=== PATIENT | male | born 1955 | race Caucasian/White ===

== ENCOUNTER 2022-04-04 11:58 | Outpatient (CLI) | payer MEDICARE, OTHER, SELFPAY ==
[2022-04-04 13:32] LABS: Albumin* 4.6 g/dL (3.3-5.0); Chloride* 104 mmol/L (96-114)
[2022-04-04 13:33] LABS: Potassium* 5.4 mmol/L (3.6-5.1); Sodium* 141 mmol/L (135-149)
[2022-04-04 13:35] LABS: Aspartate Amino Transferase* 29 U/L (12-35); Bilirubin Total* 0.8 mg/dL (0.1-1.5); Carbon Dioxide* 32 mmol/L (20-32); Cholesterol* 283 mg/dL (90-199); Creatinine* 1.6 mg/dL (0.5-1.5); Estimated Glomerular Filt Rate 47 ml/min; Total Protein* 7.2 g/dL (6.0-8.3)
[2022-04-04 13:36] LABS: Alanine Aminotransferase* 27 U/L (4-50); Alkaline Phosphatase* 61 U/L (40-150); Blood Urea Nitrogen* 16 mg/dL (7-30); Calcium* 9.4 mg/dL (8.4-10.6); Glucose* 82 mg/dL (60-115); HDL Cholesterol* 39 mg/dL (>=40); LDL Cholesterol Calculated 188 mg/dL (<100); Triglycerides* 281 mg/dL (40-149)
[2022-04-04 14:03] LABS: PSA Screen* 2.78 ng/mL (0.10-4.00)
== END 2022-04-04 11:59 | disposition home or self-care (01) ==
LOC: NFLDREF 11:58
PROVIDERS: PCP Family Medicine; Visit Provider Family Medicine
DX: E78.5 Hyperlipidemia, unspecified (principal); Z12.5 Encounter for screening for malignant neoplasm of prostate
CPT/HCPCS: 80053; 80061; 84153

== ENCOUNTER 2023-02-17 08:55 | Outpatient (CLI) | payer MEDICARE, OTHER, SELFPAY | END 2023-02-17 08:56 | disposition home or self-care (01) | LOC: NFLDREF 08:59 | PROVIDERS: PCP Family Medicine; Visit Provider Family Medicine | DX: Z01.818 Encounter for other preprocedural examination (principal); I10 Essential (primary) hypertension; E78.5 Hyperlipidemia, unspecified; E66.9 Obesity, unspecified; E29.1 Testicular hypofunction; Z12.5 Encounter for screening for malignant neoplasm of prostate | CPT/HCPCS: 80053; 80061; 84153; 84403 ==

== ENCOUNTER 2023-05-13 10:53 | Outpatient (CLI) | payer MEDICARE, OTHER, SELFPAY | END 2023-05-13 10:54 | disposition home or self-care (01) | LOC: NFLDREF 10:54 | PROVIDERS: PCP Family Medicine; Visit Provider Family Medicine | DX: I10 Essential (primary) hypertension (principal) | CPT/HCPCS: 80048 ==

== ENCOUNTER 2023-07-09 09:27 | Outpatient (CLI) | payer MEDICARE, OTHER, SELFPAY | END 2023-07-09 09:28 | disposition home or self-care (01) | LOC: NFLDREF 07-21 19:57 | PROVIDERS: PCP Family Medicine; Referring Provider Family Medicine; Visit Provider Family Medicine | DX: I10 Essential (primary) hypertension (principal) | CPT/HCPCS: 80048 ==

== ENCOUNTER 2023-07-22 23:22 | Emergency (ER) | payer MEDICARE, OTHER, SELFPAY ==
[2023-07-22 23:31] VITALS: BP 160/93; PULSE 63; RESP 18; TEMP 36.6; O2SAT 98; BMI 35.0
--- NOTE | 2023-07-22 23:49 | ED.GENADULT ---
HPI - General Adult General Chief complaint: Anxiety Stated complaint: anxiety attack Time Seen by Provider: 07/22/23 23:49 History of Present Illness HPI narrative: pt states weaned off paroxetine for 2 months, ended may. states used to do great on that but stopped r/t ED. states ED improved but anxiety came back. PCP gave 12 pills of - what he thinks is- lorazepam but that didnt help, pt seen Urgent care today that gave rx for propranolol 10mg, pt states it helped very short term and now he is struggling to sleep. next appointment is next but couldnt wait that long. pt is on doxycycline for sinus infx. 68-year-old man presenting to the emergency department with concern of inability sleep. Underlying history of anxiety and had managed to wean himself off of paroxetine. Describes a long taper with liquid medication is was unable to stop abruptly. Reason for discontinuation was ED. anxiety unfortunately has come back. He he had received lorazepam from primary care and was seen in urgent care today given propranolol but does not sound to have tolerated that very well; thought it briefly helpful but then became rather woozy. He is now at this time of night desperate for sleep. Thoughts just get to tumbling, escalating. Was also given doxycycline for some congestion. Sounds like there was concern of sinus issues. He describes feelings of mucus in his throat that he gets desperate to clear. Some pressure in his upper head but no actual pain. He just feels like he is going out of his skin with anxiety. Has tried to stay active. Has been putting in long walks. 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 He does recall a history of Xanax being helpful for this anxiety. He acknowledges that these are medications that can be habit-forming. Prescriptions typically lasted him some time he says and describes taking them less than prescribed. Does have a history of sleep apnea and uses CPAP. Related Data Home Medications Medication Instructions Recorded Confirmed pentoxifylline 400 mg 400 mg PO BID 04/16/22 07/22/23 tablet,extended release testosterone enanthate 100 mg/0.5 100 mg subcut QWEEK 08/06/22 07/22/23 mL subcutaneous auto-injector (Xyosted) balance of nature PO QDAY 04/21/23 07/22/23 oxygen-air delivery systems 04/21/23 07/22/23 Previous Rx's Medication Instructions Recorded famotidine 20 mg tablet 20 mg PO BID #180 tabs 04/16/22 bupropion HCl 300 mg 24 hr tablet, 300 mg PO DAILY #90 tabs 04/21/23 extended release lisinopril 10 mg tablet 10 mg PO QDAY #90 tabs 04/21/23 chlorthalidone 25 mg tablet 25 mg PO QDAY #90 tabs 06/17/23 doxycycline hyclate 100 mg tablet 100 mg PO BID 7 days #14 tabs 07/22/23 propranolol 10 mg tablet 10 mg PO BID #10 tabs 07/22/23 lorazepam 1 mg tablet 1 mg PO BID PRN anxiety #10 tabs 07/23/23 Allergies Allergy/AdvReac Type Severity Reaction Status Date / Time penicillin V Allergy Intermediate swelling Verified 07/22/23 11:46 in throat and face Review of Systems Status of ROS: Reports: 6 or more systems reviewed and unremarkable except as noted in History and below PFSH PFS Surgical History (Updated 04/14/22 @ 16:02 by Gely Menchaca) Status post total right knee replacement ?Z96.651 - Presence of right artificial knee joint (ICD-10) Social History What is your current living situation?: I presently have a place to live Problems where you live: no known problems In the past 12 months, utilities in danger of being shut off: no In past 12 months, lack of transportation kept you from medical appts, meetings, work, or getting things needed for daily living: no In the past 12 mos, have been you worried that your food would run out before you had money to buy more?: never true In the past 12 mos, the food you bought just didn't last and you didn't have money to buy more?: never true Smoking Status: Never smoker How often do you have a drink containing alcohol: never AUDIT-C Alcohol total score: 0 Non-prescribed substance use: denies use How often does anyone, including family, friends and others, physically hurt you: never How often does anyone, including family, friends and others, insult or talk down to you: never How often does anyone, including family, friends and others, threaten you with harm: never How often does anyone, including family, friends and others, scream or curse at you: never Little interest or pleasure in doing things: not at all Feeling down, depressed, or hopeless: not at all Exam Narrative: Exam Narrative: I find him seated on the edge of the bed. He has been feeling claustrophobic he reports. The door to the exam room has been left open. Clearly stressed, animated. Otherwise pacing. Sounds maybe a little congested. No facial swelling erythema or tenderness. Lungs are clear. Heart is in a regular rate and rhythm. Oropharynx is thick posteriorly. Mild erythema. No cervical lymphadenopathy. Const: Vital Signs, click to edit/add: Vital Signs - 24 hr 07/22/23 23:31 Temperature 97.9 F Pulse Rate [Pulse Oximeter] 63 Respiratory Rate 18 Blood Pressure [Ri ght Upper Arm] 160/93 H Pulse Oximetry 98 Oxygen Delivery Me thod Room Air Documenting provider has reviewed patient's vital signs: yes Course Vital Signs Vital signs: Initial Vital Signs Temperature 97.9 F 07/22/23 23:31 Temperature Source Temporal Artery Scan 07/22/23 23:31 Pulse Rate 63 07/22/23 23:31 Respiratory Rate 18 07/22/23 23:31 Blood Pressure 160/93 H 07/22/23 23:31 Blood Pressure Mean 115 H 07/22/23 23:31 Blood Pressure Position Sitting 07/22/23 23:31 Pulse Oximetry 98 07/22/23 23:31 Oxygen Delivery Method Room Air 07/22/23 23:31 Vital Signs Temperature 97.9 F 07/22/23 23:31 Pulse Rate 63 07/22/23 23:31 Respiratory Rate 18 07/22/23 23:31 Blood Pressure 160/93 H 07/22/23 23:31 Pulse Oximetry 98 07/22/23 23:31 Oxygen Delivery Method Room Air 07/22/23 23:31 Temperature 97.9 F 07/22/23 23:31 Pulse Rate 63 07/22/23 23:31 Respiratory Rate 18 07/22/23 23:31 Blood Pressure 160/93 H 07/22/23 23:31 Pulse Oximetry 98 07/22/23 23:31 Oxygen Delivery Method Room Air 07/22/23 23:31 Medications Administered Medications: Discontinued Medications Generic Name Dose Route Start Last Admin Trade Name Freq PRN Reason Stop Dose Admin Olanzapine 20 mg 07/23/23 00:14 07/23/23 00:19 Olanzapine 5 Mg Tab.Rapdis PO 20 mg ONCE PRN Administration Anxiety Medical Decision Making MDM Narrative Medical decision making narrative: Clearly anxious. Perhaps with a couple nights of sleep might have more confidence. Does have support of CPAP. I do not think that he has sinus infection and unlikely to benefit from doxycycline. I think a few doses of olanzapine would be helpful to sleep and possibly help with his anxiety. I do not think that typical [id number] measures will be helpful here. Does acknowledge using acupuncture more remotely for pain relief but not clear this was terribly helpful. Might be effective otherwise? Has follow-up with primary care clinic in about 10 days See further discussion in patient discharge plan including treatment for sinus concerns. Does not have the kind of discomfort would be needing to treat I think with prednisone and further might just exacerbate agitation at this point. Discharge Plan Discharge Clinical Impression: Insomnia, Anxiety Patient Disposition: Home, Self-Care Condition: Stable Additional Instructions: Stay well-hydrated. This should help your sinuses. Try to drink 2-3 L of water daily. The fluticasone might be helpful if used regularly for some weeks. Pseudoephedrine is available with local driver's license from the pharmacy. This is helpful for drying and decongestion. If you continue struggle with your sinuses it might be helpful to do daily treatments with a Neti pot nasal and saline rinses. You can buy these kits in the pharmacy. The water should be warm-madison and with recommended quantity of salt, should not burn. Head actually is bent forward so then you won't not feel like you're drowning. Try to return to therapy. Maybe try acupuncture again for anxiety. And continue to stay active. The olanzapine given tonight is to help with sleep/anxiety. Take 1 tab by mouth and if not asleep in an hour take another tab. You do have lorazepam available. Can take 1 mg per dose if needed. Prescriptions: No Action doxycycline hyclate 100 mg tablet 100 mg PO BID 7 Days Qty: 14 0RF propranolol 10 mg tablet 10 mg PO BID Qty: 10 0RF pentoxifylline 400 mg tablet extended release 400 mg PO BID famotidine 20 mg tablet 20 mg PO BID Qty: 180 3RF Xyosted 100 mg/0.5 mL auto-injector 100 mg subcut QWEEK (DME) oxygen-air delivery systems Device See Rx Instructions .Route Rx Instructions: As directed balance of nature PO QDAY lisinopril 10 mg tablet 10 mg PO QDAY Qty: 90 3RF bupropion HCl 300 mg tablet extended release 24 hr 300 mg PO DAILY Qty: 90 3RF chlorthalidone 25 mg tablet 25 mg PO QDAY Qty: 90 3RF lorazepam 1 mg tablet 1 mg PO BID PRN (Reason: anxiety) Qty: 10 0RF Follow Up/Referrals: Mushtaq Garcia MD [Primary Care Provider] - Stand Alone [facility]: [facility] Info Inst[facility]
[2023-07-23] MEDS: OLANZapine 5 MG TAB.RAPDIS 20 MG PO (00:19)
== END 2023-07-23 00:40 | disposition home or self-care (01) ==
LOC: ED 07-23 00:19
PROVIDERS: Emergency Provider Family Medicine; PCP Family Medicine
DX: G47.00 Insomnia, unspecified (principal); F41.9 Anxiety disorder, unspecified
CPT/HCPCS: 99284; A9270

== ENCOUNTER 2023-08-16 14:17 | Inpatient (IN) | payer MEDICARE, OTHER, SELFPAY ==
[2023-08-16 14:30] VITALS: BP 152/73; PULSE 80; RESP 18; TEMP 36.7; O2SAT 98; BMI 35.0
[2023-08-16 14:49] VITALS: O2SAT 98
--- NOTE | 2023-08-16 14:52 | ED_ITS ---
HPI - General Adult General Chief complaint: Nausea/Vomiting Stated complaint: Nausea/vomiting/med interactions, dehyd Time Seen by Provider: 08/16/23 14:23 History of Present Illness HPI narrative: Patient is a 68 year white male who has been working with Dr. Alcantar in a recently worked with psychiatrist. The patient had been on paroxetine in the past but had sexual dysfunction with this and stop that and wean himself off over a couple of months. Since then he has had significant anxiety, he has always suffered with significant anxiety. He denies chest pain, fever, illness. He feels ?dehydrated? and he feels quite anxious and in the ER now he is pretty agitated and he is wanting day get up he feels like ?I am going to crawl out of my skin?. Denies drug or alcohol intake today. As mentioned had no focal neurologic findings no headache. He has been working with a psychiatrist who has restarted him back on paroxetine, he has also been on hydroxyzine, Zofran, Prilosec. He is also on some antihypertensives and he is on pen tox a feel from his urologist. Related Data Home Medications Medication Instructions Recorded Confirmed pentoxifylline 400 mg 400 mg PO BID 04/16/22 08/05/23 tablet,extended release testosterone enanthate 100 mg/0.5 100 mg subcut QWEEK 08/06/22 08/05/23 mL subcutaneous auto-injector (Xyosted) balance of nature PO QDAY 04/21/23 08/05/23 oxygen-air delivery systems 04/21/23 08/05/23 famotidine 20 mg tablet 20 mg PO BID PRN 07/28/23 08/05/23 Previous Rx's Medication Instructions Recorded bupropion HCl 300 mg 24 hr tablet, 300 mg PO DAILY #90 tabs 04/21/23 extended release lisinopril 10 mg tablet 10 mg PO QDAY #90 tabs 04/21/23 chlorthalidone 25 mg tablet 25 mg PO QDAY #90 tabs 06/17/23 buspirone 10 mg tablet 10 - 20 mg (1 - 2 x 10 mg) PO BID 08/05/23 #120 tabs levofloxacin 500 mg tablet 500 mg PO QDAY #7 tabs 08/05/23 lorazepam 1 mg tablet 1 mg PO BID PRN anxiety #20 tabs 08/05/23 Allergies Allergy/AdvReac Type Severity Reaction Status Date / Time penicillin V Allergy Intermediate swelling Verified 08/16/23 14:37 in throat and face Review of Systems Status of ROS: Reports: 6 or more systems reviewed and unremarkable except as noted in History and below [facility] Surgical History Status post total right knee replacement ?Z96.651 - Presence of right artificial knee joint (ICD-10) Social History What is your current living situation?: I presently have a place to live Problems where you live: no known problems In the past 12 months, utilities in danger of being shut off: no In past 12 months, lack of transportation kept you from medical appts, meetings, work, or getting things needed for daily living: no In the past 12 mos, have been you worried that your food would run out before you had money to buy more?: never true In the past 12 mos, the food you bought just didn't last and you didn't have money to buy more?: never true Smoking Status: Never smoker How often do you have a drink containing alcohol: never AUDIT-C Alcohol total score: 0 Non-prescribed substance use: denies use How often does anyone, including family, friends and others, physically hurt you : never How often does anyone, including family, friends and others, insult or talk down to you: never How often does anyone, including family, friends and others, threaten you with harm: never How often does anyone, including family, friends and others, scream or curse at you: never Little interest or pleasure in doing things: more than half the days Feeling down, depressed, or hopeless: not at all Exam Narrative: Exam Narrative: Objective: Patient's vital signs are with within normal limits with the exception of his systolic blood pressure is little elevated 152 He is alert orient x3, he appears anxious, he talks quickly. He is oriented to person place and time HEENT is unremarkable no facial asymmetry Pulse regular Heart rhythm regular without murmur Lungs clear Abdomen benign Extremities he is moving all 4s and has normal function Const: Vital Signs, click to edit/add: Vital Signs - 24 hr 08/16/23 14:30 08/16/23 14:49 Temperature 98.0 F Pulse Rate [Right Pulse Oximeter] 80 Respiratory Rate 18 Blood Pressure [Ri ght Upper Arm] 152/73 H Pulse Oximetry 98 98 Oxygen Delivery Me thod Room Air Course Vital Signs Vital signs: Initial Vital Signs Temperature 98.0 F 08/16/23 14:30 Temperature Source Temporal Artery Scan 08/16/23 14:30 Pulse Rate 80 08/16/23 14:30 Pulse Rhythm Regular 08/16/23 14:30 Pulse Strength 3+ Normal 08/16/23 14:30 Respiratory Rate 18 08/16/23 14:30 Blood Pressure 152/73 H 08/16/23 14:30 Blood Pressure Mean 99 08/16/23 14:30 Blood Pressure Position Sitting 08/16/23 14:30 Pulse Oximetry 98 08/16/23 14:30 Oxygen Delivery Method Room Air 08/16/23 14:30 Vital Signs Temperature 98.0 F 08/16/23 14:30 Pulse Rate 80 08/16/23 14:30 Respiratory Rate 18 08/16/23 14:30 Blood Pressure 152/73 H 08/16/23 14:30 Pulse Oximetry 98 08/16/23 14:30 Oxygen Delivery Method Room Air 08/16/23 14:30 Temperature 98.0 F 08/16/23 14:30 Pulse Rate 80 08/16/23 14:30 Respiratory Rate 18 08/16/23 14:30 Blood Pressure 152/73 H 08/16/23 14:30 Pulse Oximetry 98 08/16/23 14:49 Oxygen Delivery Method Room Air 08/16/23 14:30 Medications Administered Medications: Discontinued Medications Generic Name Dose Route Start Last Admin Trade Name Freq PRN Reason Stop Dose Admin Sodium Chloride 1,000 mls @ 6,000 mls/hr 08/16/23 15:00 08/16/23 15:42 0.9 % Sodium Chloride 1000 Ml IV 08/16/23 15:09 Infused .Q10M BETY Infusion Olanzapine 5 mg 08/16/23 14:49 08/16/23 15:17 Olanzapine 5 Mg/Ml Inj IVP 08/16/23 14:50 5 mg ONCE ONE Administration Medical Decision Making MDM Narrative Medical decision making narrative: [age] year white male with significant lifelong anxiety with worsening anxiety since weaning off paroxetine. He was having sexual dysfunction wi this medication. At this point however his anxieties disabling is he in his psychiatrist of elected to restart the paroxetine. He has also started several other medications that certainly could be giving him trouble but I think most of his issues are anxiety related. He is actually having some type of panic attack now where he is very anxious, crawling out of his skin feeling, and restless. I think at this point he does have lorazepam at home that does help him somewhat but I am going to give him 5 mg IV Zyprexa to see if it would break this panic and anxiety cycle. Would have him continue his medicines with exception of the Zofran which certainly could given its new give him some trouble. I think he can not continue his other medications, will check electrolytes, given some IV fluid in the Zyprexa. Disposition pending response. Addendum 3:51 p.m.: Patient has a sodium 109, he got a saline L. he feels a little bit calmer with the Zyprexa in the fluid. Given his low sodium he will need admission to the hospital. He was in agreement with the plan. Dr. scott kindly accepts Lab Data Labs: Lab Results 08/16/23 Range/Units 14:59 WBC 13.29 H (4.50-11.00) K/uL RBC 5.86 (4.30-5.90) m/uL Hgb 18.0 H (13.5-17.5) gm/dL Hct 46.3 (37.0-53.0) % MCV 79 L (80-100) fL MCH 31 (26-34) pg MCHC 39 H (32-36) gm/dL RDW Coeff of Layla 11.6 (11.5-15.5) % Plt Count 242 (140-440) K/uL Neut % (Auto) 69.7 (42.0-72.0) % Lymph % (Auto) 21.7 (20-44) % Hawkins % (Auto) 7.8 (0.0-11.0) % Eos % (Auto) 0.1 (0.0-7.0) % Baso % (Auto) 0.2 (0.0-3.0) % Neut # (Auto) 9.26 H (1.7-7.0) K/uL Lymph # (Auto) 2.88 (0.90-2.90) K/uL Hawkins # (Auto) 1.04 H (0.00-0.90) K/UL Eos # (Auto) 0.01 (0.00-0.50) K/uL Baso # (Auto) 0.03 (0.00-0.30) K/uL Abs Immat Gran (auto) 0.07 (0.00-0.30) K/uL Imm/Tot Granulo (auto) 0.5 % Diff Slide Review Acceptable Review (Acceptable) Sodium 109 L* (135-149) mmol/L Potassium 3.5 L (3.6-5.1) mmol/L Chloride 74 L (96-114) mmol/L Carbon Dioxide 23 (20-32) mmol/L Anion Gap 12 (7-15) mEq/L BUN 15 (7-30) mg/dL Creatinine 1.1 (0.5-1.5) mg/dL Estimated Creat Clear 60.45 Estimated GFR 72 ml/min Glucose 115 (60-115) mg/dL Calcium 9.8 (8.4-10.6) mg/dL C-Reactive Protein 1.7 H (0.5-1.0) mg/dL Discharge Plan Discharge Clinical Impression: Anxiety, Panic attack Patient Disposition: Home w/ Parent or Adult Condition: Improved Additional Instructions: Update psychiatrist in the next day or 2, would hold off on the Zofran right now. Hydration may use the Prilosec and the Ativan. Continue his other medications. He can use the hydroxyzine as needed and prescribed. Light diet, fluids, update regular doctor in the next few days. Return to the ED as needed. Activity Level: Light activity Discharge Diet: Full Liquid Diet Detail: Advance diet as tolerated Prescriptions: No Action famotidine 20 mg tablet 20 mg PO BID PRN pentoxifylline 400 mg tablet extended release 400 mg PO BID Xyosted 100 mg/0.5 mL auto-injector 100 mg subcut QWEEK (DME) oxygen-air delivery systems Device See Rx Instructions .Route Rx Instructions: As directed balance of nature PO QDAY lisinopril 10 mg tablet 10 mg PO QDAY Qty: 90 3RF bupropion HCl 300 mg tablet extended release 24 hr 300 mg PO DAILY Qty: 90 3RF levofloxacin 500 mg tablet 500 mg PO QDAY Qty: 7 0RF buspirone 10 mg tablet 10 - 20 mg PO BID Qty: 120 1RF lorazepam 1 mg tablet 1 mg PO BID PRN (Reason: anxiety) Qty: 20 0RF chlorthalidone 25 mg tablet 25 mg PO QDAY Qty: 90 3RF Follow Up/Referrals: Mushtaq Garcia MD [Primary Care Provider] - Stand Alone Forms: [facility] Info Instructions
[2023-08-16 15:05] LABS: Basophils Percent Auto 0.2 % (0.0-3.0); Hematocrit 46.3 % (37.0-53.0); Immature Granulocytes Pct Auto 0.5 %; Mean Corpuscular HGB Conc 39 gm/dL (32-36); Mean Corpuscular Hemoglobin 31 pg (26-34); Mean Corpuscular Volume 79 fL (80-100); Platelet Count* 242 K/uL (140-440); RDW Coefficient of Variation % 11.6 % (11.5-15.5); Red Blood Count 5.86 m/uL (4.30-5.90)
[2023-08-16 15:17] LABS: Chloride* 74 mmol/L (96-114)
[2023-08-16] MEDS: 0.9 % SODIUM CHLORIDE 1000 ml 1,000 ML 6000 ML IV (15:17)
[2023-08-16] MEDS: OLANZapine 5 MG/ML inj IVP (15:17)
[2023-08-16 15:18] LABS: Potassium* 3.5 mmol/L (3.6-5.1); White Blood Count* 13.29 K/uL (4.50-11.00)
[2023-08-16 15:19] LABS: Basophils Absolute Auto 0.03 K/uL (0.00-0.30); Eosinophils Absolute Auto 0.01 K/uL (0.00-0.50); Eosinophils Percent Auto 0.1 % (0.0-7.0); Immature Granulocytes Abs Auto 0.07 K/uL (0.00-0.30); Lymphocytes Absolute Auto 2.88 K/uL (0.90-2.90); Lymphocytes Percent Auto 21.7 % (20-44); Monocytes Absolute Auto 1.04 K/UL (0.00-0.90); Monocytes Percent Auto 7.8 % (0.0-11.0); Neutrophils Absolute Auto 9.26 K/uL (1.7-7.0); Neutrophils Percent Auto 69.7 % (42.0-72.0); Slide Review Reflex Yes
[2023-08-16 15:20] LABS: Creatinine* 1.1 mg/dL (0.5-1.5); Est. Creatinine Clearance* 60.45; Estimated Glomerular Filt Rate 72 ml/min
[2023-08-16 15:21] LABS: Anion Gap 12 mEq/L (7-15); Blood Urea Nitrogen* 15 mg/dL (7-30); Calcium* 9.8 mg/dL (8.4-10.6); Carbon Dioxide* 23 mmol/L (20-32); Glucose* 115 mg/dL (60-115)
[2023-08-16 15:24] LABS: C Reactive Protein* 1.7 mg/dL (0.5-1.0); Slide Review Acceptable Review (Acceptable)
[2023-08-16 15:26] LABS: Sodium* 109 mmol/L (135-149)
[2023-08-16 16:06] VITALS: BP 153/89; PULSE 67; RESP 22; TEMP 36.6; O2SAT 98; BMI 35.2
[2023-08-16 16:20] LABS: Magnesium* 1.7 mg/dL (1.5-2.6)
[2023-08-16 16:21] LABS: Ethanol* < 0.01 % (0.01-0.03)
--- NOTE | 2023-08-16 16:25 | P.IMHP_ITS ---
Hospitalist- H&P: HPI History of Present Illness Time Seen by Provider: 16:40 Date Seen: 08/16/23 Chief complaint: Nausea/vomiting/med interactions, dehyd Narrative: Duy Schreiber is a 68 year old male with anxiety and panic attacks, obstructive sleep apnea, obesity, hypertension, hyperlipidemia, GERD, and irritable bowel syndrome who has been working with his psychiatrist to adjust his medications for anxiety med has become increasingly more anxious, nauseous and irritable for which he presented to the ER today. He was found to have a sodium of 109. He had a sodium in clinic at the end of last month that was 137. He tells me that he had been on paroxetine for many years for anxiety and panic attacks, and this had been working well for him, but he has significant sexual side effects which did not improve with a surgery for erectile dysfunction last fall and so he weaned off paroxetine slowly from the 17 of April through the end of May. Sometime in mid June he started becoming more anxious and having panic attacks. His also noticed the change. In the meantime he also developed an acute sinusitis for which he was started on levofloxacin a few weeks ago. After finishing that antibiotic, he started feeling nauseous and had diarrhea. He started drinking more water and Gatorade. He normally drinks about 60-80 oz of water per day and has an occasional soda pop in addition to that, but more recently has been drinking 80 or more oz of water and Gatorade every day. His nausea continued to get worse and he felt more fatigued, but also anxious, waking up frequently at night with panic attacks. He also felt very foggy which he attributes to taking lorazepam and hydroxyzine for anxiety. His noticed that he was getting confused and irritable. He also complains of severe restless legs that started around the time he started becoming nauseous. He has been in contact with his psychiatrist, Dr. De La Garza, almost every day because of the severity of his anxiety and panic attacks. Last week he started BuSpar and then it was quickly increased. He also started bupropion and duloxetine last week. BuSpar and duloxetine were discontinued after about 3 or 4 days and he has stayed on bupropion. After those 2 medications were discontinued, he was started back on paroxetine and has taken 2 doses of that, including 1 this morning. He has also been taking hydroxyzine and lorazepam as I mentioned as needed for anxiety. He has had a markedly decreased appetite with nausea over the last few days and has not eaten very much other than a few club crackers. He complains of feeling very dry and dehydrated and wants to drink water constantly. During my interview he was asking for water several times. He is also getting up to use the bathroom frequently, especially getting saline in the ER. Review of Systems Status of ROS: Reports: 10 or more systems reviewed and unremarkable except as noted in History and below Const: Reports: fatigue and change in sleep pattern; Denies: fever, chills or night sweats Eyes: Reports: blurry vision ENMT: Reports: dry mouth; Denies: throat pain, neck pain, difficulty swallowing, swelling of lips/tongue or nasal congestion (cleared up with levofloxacin) Cardio: Denies: chest pain, palpitations, swelling of feet/ankles or shortness of breath with exertion Resp: Denies: shortness of breath GI: Denies: difficulty swallowing : Reports: urinary frequency, difficulty urinating, difficulty starting urination, urinary dribbling and other (incomplete emptying); Denies: painful urination or urinary urgency Musculo: Reports: muscle cramps; Denies: back pain, neck pain or joint swelling Integ/Breast: Denies: rash or redness Neuro: Reports: weakness in extremities, confusion, behavioral changes (irritable) and other (RLS, throbbing legs) Psych: Reports: anxiety, panic attacks and irritability; Denies: visual hallucinations or auditory hallucinations Endo: Reports: fatigue Henry/Lymph: Denies: easy bruising or enlarged lymph nodes [facility] Medical History (Updated 08/16/23 @ 23:07 by Naheed Slaughter MD) Obstructive sleep apnea (07/10/10) ?G47.33 - Obstructive sleep apnea (adult) (pediatric) (ICD-10) Panic attack ?F41.0 - Panic disorder [episodic paroxysmal anxiety] (ICD-10) Anxiety ?F41.9 - Anxiety disorder, unspecified (ICD-10) Osteoarthritis of left knee ?M17.12 - Unilateral primary osteoarthritis, left knee (ICD-10) Obesity (07/10/10) ?E66.9 - Obesity, unspecified (ICD-10) Microalbuminuria ?R80.9 - Proteinuria, unspecified (ICD-10) Irritable bowel syndrome (07/10/10) ?K58.9 - Irritable bowel syndrome without diarrhea (ICD-10) Hypogonadism in male ?E29.1 - Testicular hypofunction (ICD-10) Hypertension (07/10/10) ?I10 - Essential (primary) hypertension (ICD-10) Hyperlipidemia (07/10/10) ?E78.5 - Hyperlipidemia, unspecified (ICD-10) Gastroesophageal reflux (07/10/10) ?K21.9 - Gastro-esophageal reflux disease without esophagitis (ICD-10) Electrocution and nonfatal effects of electric current ?T75.4XXA - Electrocution, initial encounter (ICD-10) Depression (07/10/10) ?F32.A - Depression, unspecified (ICD-10) Benign prostatic hyperplasia ?N40.0 - Benign prostatic hyperplasia without lower urinary tract symptoms (ICD-10) Basal cell carcinoma of face (05/21/11) ?C44.310 - Basal cell carcinoma of skin of unspecified parts of face (ICD-10) Atypical chest pain ?R07.89 - Other chest pain (ICD-10) Surgical History H/O left inguinal hernia repair (07/10/10) ?Z98.890 - Other specified postprocedural states (ICD-10) ?Z87.19 - Personal history of other diseases of the digestive system (ICD-10) S/P cervical spinal fusion (07/10/10) ?Z98.1 - Arthrodesis status (ICD-10) Status post total right knee replacement ?Z96.651 - Presence of right artificial knee joint (ICD-10) Social History (Updated 08/16/23 @ 19:41 by Naheed Slaughter MD) Narrative: . His , Kathleen, is here with him. 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 He is a lifelong nonsmoker, has 1 beer per year, denies recreational drug use. What is your current living situation?: I presently have a place to live Problems where you live: no known problems Problems where you live details: none In the past 12 months, utilities in danger of being shut off: no In past 12 months, lack of transportation kept you from medical appts, meetings, work, or getting things needed for daily living: no In the past 12 mos, have been you worried that your food would run out before you had money to buy more?: never true In the past 12 mos, the food you bought just didn't last and you didn't have money to buy more?: never true Highest level of school completed/degree received: Associate degree: occupational, technical, vocational program Smoking Status: Never smoker How often do you have a drink containing alcohol: monthly or less AUDIT-C Alcohol total score: 1 Non-prescribed substance use: denies use Caffeine: No (pop) How often does anyone, including family, friends and others, physically hurt you : never How often does anyone, including family, friends and others, insult or talk down to you: never How often does anyone, including family, friends and others, threaten you with harm: never How often does anyone, including family, friends and others, scream or curse at you: never Little interest or pleasure in doing things: more than half the days Feeling down, depressed, or hopeless: not at all service: No Meds Home Medications and Allergies Home Medications Medication Instructions Recorded Confirmed Type pentoxifylline 400 mg 400 mg PO TID 04/16/22 08/16/23 History tablet,extended release testosterone enanthate 100 mg/0.5 100 mg subcut QWEEK 08/06/22 08/16/23 History mL subcutaneous auto-injector (Xyosted) balance of nature 6 tab PO QDAY 04/21/23 08/16/23 History oxygen-air delivery systems 04/21/23 08/05/23 History bupropion HCl 150 mg 24 hr tablet, 150 mg PO DAILY 08/16/23 08/16/23 History extended release hydroxyzine pamoate 50 mg capsule 50 mg PO Q8H PRN 08/16/23 08/16/23 History lisinopril 10 mg tablet 10 mg PO HS 08/16/23 08/16/23 History lorazepam 1 mg tablet 0.5 mg PO TID PRN anxiety 08/16/23 08/16/23 History ondansetron 4 mg disintegrating 4 mg PO Q12H PRN 08/16/23 08/16/23 History tablet pantoprazole 40 mg tablet,delayed 40 mg PO DAILY 08/16/23 08/16/23 History release paroxetine HCl 20 mg tablet 20 mg PO DAILY 08/16/23 08/16/23 History Home Medication Comments: Had surgery for ED last fall. Weaned paroxetine 40 mg due to sexual side effects, started wean April. Weaned off 1cc every 2-4 days. Finished wean last day of May. Started feeling panic attacks again end of Jun. Started paroxetine 2 days ago. Allergies Allergy/AdvReac Type Severity Reaction Status Date / Time penicillin V Allergy Intermediate swelling Verified 08/16/23 14:37 in throat and face Exam Narrative: Exam Narrative: General: Anxious, mildly confused, tangential speech. I spent 40 minutes gathering a history due to him frequently giving tangential information. Awake alert oriented x3. Obese. HEENT: Normocephalic atraumatic, pupils equally round and reactive to light and accommodation. Oropharynx clear. Mucous membranes are moist. No cervical lymphadenopathy, thyromegaly or carotid bruits. No JVD. Cardiovascular: Regular rate and rhythm. No murmurs, gallops, or rubs. Chest: No increased work of breathing. Clear to auscultation bilaterally. No crackles or wheezes. Abdomen: Bowel sounds present. Soft, nondistended, nontender. No he patosplenomegaly or masses. Extremities: No edema, no cyanosis or clubbing. Skin: No jaundice, no pallor, no rashes. Neuro: There are no focal deficits. Romberg is negative. Gait is within normal limits. Cranial nerves 2-12 are intact. Extraocular movements are full. No nystagmus. No facial asymmetry. Tongue is midline. Peripheral vision and vision are grossly intact. Strength is 5/5 in all 4 extremities. Light touch sensation is intact in face body and extremities. Coordination is intact in upper and lower extremities. Const: Vital Signs, click to edit/add: Vital Signs - 24 hr 08/16/23 14:30 08/16/23 14:49 08/16/23 16:06 Temperature 98.0 F 97.9 F Pulse Rate [Pulse Oximeter] 67 Pulse Rate [Right Pulse Oximeter] 80 Respiratory Rate 18 22 Blood Pressure [Ri ght Arm] 153/89 H Blood Pressure [Ri ght Upper Arm] 152/73 H Pulse Oximetry 98 98 98 Oxygen Delivery Me thod Room Air Room Air Hospitalist - H&P: Result Labs Labs: Short CBC 08/16/23 Range/Units 14:59 WBC 13.29 H (4.50-11.00) K/uL Hgb 18.0 H (13.5-17.5) gm/dL Hct 46.3 (37.0-53.0) % Plt Count 242 (140-440) K/uL BMP 08/16/23 14:59 Sodium 109 L* Potassium 3.5 L Chloride 74 L Carbon Dioxide 23 BUN 15 Creatinine 1.1 Glucose 115 Calcium 9.8 Study: XRay Chest 2 view-08/16/2023 6:30:08 PM Ordering Physician: Naheed Slaughter Final Report: INDICATION: Hyponatremia. TECHNIQUE: Chest 2 views. COMPARISON: June 2016. FINDINGS: Lungs: Normal lung volume. No consolidation. The tracheobronchial tree and hilar structures are unremarkable. Pleura: No pleural effusion or pneumothorax. Heart and Mediastinum: Normal heart size. The great vessels of the thorax are unremarkable. Bones: No acute displaced osseous process. Changes of ACDF. IMPRESSION: No consolidation. Dictated by Akin Hill MD @ 08/16/2023 7:11:46 PM (Electronic Signature) Assessment and Plan Assessment and plan (1) Hyponatremia: Problem comment: - Severe, suspect acute due to polydipsia, chlorthalidone, and recently restarting SSRI. - Admit for treatment, suspect he will need 4 overnights for slowly bringing sodium level up (goal 4-6 mmol/L per 24 hour period). - Was given NS in ER. Check Na level now. Start free water restriction. Seizure precautions. If not yet up by 4-6 points, will give boluses of hypertonic saline with sodium checks after boluses. Status: Acute (2) Anxiety: Problem comment: - hold SSRIs due to hyponatremia and continue hydroxyzine and lorazepam Status: Chronic (3) Depression: Problem comment: Holding SSRIs as above due to hyponatremia Status: Chronic (4) Hypertension: Problem comment: - hold chlorthalidone and lisinopril due to hyponatremia. Monitor. Status: Chronic (5) Obstructive sleep apnea: Problem comment: He uses CPAP at night. His is going to bring this in for him. Status: Chronic Total Time Spent Total Time Spent: Today I spent 70 minutes admitting this patient. Greater than 50% included gathering information during the interview from the patient and his as well as examined the patient.
[2023-08-16 16:31] VITALS: RESP 22; O2SAT 98
[2023-08-16 17:03] LABS: Amphetamine Screen Urine Negative (Negative); Benzodiazepines Screen Urine POSITIVE (Negative); Cannabinoid Screen Urine Negative (Negative); Cocaine Screen Urine Negative (Negative); Methadone Screen Urine Negative (Negative); Methamphetamines Screen Urine Negative (Negative); Opiate Screen Urine Negative (Negative); Phencyclidine Screen Urine Negative (Negative); Tricyclic Antidepressant Urine Negative (Negative)
[2023-08-16 17:04] LABS: Barbiturate Screen Urine Negative (Negative); Oxycodone Screen Urine Negative (Negative)
--- NOTE | 2023-08-16 17:50 | XR_ITS ---
Patient: OSCAR PALOMINO Facility:?[facility] Patient ID:?[id number] Site Patient ID:?[id number]. Site :?[id number] Study:?XRay-Chest 2 view-08/16/2023 6:30:08 PM Ordering Physician:Beni Slaughter Final Report: INDICATION: Hyponatremia. TECHNIQUE: Chest 2 views. COMPARISON: June 2016. FINDINGS: Lungs: Normal lung volume. No consolidation. The tracheobronchial tree and hilar structures are unremarkable. Pleura: No pleural effusion or pneumothorax. Heart and Mediastinum: Normal heart size. The great vessels of the thorax are unremarkable. Bones: No acute displaced osseous process. Changes of ACDF. IMPRESSION: No consolidation. Dictated by Akin Hill MD @ 08/16/2023 7:11:46 PM Signed by:?Akin Hill MD @08/16/2023 7:11:46 PM (Electronic Signature)
[2023-08-16 17:51] LABS: Sodium* 112 mmol/L (135-149)
[2023-08-16] MEDS: POTASSIUM BICARB 25 MEQ EFFERVESCENT TAB PO (18:22)
--- NOTE | 2023-08-16 18:26 | PC.NURSE ---
End of Shift: Patient pleasant and cooperative, alert and oriented. Patient vitally stable, lungs clear, BS WNL, IV SL and intact. Patient denies pain, and independent in room. Patient tolerating regular diet and urinated x1 since admission. Patient lying comfortably in bed.
[2023-08-16 19:00] VITALS: BP 149/74; PULSE 63; RESP 16; TEMP 36.7; O2SAT 94
[2023-08-16] MEDS: LORazepam 1 MG TABLET 0.5 MG PO (21:05)
[2023-08-16] MEDS: ENOXAPARIN 40 MG/0.4 ML INJ SUBCUT (21:09)
[2023-08-16] MEDS: SODIUM CHLORIDE 0.9 % (FLUSH) 10 ML SYRINGE 5 ML IVF (21:10)
[2023-08-16 21:39] LABS: Sodium* 116 mmol/L (135-149)
--- NOTE | 2023-08-16 23:19 | PC.NURSE ---
End of Shift ([id number]): Patient pleasant and cooperative. Afebrile. Denies pain. Up independently in room. No BM this shift. Tolerating regular diet with no nausea.
[2023-08-17] VITALS (7 sets, daily range): BP systolic 123–138; BP diastolic 62–82; PULSE 56–70; RESP 16–18; TEMP 36.2–37.1; O2SAT 92–94
[2023-08-17] MEDS: 5 % DEXTROSE 1000 ML 1,000 ML 50 ML IV (00:20)
[2023-08-17 02:55] LABS: Sodium* 119 mmol/L (135-149)
--- NOTE | 2023-08-17 03:42 | W.PM.CROSSCO ---
Subjective Subjective Interval history: I was contacted by Dr. Slaughter earlier in the evening to follow-up with the morning sodium. We did briefly discuss that patient was placed on D5W after he was found to have a very rapidly rising sodium. On last check patient's sodium was 116. At around 3:10 AM I received a phone call from nursing staff that patient's sodium was up to 119. And D5W was turned off at the time of the sodium was drawn. Immediately on the phone ordered 150 mL/h of D5W as he was previously receiving 50 MLS per hour. Ordered a sodium in 1 hour. I did at that point go look at his laboratory studies. I am very concerned that his rate of rise he is auto diuresing. I do think he needs desmopressin. This has been ordered at 2 mcg IV every 6 hours. we will also plan to give a bolus of D5W 250 mL. In order to stop the rise. After talking with nursing it Appears Will have urinated as much is 900 mL over the last 12 hours. Our goal will be to try to stabilize his sodium around 115. Dipak Glynn DO, Pharm. D.
[2023-08-17] MEDS: DESMOPRESSIN ACETATE 4 MCG/ML inj 2 MCG IVP ×4 (03:50→22:05)
[2023-08-17] MEDS: 5 % DEXTROSE 1000 ML 1,000 ML 150 ML IV (03:52)
[2023-08-17] MEDS: 5 % DEXTROSE 1000 ML 1,000 ML 200 ML IV ×3 (04:26→14:13)
[2023-08-17 04:34] LABS: Basophils Absolute Auto 0.02 K/uL (0.00-0.30); Basophils Percent Auto 0.2 % (0.0-3.0); Eosinophils Absolute Auto 0.09 K/uL (0.00-0.50); Hematocrit 45.2 % (37.0-53.0); Hemoglobin* 17.1 gm/dL (13.5-17.5); Immature Granulocytes Abs Auto 0.04 K/uL (0.00-0.30); Immature Granulocytes Pct Auto 0.4 %; Lymphocytes Absolute Auto 2.08 K/uL (0.90-2.90); Lymphocytes Percent Auto 22.2 % (20-44); Mean Corpuscular HGB Conc 38 gm/dL (32-36); Mean Corpuscular Hemoglobin 31 pg (26-34); Mean Corpuscular Volume 81 fL (80-100); Monocytes Percent Auto 14.9 % (0.0-11.0); Neutrophils Absolute Auto 5.73 K/uL (1.7-7.0); Neutrophils Percent Auto 61.3 % (42.0-72.0); Platelet Count* 215 K/uL (140-440); RDW Coefficient of Variation % 11.9 % (11.5-15.5); Red Blood Count 5.61 m/uL (4.30-5.90); White Blood Count* 9.35 K/uL (4.50-11.00)
[2023-08-17 04:36] LABS: Slide Review Reflex No
[2023-08-17 04:47] LABS: Chloride* 83 mmol/L (96-114); Potassium* 3.4 mmol/L (3.6-5.1)
[2023-08-17 04:50] LABS: Sodium* 119 mmol/L (135-149)
[2023-08-17 04:54] LABS: Anion Gap 7 mEq/L (7-15); Blood Urea Nitrogen* 15 mg/dL (7-30); C Reactive Protein* 1.9 mg/dL (0.5-1.0); Calcium* 9.1 mg/dL (8.4-10.6); Carbon Dioxide* 29 mmol/L (20-32); Creatinine* 1.2 mg/dL (0.5-1.5); Est. Creatinine Clearance* 55.42; Estimated Glomerular Filt Rate 65 ml/min; Glucose* 87 mg/dL (60-115)
[2023-08-17 06:40] LABS: Sodium* 117 mmol/L (135-149)
[2023-08-17 07:23] LABS: Sodium* 118 mmol/L (135-149)
--- NOTE | 2023-08-17 07:37 | PC.NURSE ---
End of shift [id number] ? RN took over care at 2300. Pt alert, oriented, cooperative, and fatigued. Up independently in room, continent of bladder. Pt tolerating RA, regular diet and fluids. Pt denies pain, SOB, nausea. Observed to sleep during shift. Critical value for sodium received from lab, Horizon MD Glynn contacted by charge account identification clerk. Orders received and executed per JUL. VSS, afebrile. Appears to be resting comfortably at end of shift. ?
[2023-08-17 08:23] LABS: Sodium* 117 mmol/L (135-149)
[2023-08-17] MEDS: OMEPRAZOLE 20 MG CAPSULE DR 40 MG PO (08:39)
--- NOTE | 2023-08-17 09:36 | P.IMPN_ITS ---
Progress Note: A&P Assessment and plan (1) Hyponatremia: Problem details: - Severe, suspect acute due to polydipsia, chlorthalidone, and recently restarting SSRI - Admit for treatment, suspect he will need inpatient time for appropriate correction - Was given NS in ER with rapid correction; D5W and desmopressin initiated 08/17/23 to reverse overcorrection - continue to follow closely Status: Acute (2) Anxiety: Problem details: - hold SSRIs due to hyponatremia and continue hydroxyzine and lorazepam - will follow up with Psychiatrist (Frederic) for further management Status: Chronic (3) Depression: Problem details: - Frederic is psychiatrist Status: Chronic (4) Hypertension: Problem details: - holding chlorthalidone and lisinopril due to hyponatremia, currently has age appropriate BP control Status: Chronic (5) Obstructive sleep apnea: Problem details: - continue using home CPAP at night Status: Chronic Plan - per above - continue to follow sodium closely - Lovenox for ppx Subjective Date Seen: 08/17/23 Interval history: Duy was admitted to the hospital on 08/15 for hyponatremia (sodium of 109); presented to the ED with anxiety, GI upset, and feeling dehydrated. Overnight, his sodium overcorrected to 116 after 1 L of IV fluids, D5W initiated at ana ttime. At 0300, sodium up to 119, at which time a bolus was given and Desmopressin initiated. This morning, sodium is 117. Duy is feeling better today. He has had no more diarrhea, has ordered breakfast. No concerns for hospitalist team. He will follow up with his Psychiatrist for his anxiety and medication management as an outpatient. Exam Narrative: Exam Narrative: GEN: Alert and oriented, laying comfortably in bed and answering questions appropriately HEENT: EOMIs bilaterally, no scleral icterus CV: RRR, No concerning murmurs R: LCTA bilaterally without concerning wheezing Ab: Soft, nontender, normoactive bowel sounds Ext: wwp, no concerning edema Skin: No concerning skin lesions or rashes on exposed skin Neuro: No focal deficits Psych: Appropriate Const: Vital Signs, click to edit/add: Vital Signs - 24 hr 08/16/23 14:30 08/16/23 14:49 08/16/23 16:06 Temperature 98.0 F 97.9 F Pulse Rate [Pulse Oximeter] 67 Pulse Rate [Right Pulse Oximeter] 80 Respiratory Rate 18 22 Blood Pressure [Le ft Arm] Blood Pressure [Ri ght Arm] 153/89 H Blood Pressure [Ri ght Upper Arm] 152/73 H Pulse Oximetry 98 98 98 Oxygen Delivery Me thod Room Air Room Air 08/16/23 16:31 08/16/23 19:00 08/17/23 00:27 Temperature 98.1 F 97.1 F L Pulse Rate [Pulse Oximeter] 63 61 Pulse Rate [Right Pulse Oximeter] Respiratory Rate 22 16 16 Blood Pressure [Le ft Arm] 149/74 H 132/82 Blood Pressure [Ri ght Arm] Blood Pressure [Ri ght Upper Arm] Pulse Oximetry 98 94 93 Oxygen Delivery Me thod Room Air Room Air Room Air 08/17/23 03:58 Temperature 97.3 F L Pulse Rate [Pulse Oximeter] 56 L Pulse Rate [Right Pulse Oximeter] Respiratory Rate 16 Blood Pressure [Le ft Arm] 123/62 Blood Pressure [Ri ght Arm] Blood Pressure [Ri ght Upper Arm] Pulse Oximetry 94 Oxygen Delivery Me thod Room Air Labs Labs: Laboratory Results - last 24 hr 08/16/23 08/16/23 08/16/23 14:59 16:04 16:40 WBC 13.29 H RBC 5.86 Hgb 18.0 H Hct 46.3 MCV 79 L MCH 31 MCHC 39 H RDW Coeff of Layla 11.6 Plt Count 242 Neut % (Auto) 69.7 Lymph % (Auto) 21.7 [place] % (Auto) 7.8 Eos % (Auto) 0.1 Baso % (Auto) 0.2 Neut # (Auto) 9.26 H Lymph # (Auto) 2.88 [place] # (Auto) 1.04 H Eos # (Auto) 0.01 Baso # (Auto) 0.03 Abs Immat Gran (auto) 0.07 Imm/Tot Granulo (auto) 0.5 Diff Slide Review Acceptable Review Sodium 109 L* Potassium 3.5 L Chloride 74 L Carbon Dioxide 23 Anion Gap 12 BUN 15 Creatinine 1.1 Estimated Creat Clear 60.45 Estimated GFR 72 Glucose 115 Calcium 9.8 Magnesium 1.7 C-Reactive Protein 1.7 H Urine Opiates Screen Negative Ur Oxycodone Screen Negative Urine Methadone Screen Negative Ur Barbiturates Screen Negative U Tricyclic Antidepress Negative Ur Phencyclidine Scrn Negative Ur Amphetamines Screen Negative U Methamphetamines Scrn Negative U Benzodiazepines Scrn POSITIVE A Urine Cocaine Screen Negative U Marijuana (THC) Screen Negative Ur Drug Screen Comment See Note Ethyl Alcohol < 0.01 L Lab Acknowledgement Test Added 08/16/23 08/16/23 08/17/23 17:17 21:18 02:30 WBC RBC Hgb Hct MCV MCH MCHC RDW Coeff of Layla Plt Count Neut % (Auto) Lymph % (Auto) [place] % (Auto) Eos % (Auto) Baso % (Auto) Neut # (Auto) Lymph # (Auto) [place] # (Auto) Eos # (Auto) Baso # (Auto) Abs Immat Gran (auto) Imm/Tot Granulo (auto) Diff Slide Review Sodium 112 L* 116 L* 119 L* Potassium Chloride Carbon Dioxide Anion Gap BUN Creatinine Estimated Creat Clear Estimated GFR Glucose Calcium Magnesium C-Reactive Protein Urine Opiates Screen Ur Oxycodone Screen Urine Methadone Screen Ur Barbiturates Screen U Tricyclic Antidepress Ur Phencyclidine Scrn Ur Amphetamines Screen U Methamphetamines Scrn U Benzodiazepines Scrn Urine Cocaine Screen U Marijuana (THC) Screen Ur Drug Screen Comment Ethyl Alcohol Lab Acknowledgement 08/17/23 08/17/23 08/17/23 04:25 05:57 06:45 WBC 9.35 RBC 5.61 Hgb 17.1 Hct 45.2 MCV 81 MCH 31 MCHC 38 H RDW Coeff of Layla 11.9 Plt Count 215 Neut % (Auto) 61.3 Lymph % (Auto) 22.2 [place] % (Auto) 14.9 H Eos % (Auto) 1.0 Baso % (Auto) 0.2 Neut # (Auto) 5.73 Lymph # (Auto) 2.08 [place] # (Auto) 1.40 H Eos # (Auto) 0.09 Baso # (Auto) 0.02 Abs Immat Gran (auto) 0.04 Imm/Tot Granulo (auto) 0.4 Diff Slide Review Sodium 119 L* 117 L* 118 L* Potassium 3.4 L Chloride 83 L Carbon Dioxide 29 Anion Gap 7 BUN 15 Creatinine 1.2 Estimated Creat Clear 55.42 Estimated GFR 65 Glucose 87 Calcium 9.1 Magnesium C-Reactive Protein 1.9 H Urine Opiates Screen Ur Oxycodone Screen Urine Methadone Screen Ur Barbiturates Screen U Tricyclic Antidepress Ur Phencyclidine Scrn Ur Amphetamines Screen U Methamphetamines Scrn U Benzodiazepines Scrn Urine Cocaine Screen U Marijuana (THC) Screen Ur Drug Screen Comment Ethyl Alcohol Lab Acknowledgement 08/17/23 07:58 WBC RBC Hgb Hct MCV MCH MCHC RDW Coeff of Layla Plt Count Neut % (Auto) Lymph % (Auto) [place] % (Auto) Eos % (Auto) Baso % (Auto) Neut # (Auto) Lymph # (Auto) [place] # (Auto) Eos # (Auto) Baso # (Auto) Abs Immat Gran (auto) Imm/Tot Granulo (auto) Diff Slide Review Sodium 117 L* Potassium Chloride Carbon Dioxide Anion Gap BUN Creatinine Estimated Creat Clear Estimated GFR Glucose Calcium Magnesium C-Reactive Protein Urine Opiates Screen Ur Oxycodone Screen Urine Methadone Screen Ur Barbiturates Screen U Tricyclic Antidepress Ur Phencyclidine Scrn Ur Amphetamines Screen U Methamphetamines Scrn U Benzodiazepines Scrn Urine Cocaine Screen U Marijuana (THC) Screen Ur Drug Screen Comment Ethyl Alcohol Lab Acknowledgement
[2023-08-17 11:22] LABS: Sodium* 116 mmol/L (135-149)
[2023-08-17] MEDS: buPROPion XL 150 MG TABLET PO (11:23)
[2023-08-17] MEDS: POTASSIUM BICARB 25 MEQ EFFERVESCENT TAB PO (11:47)
--- NOTE | 2023-08-17 14:23 | PC.NURSE ---
End of shift [id number]: Pt is A&O x4, afebrile and VSS. Pt is independent in his room. Denies having a BM today. Reported only x1 urination d/t DDAVP q6H to reverse overcorrection of hyponatremia. PIV in right hand infusing 5% Dextrose @ 200 mL/hr. Pt denies having any nausea or pain, tolerating regular diet. Timed Na draws: 117 > 117 > 116 with the next draw @ 1500. Fluid restriction of 1500 mL being followed. Pt is on seizure precautions d/t critically abnormal labs. He was on enhanced contact precautions for C. Diff r/o. Since pt has not had a BM since admission, isolation precautions were discontinued today. We do still need a stool sample for peripheral smear. Home med Pentoxifylline is in med room bin. Pt has long history of anxiety & depression; he follows a psychiatrist for med adjustments. Daily Buproprion was on hold d/t hyponatremia but was resumed today. Pt usually has questions about his medications and his care when nurse enters the room. ?
[2023-08-17 15:38] LABS: Sodium* 114 mmol/L (135-149)
[2023-08-17 20:51] LABS: Sodium* 117 mmol/L (135-149)
[2023-08-17] MEDS: ENOXAPARIN 40 MG/0.4 ML INJ SUBCUT (21:28)
[2023-08-17] MEDS: SODIUM CHLORIDE 0.9 % (FLUSH) 10 ML SYRINGE 5 ML IVF (21:29)
[2023-08-17] MEDS: 5 % DEXTROSE 1000 ML 1,000 ML 100 ML IV (21:48)
[2023-08-17 23:19] LABS: Sodium* 114 mmol/L (135-149)
[2023-08-18] VITALS (7 sets, daily range): BP systolic 125–154; BP diastolic 71–77; PULSE 62–73; RESP 16–20; TEMP 36.4–37.1; O2SAT 92–98
[2023-08-18] MEDS: DESMOPRESSIN ACETATE 4 MCG/ML inj 2 MCG IVP (03:52)
[2023-08-18] MEDS: SODIUM CHLORIDE 0.9 % (FLUSH) 10 ML SYRINGE 5 ML IVF ×2 (03:55→08:26)
[2023-08-18] MEDS: OMEPRAZOLE 20 MG CAPSULE DR 40 MG PO (05:54)
[2023-08-18 06:33] LABS: Basophils Absolute Auto 0.05 K/uL (0.00-0.30); Basophils Percent Auto 0.5 % (0.0-3.0); Eosinophils Absolute Auto 0.22 K/uL (0.00-0.50); Eosinophils Percent Auto 2.2 % (0.0-7.0); Hematocrit 41.6 % (37.0-53.0); Hemoglobin* 15.6 gm/dL (13.5-17.5); Immature Granulocytes Abs Auto 0.05 K/uL (0.00-0.30); Immature Granulocytes Pct Auto 0.5 %; Lymphocytes Absolute Auto 3.16 K/uL (0.90-2.90); Lymphocytes Percent Auto 31.6 % (20-44); Mean Corpuscular HGB Conc 38 gm/dL (32-36); Mean Corpuscular Hemoglobin 31 pg (26-34); Mean Corpuscular Volume 83 fL (80-100); Monocytes Percent Auto 13.1 % (0.0-11.0); Neutrophils Absolute Auto 5.21 K/uL (1.7-7.0); Neutrophils Percent Auto 52.1 % (42.0-72.0); Platelet Count* 191 K/uL (140-440); RDW Coefficient of Variation % 11.8 % (11.5-15.5); Red Blood Count 5.04 m/uL (4.30-5.90)
[2023-08-18 06:47] LABS: Slide Review Reflex No
--- NOTE | 2023-08-18 06:51 | PC.NURSE ---
Pt alert and oriented x3. Afebrile. Pt denies SOB, chest pain, headache, pain, and N/V. Pt had Na level 117 reported by lab around 2019, updated, Dr. Sukhjinder MD ordered D5 @100ml/hr, Na was drawn by lab again around 2300 Na came back as 114, updated Dr. Sukhjinder MD gave order to D/C D5 and recheck Na with morning labs.?Pt is up ad katelyn in room, voiding, and tolerating a?1500 fluid restriction. Pt slept intermittently throughout night with CPAP on. Night uneventful. ?
[2023-08-18 06:53] LABS: Chloride* 77 mmol/L (96-114); Potassium* 3.2 mmol/L (3.6-5.1)
[2023-08-18 06:56] LABS: Anion Gap 8 mEq/L (7-15); Carbon Dioxide* 30 mmol/L (20-32); Creatinine* 1.1 mg/dL (0.5-1.5); Est. Creatinine Clearance* 60.45; Estimated Glomerular Filt Rate 72 ml/min
[2023-08-18 06:57] LABS: Blood Urea Nitrogen* 15 mg/dL (7-30); Calcium* 8.1 mg/dL (8.4-10.6); Glucose* 84 mg/dL (60-115)
[2023-08-18 07:06] LABS: Sodium* 115 mmol/L (135-149)
[2023-08-18] MEDS: buPROPion XL 150 MG TABLET PO (08:25)
--- NOTE | 2023-08-18 08:58 | PM.IMPN1 ---
Progress Note: A&P Assessment and plan (1) Hyponatremia: Problem details: - Severe, suspect acute due to polydipsia (noted during anxiety flare after tapering off of his Paroxetine), chlorthalidone - urine studies pending - DDAVP and D5W discontinued on 08/16, continue fluid restriction with close monitoring Status: Acute (2) Anxiety: Problem details: - patient requested to restart Paroxetine on 08/17 (was on this for 3+ years without any evidence of hyponatremia) given flare of anxiety and excellent previous response - discussed risk and benefits, patient would like to restart 20mg of Paroxetine (had tapered off of this in June 2023, restarted it on 08/15/23 per psych) - continue prn Hydroxyzine and Lorazepam (patient would prefer to minimize benzo use)? - will follow up with Psychiatrist (Frederic) for further management as an outpatient Status: Chronic (3) Depression: Problem details: - Frederic is psychiatrist Status: Chronic (4) Hypertension: Problem details: - holding chlorthalidone 2/2 hyponatremia, currently has age appropriate BP control - add back in low dose Lisinopril if BP increases Status: Chronic (5) Obstructive sleep apnea: Problem details: - continue using home CPAP at night Status: Chronic Plan - per above - patient requires continued inpatient stay for monitoring Subjective Date Seen: 08/18/23 Interval history: Duy presented to the ED on 08/15 with anxiety, diarrhea (resolved), feeling poorly; admitted for hyponatremia (sodium of 109). He had an overcorrection to 119 that was reversed with D5W and Desmopressin; both were discontinued last night as sodium dropped down to 114. This morning his Sodium was 115. Duy endorses feeling more anxious today, he would like to restart his Paroxetine. We discussed the risk of hyponatremia with SSRIs; he notes that he was on Paroxetine (40mg) for 3+ years without any electrolyte abnormalities, and had tapered off of it in June 19 decreased libido. Given his flare of symptoms, psychiatry restarted this medication at 20mg on 08/15/23 (2 days prior to admission). No history of polydipsia while on Paroxetine (symptoms of polydipsia noted during his time off of the medication). Exam Narrative: Exam Narrative: GEN: Alert and oriented, sitting comfortably in bedside chair HEENT: EOMIs bilaterally, no scleral icterus CV: RRR, No concerning murmurs R: LCTA bilaterally without concerning wheezing, air movement adequate Ext: wwp, no concerning edema Skin: No concerning skin lesions or rashes on exposed skin Neuro: No focal deficits, no resting tremor Psych: Appropriate, endorses feeling anxious this morning Const: Vital Signs, click to edit/add: Vital Signs - 24 hr 08/17/23 11:00 08/17/23 15:00 08/17/23 19:45 Temperature 98 F 98.4 F 98.5 F Pulse Rate [Pulse Oximeter] 61 63 70 Respiratory Rate 16 18 18 Blood Pressure [Ri ght Arm] 133/65 131/64 138/73 Pulse Oximetry 94 94 92 Oxygen Delivery Me thod Room Air Room Air Room Air 08/17/23 21:50 08/18/23 03:53 08/18/23 07:00 Temperature 98.8 F 97.8 F 97.6 F Pulse Rate [Pulse Oximeter] 62 62 65 Respiratory Rate 16 16 20 Blood Pressure [Ri ght Arm] 132/68 140/71 H 153/77 H Pulse Oximetry 93 98 96 Oxygen Delivery Me thod Room Air Room Air Room Air Labs Labs: Laboratory Results - last 24 hr 08/17/23 08/17/23 08/17/23 10:50 15:00 20:27 WBC RBC Hgb Hct MCV MCH MCHC RDW Coeff of Layla Plt Count Neut % (Auto) Lymph % (Auto) [place] % (Auto) Eos % (Auto) Baso % (Auto) Neut # (Auto) Lymph # (Auto) [place] # (Auto) Eos # (Auto) Baso # (Auto) Abs Immat Gran (auto) Imm/Tot Granulo (auto) Sodium 116 L* 114 L* 117 L* Potassium Chloride Carbon Dioxide Anion Gap BUN Creatinine Estimated Creat Clear Estimated GFR Glucose Calcium 08/17/23 08/18/23 22:55 05:59 WBC 10.00 RBC 5.04 Hgb 15.6 Hct 41.6 MCV 83 MCH 31 MCHC 38 H RDW Coeff of Layla 11.8 Plt Count 191 Neut % (Auto) 52.1 Lymph % (Auto) 31.6 [place] % (Auto) 13.1 H Eos % (Auto) 2.2 Baso % (Auto) 0.5 Neut # (Auto) 5.21 Lymph # (Auto) 3.16 H [place] # (Auto) 1.30 H Eos # (Auto) 0.22 Baso # (Auto) 0.05 Abs Immat Gran (auto) 0.05 Imm/Tot Granulo (auto) 0.5 Sodium 114 L* 115 L* Potassium 3.2 L Chloride 77 L Carbon Dioxide 30 Anion Gap 8 BUN 15 Creatinine 1.1 Estimated Creat Clear 60.45 Estimated GFR 72 Glucose 84 Calcium 8.1 L
[2023-08-18] MEDS: POTASSIUM BICARB 25 MEQ EFFERVESCENT TAB PO ×2 (10:07→12:02)
[2023-08-18] MEDS: PARoxetine 20 MG TABLET PO (10:07)
[2023-08-18] MEDS: LORazepam 1 MG TABLET 0.5 MG PO ×2 (10:07→21:12)
[2023-08-18 11:45] LABS: Sodium* 115 mmol/L (135-149)
--- NOTE | 2023-08-18 11:46 | PC.NURSE ---
CRITICAL: Critical Na level of 115 called at 1144. Reported to Dr. Buenrostro at 1146 with no change in orders.
[2023-08-18 17:54] LABS: Sodium* 114 mmol/L (135-149)
[2023-08-18 19:17] LABS: Hours Collected Random hr; Total Volume Random mL
[2023-08-18 19:17] LABS: Urine Osmolality 383 mOsm/kg (50-800)
--- NOTE | 2023-08-18 19:29 | PC.NURSE ---
Pt alert and oriented. Pt had no complaints of pain. Pt independent in room. Pt?s sodium level maintained at 115 during most of shift at 1700 sodium levels 114- Hospitalist to put in orders. Pt up walking in hallways during shift.
[2023-08-18] MEDS: 3 % SODIUM CHLORIDE 500 ml 50 ML 33.33 ML IV (20:18)
[2023-08-18] MEDS: ENOXAPARIN 40 MG/0.4 ML INJ SUBCUT (21:13)
--- NOTE | 2023-08-18 21:52 | PM.EN ---
Chart Event Note Time Seen by Provider: 19:00 Date Seen: 08/18/23 Chart Event Note: I have been reviewing patient's sodium levels as they result, and this afternoon, he was 114. Goal this 24 hours is for him to come up to 120. I saw Duy walking in the hallway, and he had many questions about treating sodium levels and how long it would take and when he could be discharged. Due to persistently low Na, now just on an oral fluid restriction, I have ordered a 50 cc hypertonic saline bolus.
[2023-08-19 00:01] LABS: Sodium* 115 mmol/L (135-149)
[2023-08-19 03:00] VITALS: BP 148/80; PULSE 59; RESP 18; TEMP 36.2; O2SAT 97
[2023-08-19] MEDS: 3 % SODIUM CHLORIDE 500 ml 50 ML 33.33 ML IV (03:11)
--- NOTE | 2023-08-19 04:59 | PC.NURSE ---
Shift note: Pt was anxious at the beginning of the shift. Tab Ativan 0.5mg given which appeared effective verbalized by pt. Alert and oriented, vitally stable. 1500ml fluid restriction maintained. 50ml 3% N/S given 2x as prescribed. Lab order for blood sodium level ordered.
[2023-08-19 06:14] LABS: Ionized Calcium* 1.03 mmol/L (1.11-1.30)
[2023-08-19] MEDS: OMEPRAZOLE 20 MG CAPSULE DR 40 MG PO (06:34)
[2023-08-19 06:50] LABS: Chloride* 80 mmol/L (96-114); Potassium* 4.3 mmol/L (3.6-5.1)
[2023-08-19 06:53] LABS: Anion Gap 5 mEq/L (7-15); Carbon Dioxide* 32 mmol/L (20-32); Creatinine* 1.1 mg/dL (0.5-1.5); Est. Creatinine Clearance* 60.45; Estimated Glomerular Filt Rate 72 ml/min
[2023-08-19 06:54] LABS: Blood Urea Nitrogen* 13 mg/dL (7-30); Calcium* 8.2 mg/dL (8.4-10.6); Glucose* 90 mg/dL (60-115); Magnesium* 2.1 mg/dL (1.5-2.6)
[2023-08-19 07:08] LABS: Sodium* 117 mmol/L (135-149)
[2023-08-19 07:40] VITALS: BP 134/77; PULSE 61; RESP 16; TEMP 36.7; O2SAT 94
[2023-08-19] MEDS: SODIUM CHLORIDE 1 GM TABLET PO ×2 (08:55→12:23)
[2023-08-19] MEDS: buPROPion XL 150 MG TABLET PO (08:55)
[2023-08-19] MEDS: PARoxetine 20 MG TABLET PO (08:56)
[2023-08-19] MEDS: SODIUM CHLORIDE 0.9 % (FLUSH) 10 ML SYRINGE 5 ML IVF ×3 (08:56→22:13)
--- NOTE | 2023-08-19 09:30 | PM.IMPN1 ---
Progress Note: A&P Assessment and plan (1) Hyponatremia: Problem details: - Severe, suspect acute due to polydipsia (noted during anxiety flare after tapering off of his Paroxetine), chlorthalidone - urine studies reveal high UOsm and Renetta, low serum Osmolality - DDAVP and D5W discontinued on 08/16, continue fluid restriction with close monitoring - 08/17: Sodium 114-115, received hypertonic saline x2 - 08/18: Sodium 117, adding oral Sodium tabs TID, TSH pending Status: Acute (2) Anxiety: Problem details: - patient requested to restart Paroxetine on 08/17 (was on this for 3+ years without any evidence of hyponatremia) given flare of anxiety and excellent previous response - discussed risk and benefits, patient would like to restart 20mg of Paroxetine (had tapered off of this in June 2023, restarted it on 08/15/23 per psych) - continue prn Hydroxyzine and Lorazepam (patient would prefer to minimize benzo use)? - will follow up with Psychiatrist (Frederic) for further management as an outpatient Status: Chronic (3) Depression: Problem details: - Frederic is psychiatrist Status: Chronic (4) Hypertension: Problem details: - holding chlorthalidone 2/2 hyponatremia - also holding Lisinopril given age appropriate BP - add back in low dose Lisinopril if BP increases Status: Chronic (5) Obstructive sleep apnea: Problem details: - continue using home CPAP at night Status: Chronic Plan - per above - Loveannabellex and Antoni dee for ppx Subjective Date Seen: 08/19/23 Interval history: Duy was admitted to the hospital on 08/15 for hyponatremia (sodium 109), presented to the ER for anxiety, diarrhea, illness. During first 24 hours, he had a sodium overcorrection to 119 that was reversed with D5W and Desmopressin, sodium then came back down to 114. Over the past 24 hours, sodium has slowly increased and is 117 this morning. Diarrhea resolved upon admission, having normal daily BMs now. No lightheadedness, dizziness, or pain. Anxiety stable (restarted 20mg of Paroxetine on 08/17). No other concerns for hospitalist team today. Exam Narrative: Exam Narrative: GEN: Alert and oriented, sitting comfortably in bedside chair HEENT: EOMIs bilaterally, no scleral icterus CV: RRR, No concerning murmurs R: LCTA bilaterally without concerning wheezing Ext: Wearing Antnoi hose bilaterally without edema Skin: No concerning skin lesions or rashes on exposed skin Neuro: Nonfocal Psych: Appropriate Const: Vital Signs, click to edit/add: Vital Signs - 24 hr 08/18/23 11:12 08/18/23 15:49 08/18/23 19:00 Temperature 98.2 F 98.1 F 98.8 F Pulse Rate [Pulse Oximeter] 62 63 73 Respiratory Rate 16 18 18 Blood Pressure [Le ft Arm] 137/76 Blood Pressure [Ri ght Arm] 138/73 154/76 H Pulse Oximetry 97 96 92 Oxygen Delivery Me thod Room Air Room Air Room Air 08/18/23 22:38 08/18/23 22:40 08/19/23 03:00 Temperature 98.2 F 97.2 F L Pulse Rate [Pulse Oximeter] 64 64 59 L Respiratory Rate 18 18 18 Blood Pressure [Le ft Arm] Blood Pressure [Ri ght Arm] 125/74 148/80 H Pulse Oximetry 94 97 Oxygen Delivery Me thod Room Air Room Air 08/19/23 07:40 Temperature 98.1 F Pulse Rate [Pulse Oximeter] 61 Respiratory Rate 16 Blood Pressure [Le ft Arm] 134/77 Blood Pressure [Ri ght Arm] Pulse Oximetry 94 Oxygen Delivery Me thod Room Air Labs Labs: Laboratory Results - last 24 hr 08/16/23 08/16/23 08/16/23 14:59 16:04 16:40 Sodium Potassium Chloride Carbon Dioxide Anion Gap BUN Creatinine Estimated Creat Clear Estimated GFR Glucose Serum Osmolality 228 L Calcium Ionized Calcium Marian Magnesium Ur Random Osmolality 383 Ur Creatinine per Vol 95 Ur Creatinine 24 Hour Not Applicable U Collection Duration Random Urine Total Volume Random Ur Sodium per Vol 52 Ur Sodium mmol/Day Not Applicable Lab Acknowledgement 08/18/23 08/18/23 08/18/23 11:07 17:20 22:50 Sodium 115 L* 114 L* 115 L* Potassium Chloride Carbon Dioxide Anion Gap BUN Creatinine Estimated Creat Clear Estimated GFR Glucose Serum Osmolality Calcium Ionized Calcium Marian Magnesium Ur Random Osmolality Ur Creatinine per Vol Ur Creatinine 24 Hour U Collection Duration Urine Total Volume Ur Sodium per Vol Ur Sodium mmol/Day Lab Acknowledgement 08/19/23 08/19/23 08/19/23 05:45 05:45 08:58 Sodium 117 L* Cancelled Potassium 4.3 Chloride 80 L Carbon Dioxide 32 Anion Gap 5 L BUN 13 Creatinine 1.1 Estimated Creat Clear 60.45 Estimated GFR 72 Glucose 90 Serum Osmolality Calcium 8.2 L Ionized Calcium Marian 1.03 L Magnesium 2.1 Ur Random Osmolality Ur Creatinine per Vol Ur Creatinine 24 Hour U Collection Duration Urine Total Volume Ur Sodium per Vol Ur Sodium mmol/Day Lab Acknowledgement Test Added
[2023-08-19] MEDS: ONDANSETRON 2 MG/ML inj 4 MG IVP (09:47)
[2023-08-19] MEDS: CALCIUM GLUC 1,000MG/50 ML 1,000 MG/50 ML BAG 100 MG IVPB (09:55)
[2023-08-19 10:45] VITALS: BP 139/81; PULSE 67; RESP 18; TEMP 36.7; O2SAT 97
--- NOTE | 2023-08-19 14:42 | PC.NURSE ---
Pt alert and oriented. Pt had no complaints of pain. Pt independent in room. Pt?s sodium level maintained at 117 during shift. ?
[2023-08-19 15:00] VITALS: BP 138/90; PULSE 72; RESP 16; TEMP 36.4; O2SAT 96
[2023-08-19 15:01] LABS: Sodium* 122 mmol/L (135-149)
[2023-08-19 19:00] VITALS: BP 143/80; PULSE 75; RESP 16; TEMP 36.7; O2SAT 94
--- NOTE | 2023-08-19 19:09 | PC.NURSE ---
[id number]- The patient is pleasant but very anxious about his cares and likes to know many details. He is voiding an excessive amount. No reports of pain, no N/V this shift. Up ad katelyn. He states he is not drinking water due to NA level going down too low. Recheck @ 1400 was 122. Calls appropriately. Blanca VALERIO BSN
[2023-08-19 21:59] LABS: Sodium* 126 mmol/L (135-149)
[2023-08-19] MEDS: LORazepam 1 MG TABLET 0.5 MG PO (22:12)
[2023-08-19] MEDS: ENOXAPARIN 40 MG/0.4 ML INJ SUBCUT (22:14)
[2023-08-19] MEDS: 5 % DEXTROSE 1000 ML 1,000 ML 100 ML IV (22:51)
[2023-08-19 23:00] VITALS: BP 132/83; PULSE 95; RESP 18; TEMP 36.6; O2SAT 94
[2023-08-20] VITALS (7 sets, daily range): BP systolic 137–171; BP diastolic 72–81; PULSE 62–77; RESP 16–20; TEMP 36.2–37.2; O2SAT 92–96
[2023-08-20 03:24] LABS: Sodium* 127 mmol/L (135-149)
[2023-08-20] MEDS: LORazepam 1 MG TABLET 0.5 MG PO ×2 (05:20→22:50)
[2023-08-20] MEDS: OMEPRAZOLE 20 MG CAPSULE DR 40 MG PO (06:16)
[2023-08-20 06:33] LABS: Basophils Absolute Auto 0.06 K/uL (0.00-0.30); Basophils Percent Auto 0.8 % (0.0-3.0); Eosinophils Absolute Auto 0.16 K/uL (0.00-0.50); Hematocrit 45.8 % (37.0-53.0); Hemoglobin* 16.9 gm/dL (13.5-17.5); Immature Granulocytes Abs Auto 0.05 K/uL (0.00-0.30); Immature Granulocytes Pct Auto 0.6 %; Lymphocytes Absolute Auto 2.47 K/uL (0.90-2.90); Lymphocytes Percent Auto 31.5 % (20-44); Mean Corpuscular HGB Conc 37 gm/dL (32-36); Mean Corpuscular Hemoglobin 31 pg (26-34); Mean Corpuscular Volume 84 fL (80-100); Monocytes Percent Auto 11.6 % (0.0-11.0); Neutrophils Absolute Auto 4.18 K/uL (1.7-7.0); Neutrophils Percent Auto 53.5 % (42.0-72.0); Platelet Count* 234 K/uL (140-440); Red Blood Count 5.48 m/uL (4.30-5.90); Slide Review Reflex No; White Blood Count* 7.83 K/uL (4.50-11.00)
--- NOTE | 2023-08-20 06:40 | PC.NURSE ---
End of shift report [id number]: Alert and oriented x 4. Denies any nausea, vomiting or diarrhea. Ambulates independently, denies any dizziness or lightheadedness. Patient compliant with fluid restriction, greeting card writer encouraged patient to continue to drink water but follow restriction. Continues to have large amounts of urine, patient voided 2175cc this shift, urine is clear and pale yellow in color but has large amounts of foam floating on top. Patient appears anxious over lab results, reassurance given.
[2023-08-20 06:43] LABS: Chloride* 90 mmol/L (96-114); Sodium* 128 mmol/L (135-149)
[2023-08-20 06:46] LABS: Anion Gap 5 mEq/L (7-15); Blood Urea Nitrogen* 13 mg/dL (7-30); Carbon Dioxide* 33 mmol/L (20-32); Creatinine* 1.3 mg/dL (0.5-1.5); Est. Creatinine Clearance* 51.15; Estimated Glomerular Filt Rate 59 ml/min
[2023-08-20 06:47] LABS: Calcium* 8.7 mg/dL (8.4-10.6); Glucose* 100 mg/dL (60-115)
[2023-08-20] MEDS: 5 % DEXTROSE 1000 ML 1,000 ML 500 ML IV (07:24)
[2023-08-20] MEDS: PARoxetine 20 MG TABLET PO (08:45)
[2023-08-20] MEDS: buPROPion XL 150 MG TABLET PO (08:46)
[2023-08-20] MEDS: 5 % DEXTROSE 1000 ML 1,000 ML 200 ML IV (09:31)
[2023-08-20 09:59] LABS: Sodium* 126 mmol/L (135-149)
--- NOTE | 2023-08-20 10:37 | P.IMPN_ITS ---
Progress Note: A&P Assessment and plan (1) Hyponatremia: Problem details: - Severe, suspect acute due to polydipsia (noted during anxiety flare after tapering off of his Paroxetine), chlorthalidone - urine studies reveal high UOsm and Renetta, low serum Osmolality - DDAVP and D5W discontinued on 08/16, continue fluid restriction with close monitoring - 08/17: Sodium 114-115, received hypertonic saline x2 - 08/18: Sodium 117, adding oral Sodium tabs TID, TSH normal - 08/18: Sodium increased to 126, DW5 restarted - 08/19: Sodium 128, still on D5W, followup sodium 126 Status: Acute (2) Anxiety: Problem details: - patient requested to restart Paroxetine on 08/17 (was on this for 3+ years without any evidence of hyponatremia) given flare of anxiety and excellent previous response - discussed risk and benefits, patient would like to restart 20mg of Paroxetine (had tapered off of this in June 2023, restarted it on 08/15/23 per psych) - continue prn Hydroxyzine and Lorazepam (patient would prefer to minimize benzo use)? - will follow up with Psychiatrist (Frederic) for further management as an outpatient Status: Chronic (3) Depression: Problem details: - Frederic is psychiatrist Status: Chronic (4) Hypertension: Problem details: - holding chlorthalidone 2/2 hyponatremia - also holding Lisinopril given age appropriate BP - add back in low dose Lisinopril if BP increases Status: Chronic (5) Obstructive sleep apnea: Problem details: - continue using home CPAP at night Status: Chronic Plan - home when sodium stabilizes and remains asymptomatic - Erick and Antoni dee for ppx Subjective Date Seen: 08/20/23 Interval history: Duy was admitted to the hospital on 08/15 for a first episode of hyponatremia ( sodium 109), presented to the ER for anxiety, diarrhea, illness. During the first 24 hours of his stay, he had a sodium overcorrection to 119 that was reversed with D5W and Desmopressin, sodium then came back down to 114. Sodium then slowly increased to 117, and again overcorrected to 128 on the morning of 08/19. He is currently on D5W and tolerating this well; repeat Na is 126 this morning. Patient has no concerns for hospitalist team this morning. Urine has been foamy over the past 1-2 days, UA ordered. Tolerating po intake, normal BMs. On daily Paroxetine (restarted 20mg on 08/17 for anxiety), prn Lorazepam as needed. Exam Narrative: Exam Narrative: GEN: Alert and oriented, sitting comfortably in bedside chair and answering questions appropriately HEENT: EOMIs bilaterally, no scleral icterus CV: RRR, No concerning murmurs R: LCTA bilaterally without concerning wheezing, air movement is adequate Ext: wearing Antoni Hose bilaterally Skin: No concerning skin lesions or rashes on exposed skin Neuro: Nonfocal Psych: Appropriate Const: Vital Signs, click to edit/add: Vital Signs - 24 hr 08/19/23 10:45 08/19/23 15:00 08/19/23 19:00 Temperature 98.1 F 97.5 F L 98.0 F Pulse Rate [Pulse Oximeter] 67 72 75 Respiratory Rate 18 16 16 Blood Pressure [Ri ght Arm] 139/81 138/90 H 143/80 H Pulse Oximetry 97 96 94 Oxygen Delivery Me thod Room Air Room Air Room Air 08/19/23 23:00 08/19/23 23:00 08/20/23 03:00 Temperature 97.8 F 97.1 F L Pulse Rate [Pulse Oximeter] 95 95 68 Respiratory Rate 18 18 16 Blood Pressure [Ri ght Arm] 132/83 143/77 H Pulse Oximetry 94 96 Oxygen Delivery Me thod Room Air Room Air 08/20/23 07:14 Temperature 97.8 F Pulse Rate [Pulse Oximeter] 67 Respiratory Rate 18 Blood Pressure [Ri ght Arm] 137/80 Pulse Oximetry 94 Oxygen Delivery Me thod Room Air Labs Labs: Laboratory Results - last 24 hr 08/19/23 08/19/23 08/20/23 14:23 21:42 02:55 WBC RBC Hgb Hct MCV MCH MCHC RDW Coeff of Layla Plt Count Neut % (Auto) Lymph % (Auto) [place] % (Auto) Eos % (Auto) Baso % (Auto) Neut # (Auto) Lymph # (Auto) [place] # (Auto) Eos # (Auto) Baso # (Auto) Abs Immat Gran (auto) Imm/Tot Granulo (auto) Sodium 122 L* 126 L 127 L Potassium Chloride Carbon Dioxide Anion Gap BUN Creatinine Estimated Creat Clear Estimated GFR Glucose Calcium 08/20/23 08/20/23 05:51 09:37 WBC 7.83 RBC 5.48 Hgb 16.9 Hct 45.8 MCV 84 MCH 31 MCHC 37 H RDW Coeff of Layla 12.0 Plt Count 234 Neut % (Auto) 53.5 Lymph % (Auto) 31.5 [place] % (Auto) 11.6 H Eos % (Auto) 2.0 Baso % (Auto) 0.8 Neut # (Auto) 4.18 Lymph # (Auto) 2.47 [place] # (Auto) 0.90 Eos # (Auto) 0.16 Baso # (Auto) 0.06 Abs Immat Gran (auto) 0.05 Imm/Tot Granulo (auto) 0.6 Sodium 128 L 126 L Potassium 4.0 Chloride 90 L Carbon Dioxide 33 H Anion Gap 5 L BUN 13 Creatinine 1.3 Estimated Creat Clear 51.15 Estimated GFR 59 Glucose 100 Calcium 8.7
[2023-08-20 10:50] LABS: Appearance Urine Clear (Clear); Bilirubin Urine Negative (Negative); Blood Urine 1+ (Negative); Color Urine Yellow (Yellow); Glucose Urine Negative (Negative); Ketones Urine Negative (Negative); Leukocyte Esterase Urine Negative (Negative); Nitrite Urine Negative (Negative); Protein Urine Negative (Negative); Specific Gravity Urine <= 1.005 (1.000-1.030); Urobilinogen Urine 0.2 (0.2-1.0)
[2023-08-20 14:53] LABS: Sodium* 125 mmol/L (135-149)
--- NOTE | 2023-08-20 19:27 | PC.NURSE ---
Pt alert and oriented. Pt had no complaints of pain. VSS. Pt independent in room. Pt?s sodium at 0600 am was 128, D5 continued- see EMAR for exact orders. At 0930 sodium level was 126 D5 continued; See EMAR for exact orders. At 1400 sodium level was 125 Pt was saline locked and the next lab draw is scheduled at 2030. Pt took shower midafternoon.?
[2023-08-20 21:29] LABS: Sodium* 129 mmol/L (135-149)
[2023-08-20] MEDS: ENOXAPARIN 40 MG/0.4 ML INJ SUBCUT (22:51)
[2023-08-20] MEDS: SODIUM CHLORIDE 0.9 % (FLUSH) 10 ML SYRINGE 5 ML IVF (22:51)
[2023-08-21 03:00] VITALS: BP 159/83; PULSE 74; RESP 18; TEMP 36.2; O2SAT 95
[2023-08-21 05:18] LABS: Chloride* 94 mmol/L (96-114); Potassium* 3.9 mmol/L (3.6-5.1); Sodium* 131 mmol/L (135-149)
[2023-08-21 05:21] LABS: Anion Gap 8 mEq/L (7-15); Carbon Dioxide* 29 mmol/L (20-32); Creatinine* 1.4 mg/dL (0.5-1.5); Estimated Glomerular Filt Rate 54 ml/min
[2023-08-21 05:22] LABS: Blood Urea Nitrogen* 15 mg/dL (7-30); Calcium* 8.8 mg/dL (8.4-10.6); Glucose* 97 mg/dL (60-115)
--- NOTE | 2023-08-21 06:28 | PC.NURSE ---
End of shift report [id number]: Patient pleasant and cooperative with cares. Alert and oriented x 4. Denies any pain or shortness of breath, denies nausea, vomiting and diarrhea. Compliant with fluid restriction, urine clear and pale yellow in color. Sodium lab draw at [id number], patient updated and bond underwriter provided education and reinforcement to prior education on hyponatremia, fluid restriction and signs and symptoms to watch for. Patient reporting anxiety over current situation but appears to be accepting of current situation and able to retain education on disease management. Patient did become tearful at bedtime and expressing gratitude for all staff assisting with his care. Independent with ambulation and transfers.
[2023-08-21] MEDS: OMEPRAZOLE 20 MG CAPSULE DR 40 MG PO (06:36)
--- NOTE | 2023-08-21 08:15 | P.DS_ITS ---
DS: Providers Provider Date Seen: 08/21/23 Date of admission: 08/16/23 16:44 Primary care physician: Mushtaq Garcia MD Admitting Clinician: Naheed Slaughter MD Attending Physician on discharge: Amaris Emerson MD Date of Discharge: 08/21/23 DS: Diagnosis Discharge Diagnosis (1) Hyponatremia: Status: Acute Problem details: - Severe, suspect acute due to polydipsia (noted during anxiety flare after tapering off of his Paroxetine), chlorthalidone - urine studies reveal high UOsm and Renetta, low serum Osmolality - DDAVP and D5W discontinued on 08/16, continue fluid restriction with close monitoring - 08/17: Sodium 114-115, received hypertonic saline x2 - 08/18: Sodium 117, adding oral Sodium tabs TID, TSH normal - 08/18: Sodium increased to 126, DW5 restarted - 08/19: Sodium 128, still on D5W, followup sodium 126, D5W then discontinued - 08/20: Sodium 131, patient feeling back to baseline (2) Anxiety: Status: Chronic Problem details: - patient requested to restart Paroxetine on 08/17 (was on this for 3+ years without any evidence of hyponatremia) given flare of anxiety and excellent previous response - discussed risk and benefits, patient would like to restart 20mg of Paroxetine (had tapered off of this in June 2023, restarted it on 08/15/23 per psych) - continue prn Hydroxyzine and Lorazepam (patient would prefer to minimize benzo use)? - will follow up with Psychiatrist (Frederic) for further management as an outpatient (3) Depression: Status: Chronic Problem details: - Frederic is psychiatrist (4) Hypertension: Status: Chronic Problem details: - holding chlorthalidone 2/2 hyponatremia - also held Lisinopril during stay, BP 130s-170s/70-80s - will restart home Lisinopril upon d/c (5) Obstructive sleep apnea: Status: Chronic Problem details: - continue using home CPAP at night DS: Summary Hospital Course Hospital Course: Duy was admitted to the hospital on 08/15 for a first episode of hyponatremia (sodium 109), presented to the ER for anxiety, diarrhea, illness. Source of hyponatremia likely combination of polydipsia (2/2 anxiety flare) and iatrogenic from Chlorthalidone. He was treated with NS, alternating with D5W and Desmopressin for a overcorrection, then had an appropriate rise with Sodium up to 131 on day of discharge. Diarrhea resolved during stay. Anxiety flared, continued his Paroxetine (had been restarted prior to admission after tapering it over the winter - which did not go well. Had been on Paroxetine for many years prior to recent taper). On day of discharge, patient felt back to baseline. Tolerating po intake and fluid restriction of 1500-1800mL. He is going home with today, with close lab and PCP f/u for hyponatremia Status at Discharge Functional status at discharge: independent ambulation Time Spent with Patient Time attestation: Total time spent providing and/or coordinating discharge services: Time spent: Greater than 30 minutes Specific discharge activities: medication reconciliation, patient education Exam Narrative: Exam Narrative: GEN: Alert and oriented, nontoxic. Having breakfast in bedside chair HEENT: EOMIs bilaterally, no scleral icterus R: Breathing comfortably Ext: Antoni hose bilaterally Skin: No concerning skin lesions or rashes on exposed skin Neuro: Nonfocal Psych: Appropriate Const: Vital Signs, click to edit/add: Vital Signs - 24 hr 08/20/23 10:39 08/20/23 15:03 08/20/23 19:00 Temperature 97.5 F L 98.9 F 98.3 F Pulse Rate [Pulse Oximeter] 62 65 77 Respiratory Rate 18 16 18 Blood Pressure [Ri ght Arm] 144/77 H 149/72 H 171/81 H Pulse Oximetry 96 94 92 Oxygen Delivery Me thod Room Air Room Air 08/20/23 23:00 08/20/23 23:00 08/20/23 23:15 Temperature 97.8 F 97.8 F Pulse Rate [Pulse Oximeter] 68 68 71 Respiratory Rate 20 20 16 Blood Pressure [Ri ght Arm] 153/81 H 139/81 Pulse Oximetry 93 Oxygen Delivery Me thod Room Air 08/21/23 03:00 Temperature 97.2 F L Pulse Rate [Pulse Oximeter] 74 Respiratory Rate 18 Blood Pressure [Ri ght Arm] 159/83 H Pulse Oximetry 95 Oxygen Delivery Me thod Room Air DS: Data Data Completed and Pending Labs on day of discharge: Labs from last 24 hours 08/21/23 08/20/23 08/20/23 04:10 21:05 14:13 Sodium 131 L 129 L 125 L Potassium 3.9 Chloride 94 L Carbon Dioxide 29 Anion Gap 8 BUN 15 Creatinine 1.4 Estimated Creat Clear 47.50 Estimated GFR 54 Glucose 97 Calcium 8.8 Urine Color Urine Appearance Urine pH Ur Specific [place] Urine Protein Urine Glucose (UA) Urine Ketones Urine Blood Urine Nitrite Urine Bilirubin Urine Urobilinogen Ur Leukocyte Esterase Urine RBC Urine WBC Ur Squamous Epith Cells Urine Bacteria 08/20/23 08/20/23 10:41 09:37 Sodium 126 L Potassium Chloride Carbon Dioxide Anion Gap BUN Creatinine Estimated Creat Clear Estimated GFR Glucose Calcium Urine Color Yellow Urine Appearance Clear Urine pH 7.0 Ur Specific [place] <= 1.005 Urine Protein Negative Urine Glucose (UA) Negative Urine Ketones Negative Urine Blood 1+ A Urine Nitrite Negative Urine Bilirubin Negative Urine Urobilinogen 0.2 Ur Leukocyte Esterase Negative Urine RBC Pending Urine WBC Pending Ur Squamous Epith Cells Pending Urine Bacteria Pending Discharge Plan Discharge Disposition: Home, Self-Care Date of Admission: 08/16/23 16:44 Attending Provider on Discharge: Amaris Emerson Primary Care Provider: Mushtaq Garcia Condition: Improved Anticipated Discharge Date/Time: 08/21/23 08:06 Discharge Medications: Continued pentoxifylline 400 mg tablet extended release 400 mg PO BID Rx Instructions: PT ONLY TAKES BID Xyosted 100 mg/0.5 mL auto-injector 100 mg subcut QWEEK balance of nature 6 tab PO QDAY ondansetron 4 mg tablet,disintegrating 4 mg PO Q12H PRN paroxetine HCl 20 mg tablet 20 mg PO DAILY bupropion HCl 150 mg tablet extended release 24 hr 150 mg PO DAILY hydroxyzine pamoate 50 mg capsule 50 mg PO Q8H PRN pantoprazole 40 mg tablet,delayed release (DR/EC) 40 mg PO DAILY lorazepam 1 mg tablet 0.5 mg PO TID PRN (Reason: anxiety) Patient Comments: taking 1-3 tabs per day lisinopril 10 mg tablet 10 mg PO HS Discontinued chlorthalidone 25 mg tablet 25 mg PO QDAY Qty: 90 3RF Discharge Orders: Discharge Order (Routine); Ordered 08/21/23 Ordered By: Amaris Emerson Patient Education: Hyponatremia (DC), Fluid Restriction (DC) Additional Instructions: Home today! Keep fluids at 1500-1800mL/day, eat normally. Come into hospital tomorrow (enter through ED) for sodium test, we'll call with results. Restart Lisinopril tonight at home, no other changes to home medication. See Dr. Garcia as scheduled on Thursday for followup. Activity Level: Light activity Discharge Diet: Regular Diet Detail: 1500-1800mL fluid restriction, eat normally Follow Up Appointments: Mushtaq Garcia MD [Primary Care Provider] - () Santhosh Garcia MD [Staff Physician] - 08/24/23 10:30 am ([facility] for follow up) Forms: [employer] Info Instructions
[2023-08-21 08:30] VITALS: BP 149/78; PULSE 76; RESP 18; TEMP 37.1; O2SAT 98
[2023-08-21] MEDS: PARoxetine 20 MG TABLET PO (09:47)
[2023-08-21] MEDS: buPROPion XL 150 MG TABLET PO (09:50)
--- NOTE | 2023-08-21 16:45 | PC.NURSE ---
shift note: Reviewed dc instructions, hyponatremia symptoms and fluid restriction. Belongings and medications reviewed and sent home with pt at dc. IV dc'd intact Rt FA.
[2023-08-23 04:33] LABS: RBC Urine 0-2 (0-2); WBC Urine 0-2 (0-5)
== END 2023-08-21 11:50 | disposition home or self-care (01) | DRG 641 ==
LOC: ED 15:02 → MEDSURG 16:03
PROVIDERS: Family Medicine; Internal Medicine; Admitting Provider Family Medicine; Emergency Provider Family Medicine; PCP Family Medicine; Visit Provider Family Medicine
DX: E87.1 Hypo-osmolality and hyponatremia (principal); F32.A Depression, unspecified; I10 Essential (primary) hypertension; G47.33 Obstructive sleep apnea (adult) (pediatric); Z99.89 Dependence on other enabling machines and devices; F41.9 Anxiety disorder, unspecified; R11.2 Nausea with vomiting, unspecified; F41.0 Panic disorder [episodic paroxysmal anxiety]; K58.9 Irritable bowel syndrome, unspecified; E78.5 Hyperlipidemia, unspecified; N40.0 Benign prostatic hyperplasia without lower urinary tract symptoms; E66.9 Obesity, unspecified; Z68.33 Body mass index [BMI] 33.0-33.9, adult
CPT/HCPCS: 36415; 71046; 80048; 80306; 81001; 81003; 81270; 82077; 82330; 83735; 83930; 83935; 84295; 84300; 84443; 85025; 86140; 87493; 94761; 99284; 99285; A9270; J0613; J1650; J2405; J2597; J7030; J7070; J7131

== ENCOUNTER 2023-08-22 09:16 | Outpatient (CLI) | payer MEDICARE, OTHER, SELFPAY ==
--- OUTSIDE RECORDS SUMMARY | 2023-08-22 09:19 | XMS_ITS | Clinical Summary ---
Author Name Unknown Organization [facility] Address [place], [place] [address] Care Team Providers Care Floorperson Name Role Phone Mushtaq Garcia MD Primary Care Provider [phone] Allergies Active Allergy Reactions Criticality Noted Date Comments Penicillins Angioedema High 01/05/2015 Medications Medication Sig Dispensed Refills Start Date End Date Status CPAPIndications:Obs tructive sleep apnea (adult) (pediatric) autoCPAP, heated humidifier, mask, headgear, filters and tubing. Pressure: 4-15cm/H2O Length of Need: 99 1 Device 0 01/05/2015 Active medication order composerIndications :Obstructive sleep apnea (adult) (pediatric) Diagnosis 327.23, OBSTRUCTIVE SLEEP APNEA 05/06/2010 AHI-24 CPAP and supplies-- Mask: TAP-PAP #1 1 Device 0 01/05/2015 Active LORazepam (ATIVAN) 0.5 mg tab 09/22/2020 Active buPROPion (WELLBUTRIN XL) 300 mg Extended-Release tablet Take 300 mg by mouth once daily. 08/14/2020 Active lisinopriL (PRINIVIL; ZESTRIL) 20 mg tablet Take 20 mg by mouth at bedtime. 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 Take 30 minutes before sexual activity. 20 Tablet 5 09/26/2020 Active famotidine (PEPCID) 20 mg tablet Take 20 mg by mouth 2 times daily. 07/01/2021 Active PARoxetine (PAXIL) 40 mg tablet 06/28/2021 Active oxybutynin XL (DITROPAN XL) 10 mg CR tabletIndications:U rinary frequency Take 1 Tablet (10 mg) by mouth once daily. 30 Tablet 11 07/17/2021 Active meloxicam 15 mg tabletIndications:P rostatitis, unspecified prostatitis type Take 1 Tablet (15 mg) by mouth once daily. 7 Tablet 07/17/2021 Active pentoxifylline (TRENTAL) 400 mg ER tabletIndications:P eyronie's disease Take 1 Tablet (400 mg) by mouth three times daily with meals. 270 Tablet 3 12/15/2022 Active Active Problems Problem Noted Date Diagnosed Date MICHELLE 05/06/2010 AHI-24 05/06/2010 HTN (hypertension) Depression with anxiety Hypercholesterolemia Encounters Date Type Department Care Team Description 08/17/2023 Lab Requisition [facility] [phone] Naheed Johansen MD from Last 3 Months Immunizations Name Administration Dates Next Due Tdap 10/12/2007 Zoster (Zostavax-ZVL, live) 10/13/2014 Social History Tobacco Use Types Packs/Day Years Used Date Smoking Tobacco: Never Smokeless Tobacco: Never Tobacco Cessation:Counseling Given: Yes Alcohol Use Standard Drinks/Week Comments No 0 (1 standard drink = 0.6 oz pur e alcohol) 1 or less per year (beer) Sex and Gender Information Value Date Recorded Sex Assigned at Not on file Gender Identity Not on file Sexual Orientation Not on file Obstetrics History Last Filed Vital Signs Vital Sign Reading Time Taken Comments Blood Pressure 144/80 07/17/2021 11:01 AM SENIOR 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 Height 172.7 cm (5' 8) 12/20/2020 9:26 AM CDT Body Mass Index 34.82 12/20/2020 9:26 AM CDT Plan of Treatment Health Maintenance Due Date Last Done Comments Depression screening for age 12+ 1965 BMI (ht and wt on same day) for age 18+ 1971 Hepatitis C screening for age 18-79 1971 Colonoscopy through age 75 1998 Lipids for age 45-75 1998 Zoster (shingles) series for age 50+ (2 of 3) 12/08/2014 10/13/2014 Tetanus booster 10/11/2017 10/12/2007 Medicare Wellness for age 65+ 2018 Pneumococcal series for age 65+ (1 of 1 - PCV) 2018 COVID-19 vaccine series (3 - 2022- season) 2023 03/13/2021, 07/20/2020 Influenza for age 65+ 01/17/2024 Tdap Completed 10/12/2007 Procedures Procedure Name Priority Date/Time Associated Diagnosis Comments LAB TRACKING EVENT Routine 08/17/2023 4: 25 AM CDT PERIPHERAL BLD MORPHOLOGY Routine 08/17/2023 4:25 AM CDT JAK2 V617F MUTATION DETECTION Routine 08/17/2023 4:25 AM CDT from Last 3 Months Results * LAB TRACKING EVENT (08/17/2023 4:25 AM CDT) Other (Other) Client Collect / Unknown 08/17/2023 4:25 AM CDT 08/17/2023 1:03 PM CDT Naheed Johansen MD LAB BILL ONLY [facility] [address] [place] [address], * JAK2 V617F MUTATION DETECTION (08/17/2023 4:25 AM CDT) SOURCE Blood 08/21/2023 4:48 PM CDT [facility] INTERPRETATION JAK2 V617F JAK2 V617F mutation not detected JAK2 V617F mutation not detected 08/21/2023 4:48 PM CDT [facility] Comment:The absence of the J AK2 V617F mutation does not exclude the possibility of a myeloproliferative, myelodysplastic, or mixed myeloproliferative/myelodysplastic disorder. Please correlate with clinical, hematologic, and/or bone marrow findings. It should be noted that this assay is limited to the JAK2 V617F mutation that accounts for the vast majority of JAK2 mutations. There are currently over 50 JAK2 mutations with most identified within exons 12-15. These have been identified in patients with polycythemia vera exclusively. If additional testing for these non-V617F JAK2 mutations is of interest, please order JAK2 Exon 12 & Non-V617F Mutations (see test catalog for information). As noted in methodology, the assay is validated to a limit of detection of 1.0% mutant allele. Blood (Peripheral Blood) 08/17/2023 4:25 AM CDT 08/18/2023 1:53 PM CDT Narrative [facility] - 08/21/2023 4:48 PM CDT Methodology: Fluorescent allele specific PCR was performed on genomic DNA to detect the presence of the V617F mutation in the JAK2 gene. PCR amplicon was and detected by capillary electrophoresis. Assay validated to a limit of detection of 1.0% mutant allele. FDA required disclaimer: ??This test was developed and its performance characteristics determined by the [facility]. It has not been cleared or approved by the U.S. Food and Drug Administration. The FDA has determined, however, that in most cases, such approval is not necessary. This test is used for clinical purposes. It should not be regarded as investigational or for research. Naheed Johansen MD SEND OUTS [employer] [address] [place] [address], from Last 3 Months Advance Directives * Full Code (Latest Code Status on File) Date Activated Date Inactivated Comments 12/21/2020 10:14 AM 12/21/2020 4:37 PM Question Answer Comments Code Status Discussion: Not Discussed Care Teams Floorperson Relationship Specialty Start Date End Date Mushtaq Garcia MD PCP - General Family Practice 01/05/15
--- OUTSIDE RECORDS SUMMARY | 2023-08-22 09:19 | XMS_ITS | Data Portability ---
Author Name Unknown Address [address] [place] [id number] Phone [phone] Organization 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 Of note a total of 20 minutes was spent: preparing to see the patient by reviewing records, images, and laboratory data; obtaining/revie wing separately obtained history; performing physical examination, counseling and educating patient/family/ caregiver; ordering appropriate medications, labs, imaging or procedures; documenting the clinical encounter; and coordination of care. Not available 06/20/2021 15:26:12 08/12/2021 08/12/2021 66 year old male with Peyronie's disease, urinary frequency, and erectile dysfunction. Of note a total of 20 minutes was spent: preparing to see the patient by reviewing records, images, and laboratory data; obtaining/revie wing separately obtained history; performing physical examination, counseling and educating patient/family/ caregiver; ordering appropriate medications, labs, imaging or procedures; documenting the clinical encounter; and coordination of care. Not available 08/12/2021 09:14:45 10/17/2021 10/17/2021 66 year old male with Peyronie's disease, urinary frequency, and erectile dysfunction. Of note a total of 20 minutes was spent: preparing to see the patient by reviewing records, images, and laboratory data; obtaining/revangel wing separately obtained history; performing physical examination, counseling and educating patient/family/ caregiver; ordering appropriate medications, labs, imaging or procedures; documenting the clinical encounter; and coordination of care. Not available 10/17/2021 17:48:46 10/31/2021 10/31/2021 66 year old male with Peyronie's disease, urinary frequency, and erectile dysfunction. Of note a total of 30 minutes was spent: preparing to see the patient by reviewing records, images, and laboratory data; obtaining/maritza parker separately obtained history; performing physical examination, counseling and educating patient/family/ caregiver; ordering appropriate medications, labs, imaging or procedures; documenting the clinical encounter; and coordination of care. Not available 10/31/2021 18:04:59 04/17/2022 04/17/2022 66 year old male with Peyronie's disease, urinary frequency, and erectile dysfunction. Of note a total of 30 minutes was spent: preparing to see the patient by reviewing records, images, and laboratory data; obtaining/maritza parker separately obtained history; performing physical examination, counseling and educating patient/family/ caregiver; ordering appropriate medications, labs, imaging or procedures; documenting the clinical encounter; and coordination of care. [email or web address] Not available 04/15/2022 16:08:59 10/15/2022 10/15/2022 67 year old male with Peyronie's disease, urinary frequency, and erectile dysfunction. Of note a total of 30 minutes was spent: preparing to see the patient by reviewing records, images, and laboratory data; obtaining/maritza parker separately obtained history; performing physical examination, counseling and educating patient/family/ caregiver; ordering appropriate medications, labs, imaging or procedures; documenting the clinical encounter; and coordination of care. [facility] Not available 10/14/2022 10:46:52 02/04/2023 02/04/2023 67 year old male with Peyronie's disease, urinary frequency, and erectile dysfunction. Of note a total of 30 minutes was spent: preparing to see the patient by reviewing records, images, and laboratory data; obtaining/revie wing separately obtained history; performing physical examination, counseling and educating patient/family/ caregiver; ordering appropriate medications, labs, imaging or procedures; documenting the clinical encounter; and coordination of care. [facility] Not available 02/04/2023 13:45:03 03/06/2023 03/06/2023 67 year old male with Peyronie's disease, urinary frequency, and erectile dysfunction. [facility] Not available 03/06/2023 16:37:43 03/18/2023 03/18/2023 67 year old male with Peyronie's disease, urinary frequency, and erectile dysfunction. Not available 03/18/2023 09:19:18 04/29/2023 04/29/2023 67 year old male with Peyronie's disease, urinary frequency, and erectile dysfunction. [email or web address] Not available 04/27/2023 13:21:58 06/18/2023 06/18/2023 68 year old male with Peyronie's disease, urinary frequency, and erectile dysfunction. [facility] Not available 06/12/2023 16:52:34 Plan of Treatment Reminders Order Date Submit Date Provider Last Modified By Organization Details Last Modified Time Details Appointments None recorded . Lab CBC w/ auto diff 2022 023 [facility], [address] [place], [address], 3 09:08:11 PSA, total, serum or plasma 2022 023 [facility], [address] [place], [address], 3 09:08:11 hepatic function panel, serum 2022 023 [facility], [address] [place], [address], 3 09:08:11 PSA, total, serum or plasma 2021 023 [facility], [address] [place], [address], 3 08:27:35 CBC w/ auto diff 2021 023 [facility], [address] [place], [address], 3 08:27:36 hepatic function panel, serum 2021 023 [facility], [address] [place], [address], 3 08:27:36 CBC w/ auto diff [address] [facility], [address] [place], [address], 2 08:45:29 hepatic function panel, serum [address], [address] [place], [address], 2 08:45:29 PSA, total, serum or plasma [address] [facility], [address] [place], [address], 2 08:45:29 testoste lowell, total, serum [address] [facility], [address] [place], [address], 2 08:45:30 Referral None recorded . Procedures transure thral destruct ion of prostate tissue; by radiofre quency thermoth erapy (PROC) 2020 021 [email or web address] Not available 17:08:27 transure thral destruct ion of prostate tissue; by radiofre quency thermoth erapy (PROC) 2020 021 [email or web address] Not available 12:02:19 Surgeries cystoure throscop y, with insertio n of permanen t adjustab le transpro static implant; single implant (SURG) 2023 024 [email or web address] Not available 4 13:51:41 cystoure throscop y, with insertio n of permanen t adjustab le transpro static implant; single implant (SURG) 2021 022 [email or web address] Not available 16:43:28 Imaging None recorded . Medication Orders Xyosted 100 mg/0.5 mL subcutan eous auto-inj mulugeta 2021 [facility], [address] [facility] , [facility] [address], [place], [id number], 15:07:41 clomiphe ne citrate 50 mg tablet 2021 022 [id number], [address] [place], [place], [id number], 15:43:21 Patient TargetsNo targets recorded. Patient Instructions Encounter Date Encounter Id Patient Instructions Last Modified By Organization Details Last Modified Time 06/18/2023 [id number] UroLift We discussed prostate UroLift and that it is used to relieve urinary symptoms caused by an enlarged prostate, a condition known as benign prostatic hyperplasia (BPH). During prostate UroLift surgery we insert a scope through the tip of the penis into the tube that carries urine from the bladder. The scope delivers a small implant to compress the excess tissue that is blocking the urethra and preventing urine flow. A number of procedures are available to treat BPH, but UroLift surgery has several potential advantages over other methods, such as transurethral resection of the prostate (TURP) and open prostatectomy. The advantages generally include: 1.Lower risk of bleeding.? ? Because there is a low risk of bleeding with UroLift surgery, it can be a good option for men who take medication to thin their blood or who have a bleeding disorder that doesn't allow their blood to clot normally. 2. [place] or no hospital stay. This procedure can be done on an outpatient basis. Other prostate treatments, such as open prostatectomy or transurethral resection of the prostate (TURP), may require a longer hospital stay. 3. Quicker recovery. Recovery from UroLIft surgery generally takes less time than recovery from TURP or open surgery. 4.Less need for a catheter. Procedures to treat an enlarged prostate generally require use of a tube (catheter) to drain urine from the bladder after surgery. With UroLift surgery, a catheter is often not needed in the immediate post-procedure period. 5. More-immediate results. Improvements in urinary symptoms from UroLift surgery are noticeable within a few days to 2 weeks, while it can take several weeks to months to see noticeable improvement with medications. Problems of UroLift surgery can include: 1. Temporary difficulty urinating. Patients may have trouble urinating for a few days after the procedure. Until one can urinate on his own, he will need to have a catheter. 2. Urinary tract infection. Urinary tract infections are a possible complication after any prostate procedure. An infection is increasingly likely to occur the longer one has a catheter in place, and may require antibiotics or other treatment. 3. Narrowing (stricture) of the urethra. Just as one can form scars on the outside of your body, you can form scars on the inside after prostate surgery. These scars can block urine flow, requiring additional treatment. 4. Dry orgasm (retrograde ejaculation). Any prostate surgery can cause retrograde ejaculation, Retrograde ejaculation isn't harmful, and generally doesn't affect sexual pleasure. But it can interfere with your ability to father a child. This is a common long-term side effect of procedures to treat an enlarged prostate. This MUCH less common with UroLift (if present at all). 5. Erectile dysfunction. There is little risk that UroLift procedures could cause erectile dysfunction. This is a common long-term side effect of procedures to treat an enlarged prostate. This MUCH less common with UroLift (if present at all). 6. Need for retreatment. Some men require follow-up treatment after prostate procedures because not all of the tissue is removed or it may grow back over time. Not available 06/18/2023 13:25:50 02/04/2023 [id number] Risks discussed included: - 1. Infection - I quoted the patient a rate between 1-2%, and that the risk of infection is higher in diabetics (2-3%), particularly diabetics with poorly controlled blood glucose levels and Hemoglobin A1c levels greater than 11.5. Management of an infection may include oral antibiotics, IV antibiotics, complete removal of infected device, and/or need for repeat surgical procedures. 2. Device malfunction - We discussed that as with any mechanical device, the implant can malfunction over time. 70% at 15 years of devices are still functioning without any mechanical problems. 3. Penile length - We noted that it is important to have appropriate expectations for penile length, which would be approximately 0.5 to 1 inch(es) less than his current maximally stretched penile length. 4. Injury to surrounding structures - Although infrequent, potential complications with surgery would include injury to adjacent organs including the urethra, which may require catheter placement with or without subsequent device placement and rescheduling for a later date. Other injuries including bowel or vascular injuries. 5. Irreversibility - We discussed that this is an irreversible procedure in that the patient will never be able to use PDE5 inhibitors or intracavernosal injections after insertion of a penile implant. 6. Erosion - Although rare, we discussed that any components of the device can erode into a surrounding structure include blood vessels, the bladder, the urethra, or the skin resulting in extrusion of the device. This is particularly true in the setting of infection. We also discussed that the device is not meant to be left inflated all of the time, and that doing so may result in erosion out of the glans. 7. Glans ischemia - Although a rare complication, ischemia of the glans can occur. This is considered a surgical emergency as the device would need to be removed as soon as possible. A delay in removal of the device could results in necrosis of the glans. Not available 02/04/2023 13:44:44 06/14/2021 [id number] REZUM We discussed prostate Rezum or convective water vapor therapy and that it is used to relieve urinary symptoms caused by an enlarged prostate, a condition known as benign prostatic hyperplasia (BPH). During prostate Rezum surgery we insert a scope through the tip of the penis into the tube that carries urine from the bladder. The scope delivers a small volume of water converted into vapor used to destroy the excess tissue that is blocking the urethra and preventing urine flow. A number of procedures are available to treat BPH, but REZUM surgery has several potential advantages over other methods, such as transurethral resection of the prostate (TURP) and open prostatectomy. The advantages generally include: 1.Lower risk of bleeding.? ? Because there is a low risk of bleeding with REZUM surgery, it can be a good option for men who take medication to thin their blood or who have a bleeding disorder that doesn't allow their blood to clot normally. 2. [place] or no hospital stay. This procedure can be done on an outpatient basis. Other prostate treatments, such as open prostatectomy or transurethral resection of the prostate (TURP), may require a longer hospital stay. 3. Quicker recovery. Recovery from REZUM surgery generally takes less time than recovery from TURP or open surgery. 4.Less need for a catheter. Procedures to treat an enlarged prostate generally require use of a tube (catheter) to drain urine from the bladder after surgery. With REZUM surgery, a catheter is generally needed for less than 48 hours. 5. More-immediate results. Improvements in urinary symptoms from REZUM surgery are noticeable within a few days to 2 weeks, while it can take several weeks to months to see noticeable improvement with medications. Problems of REZUM surgery can include: 1. Temporary difficulty urinating. Patients may have trouble urinating for a few days after the procedure. Until one can urinate on his own, he will need to have a catheter. 2. Urinary tract infection. Urinary tract infections are a possible complication after any prostate procedure. An infection is increasingly likely to occur the longer one has a catheter in place, and may require antibiotics or other treatment. 3. Narrowing (stricture) of the urethra. Just as one can form scars on the outside of your body, you can form scars on the inside after prostate surgery. These scars can block urine flow, requiring additional treatment. 4. Dry orgasm (retrograde ejaculation). Any prostate surgery can cause retrograde ejaculation, Retrograde ejaculation isn't harmful, and generally doesn't affect sexual pleasure. But it can interfere with your ability to father a child. This is a common long-term side effect of procedures to treat an enlarged prostate. This MUCH less common with REZUM (if present at all). 5. Erectile dysfunction. There is little risk that REZUM procedures could cause erectile dysfunction. This is a common long-term side effect of procedures to treat an enlarged prostate. This MUCH less common with REZUM (if present at all). 6. Need for retreatment. Some men require follow-up treatment after prostate procedures because not all of the tissue is removed or it may grow back over time. Not available 06/14/2021 14:18:15 04/19/2021 [id number] REZUM We discussed prostate Rezum or convective water vapor therapy and that it is used to relieve urinary symptoms caused by an enlarged prostate, a condition known as benign prostatic hyperplasia (BPH). During prostate Rezum surgery we insert a scope through the tip of the penis into the tube that carries urine from the bladder. The scope delivers a small volume of water converted into vapor used to destroy the excess tissue that is blocking the urethra and preventing urine flow. A number of procedures are available to treat BPH, but REZUM surgery has several potential advantages over other methods, such as transurethral resection of the prostate (TURP) and open prostatectomy. The advantages generally include: 1.Lower risk of bleeding.? ? Because there is a low risk of bleeding with REZUM surgery, it can be a good option for men who take medication to thin their blood or who have a bleeding disorder that doesn't allow their blood to clot normally. 2. [place] or no hospital stay. This procedure can be done on an outpatient basis. Other prostate treatments, such as open prostatectomy or transurethral resection of the prostate (TURP), may require a longer hospital stay. 3. Quicker recovery. Recovery from REZUM surgery generally takes less time than recovery from TURP or open surgery. 4.Less need for a catheter. Procedures to treat an enlarged prostate generally require use of a tube (catheter) to drain urine from the bladder after surgery. With REZUM surgery, a catheter is generally needed for less than 48 hours. 5. More-immediate results. Improvements in urinary symptoms from REZUM surgery are noticeable within a few days to 2 weeks, while it can take several weeks to months to see noticeable improvement with medications. Problems of REZUM surgery can include: 1. Temporary difficulty urinating. Patients may have trouble urinating for a few days after the procedure. Until one can urinate on his own, he will need to have a catheter. 2. Urinary tract infection. Urinary tract infections are a possible complication after any prostate procedure. An infection is increasingly likely to occur the longer one has a catheter in place, and may require antibiotics or other treatment. 3. Narrowing (stricture) of the urethra. Just as one can form scars on the outside of your body, you can form scars on the inside after prostate surgery. These scars can block urine flow, requiring additional treatment. 4. Dry orgasm (retrograde ejaculation). Any prostate surgery can cause retrograde ejaculation, Retrograde ejaculation isn't harmful, and generally doesn't affect sexual pleasure. But it can interfere with your ability to father a child. This is a common long-term side effect of procedures to treat an enlarged prostate. This MUCH less common with REZUM (if present at all). 5. Erectile dysfunction. There is little risk that REZUM procedures could cause erectile dysfunction. This is a common long-term side effect of procedures to treat an enlarged prostate. This MUCH less common with REZUM (if present at all). 6. Need for retreatment. Some men require follow-up treatment after prostate procedures because not all of the tissue is removed or it may grow back over time. Not available 04/19/2021 14:39:11 01/09/2021 [id number] REZUM We discussed prostate Rezum or convective water vapor therapy and that it is used to relieve urinary symptoms caused by an enlarged prostate, a condition known as benign prostatic hyperplasia (BPH). During prostate Rezum surgery we insert a scope through the tip of the penis into the tube that carries urine from the bladder. The scope delivers a small volume of water converted into vapor used to destroy the excess tissue that is blocking the urethra and preventing urine flow. A number of procedures are available to treat BPH, but REZUM surgery has several potential advantages over other methods, such as transurethral resection of the prostate (TURP) and open prostatectomy. The advantages generally include: 1.Lower risk of bleeding.? ? Because there is a low risk of bleeding with REZUM surgery, it can be a good option for men who take medication to thin their blood or who have a bleeding disorder that doesn't allow their blood to clot normally. 2. [place] or no hospital stay. This procedure can be done on an outpatient basis. Other prostate treatments, such as open prostatectomy or transurethral resection of the prostate (TURP), may require a longer hospital stay. 3. Quicker recovery. Recovery from REZUM surgery generally takes less time than recovery from TURP or open surgery. 4.Less need for a catheter. Procedures to treat an enlarged prostate generally require use of a tube (catheter) to drain urine from the bladder after surgery. With REZUM surgery, a catheter is generally needed for less than 48 hours. 5. More-immediate results. Improvements in urinary symptoms from REZUM surgery are noticeable within a few days to 2 weeks, while it can take several weeks to months to see noticeable improvement with medications. Problems of REZUM surgery can include: 1. Temporary difficulty urinating. Patients may have trouble urinating for a few days after the procedure. Until one can urinate on his own, he will need to have a catheter. 2. Urinary tract infection. Urinary tract infections are a possible complication after any prostate procedure. An infection is increasingly likely to occur the longer one has a catheter in place, and may require antibiotics or other treatment. 3. Narrowing (stricture) of the urethra. Just as one can form scars on the outside of your body, you can form scars on the inside after prostate surgery. These scars can block urine flow, requiring additional treatment. 4. Dry orgasm (retrograde ejaculation). Any prostate surgery can cause retrograde ejaculation, Retrograde ejaculation isn't harmful, and generally doesn't affect sexual pleasure. But it can interfere with your ability to father a child. This is a common long-term side effect of procedures to treat an enlarged prostate. This MUCH less common with REZUM (if present at all). 5. Erectile dysfunction. There is little risk that REZUM procedures could cause erectile dysfunction. This is a common long-term side effect of procedures to treat an enlarged prostate. This MUCH less common with REZUM (if present at all). 6. Need for retreatment. Some men require follow-up treatment after prostate procedures because not all of the tissue is removed or it may grow back over time. [facility] Not available 01/09/2021 13:55:58 Reason for Referral None Reported. Results Created Date Observation Date Name Description Value Unit Range Abnormal Flag LastModifiedBy Organization Detail LastModifiedTime 10/03/19 21 09/26/2020 measu remen t of post- voidi ng resid ual urine and/o r bladd er capac ity (PROC ) No observ ation record ed. [facility] Not Available 01/09/2021 13:28:34 01/12/20 21 01/09/2021 US, prost ate No observ ation record ed. [facility] Not Available 04/19/2021 14:38:56 01/12/20 21 01/09/2021 bladd er scan (PROC ) No observ ation record ed. [facility] Not Available 04/19/2021 14:38:56 06/19/19 24 06/18/2023 bladd er scan (PROC ) No observ ation record ed. [facility] Not Available 06/19/2023 09:09:03 Result Notes None recorded. Procedures Surgical History Date Name Laterality Status Provider Name and Address Organization Details Recorded Time 4 COMPLEX VISIT completed Eulogio Quiroz MD [address] [place] [address],[address], [place], [address], [facility] 06/18/2023 13:26:00 4 Bladder Scan completed Cristina Rhodes null, [facility] 06/18/2023 11:11:00 3 Staple Removal completed Abdulaziz franklin, [facility] 03/18/2023 11:52:31 3 Drain Removal completed Naheed Garcia null, [facility] 03/06/2023 11:28:45 3 Cystoscopy- male completed Eulogio Quiroz MD [address] [place] [address],[address], [place], [address], [facility] 10/15/2022 17:49:10 1 Cystoscopy- male completed Eulogio Quiroz MD [address] [place] [address],[address], [place], [address], [facility] 01/09/2021 13:31:32 1 TRUS- Volume size only completed Eulogio Quiroz MD [address] [place] [address],[address], [place], [address], [facility] 01/09/2021 13:32:01 8 [facility]14[facility] 13:03:27 Imaging Results Imaging Date Name Status LastModified by Organiz ation Details LastModified Time 09/26/2020 measurement of post-voiding residual urine and/or bladder capacity (PROC) completed [email or web address] Information not available 01/09/2021 13:28:34 01/09/2021 US, prostate completed Information not available 04/19/2021 14:38:56 01/09/2021 bladder scan (PROC) completed Information not available 04/19/2021 14:38:56 06/18/2023 bladder scan (PROC) completed BARCODE Information not available 06/19/2023 09:09:03 Procedure Notes None recorded. Medical Equipment None Reported. Allergies Allergen ID Allergen Name Allergen Category Reaction Reaction Severity Criticality Documentation Date Start Date Code Code System Note Provider Name and Address Organization Details Recorded Time 861178 Medicinal product containin g penicilli n and acting as antibacte rial agent (product) medicatio n swelling severe Not available 01/09/2021 23578 05 SNOMED Eulogio Quiroz MD [address] [place] [address],[address], [address], [facility] 12:32:53 Medications Name Sig Start Date Stop Date Status Note LastModified by Organization Details LastModified Time Prescript ion - Prior Authoriza tion Request 10/15 completed Not Available Not Available Not Available quetiapin e 25 mg tablet TAKE 1/2 TO 2 TABLETS BY MOUTH DAILY AT BEDTIME 06/18 completed Not Available Not Available Not Available celecoxib 200 mg capsule TAKE 1 CAPSULE BY MOUTH TWICE DAILY 01/09 completed Not Available Not Available Not Available ketoconaz ole 2 % shampoo WASH NDERARMS ONCE DAILY , LATHER AND LET SIT FOR SEVERAL MINUTES BEFORE RINSING active Not Available Not Available No t Available trazodone 50 mg tablet TAKE 1/2 TO 3 TABLETS BY MOUTH DAILY AT BEDTIME NEEDED FOR SLEEP active Not Available Not Available No t Available oxybutyni n chloride ER 10 mg tablet,ex tended release 24 hr 04/17 completed Not Available Not Available Not Available azithromy hammad 250 mg tablet TAKE 2 TABLETS BY MOUTH FOR 1 DAY THEN TAKE 1 TABLET BY MOUTH DAILY FOR 4 DAYS 10/15 completed Not Available Not Available Not Available clomiphen e citrate 50 mg tablet TAKE 1 TABLET BY MOUTH EVERY DAY 04/17 completed Not Available Not Available Not Available meloxicam 15 mg tablet TK 1 T PO DAILY. DO NOT TK WITH OTHER NSAIDS 04/29 completed Not Available Not Available Not Available lisinopri l 20 mg tablet TAKE 1 TABLET BY MOUTH AT BEDTIME 03/18 completed Not Available Not Available Not Available prednison e 20 mg tablet TAKE 2 TABLETS BY MOUTH DAILY FOR 5 DAYS 01/09 completed Not Available Not Available Not Available fluoroura cil 5 % topical cream APPLY TOPICALL Y TO THE AFFECTED AREA TWICE DAILY FOR 2 WEEKS active Not Available Not Available No t Available chlorthal idone 25 mg tablet TAKE 1/2 TABLET BY MOUTH EVERY DAY active Not Available Not Available No t Available sulfameth oxazole 800 mg-trimet hoprim 160 mg tablet TAKE 1 TABLET BY MOUTH TWICE DAILY BEGINNIN G 5 DAYS BEFORE SURGERY 03/18 completed Not Available Not Available Not Available acetamino phen 500 mg tablet TK 1-2 TS Q 6 H PRN. MDD 4000MG 04/29 completed Not Available Not Available Not Available triamcino lone acetonide 0.1 % topical cream APPLY TO ITCHY LISHA ON BODY 1-2X DAILY FOR 2 WEEKS , THEN NEEDED active Not Available Not Available No t Available pentoxify lline ER 400 mg tablet,ex tended release 2023 active Not Available Not Available Not Avai lable paroxetin e 10 mg/5 mL oral suspensio n 06/18 completed Not Available Not Available Not Available oxycodone -acetamin ophen 5 mg-325 mg tablet 10/31 completed Not Available Not Available Not Available alprazola m 0.5 mg tablet TAKE 1 TABLET BY MOUTH TWICE DAILY NEEDED 03/18 completed Not Available Not Available Not Available doxycycli ne monohydra te 50 mg capsule TAKE ONE CAPSULE BY MOUTH TWICE A DAY FOR 5 DAYS WITH FOOD AND WATER 10/15 completed Not Available Not Available Not Available famotidin e 20 mg tablet TAKE 1 TABLET BY MOUTH TWICE DAILY active Not Available Not Available No t Available prednisol one acetate 1 % eye drops,maria l pension 04/29 completed Not Available Not Available Not Available lorazepam 0.5 mg tablet TAKE 1/2-1 TABLET BY MOUTH DAILY NEEDED FOR INTENSE ANXIETY active Not Available Not Available No t Available tamsulosi n 0.4 mg capsule TAKE 2 CAPSULES BY MOUTH DAILY 06/18 completed Not Available Not Available Not Available cephalexi n 500 mg capsule TAKE ONE CAPSULE BY MOUTH 2X DAILY FOR 5 DAYS WITH FOOD AND WATER 06/18 completed Not Available Not Available Not Available paroxetin e 30 mg tablet 01/09 completed Not Available Not Available Not Available paroxetin e 20 mg tablet 01/09 completed Not Available Not Available Not Available lisinopri l 10 mg tablet TAKE 1 TABLET BY MOUTH EVERY DAY active Not Available Not Available No t Available oxybutyni n chloride ER 5 mg tablet,ex tended release 24 hr 10/31 completed Not Available Not Available Not Available gabapenti n 300 mg capsule 03/18 completed Not Available Not Available Not Available aspirin 81 mg chewable tablet TK 1 T PO BID. 04/17 completed Not Available Not Available Not Available hydrocort isone 2.5 % topical cream APPLY TO AFFECTED AREA ON FACE 1-2X DAILY FOR UP TO 2 WEEKS AT A TIME 0. REPEAT NEEDED FOR FLARES 03/18 completed Not Available Not Available Not Available ammonium lactate 12 % topical cream APPLY TO AFFECTED AREA 1-2X DAILY 06/18 completed Not Available Not Available Not Available codeine 10 mg-guaife nesin 100 mg/5 mL oral liquid TAKE 5 TO 10 ML BY MOUTH THREE TIMES DAILY NEEDED FOR COUGH 10/15 completed Not Available Not Available Not Available mupirocin 2 % topical ointment APPLY TO BIOPSY SITES 1-2X DAILY UNTIL WELL HEALED 04/29 completed Not Available Not Available Not Available methylpre dnisolone 4 mg tablets in a dose pack FOLLOW PACKAGE DIRECTIO NS 04/17 completed Not Available Not Available Not Available albuterol sulfate HFA 90 mcg/actua tion aerosol inhaler INHALE 2 PUFFS BY MOUTH EVERY 6 HOURS FOR COUGH OR WHEEZING OR SHORTNES S OF BREATH 04/17 completed Not Available Not Available Not Available paroxetin e 40 mg tablet 04/29 completed Not Available Not Available Not Available celecoxib 100 mg capsule TK 1 C PO TWICE DAILY. DO NOT TK WITH OTHER NSAIDS 01/09 completed Not Available Not Available Not Available ketoconaz ole 2 % topical cream 03/18 completed Not Available Not Available Not Available clobetaso l 0.05 % scalp solution APPLY TO SCALP NIGHTLY FOR UP TO 2 WEEKS PER MONTH NEEDED 03/18 completed Not Available Not Available Not Available lisinopri l 40 mg tablet TAKE 1 TABLET BY MOUTH EVERY DAY 04/29 completed Not Available Not Available Not Available ciclopiro x 0.77 % topical gel APPLY A THIN LAYER TO AFFECTED NAILS AND NAILS BEDS ONCE DAILY 06/18 completed Not Available Not Available Not Available oxycodone 5 mg tablet 03/18 completed Not Available Not Available Not Available hydroxyzi ne pamoate 25 mg capsule TAKE 1 TO 2 CAPSULES BY MOUTH EVERY 6 HOURS NEEDED FOR SEVERE ANXIETY 04/17 completed Not Available Not Available Not Available escitalop rand 20 mg tablet TAKE 1/2 TABLET BY MOUTH AT BEDTIME 03/18 completed Not Available Not Available Not Available bupropion HCl XL 300 mg 24 hr tablet, extended release TAKE 1 TABLET BY MOUTH DAILY active Not Available Not Available No t Available tadalafil 20 mg tablet TAKE ONE TABLET BY MOUTH EVERY DAY NEEDED FOR E.D. TAKE 30 MINUTES BEFORE SEXUAL ACTIVTY 03/18 completed Not Available Not Available Not Available adapalene 0.3 % topical gel APPLY A SMALL AMOUNT TO FACE EVERY OTHER NIGHT, INCREASI NG TO NIGHTLY TOLERATE D. MOISTURI ZE AFTER 06/18 completed Not Available Not Available Not Available AndroGel 20.25 mg/1.25 gram per pump act. (1.62 %) transderm al gel Apply 1 pump every day by transder mal route. 04/17 completed Not Available Not Available Not Available testoster one 1.62 % (20.25 mg/1.25 gram) transderm al gel packet APPLY ONE PACKET TOPICALL Y EVERY DAY 10/15 completed Not Available Not Available Not Available testoster one 1.62 % (40.5 mg/2.5 gram) transderm al gel packet Apply 1 packet every day by topical route. 10/15 completed Rx called in to pharmacy Not Available Not Available Not Available Stimulant Laxative Plus 8.6 mg-50 mg tablet TK 1-4 TS PO BID. HOLD MEDICATI ON IF EXPERIEN CING LOOSE STOOLS 04/17 completed Not Available Not Available Not Available Xyosted 100 mg/0.5 mL subcutane ous auto-inje ctor Inject 100 mg every week by subcutan eous route. active Not Available Not Available No t Available Vitals Date Recorded Body height Body mass index (BMI) Body weight Provider Name and Address Organization Details Last Updated DateTime 04/17/2022 172.72 cm 33.5 kg/m2 78621.32 g Abdulaziz franklin MD - [facility] 04/17/2022 15:39:49 Date Recorded Body height Body mass index (BMI) Body weight Provider Name and Address Organization Details Last Updated DateTime 10/15/2022 172.72 cm 33.5 kg/m2 08370.32 g Eulogio Quiroz MD [address] [place] [address],[address], [address], [facility] 10/15/2022 15:01:30 Date Recorded Body height Body mass index (BMI) Body weight Provider Name and Address Organization Details Last Updated DateTime 02/04/2023 172.72 cm 33.5 kg/m2 15631.32 g Eulogio Quiroz MD [address] [place] [address],[address], [address], [facility] 02/04/2023 12:06:27 Date Recorded Body height Body mass index (BMI) Body weight Provider Name and Address Organization Details Last Updated DateTime 03/18/2023 172.72 cm 33.5 kg/m2 74830.32 g Abdulaziz Wilson [facility], [facility] 03/18/2023 11:40:30 Date Recorded Body height Body mass index (BMI) Body weight Provider Name and Address Organization Details Last Updated DateTime 04/29/2023 172.72 cm 34.2 kg/m2 172491.28 g Abdulaziz Wislon null, [facility] 04/29/2023 12:06:45 Date Recorded Body height Body mass index (BMI) Body weight Provider Name and Address Organization Details Last Updated DateTime 06/18/2023 172.72 cm 34.2 kg/m2 565143.28 g Cristina Carmelo [facility], [facility] 06/18/2023 11:12:26 Date Recorded Body height Body mass index (BMI) Body weight Provider Name and Address Organization Details Last Updated DateTime 01/09/2021 172.72 cm 33.5 kg/m2 11729.32 g Eulogio Quiroz MD [address] [place] [address], [place], [address], [facility] 01/09/2021 12:31:05 Date Recorded Body height Body mass index (BMI) Body weight Provider Name and Address Organization Details Last Updated DateTime 04/19/2021 172.72 cm 33.5 kg/m2 58908.32 g Daija Weller [facility], [facility] 04/19/2021 14:09:53 Date Recorded Body height Body mass index (BMI) Body weight Provider Name and Address Organization Details Last Updated DateTime 06/14/2021 172.72 cm 33.5 kg/m2 82911.32 g Daija Weller null, [facility] 06/14/2021 13:02:34 Date Recorded Body height Body mass index (BMI) Body weight Provider Name and Address Organization Details Last Updated DateTime 08/12/2021 172.72 cm 33.5 kg/m2 96061.32 g Daija Weller [facility], [facility] 08/12/2021 09:34:07 Date Recorded Body height Body mass index (BMI) Body weight Provider Name and Address Organization Details Last Updated DateTime 10/17/2021 172.72 cm 33.5 kg/m2 42532.32 g Daija Weller rigoberto [facility] 10/17/2021 16:55:44 Date Recorded Body height Body mass index (BMI) Body weight Provider Name and Address Organization Details Last Updated DateTime 10/31/2021 172.72 cm 33.5 kg/m2 15669.32 g Daija Weller rigoberto [facility] 10/31/2021 14:43:25 Social History Question Answer Notes LastModified by Organizat ion Details LastModified Time Tobacco Smoking Status Never Smoker Eulogio Quiroz MD [address] [place] [address],[facility] [place], [address], [facility] 01/09/2021 12:38:09 What Is Your Level Of Alcohol Consumption? None Information not available 01/09/2021 What Is Your Level Of Caffeine Consumption? Occasional Information not available 01/09/2021 Are You Currently Employed? No Information not available 01/09/2021 Ethnicity Not /Latin o Information not available 06/14/2021 Preferred Language Burmese Information not available 06/14/2021 Recreational Drug Use No Information not available 06/14/2021 Could You Be ? No Information not available 06/14/2021 What Was The Date Of Your Most Recent Tobacco Screening? 06/18/2023 [email or web address] Information not available 06/18/2023 What Is Your Relationship Status? Information not available 01/09/2021 Do You Use Any Illicit Or Recreational Drugs? No Information not available 01/09/2021 Has Tobacco Cessation Counseling Been Provided? No Information not available 10/17/2021 Do You Or Have You Ever Used Any Other Forms Of Tobacco Or Nicotine? No Information not available 01/09/2021 Sex: Male Functional Status None recorded. Mental Status None recorded. Family History Relationship Description Onset Age of this Age Resolved Age Notes Father Family history of prostate cancer Maternal Grandfather Family history of cardiac disorder Maternal Grandfather Family history of Hypertension Mother Family history of Hypertension Medical History Condition Response Diabetes N Sexually Transmitted Infection N Other N Bleeding Disorder N High Blood Pressure Y Kidney Stones N High Cholesterol N GERD/Acid Reflux Y Heart Disease N Cancer N Lung Disease N Depression N Immunizations Vaccine Type Date Status Provider Name and Address Organization Details Recorded Time influenza, high-dose, quadrivalent 06/11/2021 completed Cristina franklin, [facility] 06/18/2023 11:12:35 Tdap 06/11/2021 completed Cristina franklin, [facility] 06/18/2023 11:12:35 influenza, injectable, quadrivalent, preservative free 06/15/2009 completed Cristina franklin, [facility] 06/18/2023 11:12:35 influenza, injectable, quadrivalent 02/23/2019 completed Eulogio Quiroz MD [address] [place] [address],[address] [place] [address], [address], [facility] 02/04/2023 12:06:32 Influenza, injectable, MDCK, quadrivalent, preservative 02/24/2018 completed Eulogio Quiroz MD [address] [place] [address],[address] [place] [address], [address], [facility] 02/04/2023 12:06:32 zoster recombinant 07/19/2019 completed Eulogio jean MD [address] [place] [address],[address], [place], [address], [facility] 02/04/2023 12:06:32 zoster recombinant 12/28/2019 completed Euolgio jean MD [address] [place] [address],[address], [place], [address], [facility] 02/04/2023 12:06:32 Influenza vaccine, quadrivalent, adjuvanted 03/01/2020 completed Eulogio Quiroz MD [address] [place] [address],[address], [place], [address], [facility] 02/04/2023 12:06:32 COVID-19, mRNA, LNP-S, PF, 30 mcg/0.3 mL dose 03/13/2021 completed Eulogio Quiroz MD [address] [place] [address],[address], [place], [address], [facility] 02/04/2023 12:06:32 COVID-19 vaccine, vector-nr, rS-Ad26, PF, 0.5 mL 07/20/2020 completed Eulogio Quiroz MD [address] [place] [address],[address], [place], [address], [facility] 02/04/2023 12:06:32 pneumococcal polysaccharide PPV23 07/12/2019 completed Eulogio Quiroz MD [address] [place] [address],[address], [place], [address], [facility] 02/04/2023 12:06:32 Tdap 05/18/2011 completed Eulogio Quiroz MD [address] [place] [address],[address], [place], [address], [facility] 02/04/2023 12:06:32 Tdap 10/12/2007 completed Eulogio Quiroz MD [address] [place] [address],[address], [place], [address], [facility] 02/04/2023 12:06:32 zoster live 10/12/2014 completed Eulogio Quiroz MD [address] [place] [address],[address], [place], [address], [facility] 02/04/2023 12:06:32 Influenza, seasonal, injectable 02/17/2012 completed Eulogio Quiroz MD [address] [place] [address],[address], [place], [address], [facility] 02/04/2023 12:06:32 Influenza, seasonal, injectable 04/06/2010 completed Eulogio Quiroz MD [address] [place] [address],[address], [place], [address], [facility] 02/04/2023 12:06:32 Influenza, seasonal, injectable, preservative free 05/21/2011 completed Eulogio Quiroz MD [address] [place] [address],[address], [place], [address], [facility] 02/04/2023 12:06:32 Influenza, seasonal, injectable, preservative free 04/23/2014 completed Eulogio Quiroz MD [address] [place] [address],[address] [place] [address], [address], [facility] 02/04/2023 12:06:32 influenza, whole 02/25/2017 completed Eulogio vance MD [address] [place] [address],[address], [place], [address], [facility] 02/04/2023 12:06:32 Novel [id number] 06/15/2009 completed Eulogio Quiroz MD [address] [facility],[address], [place], [address], [facility] 02/04/2023 12:06:32 Td (adult), 2 Lf tetanus toxoid, preservative free, adsorbed 05/18/2006 completed Eulogio Quiroz MD [address] [facility],[address], [place], [address], [facility] 02/04/2023 12:06:32 Past Encounters Encounter ID Performer Location Encounter Start Date Encounter Closed Date Diagnosis/Indication Diagnosis SNOMED-CT Code [id number] MD Jerry Alicea 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 [place] [address] 01/09/2021 11:56:31 01/11/2021 14:10:01 [id number] MD Jerry Alicea [address] [place] [address] 04/19/2021 13:48:43 04/29/2021 09:32:58 Increased frequency of urination 355076800 Induration penis plastica 2047986 Primary er ectile dysfunction 208810897 Benign pro static hyperplasia 268486689 [id number] MD Jerry Alicea [address] [place] [address] 06/14/2021 13:00:49 06/21/2021 07:44:31 Increased frequency of urination 920415861 Induration penis plastica 5811181 Primary er ectile dysfunction 840210133 Benign pro static hyperplasia 711322049 [id number] MD Jerry Alicea [address] [place] [address] 08/12/2021 09:33:28 08/14/2021 09:44:56 Increased frequency of urination 770573953 Induration penis plastica 4312128 Primary er ectile dysfunction 119771758 Benign pro static hyperplasia 403621806 Reduced libido 0952706 [id number] Eulogio Quiroz MD [facility] [address] [place] [address] 10/17/2021 16:52:12 10/21/2021 08:48:06 Increased frequency of urination 805340215 Induration penis plastica 1365959 Primary er ectile dysfunction 650721411 Benign pro static hyperplasia 157443456 Reduced libido 7148655 [id number] MD MONY AliceaHeide [address] [place] [address] 10/31/2021 14:34:37 11/04/2021 09:04:01 Increased frequency of urination 507094620 Induration penis plastica 5352975 Primary er ectile dysfunction 868450449 Benign pro static hyperplasia 965950915 Reduced libido 3602808 Hypogonadism 26039147 [id number] MD MONY AliceaEdin [facility] [address] [place] [address] 04/17/2022 15:26:48 04/21/2022 10:46:42 Increased frequency of urination 720345274 Induration penis plastica 6768560 Primary er ectile dysfunction 253431843 Benign pro static hyperplasia 786683424 Reduced libido 9419922 Hypogonadism 57231802 [id number] [facility] [address] [place] [address] 10/15/2022 14:32:34 10/22/2022 09:42:43 Increased frequency of urination 922889635 Induration penis plastica 4527077 Primary er ectile dysfunction 353616900 Benign pro static hyperplasia 940111577 Reduced libido 8366747 Hypogonadism 81249824 [id number] MD MONY AliceaBrandon [address] [place] [address] 02/04/2023 11:46:14 02/11/2023 16:58:57 Increased frequency of urination 609876315 Induration penis plastica 3532860 Primary er ectile dysfunction 783523896 Benign pro static hyperplasia 307948388 Reduced libido 6955338 Hypogonadism 01529905 [id number] Eulogio Quiroz MD [facility] [address] [place] [address] 03/06/2023 10:57:44 03/11/2023 15:23:51 Primary erectile dysfunction 117552690 [id number] Eulogio Quiroz MD [facility] [address] [place] [address] 03/18/2023 11:23:53 03/24/2023 15:57:14 Increased frequency of urination 357503212 Induration penis plastica 7769854 Primary er ectile dysfunction 494793103 Benign pro static hyperplasia 475953190 Reduced libido 1665236 Hypogonadism 18749487 [id number] Eulogio Quiroz MD [facility] [address] [place] [address] 04/29/2023 11:45:37 04/30/2023 13:22:21 Increased frequency of urination 058242130 Induration penis plastica 4072205 Primary er ectile dysfunction 404760687 Benign pro static hyperplasia 492141829 Reduced libido 0728283 Hypogonadism 62168203 [id number] Eulogio Quiroz MD [facility] [address] [place] [address] 06/18/2023 11:05:15 06/19/2023 10:46:16 Increased frequency of urination 494533845 Induration penis plastica 1066149 Primary er ectile dysfunction 502004968 Benign pro static hyperplasia 150271126 Reduced libido 7882798 Hypogonadism 65861341 Health Concerns Section Related Observation LastModified by Organization Detai ls LastModified Time None Recorded Concern Status LastModified by Organization Details LastModified Time None Recorded Advance Directives Directive None Recorded Payers Encounter Date Sequence Insurance Name Policy Number Policy Mahan Covered Member ID Mahan Member ID Guarantor Name 06/18/2023 1 [place] [employer] Duy Schreiber [id number] 3 Duy Schreiber 06/18/2023 2 [facility] Duy Schreiber [id number] Duy Schreiber 04/29/2023 1 [place] [employer] Duy Schreiber [id number] 3 Duy W Kiesler 04/29/2023 2 [employer] Duy W Kiesler [id number] Duy W Kiesler 03/18/2023 1 [place] [employer] Duy W Kiesler [id number] 3 Duy W Kiesler 03/18/2023 2 [employer] Duy W Kiesler [id number] Duy W Kiesler 03/06/2023 1 [place] [employer] Duy W Kiesler [id number] 3 Duy W Kiesler 03/06/2023 2 [employer] Duy W Kiesler [id number] Duy W Kiesler 02/04/2023 1 [place] [employer] Duy W Kiesler [id number] 3 Duy W Kiesler 02/04/2023 2 [employer] Duy W Kiesler [id number] Duy W Kiesler 10/15/2022 1 [place] [employer] Duy W Kiesler [id number] 3 Duy W Kiesler 10/15/2022 2 [employer] Duy W Kiesler [id number] Duy W Kiesler 04/17/2022 1 [place] [employer] Duy W Kiesler [id number] 3 Duy W Kiesler 04/17/2022 2 [employer] Duy W Kiesler [id number] Duy W Kiesler 10/31/2021 2 [employer] Duy W Kiesler [id number] Duy W Kiesler 10/17/2021 1 [place] [employer] Duy W Kiesler [id number] 3 Duy W Kiesler 08/12/2021 1 [place] [id number] Duy Schreiber [id number] Duy W Kiesler 06/14/2021 1 [place] [id number] Duy Schreiber [id number] Duy Schreiber 04/19/2021 1 [place] [id number] Duy Schreiber [id number] Duy Schreiber 01/09/2021 1 [place] [facility] Duy Schreiber [id number] Duy Schreiber 01/09/2021 1 [place] [id number] Duy Schreiber [id number] Duy Schreiber 01/09/2021 1 [place] [id number] Duy Schreiber [id number] Duy Schreiber Notes Date Note Type Note Provider Name and Address Organization Details Recorded Time 01/09/2021 text/html HPI Notes: 65 ye ar old male who follows with me in [place] for long-standing urinary frequency and weakened urinary stream. Maintained on tamsulosin 0.8 mg PO daily. Here for UroCuff, Cystoscopy, and TRUS volume only. Eulogio Quiroz MD [address] [place] [address],[address], [address], [facility] 01/09/2021 13:56:40 04/19/2021 text/html HPI Notes: 65 ye ar old male who follows with me in [place] for long-standing urinary frequency and weakened urinary stream. Maintained on tamsulosin 0.8 mg PO daily. Here for UroCuff, Cystoscopy, and TRUS volume only. 04/19/2021: Here for follow up urinary frequency and weakened urinary stream. Schedule for [facility] but post-poned due to sending vacation. Also has Peyronie's (manual traction has been inconsistent) and ED (not using tadalafil at this time). Would like to know if we can correct his hypospadias at the time of Rezum. Eulogio Quiroz MD [address] [place] [address],[address], [place], [address], [facility] 04/19/2021 14:41:56 06/14/2021 text/html HPI Notes: 65 ye ar old male who follows with me in [place] for long-standing urinary frequency and weakened urinary stream. Maintained on tamsulosin 0.8 mg PO daily. Here for UroCuff, Cystoscopy, and TRUS volume only. 04/19/2021: Here for follow up urinary frequency and weakened urinary stream. Schedule for [facility] but post-poned due to sending vacation. Also has Peyronie's (manual traction has been inconsistent) and ED (not using tadalafil at this time). Would like to know if we can correct his hypospadias at the time of Rezum. 06/14/21: Here for follow up urinary frequency and weakened urinary stream. Rezum now not covered by insurance. Would like to discuss other options. This visit was conducted by telephone due to the COVID-19 crisis. Prior to conducting our telephone visit, the patient was apprised of the risks, benefits and alternatives to telephone visits including but not limited to poor audio quality, interrupted visits due to technological limitations, delays in medical evaluation and treatment due to deficiencies or failures of equipment, failure of security protocols resulting in a breach of privacy of personal medical information and a lack of access to complete medical records resulting in not fully informed decisions. Also, because of the COVID-19 pandemic, it was not possible for the patient to sign the privacy regulations, HIPAA release and assignment of benefits forms. The patient was given the opportunity to ask questions about these policies and gave verbal acknowledgement and approval of these policies as well as to hold this meeting by telephone. Lastly, the patient agreed to allowing their medication history to be pulled from a national pharmacy database to facilitate and coordinate their care. Eulogio Quiroz MD [address] [place] [address],[address], [place], [address], [facility] 06/20/2021 15:26:20 08/12/2021 text/html HPI Notes: 66 ye ar old male who follows with me in [place] for long-standing urinary frequency and weakened urinary stream. Maintained on tamsulosin 0.8 mg PO daily. Here for UroCuff, Cystoscopy, and TRUS volume only. 04/19/2021: Here for follow up urinary frequency and weakened urinary stream. Schedule for [facility] but post-poned due to sending vacation. Also has Peyronie's (manual traction has been inconsistent) and ED (not using tadalafil at this time). Would like to know if we can correct his hypospadias at the time of Rez[facility]. 06/14/21: Here for follow up urinary frequency and weakened urinary stream. Rezum now not covered by insurance. Would like to discuss other options. 08/12/2021: Here for follow up urinary frequency and weakened urinary stream s/p UroLift. Also, long history of Peyronie's, ED, Hypospadias, and symptoms of hypogonadism. Recent Free and bioavailable testosterone results: Total T 423 ng/dL (normal) Bioavailable T 222 ng/dL (Normal) Free Testosterone 47 pg/mL (low) This visit was conducted by telephone due to the COVID-19 crisis. Prior to conducting our telephone visit, the patient was apprised of the risks, benefits and alternatives to telephone visits including but not limited to poor audio quality, interrupted visits due to technological limitations, delays in medical evaluation and treatment due to deficiencies or failures of equipment, failure of security protocols resulting in a breach of privacy of personal medical information and a lack of access to complete medical records resulting in not fully informed decisions. Also, because of the COVID-19 pandemic, it was not possible for the patient to sign the privacy regulations, HIPAA release and assignment of benefits forms. The patient was given the opportunity to ask questions about these policies and gave verbal acknowledgement and approval of these policies as well as to hold this meeting by telephone. Lastly, the patient agreed to allowing their medication history to be pulled from a national pharmacy database to facilitate and coordinate their care. Eulogio Quiroz MD [address] [place] [address],[address], [place], [address], [facility] 08/12/2021 09:59:01 10/17/2021 text/html HPI Notes: This visit was conducted by telephone due to the COVID-19 crisis. Prior to conducting our telephone visit, the patient was apprised of the risks, benefits and alternatives to telephone visits including but not limited to poor audio quality, interrupted visits due to technological limitations, delays in medical evaluation and treatment due to deficiencies or failures of equipment, failure of security protocols resulting in a breach of privacy of personal medical information and a lack of access to complete medical records resulting in not fully informed decisions. Also, because of the COVID-19 pandemic, it was not possible for the patient to sign the privacy regulations, HIPAA release and assignment of benefits forms. The patient was given the opportunity to ask questions about these policies and gave verbal acknowledgement and approval of these policies as well as to hold this meeting by telephone. Lastly, the patient agreed to allowing their medication history to be pulled from a national pharmacy database to facilitate and coordinate their care. 66 year old male who [facility] with [facility] [place] for long-standing urinary frequency and weakened urinary stream. Maintained on tamsulosin 0.8 mg PO daily. Here for UroCuff, Cystoscopy, and TRUS volume only. 04/19/2021: Here for follow up urinary frequency and weakened urinary stream. Schedule for [facility] but post-poned due to sending vacation. Also has Peyronie's (manual traction has been inconsistent) and ED (not using tadalafil at this time). Would like to know if we can correct his hypospadias at the time of Rezum. 06/14/21: Here for follow up urinary frequency and weakened urinary stream. Rezum now not covered by insurance. Would like to discuss other options. 08/12/2021: Here for follow up urinary frequency and weakened urinary stream s/p UroLift. Also, long history of Peyronie's, ED, Hypospadias, and symptoms of hypogonadism. Recent Free and bioavailable testosterone results: Total T 423 ng/dL (normal) Bioavailable T 222 ng/dL (Normal) Free Testosterone 47 pg/mL (low) 10/17/2021: Here for follow up urinary frequency and weakened urinary stream s/p UroLift. Also, long history of Peyronie's, ED, Hypospadias, and symptoms of hypogonadism. While his symptoms improved on the clomiphene, he noticed gynecomastia so stopped. Eulogio Quiroz MD [address] [facility],[address], [place], [address], [facility] 10/17/2021 21:08:45 10/31/2021 text/html HPI Notes: 66 ye ar old male who follows with me in [place] for long-standing urinary frequency and weakened urinary stream. Maintained on tamsulosin 0.8 mg PO daily. Here for UroCuff, Cystoscopy, and TRUS volume only. 04/19/2021: Here for follow up urinary frequency and weakened urinary stream. Schedule for [facility] but post-poned due to sending vacation. Also has Peyronie's (manual traction has been inconsistent) and ED (not using tadalafil at this time). Would like to know if we can correct his hypospadias at the time of Rez[facility]. 06/14/21: Here for follow up urinary frequency and weakened urinary stream. Rezum now not covered by insurance. Would like to discuss other options. 08/12/2021: Here for follow up urinary frequency and weakened urinary stream s/p UroLift. Also, long history of Peyronie's, ED, Hypospadias, and symptoms of hypogonadism. Recent Free and bioavailable testosterone results: Total T 423 ng/dL (normal) Bioavailable T 222 ng/dL (Normal) Free Testosterone 47 pg/mL (low) 10/17/2021: Here for follow up urinary frequency and weakened urinary stream s/p UroLift. Also, long history of Peyronie's, ED, Hypospadias, and symptoms of hypogonadism. While his symptoms improved on the clomiphene, he noticed gynecomastia so stopped. 10/31/2021: Here for follow up urinary frequency and weakened urinary stream s/p UroLift. Also, long history of Peyronie's, ED, Hypospadias, and symptoms of hypogonadism. Here to initiate trial of testosterone replacement therapy. He previously attempted intramuscular injection however found this uncomfortable and unsatisfactory. Would like to avoid painful injections if possible. Eulogio Quiroz MD [address] [place] [address],[address], [place], [address], [facility] 10/31/2021 18:05:38 04/17/2022 text/html HPI Notes: 66 ye ar old male who follows with me in [place] for long-standing urinary frequency and weakened urinary stream. Maintained on tamsulosin 0.8 mg PO daily. Here for UroCuff, Cystoscopy, and TRUS volume only. 04/19/2021: Here for follow up urinary frequency and weakened urinary stream. Schedule for [facility] but post-poned due to sending vacation. Also has Peyronie's (manual traction has been inconsistent) and ED (not using tadalafil at this time). Would like to know if we can correct his hypospadias at the time of Rezum. 06/14/21: Here for follow up urinary frequency and weakened urinary stream. Rezum now not covered by insurance. Would like to discuss other options. 08/12/2021: Here for follow up urinary frequency and weakened urinary stream s/p UroLift. Also, long history of Peyronie's, ED, Hypospadias, and symptoms of hypogonadism. Recent Free and bioavailable testosterone results: Free Testosterone 47 pg/mL (low) 10/17/2021: Here for follow up urinary frequency and weakened urinary stream s/p UroLift. Also, long history of Peyronie's, ED, Hypospadias, and symptoms of hypogonadism. While his symptoms improved on the clomiphene, he noticed gynecomastia so stopped. 10/31/2021: Here for follow up urinary frequency and weakened urinary stream s/p UroLift. Also, long history of Peyronie's, ED, Hypospadias, and symptoms of hypogonadism. Here to initiate trial of testosterone replacement therapy. He previously attempted intramuscular injection however found this uncomfortable and unsatisfactory. Would like to avoid painful injections if possible. 04/17/2022: Here for follow up urinary frequency and weakened urinary stream s/p UroLift. Also, long history of Peyronie's, ED, Hypospadias, and symptoms of hypogonadism. Has been utilizing topical testosterone for 3 weeks now and notes significantly less response compared to subcuticular injection. He is also worried about possible transference to family members. Does have labs for me to review which showed no evidence of hepatotoxicity or elevation in his PSA. Eulogio Quiroz MD [address] [facility] [address], [place], [address], [place] [facility] 04/17/2022 17:48:43 10/15/2022 text/html HPI Notes: 67 ye ar old male who follows with me in [place] for long-standing urinary frequency and weakened urinary stream. Maintained on tamsulosin 0.8 mg PO daily. Here for UroCuff, Cystoscopy, and TRUS volume only. 04/19/2021: Here for follow up urinary frequency and weakened urinary stream. Schedule for [facility] but post-poned due to sending vacation. Also has Peyronie's (manual traction has been inconsistent) and ED (not using tadalafil at this time). Would like to know if we can correct his hypospadias at the time of Rez[facility]. 06/14/21: Here for follow up urinary frequency and weakened urinary stream. Rezum now not covered by insurance. Would like to discuss other options. 08/12/2021: Here for follow up urinary frequency and weakened urinary stream s/p UroLift. Also, long history of Peyronie's, ED, Hypospadias, and symptoms of hypogonadism. Recent Free and bioavailable testosterone results: Free Testosterone 47 pg/mL (low) 10/17/2021: Here for follow up urinary frequency and weakened urinary stream s/p UroLift. Also, long history of Peyronie's, ED, Hypospadias, and symptoms of hypogonadism. While his symptoms improved on the clomiphene, he noticed gynecomastia so stopped. 10/31/2021: Here for follow up urinary frequency and weakened urinary stream s/p UroLift. Also, long history of Peyronie's, ED, Hypospadias, and symptoms of hypogonadism. Here to initiate trial of testosterone replacement therapy. He previously attempted intramuscular injection however found this uncomfortable and unsatisfactory. Would like to avoid painful injections if possible. 04/17/2022: Here for follow up urinary frequency and weakened urinary stream s/p UroLift. Also, long history of Peyronie's, ED, Hypospadias, and symptoms of hypogonadism. Has been utilizing topical testosterone for 3 weeks now and notes significantly less response compared to subcuticular injection. He is also worried about possible transference to family members. Does have labs for me to review which showed no evidence of hepatotoxicity or elevation in his PSA. 10/15/2022: Here for follow up urinary frequency and weakened urinary stream s/p UroLift. Also, long history of Peyronie's, ED, Hypospadias, and symptoms of hypogonadism. Was transitioned back to Xyosted after failing topical T. No evidence of hepatotoxicity on current labs. Feels like his urine flow has significantly reduced in the last few months. Feels like he has intermittency and straining to void. Eulogio Quiroz MD [address] [facility],[address], [place], [address], [facility] 10/15/2022 17:52:51 02/04/2023 text/html HPI Notes: 67 ye ar old male who follows with me in [place] for long-standing urinary frequency and weakened urinary stream. Maintained on tamsulosin 0.8 mg PO daily. Here for UroCuff, Cystoscopy, and TRUS volume only. 04/19/2021: Here for follow up urinary frequency and weakened urinary stream. Schedule for Re[facility] but post-poned due to sending vacation. Also has Peyronie's (manual traction has been inconsistent) and ED (not using tadalafil at this time). Would like to know if we can correct his hypospadias at the time of Rezum. 06/14/21: Here for follow up urinary frequency and weakened urinary stream. Rezum now not covered by insurance. Would like to discuss other options. 08/12/2021: Here for follow up urinary frequency and weakened urinary stream s/p UroLift. Also, long history of Peyronie's, ED, Hypospadias, and symptoms of hypogonadism. Recent Free and bioavailable testosterone results: Free Testosterone 47 pg/mL (low) 10/17/2021: Here for follow up urinary frequency and weakened urinary stream s/p UroLift. Also, long history of Peyronie's, ED, Hypospadias, and symptoms of hypogonadism. While his symptoms improved on the clomiphene, he noticed gynecomastia so stopped. 10/31/2021: Here for follow up urinary frequency and weakened urinary stream s/p UroLift. Also, long history of Peyronie's, ED, Hypospadias, and symptoms of hypogonadism. Here to initiate trial of testosterone replacement therapy. He previously attempted intramuscular injection however found this uncomfortable and unsatisfactory. Would like to avoid painful injections if possible. 04/17/2022: Here for follow up urinary frequency and weakened urinary stream s/p UroLift. Also, long history of Peyronie's, ED, Hypospadias, and symptoms of hypogonadism. Has been utilizing topical testosterone for 3 weeks now and notes significantly less response compared to subcuticular injection. He is also worried about possible transference to family members. Does have labs for me to review which showed no evidence of hepatotoxicity or elevation in his PSA. 10/15/2022: Here for follow up urinary frequency and weakened urinary stream s/p UroLift. Also, long history of Peyronie's, ED, Hypospadias, and symptoms of hypogonadism. Was transitioned back to Xyosted after failing topical T. No evidence of hepatotoxicity on current labs. Feels like his urine flow has significantly reduced in the last few months. Feels like he has intermittency and straining to void. 02/04/2023: Here for follow up urinary frequency and weakened urinary stream s/p UroLift. Also, long history of Peyronie's, ED, Hypospadias, and symptoms of hypogonadism. Here to discuss implant. Eulogio Quiroz MD [address] [place] [address],[address], [place], [address], [facility] 02/04/2023 13:45:07 03/06/2023 text/html HPI Notes: Pt is here accompanied by for surgical drain removal s/p IPP insertion 03/03/23 Eulogio Quiroz MD [address] [place] [address],[address], [place], [address], [facility] 03/06/2023 16:37:48 03/18/2023 text/html HPI Notes: 67 ye ar old male who follows with me in [place] for long-standing urinary frequency and weakened urinary stream. Maintained on tamsulosin 0.8 mg PO daily. Here for UroCuff, Cystoscopy, and TRUS volume only. 04/19/2021: Here for follow up urinary frequency and weakened urinary stream. Schedule for [facility] but post-poned due to sending vacation. Also has Peyronie's (manual traction has been inconsistent) and ED (not using tadalafil at this time). Would like to know if we can correct his hypospadias at the time of Rezum. 06/14/21: Here for follow up urinary frequency and weakened urinary stream. Rezum now not covered by insurance. Would like to discuss other options. 08/12/2021: Here for follow up urinary frequency and weakened urinary stream s/p UroLift. Also, long history of Peyronie's, ED, Hypospadias, and symptoms of hypogonadism. Recent Free and bioavailable testosterone results: Free Testosterone 47 pg/mL (low) 10/17/2021: Here for follow up urinary frequency and weakened urinary stream s/p UroLift. Also, long history of Peyronie's, ED, Hypospadias, and symptoms of hypogonadism. While his symptoms improved on the clomiphene, he noticed gynecomastia so stopped. 10/31/2021: Here for follow up urinary frequency and weakened urinary stream s/p UroLift. Also, long history of Peyronie's, ED, Hypospadias, and symptoms of hypogonadism. Here to initiate trial of testosterone replacement therapy. He previously attempted intramuscular injection however found this uncomfortable and unsatisfactory. Would like to avoid painful injections if possible. 04/17/2022: Here for follow up urinary frequency and weakened urinary stream s/p UroLift. Also, long history of Peyronie's, ED, Hypospadias, and symptoms of hypogonadism. Has been utilizing topical testosterone for 3 weeks now and notes significantly less response compared to subcuticular injection. He is also worried about possible transference to family members. Does have labs for me to review which showed no evidence of hepatotoxicity or elevation in his PSA. 10/15/2022: Here for follow up urinary frequency and weakened urinary stream s/p UroLift. Also, long history of Peyronie's, ED, Hypospadias, and symptoms of hypogonadism. Was transitioned back to Xyosted after failing topical T. No evidence of hepatotoxicity on current labs. Feels like his urine flow has significantly reduced in the last few months. Feels like he has intermittency and straining to void. 02/04/2023: Here for follow up urinary frequency and weakened urinary stream s/p UroLift. Also, long history of Peyronie's, ED, Hypospadias, and symptoms of hypogonadism. Here to discuss implant. 03/18/2023: Here for follow up urinary frequency and weakened urinary stream s/p UroLift. Also, long history of Peyronie's, ED, Hypospadias, and symptoms of hypogonadism. Now s/p IPP Eulogio Quiroz MD [address] [facility] [address], [place], [address], [facility] 03/18/2023 13:42:51 04/29/2023 text/html HPI Notes: 67 ye ar old male who follows with me in [place] for long-standing urinary frequency and weakened urinary stream. Maintained on tamsulosin 0.8 mg PO daily. Here for UroCuff, Cystoscopy, and TRUS volume only. 04/19/2021: Here for follow up urinary frequency and weakened urinary stream. Schedule for Re[facility] but post-poned due to sending vacation. Also has Peyronie's (manual traction has been inconsistent) and ED (not using tadalafil at this time). Would like to know if we can correct his hypospadias at the time of Rezum. 06/14/21: Here for follow up urinary frequency and weakened urinary stream. Rezum now not covered by insurance. Would like to discuss other options. 08/12/2021: Here for follow up urinary frequency and weakened urinary stream s/p UroLift. Also, long history of Peyronie's, ED, Hypospadias, and symptoms of hypogonadism. Recent Free and bioavailable testosterone results: Free Testosterone 47 pg/mL (low) 10/17/2021: Here for follow up urinary frequency and weakened urinary stream s/p UroLift. Also, long history of Peyronie's, ED, Hypospadias, and symptoms of hypogonadism. While his symptoms improved on the clomiphene, he noticed gynecomastia so stopped. 10/31/2021: Here for follow up urinary frequency and weakened urinary stream s/p UroLift. Also, long history of Peyronie's, ED, Hypospadias, and symptoms of hypogonadism. Here to initiate trial of testosterone replacement therapy. He previously attempted intramuscular injection however found this uncomfortable and unsatisfactory. Would like to avoid painful injections if possible. 04/17/2022: Here for follow up urinary frequency and weakened urinary stream s/p UroLift. Also, long history of Peyronie's, ED, Hypospadias, and symptoms of hypogonadism. Has been utilizing topical testosterone for 3 weeks now and notes significantly less response compared to subcuticular injection. He is also worried about possible transference to family members. Does have labs for me to review which showed no evidence of hepatotoxicity or elevation in his PSA. 10/15/2022: Here for follow up urinary frequency and weakened urinary stream s/p UroLift. Also, long history of Peyronie's, ED, Hypospadias, and symptoms of hypogonadism. Was transitioned back to Xyosted after failing topical T. No evidence of hepatotoxicity on current labs. Feels like his urine flow has significantly reduced in the last few months. Feels like he has intermittency and straining to void. 02/04/2023: Here for follow up urinary frequency and weakened urinary stream s/p UroLift. Also, long history of Peyronie's, ED, Hypospadias, and symptoms of hypogonadism. Here to discuss implant. 03/18/2023: Here for follow up urinary frequency and weakened urinary stream s/p UroLift. Also, long history of Peyronie's, ED, Hypospadias, and symptoms of hypogonadism. Now s/p IPP 04/29/2023: Here for follow up, issues with IPP. Eulogio Quiroz MD [address] [place] [address],[address], [place], [address], [facility] 04/29/2023 13:43:48 06/18/2023 text/html HPI Notes: 68 ye ar old male who follows with me in [place] for long-standing urinary frequency and weakened urinary stream. Maintained on tamsulosin 0.8 mg PO daily. Here for UroCuff, Cystoscopy, and TRUS volume only. 04/19/2021: Here for follow up urinary frequency and weakened urinary stream. Schedule for Rezum but post-poned due to sending vacation. Also has Peyronie's (manual traction has been inconsistent) and ED (not using tadalafil at this time). Would like to know if we can correct his hypospadias at the time of Rezum. 06/14/21: Here for follow up urinary frequency and weakened urinary stream. Rezum now not covered by insurance. Would like to discuss other options. 08/12/2021: Here for follow up urinary frequency and weakened urinary stream s/p UroLift. Also, long history of Peyronie's, ED, Hypospadias, and symptoms of hypogonadism. Recent Free and bioavailable testosterone results: Free Testosterone 47 pg/mL (low) 10/17/2021: Here for follow up urinary frequency and weakened urinary stream s/p UroLift. Also, long history of Peyronie's, ED, Hypospadias, and symptoms of hypogonadism. While his symptoms improved on the clomiphene, he noticed gynecomastia so stopped. 10/31/2021: Here for follow up urinary frequency and weakened urinary stream s/p UroLift. Also, long history of Peyronie's, ED, Hypospadias, and symptoms of hypogonadism. Here to initiate trial of testosterone replacement therapy. He previously attempted intramuscular injection however found this uncomfortable and unsatisfactory. Would like to avoid painful injections if possible. 04/17/2022: Here for follow up urinary frequency and weakened urinary stream s/p UroLift. Also, long history of Peyronie's, ED, Hypospadias, and symptoms of hypogonadism. Has been utilizing topical testosterone for 3 weeks now and notes significantly less response compared to subcuticular injection. He is also worried about possible transference to family members. Does have labs for me to review which showed no evidence of hepatotoxicity or elevation in his PSA. 10/15/2022: Here for follow up urinary frequency and weakened urinary stream s/p UroLift. Also, long history of Peyronie's, ED, Hypospadias, and symptoms of hypogonadism. Was transitioned back to Xyosted after failing topical T. No evidence of hepatotoxicity on current labs. Feels like his urine flow has significantly reduced in the last few months. Feels like he has intermittency and straining to void. 02/04/2023: Here for follow up urinary frequency and weakened urinary stream s/p UroLift. Also, long history of Peyronie's, ED, Hypospadias, and symptoms of hypogonadism. Here to discuss implant. 03/18/2023: Here for follow up urinary frequency and weakened urinary stream s/p UroLift. Also, long history of Peyronie's, ED, Hypospadias, and symptoms of hypogonadism. Now s/p IPP 04/29/2023: Here for follow up, issues with IPP. 06/18/2023: Here for follow up urinary frequency and weakened urinary stream s/p UroLift. Also, long history of Peyronie's, ED, Hypospadias, and symptoms of hypogonadism. S/p IPP. Today reports improving penile sensitivity as he is continue to taper off paroxetine. Urination continues to be status quo interested in pursuing repeat UroLift. Eulogio Quiroz MD [address], [place], [address], [facility] 06/18/2023 13:26:29
--- OUTSIDE RECORDS SUMMARY | 2023-08-22 09:19 | XMS_ITS | Referral Summary ---
Author Name Unknown Organization [facility] Address [address] [place] [address] Care Team Providers Care Annealing Oven Operator Name Role Phone Unknown, Md Primary Care Provider Unavailabl e Allergies Active Allergy Reactions Criticality Noted Date Comments Penicillin Anxiety,Difficulty b reathing,Swelling, lips/tongue 03/02/2023 Medications Medication Sig Dispensed Refills Start Date End Date Status buPROPion XL (WELLBUTRIN XL) 300 mg oral extended release tablet 24 HR Acti ve famotidine (PEPCID) 20 mg oral tablet Active lisinopriL (PRINIVIL) 20 mg oral tablet Active PARoxetine HCl (PAXIL) 40 mg oral tablet Active PENTOXIFYLLINE ORAL 10/16/2020 Activ e multivitamin (THERA TABLET) oral Tab Take 1 tablet by mouth Daily. Active hydrocortisone (HYTONE) 2.5 % cream APPLY TO AFFECTED AREA ON FACE 1-2X DAILY FOR UP TO 2 WEEKS AT A TIME 0. REPEAT NEEDED FOR FLARES Active meloxicam (MOBIC) 15 mg oral tablet Take 1 tablet (15 mg) by mouth once daily. 21 tablet 03/03/2023 Active gabapentin (NEURONTIN) 300 mg oral capsule Take 1 capsule (300 mg) by mouth three times a day. 42 capsule 03/03/2023 Active oxyCODONE, immediate release, (ROXICODONE) 5 mg oral tablet Take 1 tablet (5 mg) by mouth every 6 (six) hours as needed. 10 tablet 03/03/2023 Active Social History Tobacco Use Types Packs/Day Years Used Date Smoking Tobacco: Never Smokeless Tobacco: Never Tobacco Cessation:Counseling Given: Not Answered Alcohol Use Standard Drinks/Week Comments Yes 0 (1 standard drink = 0.6 oz pur e alcohol) very rarely Sex and Gender Information Value Date Recorded Sex Assigned at Not on file Gender Identity Not on file Sexual Orientation Not on file Last Filed Vital Signs Vital Sign Reading Time Taken Comments Blood Pressure 145/75 03/03/2023 2:00 PM CDT Pulse 89 03/03/2023 2:00 PM CDT Temperature 36.5 ??C (97.7 ??F) 03/03/2023 11:47 AM C DT Respiratory Rate 18 03/03/2023 2:00 PM CDT Oxygen Saturation 96% 03/03/2023 2:00 PM CDT Inhaled Oxygen Concentration - - Weight 99.8 kg (220 lb) 03/03/2023 9:10 AM CDT Height 172.7 cm (5' 8) 03/03/2023 9:10 AM CDT Body Mass Index 33.45 03/03/2023 9:10 AM CDT Plan of Treatment Not on file Medical Devices Implanted Type Area Gym Supervisor Device Identifier Shelf Expiration Date Model / Serial / Lot Cl [place] Titan - [id number] Implanted:Qty: 1 on 03/03/2023 by Eulogio Quiroz MD at [facility] Penile N/A: Pelvis Coloplast Luanne 12/05/2027 [id number] / / [id number] Assembly Kit Titan - [id number] Implanted:Qty: 1 on 03/03/2023 by Eulogio Quiroz MD at [facility] Supply N/A: Penis Coloplast Luanne 10/14/2027 [id number] / / [id number] Infrapubic Cylinder Pump Titan Implanted:Qty: 1 on 03/03/2023 by Eulogio Quiroz MD at [facility] N/A: Penis Coloplast Luanne 07/01/2027 [id number] / / [id number] Care Teams Annealing Oven Operator Relationship Specialty Start Date End Date Unknown, NO ADDRESS/PHONE/FAX AFFILIATED PCP - General 02/19/23
--- OUTSIDE RECORDS SUMMARY | 2023-08-22 09:19 | XMS_ITS | Clinical Summary ---
Author Name Unknown Organization [facility] Address [address] [place] [address] Care Team Providers Care Food Science Technician Name Role Phone Unknown, Md Primary Care [...] 03/03/2023 9:10 AM CDT Plan of Treatment Health Maintenance Due Date Last Done Comments Colonoscopy 1955 Diabetes Screening 1955 Hepatitis C Screening 1955 Lipid Screening 1955 Depression Assessment (PHQ-2) 1954 RSV 60+ Yrs (1 - 1-dose 60+ series) 2013 Pneumococcal 65+ (2 of 2 - PCV) 07/12/2020 0 Adult Tetanus Booster 05/18/2021 05/18/2011 , 10/12/2007, 05/18/2006 COVID-19 Vaccine ( season) 2023, 07/20/2020 Influenza Vaccine (Season Ended) 2024 02/24/20 19 Yearly Review of HCD 01/28/2024 01/28/2023 Zoster Vaccine Completed 12/28/2019, 0307/2019, 10/12/2014 Medical Devices Implanted Type Area Copyright Manager Device Identifier Shelf Expiration Date Model / Serial / Lot Cl [place] Titan - [id number] Implanted:Qty: 1 on 03/03/2023 by Eulogio Quiroz MD at [facility] N/A: Pelvis Coloplast Luanne 12/05/2027 [id number] / / [id number] Assembly Kit Titan - [id number] Implanted:Qty: 1 on 03/03/2023 by Eulogio Quiroz MD at [facility] N/A: Penis Coloplast Luanne 10/14/2027 [id number] / / [id number] Infrapubic Cylinder Pump Titan Implanted:Qty: 1 on 03/03/2023 by Eulogio Quiroz MD at [facility] N/A: Penis Coloplast Luanne 07/01/2027 [id number] / / [id number] Care Teams Food Science Technician Relationship Specialty Start Date End Date Unknown, NO ADDRESS/PHONE/FAX AFFILIATED PCP - General 02/19/23
--- OUTSIDE RECORDS SUMMARY | 2023-08-22 09:19 | XMS_ITS | Clinical Summary ---
Author Name Unknown Organization Count includes the [facility] Address [address] [place] [address] Care Team Providers Care Plant Attendant Name Role Phone Mushtaq Garcia MD Primary Care Provider + [phone] Source Comments You are receiving this document as you are listed as the primary care provider,follow-up provider, or the patient has been referred to you for consultation.This is in compliance with the Medicare and[facility] EHR Incentive Program,which states Providers who transition their patient to another setting of careor provider of care or refers their patient to another provider of care shouldprovide summary care record for each transition of care or referral. [facility] Active Allergy Reactions Criticality Noted Date Comments Penicillins Anaphylaxis High 10/15/2016 Medications Medication Sig Dispensed Refills Start Date End Date Status buPROPion (WELLBUTRIN XL) 300 MG 24 hour release tabletIndications:Low testosterone,Fatigue, unspecified type TK 1 T PO D 2 09/30/2016 Active escitalopram oxalate (LEXAPRO) 20 MG tabletIndications:Low testosterone,Fatigue, unspecified type TK 0.5 T PO D 3 07/24/2016 Activ e lisinopril (ZESTRIL) 20 MG tabletIndications:Low testosterone,Fatigue, unspecified type TK 1 T PO D 3 07/24/2016 Active rosuvastatin (CRESTOR) 5 MG tabletIndications:Low testosterone,Fatigue, unspecified type TK 1 T PO HS 2 09/11/2016 Active Coenzyme Q10 (COQ10) 100 MGIndications:Low testosterone,Fatigue, unspecified type 100 mg. Active Saxon-3 Fatty Acids (OMEGA 3 500 OR)Indications:Low testosterone,Fatigue, unspecified type 500 mg. Active multivitamin (THERAGRAN) tabletIndications:Low testosterone,Fatigue, unspecified type Take 1 Tab by mouth daily. Active cholecalciferol (VITAMIND3) 2000 UNITS tabletIndications:Low testosterone,Fatigue, unspecified type Take 2,000 Units by mouth daily. Active Turmeric (CURCUMIN 95 OR)Indications:Low testosterone,Fatigue, unspecified type Active Resveratrol 100 MG CAPSIndications:Low testosterone,Fatigue, unspecified type 100 mg. Active Active Problems Problem Noted Date Diagnosed Date Depression 10/15/2016 Dyslipidemia 10/15/2016 Benign essential HTN 10/15/2016 Social History Tobacco Use Types Packs/Day Years Used Date Smoking Tobacco: Never Alcohol Use Standard Drinks/Week Comments No 0 (1 standard drink = 0.6 oz pur e alcohol) Sex and Gender Information Value Date Recorded Sex Assigned at Not on file Gender Identity Not on file Sexual Orientation Not on file Last Filed Vital Signs Vital Sign Reading Time Taken Comments Blood Pressure 136/90 10/15/2016 2:10 PM CDT Pulse 80 10/15/2016 2:10 PM CDT Temperature - - Respiratory Rate - - Oxygen Saturation - - Inhaled Oxygen Concentration - - Weight 101.7 kg (224 lb 1.6 oz) 10/15/2016 2:10 PM CDT Height 174 cm (5' 8.5) 10/15/2016 2:10 PM CDT Body Mass Index 33.58 10/15/2016 2:10 PM CDT Plan of Treatment Health Maintenance Due Date Last Done Comments Colon Cancer Screening Plan Due 1955 Hep C Screening (Preventive Services) 1955 Adult Preventive Visit 1971 DTaP/Tdap/Td (1 - Tdap) 1972 Cholesterol 1988 Zoster/Shingles (1 of 2) 2003 Pneumococcal 65+ Yrs (1 - PCV) 2018 COVID-19 Vaccine ( - 2022-2 4 season) 2023 Influenza (#1) 2023 HepA Aged Out No longer eligi ble based on patient's age to complete this topic HepB Aged Out No longer eligi ble based on patient's age to complete this topic Hib Aged Out No longer eligi ble based on patient's age to complete this topic IPV (Polio) Aged Out No longer eligi ble based on patient's age to complete this topic MCV4 Aged Out No longer eligi ble based on patient's age to complete this topic Care Teams Plant Attendant Relationship Specialty Start Date End Date Mushtaq Garcia MD [address] [place] [address] PCP - General 10/15/16
--- OUTSIDE RECORDS SUMMARY | 2023-08-22 09:20 | XMS_ITS | Continuity of Care Document ---
Author Name Unknown Address [address] [place] [address] Phone [phone] Organization [facility] Address [address] [place] [address] Care Team Providers Care Talent Sourcing Specialist Name Role Phone [facility] Primary Care Provider Assessment Encounter Date Assessment Date Assessment LastModified by Organization Details LastModified Time 06/18/2023 06/18/2023 68 year old male with Peyronie's disease, urinary frequency, and erectile dysfunction. [email or web address] Not available 06/12/2023 16:52:34 Plan of Treatment Reminders Order Date Submit Date Provider Last Modified By Organization Details Last Modified Time Details Appointments None recorded. Lab None recorded. Referral None recorded. Procedures None recorded. Surgeries cystourethr oscopy, with insertion of permanent adjustable transprosta tic implant; single implant (SURG) 2023 024 [email or web address] Not available 13:51:41 Imaging None recorded. Medication Orders None recorded. Patient TargetsNo targets recorded. Patient Instructions Encounter Date Encounter Id Patient Instructions Last Modified By Organization Details Last Modified Time 06/18/2023 [id number] UroLift We discussed prostate UroLift and that [...] allow their blood to clot normally. 2. [place] or no hospital stay. This procedure can [...] back over time. Not available 06/18/2023 13:25:50 Reason for Referral None Reported. Results Created Date Observation Date Name Description Value Unit Range Abnormal Flag LastModifiedBy Organization Detail LastModifiedTime 06/19/19 24 06/18/2023 bladd er scan (PROC ) No observ ation record ed. BARCODE Not Available 06/19/2023 09:09:03 Result Notes None recorded. Procedures Surgical History Date Name Laterality Status Provider Name and Address Organization Details Recorded Time 4 COMPLEX VISIT completed Eulogio Quiroz MD [address] [place] [address],[address], [address], [facility] 06/18/2023 13:26:00 4 Bladder Scan completed Cristina Rhodes [facility] 06/18/2023 11:11:00 3 Staple Removal completed Abdulaziz Wilson [facility] 03/18/2023 11:52:31 3 Drain Removal completed Naheed Garcia [facility] 03/06/2023 11:28:45 3 Cystoscopy- male completed Eulogio Quiroz MD [address] [place] [address],[address], [address], [facility] 10/15/2022 17:49:10 1 Cystoscopy- male completed Eulogio Quiroz MD [address] [place] [address],[address], [address], [facility] 01/09/2021 13:31:32 1 TRUS- Volume size only completed Eulogio Quiroz MD [address] [place] [address], [address], [facility] 01/09/2021 13:32:01 8 colonoscopy completed Daija Weller [facility] 06/14/2021 13:03:27 Imaging Results None recorded. Procedure Notes None recorded. Medical Equipment None Reported. Allergies Allergen ID Allergen Name Allergen Category Reaction Reaction Severity Criticality Documentation Date Start Date Code Code System Note Provider Name and Address Organization Details Recorded Time 105953 Medicinal product containin g penicilli n and acting as antibacte rial agent (product) medicatio n swelling severe Not available 01/09/2021 41392 05 SNOMED Eulogio Quiroz MD [address] [facility],[place] [address], [place], [address], [facility] 12:32:53 Medications Name Sig Start Date Stop [...] Updated DateTime 06/18/2023 172.72 cm 34.2 kg/m2 512281.28 g Cristina Rhodes [place], [place] - [facility] 06/18/2023 11:12:26 Social History Question Answer Notes LastModified by Organizat ion Details LastModified Time Tobacco Smoking Status Never Smoker Eulogio Quiroz MD [address] [facility],[address], [place], [address], [facility] 01/09/2021 12:38:09 What Is Your Level Of Alcohol Consumption? None Information not available 01/09/2021 What Is Your Level Of Caffeine Consumption? Occasional Information not available 01/09/2021 Are You Currently Employed? No Information not available 01/09/2021 Ethnicity Not /Latin o Information not available 06/14/2021 Preferred Language Faroese Information not available 06/14/2021 Recreational Drug Use [...] High Blood Pressure Y Kidney Stones N Cancer N Lung Disease N Depression N High Cholesterol N GERD/Acid Reflux Y Heart Disease N Immunizations Vaccine Type Date Status Provider Name and Address Organization Details Recorded Time influenza, high-dose, quadrivalent 06/11/2021 ivon franklin [facility] 06/18/2023 11:12:35 Tdap 06/11/2021 ivon franklin [facility] 06/18/2023 11:12:35 influenza, injectable, quadrivalent, preservative free 06/15/2009 ivon franklin [facility] 06/18/2023 11:12:35 influenza, injectable, quadrivalent 02/23/2019 completed Eulogio Quiroz MD [address] [place] [address],[address] [place] [address], [address], [facility] 02/04/2023 12:06:32 Influenza, injectable, MDCK, quadrivalent, preservative 02/24/2018 completed Eulogio Quiroz MD [address] [place] [address],[address], [address], [facility] 02/04/2023 12:06:32 zoster recombinant 07/19/2019 completed Eulogio jean MD [address] [place] [address],[address], [address], [facility] 02/04/2023 12:06:32 zoster recombinant 12/28/2019 completed Eulogio jean MD [address] [place] [address],[address] [place] [address], [phone], [facility] 02/04/2023 12:06:32 Influenza vaccine, quadrivalent, adjuvanted 03/01/2020 completed Eulogio Quiroz MD [address] [place] [address],[address] [place] [address], [phone], [facility] 02/04/2023 12:06:32 COVID-19, mRNA, LNP-S, PF, 30 mcg/0.3 mL dose 03/13/2021 completed Eulogio Quiroz MD [address] [place] [address],[address] [place] [address], [phone], [facility] 02/04/2023 12:06:32 COVID-19 vaccine, vector-nr, rS-Ad26, PF, 0.5 mL 07/20/2020 completed Eulogio Quiroz MD [address] [place] [address],[address] [place] [address], [phone], [facility] 02/04/2023 12:06:32 pneumococcal polysaccharide PPV23 07/12/2019 completed Eulogio Quiroz MD [address] [place] [address],[address], [place], [address], [facility] 02/04/2023 12:06:32 Tdap 05/18/2011 completed Eulogio Quiroz MD [address] [place] [address],[address], [address], [facility] 02/04/2023 12:06:32 Tdap 10/12/2007 completed Eulogio Quiroz MD [address] [place] [address],[address], [place], [address], [facility] 02/04/2023 12:06:32 zoster live 10/12/2014 completed Eulogio Quiroz MD [address] [place] [address],[address], [place], [address], [facility] 02/04/2023 12:06:32 Influenza, seasonal, injectable 02/17/2012 completed Eulogio Quiroz MD [address] [place] [address],[address], [place], [address], [facility] 02/04/2023 12:06:32 Influenza, seasonal, injectable 04/06/2010 completed Eulogio Quiroz MD [address] [place] [address],[address], [place], [address], [facility] 02/04/2023 12:06:32 Influenza, seasonal, injectable, preservative free 05/21/2011 completed Eulogio Quiroz MD [address] [place] [address],[address], [place], [address], [facility] 02/04/2023 12:06:32 Influenza, seasonal, injectable, preservative free 04/23/2014 completed Eulogio Quiroz MD [address] [place] [address],[address], [place], [address], [facility] 02/04/2023 12:06:32 influenza, whole 02/25/2017 completed Eulogio vance MD [address] [place] [address],[address], [place], [address], [facility] 02/04/2023 12:06:32 Novel [id number] 06/15/2009 completed Eulogio Quiroz MD [address] [place] [address],[address] [place] [address], [phone], [facility] 02/04/2023 12:06:32 Td (adult), 2 Lf tetanus toxoid, preservative free, adsorbed 05/18/2006 completed Eulogio Quiroz MD [address] [place] [address],[address], [place], [address], [facility] 02/04/2023 12:06:32 Past Encounters Encounter ID Performer Location Encounter Start Date Encounter Closed Date Diagnosis/Indication Diagnosis SNOMED-CT Code [id number] Eulogio Quiroz MD [facility] [address] [place] [phone] 06/18/2023 11:05:15 06/19/2023 10:46:16 Increased frequency of urination 557913162 Induration penis plastica 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 Primary er ectile dysfunction 864028344 Benign pro static hyperplasia 571230260 Reduced libido 6275534 Hypogonadism 18501321 Health Concerns Section Related Observation LastModified by Organization Detai ls LastModified Time None Recorded Concern Status LastModified by Organization Details LastModified Time None Recorded Payers Encounter Date Sequence Insurance Name Policy Number Policy Mahan Covered Member ID Mahan Member ID Guarantor Name 06/18/2023 1 [place] [employer] Duy Schreiber [id number] 3 Duy Schreiber 06/18/2023 2 Anergis Duy Schreiber [id number] Duy Schreiber Notes Date Note Type Note Provider Name and Address Organization Details Recorded Time 06/18/2023 text/html HPI Notes: 68 ye ar old male who follows with me in [place] for long-standing urinary frequency and weakened urinary [...] in pursuing repeat UroLift. Eulogio Quiroz MD [address] [facility],[address], [place], [address], [facility] 06/18/2023 13:26:29
[2023-08-22 10:35] LABS: Sodium* 133 mmol/L (135-149)
== END 2023-08-22 09:17 | disposition home or self-care (01) ==
PROVIDERS: Family Medicine; PCP Family Medicine; Visit Provider Family Medicine
DX: E87.1 Hypo-osmolality and hyponatremia (principal)
CPT/HCPCS: 36415; 84295

== ENCOUNTER 2023-08-24 07:50 | Outpatient (CLI) | payer MEDICARE, OTHER, SELFPAY ==
--- OUTSIDE RECORDS SUMMARY | 2023-08-28 10:09 | XMS_ITS | Clinical Summary ---
Author Name Unknown Organization [facility] Address [place], [place] [address] Care Team Providers Care Asbestos Cement Sheet Supervisor Name Role Phone Mushtaq Garcia MD Primary Care Provider [phone] Allergies Active Allergy Reactions Criticality Noted Date [...] Department Care Team Description 08/17/2023 Lab Requisition [facility] [phone] Naheed Johansen MD from Last 3 Months [...] Comments Blood Pressure 144/80 07/17/2021 11:01 AM EDITORIAL WRITER Pulse 80 07/17/2021 11:01 AM EDITORIAL WRITER Temperature 36.6 ??C (97.9 ??F) 12/21/2020 1 :30 PM CDT Respiratory Rate 18 07/17/2021 11:0 1 AM EDITORIAL WRITER Oxygen Saturation 96% 07/17/2021 11: 01 AM EDITORIAL WRITER Inhaled Oxygen Concentration - - Weight 103.9 kg (229 lb) 07/17/2021 11: 01 AM EDITORIAL WRITER Pt weighed with shoes on. Height 172.7 [...] CDT Naheed Johansen MD [facility] [address] [place] [address], * JAK2 V617F MUTATION DETECTION (08/17/2023 4:25 AM CDT) SOURCE Blood 08/21/2023 4:48 PM CDT [facility] INTERPRETATION JAK2 V617F JAK2 V617F mutation not detected JAK2 V617F mutation not detected 08/21/2023 4:48 PM CDT [facility] Comment:The absence of the J [...] AM CDT 08/18/2023 1:53 PM CDT Narrative [facility] ?.[facility] - 08/21/2023 4:48 PM CDT Methodology: Fluorescent allele specific PCR was performed on genomic DNA to detect the presence of the V617F mutation in the JAK2 gene. PCR amplicon was and detected by capillary electrophoresis. Assay validated to a limit of detection of 1.0% mutant allele. FDA required disclaimer: ??This test was developed and its performance characteristics determined by the [facility]. It has not been cleared or approved by the U.S. Food and Drug Administration. The FDA has determined, however, that in most cases, such approval is not necessary. This test is used for clinical purposes. It should not be regarded as investigational or for research. Naheed Johansen MD [facility] [address] [place] [address], * PERIPHERAL BLD MORPHOLOGY (08/17/2023 4:25 AM CDT) Case Report Special Hematology Report ? Case: [id number] ? Authorizing Provider: ??Naheed Johansen MD ?Collected: ? 08/17/2023 0425 ? Ordering Location: ? [facility] ?Received: ?08/17/2023 1639 ? Pathologist: ? Kirill Fraire, ? MD ? Specimen: ?Peripheral Blood ? 08/26/2023 12:08 PM CDT [facility]- CENTRAL LABORATORY Final Diagnosis PERIPHERAL BLOOD: 1. Clinical history of an elevated hemoglobin (currently normal) 2. Mild absolute monocytosis, favor reactive 3. Molecular studies are negative for the JAK2 V617F mutation 4. See comment 08/26/2023 12:08 PM CDT [facility] Preliminary result electronically signed by Kirill Fraire MD on 08/18/2023 at 1:56 PM Comment The patient's polycythemia is noted and may be secondary in nature. The negative molecular studies JAK2 V617F argue against a myeloproliferative neoplasm. If clinical suspicion persists, then a JAK2 EXON 12-15 may be performed. In the absence of a myeloproliferative neoplasm, secondary causes include cardiac distress/disease, respiratory distress/disease, tobacco use, certain medications, and high-altitude. Clinical correlation is recommended. The features of the monocytosis are nonspecific. The monocytes are normal-appearing. Monocytosis can be reactive in nature. Recommend evaluation of patient's absolute monocyte count trends. If the absolute monocytosis has been persistent (and/or becomes persistent) without clinical etiology, re-evaluation could be considered as persistent absolute monocytosis can be associated with some primary bone marrow disorders. At this time, there are no convincing dysplastic features to suggest a primary bone marrow disorder. This case was also reviewed by Liliana Guo MT, MS ([facility]). 08/26/2023 12:08 PM CDT [facility]- CENTRAL LABORATORY Clinical Information The patient is a 68-year-old male. Per CBC scan: Leukocytosis, elevated hemoglobin, and microcytosis. ??Please evaluate for polycythemia vera. Per EPIC: Additional history includes hypertension. 08/26/2023 12:08 PM CDT [facility]- CENTRAL LABORATORY CBC and Differential HEMATOLOGY PARAMETERS Tested at: ??[facility] ? RESULTS ??EXPECTED VALUES WBC: ? 9.4 ?4.5-91t8058/cumm ? RBC: ? 5.61 ? 4.30-5.90 mil/cumm HGB: ? 17.1 ? 13.5-17.5 gm/di ? HCT: ? 45.2 ? 37-53% ? MCV: ? 81.0 ? 80-100 fl ? NORMOCYTIC MCH: ? 31.0 ? 26-34 pg ? MCHC: ?38.0 ? 32-36 gm/dl ? HYPERCHROMIC RDW: ? 11.9 ? 11.5-15.5% ? PLT: ? 215 ?140-501a2828/uL ? Differential ?Absolute (%) ?Expected (%) ?(x10*9/L) ? (x10*9/L) Neutrophils: ?5.73 (61.3) ? 1.7-7.0 (42-72%) ? Lymphocytes: ?2.08 (22.2) ? 0.9-2.9 (20-44%) ?? Monocytes: ?1.4 (15) ? <0.9 (0-11%) ? ELEVATED Eosinophils: ?0.09 (1) ? <0.5 (0-2%) ? Basophils: ?0.02 (.2) ?<0.3 (<3.0%) ? Imm Grans: ?0.04 (.4) ?<0.3 (0-3%) ? (Metas, Myelos,Pros) 08/26/2023 12:08 PM CDT [facility]- CENTRAL LABORATORY Microscopic Description The final diagnosis is based on microscopic examination of an appropriately stained blood smear. 08/26/2023 12:08 PM CDT [facility] Additional Information Interpreted at [facility] Central Laboratory - [address], [place] [address] 08/26/2023 12:08 PM CDT [facility] Blood (Peripheral Blood) 08/17/2023 4:25 AM CDT 08/17/2023 4:39 PM CDT Naheed Johansen MD HEMATOLOGY [facility] LABORATORY-CENTRAL LABORATORY [address] [place] [address], from Last 3 Months Advance Directives * Full Code (Latest Code Status on File) Date Activated Date Inactivated Comments 12/21/2020 10:14 AM 12/21/2020 4:37 PM Question Answer Comments Code Status Discussion: Not Discussed Care Teams Asbestos Cement Sheet Supervisor Relationship Specialty Start Date End Date Mushtaq Garcia MD PCP - General Family Practice 01/05/15
--- OUTSIDE RECORDS SUMMARY | 2023-08-28 10:09 | XMS_ITS | Referral Summary ---
Author Name Unknown Organization [facility] Address [address] [place] [address] Care Team Providers Care Crozer Name Role Phone Unknown, Md Primary Care [...] on file Medical Devices Implanted Type Area Coutierier Device Identifier Shelf Expiration Date Model / Serial / Lot Cl [place] Titan - [id number] Implanted:Qty: 1 on 03/03/2023 by Eulogio Quiroz MD at [facility] Penile N/A: Pelvis Coloplast Luanne 12/05/2027 [id number] / / [id number] Assembly Kit Titan - [id number] Implanted:Qty: 1 on 03/03/2023 by Eulogio Quiroz MD at [facility] Supply N/A: Penis Coloplast Luanne 10/14/2027 [id number] / / [id number] Infrapubic Cylinder Pump Titan Implanted:Qty: 1 on 03/03/2023 by Eulogio Quiroz MD at [facility] N/A: Penis Coloplast Luanne 07/01/2027 [id number] / / [id number] Care Teams Crozer Relationship Specialty Start Date End Date Unknown, NO ADDRESS/PHONE/FAX AFFILIATED PCP - General 02/19/23
--- OUTSIDE RECORDS SUMMARY | 2023-08-28 10:09 | XMS_ITS | Clinical Summary ---
Author Name Unknown Organization [facility] Address [address] [place] [address] Care Team Providers Care Seaming Inspector Name Role Phone Unknown, Md Primary Care [...] 0307/2019, 10/12/2014 Medical Devices Implanted Type Area Tape Edge Machine Operator Device Identifier Shelf Expiration Date Model / Serial / Lot Cl [place] Titan - [id number] Implanted:Qty: 1 on 03/03/2023 by Eulogio Quiroz MD at [facility] N/A: Pelvis Coloplast Luanne 12/05/2027 [id number] / / [id number] Assembly Kit Titan - [id number] Implanted:Qty: 1 on 03/03/2023 by Eulogio Quiroz MD at [facility] N/A: Penis Coloplast Luanne 10/14/2027 [id number] / / [id number] Infrapubic Cylinder Pump Titan Implanted:Qty: 1 on 03/03/2023 by Eulogio Quiroz MD at [facility] N/A: Penis Coloplast Luanne 07/01/2027 [id number] / / [id number] Care Teams Seaming Inspector Relationship Specialty Start Date End Date Unknown, NO ADDRESS/PHONE/FAX AFFILIATED PCP - General 02/19/23
--- OUTSIDE RECORDS SUMMARY | 2023-08-28 10:09 | XMS_ITS | Clinical Summary ---
Author Name Unknown Organization [facility] Address [address] [place] [address] Care Team Providers Care Pilot Boat Deckhand Name Role Phone Mushtaq Garcia MD Primary Care Provider [phone] Source Comments You are receiving this document as you are listed as the primary care provider,follow-up provider, or the patient has been referred to you for consultation.This is in compliance with the Medicare and[facility] EHR Incentive Program,which states Providers who transition their patient to another setting of careor provider of care or refers their patient to another provider of care shouldprovide summary care record for each transition of care or referral. [facility] Allergies Active Allergy Reactions Criticality Noted Date [...] MGIndications:Low testosterone,Fatigue, unspecified type 100 mg. Active [place]-3 Fatty Acids (OMEGA 3 500 OR)Indications:Low testosterone,Fatigue, [...] age to complete this topic Care Teams Pilot Boat Deckhand Relationship Specialty Start Date End Date Mushtaq Garcia MD [address] [place] [address] PCP - General 10/15/16
--- OUTSIDE RECORDS SUMMARY | 2023-08-28 10:10 | XMS_ITS | Continuity of Care Document ---
Author Name Unknown Address [address] [place] [address] Phone [phone] Organization [facility] Address [address] [place] [address] Care Team Providers Care Email Administrator Name Role Phone [facility] Primary Care Provider Assessment [...] By Organization Details Last Modified Time 06/18/2023 [id number] UroLift We discussed prostate UroLift and that [...] allow their blood to clot normally. 2. [place] or no hospital stay. This procedure can [...] 4 COMPLEX VISIT completed Eulogio Quiroz MD [address] [place] [address],[address], [address], [facility] 06/18/2023 13:26:00 4 Bladder Scan completed Cristina Rhodes [facility] 06/18/2023 11:11:00 3 Staple Removal completed Abdulaziz Wilson [facility] 03/18/2023 11:52:31 3 Drain Removal completed Naheed Garcia [facility] 03/06/2023 11:28:45 3 Cystoscopy- male completed Eulogio Quiroz MD [address] [place] [address],[address], [address], [facility] 10/15/2022 17:49:10 1 Cystoscopy- male completed Eulogio Quiroz MD [address] [place] [address],[address], [address], [facility] 01/09/2021 13:31:32 1 TRUS- Volume size only completed Eulogio Quiroz MD [address] [place] [address], [phone], [facility] 01/09/2021 13:32:01 8 colonoscopy completed Daija Weller [facility] 06/14/2021 13:03:27 Imaging Results None recorded. Procedure Notes None recorded. Medical Equipment None Reported. Allergies Allergen ID Allergen Name Allergen Category Reaction Reaction Severity Criticality Documentation Date Start Date Code Code System Note Provider Name and Address Organization Details Recorded Time 030818 Medicinal product containin g penicilli n and acting as antibacte rial agent (product) medicatio n swelling severe Not available 01/09/2021 92531 05 SNOMED Eulogio Quiroz MD [address] [facility],[place] [address], [place], [address], [facility] 12:32:53 Medications Name Sig Start Date [...] Updated DateTime 06/18/2023 172.72 cm 34.2 kg/m2 962599.28 g Cristina Rhodes [place], [place] - [facility] 06/18/2023 11:12:26 Social History Question Answer Notes LastModified by Organizat ion Details LastModified Time Tobacco Smoking Status Never Smoker Eulogio Quiroz MD [address] [facility],[address], [place], [address], [facility] 01/09/2021 12:38:09 What Is Your Level Of Alcohol Consumption? None Information not available 01/09/2021 What Is Your Level Of Caffeine Consumption? Occasional Information not available 01/09/2021 Are You Currently Employed? No Information not available 01/09/2021 Ethnicity Not /Latin o Information not available 06/14/2021 Preferred Language Maldivian Information not available 06/14/2021 Recreational Drug Use [...] history of Hypertension Medical History Condition Response Other N High Blood Pressure Y Kidney Stones N Lung Disease N Depression N GERD/Acid Reflux Y Sexually Transmitted Infection N Diabetes N Bleeding Disorder N Cancer N High Cholesterol N Heart Disease N Immunizations Vaccine Type Date Status Provider Name and Address Organization Details Recorded Time influenza, high-dose, quadrivalent 06/11/2021 ivon franklin [facility] 06/18/2023 11:12:35 Tdap 06/11/2021 ivon franklin [facility] 06/18/2023 11:12:35 influenza, injectable, quadrivalent, preservative free 06/15/2009 ivon franklin [facility] 06/18/2023 11:12:35 influenza, injectable, quadrivalent 02/23/2019 completed Eulogio Quiroz MD [address] [place] [address],[address] [place] [address], [phone], [facility] 02/04/2023 12:06:32 Influenza, injectable, MDCK, quadrivalent, preservative 02/24/2018 completed Eulogio Quiroz MD [address] [place] [address],[address], [address], [facility] 02/04/2023 12:06:32 zoster recombinant 07/19/2019 completed Eulogio jean MD [address] [place] [address],[address], [address], [facility] 02/04/2023 12:06:32 zoster recombinant 12/28/2019 completed Eulogio jean MD [address] [place] [address],[address] [place] [address], [phone], [facility] 02/04/2023 12:06:32 Influenza vaccine, quadrivalent, adjuvanted 03/01/2020 completed Eulogio Quiroz MD [address] [place] [address],[address] [place] [address], [address], [facility] 02/04/2023 12:06:32 COVID-19, mRNA, LNP-S, PF, 30 mcg/0.3 mL dose 03/13/2021 completed Eulogio Quiroz MD [address] [place] [address],[address] [place] [address], [address], [facility] 02/04/2023 12:06:32 COVID-19 vaccine, vector-nr, [id number], PF, 0.5 mL 07/20/2020 completed Eulogio Quiroz MD [address] [place] [address],[address] [place] [address], [phone], [facility] 02/04/2023 12:06:32 pneumococcal polysaccharide PPV23 07/12/2019 completed Eulogio Quiroz MD [address] [place] [address],[address], [place], [address], [facility] 02/04/2023 12:06:32 Tdap 05/18/2011 completed Eulogio Quiroz MD [address] [place] [address],[address], [address], [facility] 02/04/2023 12:06:32 Tdap 10/12/2007 completed Eulogio Quiroz MD [address] [place] [address],[address], [place], [address], [facility] 02/04/2023 12:06:32 zoster live 10/12/2014 completed Eulogio Quiroz MD [address] [place] [address],[address], [place], [address], [facility] 02/04/2023 12:06:32 Influenza, seasonal, injectable 02/17/2012 completed Eulogio Quiroz MD [address] [place] [address],[address], [place], [address], [facility] 02/04/2023 12:06:32 Influenza, seasonal, injectable 04/06/2010 completed Eulogio Quiroz MD [address] [place] [address],[address], [place], [address], [facility] 02/04/2023 12:06:32 Influenza, seasonal, injectable, preservative free 05/21/2011 completed Eulogio Quiroz MD [address] [place] [address],[address], [place], [address], [facility] 02/04/2023 12:06:32 Influenza, seasonal, injectable, preservative free 04/23/2014 completed Eulogio Quiroz MD [address] [place] [address],[address], [place], [address], [facility] 02/04/2023 12:06:32 influenza, whole 02/25/2017 completed Eulogio vance MD [address] [place] [address],[address], [place], [address], [facility] 02/04/2023 12:06:32 Novel [id number] 06/15/2009 completed Eulogio Quiroz MD [address] [place] [address],[address] [place] [address], [phone], [facility] 02/04/2023 12:06:32 Td (adult), 2 Lf tetanus toxoid, preservative free, adsorbed 05/18/2006 completed Eulogio Quiroz MD [address] [place] [address],[address], [place], [address], [facility] 02/04/2023 12:06:32 Past Encounters Encounter ID Performer Location Encounter Start Date Encounter Closed Date Diagnosis/Indication Diagnosis SNOMED-CT Code [id number] Eulogio Quiroz MD [facility] [address] [place] [id number] 06/18/2023 11:05:15 06/19/2023 10:46:16 Increased frequency of urination 118969393 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 Primary er ectile dysfunction 417809650 Benign pro static hyperplasia 126941970 Reduced libido 0331762 Hypogonadism 79438952 Health Concerns Section Related Observation LastModified by Organization Detai ls LastModified Time None Recorded Concern Status LastModified by Organization Details LastModified Time None Recorded Payers Encounter Date Sequence Insurance Name Policy Number Policy Mahan Covered Member ID Mahan Member ID Guarantor Name 06/18/2023 1 [place] Duy Schreiber [id number] 3 Duy Schreiber 06/18/2023 2 [employer] Duy Schreiber [id number] Duy Schreiber Notes Date Note Type Note Provider Name and Address Organization Details Recorded Time 06/18/2023 text/html HPI Notes: 68 ye ar old male who follows with me in [place] for long-standing urinary frequency and weakened urinary [...] in pursuing repeat UroLift. Eulogio Quiroz MD [address] [facility],[address], [place], [address], [facility] 06/18/2023 13:26:29
--- OUTSIDE RECORDS SUMMARY | 2023-08-28 10:10 | XMS_ITS | Data Portability ---
Author Name Unknown Address [address] [place] [address] Phone [phone] Organization [facility], [facility] Address [address] [facility] [address] [place] [address] Care Team Providers Care Packaging Line Attendant Name Role Phone [facility] Primary Care Provider Assessment Encounter [...] the clinical encounter; and coordination of care. [facility] Not available 10/14/2022 10:46:52 02/04/2023 02/04/2023 67 [...] the clinical encounter; and coordination of care. [facility] Not available 02/04/2023 13:45:03 03/06/2023 03/06/2023 67 year old male with Peyronie's disease, urinary frequency, and erectile dysfunction. [facility] Not available 03/06/2023 16:37:43 03/18/2023 03/18/2023 67 year old male with Peyronie's disease, urinary frequency, and erectile dysfunction. Not available 03/18/2023 09:19:18 04/29/2023 04/29/2023 67 year old male with Peyronie's disease, urinary frequency, and erectile dysfunction. [facility] Not available 04/27/2023 13:21:58 06/18/2023 06/18/2023 68 year old male with Peyronie's disease, urinary frequency, and [facility]ile dysfunction. [facility] 06/12/2023 16:52:34 Plan of Treatment Reminders Order Date Submit Date Provider Last Modified By Organization Details Last Modified Time Details Appointments None recorded . Lab CBC w/ auto diff 2022 023 [facility], [address] [place], [address], 3 09:08:11 PSA, total, serum or plasma 2022 023 [facility], [address] [place], [address], 3 09:08:11 hepatic function panel, serum 2022 023 [facility], [address] [place], [address], 3 09:08:11 PSA, total, serum or plasma 2021 023 [facility], [address] [place], [address], 3 08:27:35 CBC w/ auto diff 2021 023 [facility], [address] [place], [address], 3 08:27:36 hepatic function panel, serum 2021 023 [facility], [address] [place], [address], 3 08:27:36 CBC w/ auto diff [address] [facility], [address] [place], [address], 2 08:45:29 hepatic function panel, serum [address], [address] [place], [address], 2 08:45:29 PSA, total, serum or plasma [address] [facility], [address] [place], [address], 2 08:45:29 testoste lowell, total, serum [address] [facility], [address] [place], [address], 2 08:45:30 Referral None recorded . Procedures [...] mg/0.5 mL subcutan eous auto-inj mulugeta 2021 [facility], [address] [facility] , [facility] [address], [place], [id number], 15:07:41 clomiphe ne citrate 50 mg tablet 2021 022 [id number], [address] [place], [place], [id number], 15:43:21 Patient TargetsNo targets recorded. Patient Instructions Encounter Date Encounter Id Patient Instructions Last Modified By Organization Details Last Modified Time 06/18/2023 [id number] UroLift We discussed prostate UroLift and that [...] allow their blood to clot normally. 2. [place] or no hospital stay. This procedure can [...] over time. Not available 06/18/2023 13:25:50 02/04/2023 [id number] Risks discussed included: - 1. Infection - [...] the glans. Not available 02/04/2023 13:44:44 06/14/2021 [id number] REZUM We discussed prostate Rezum or convective [...] allow their blood to clot normally. 2. [place] or no hospital stay. This procedure can [...] over time. Not available 06/14/2021 14:18:15 04/19/2021 [id number] REZUM We discussed prostate Rezum or convective [...] allow their blood to clot normally. 2. [place] or no hospital stay. This procedure can [...] over time. Not available 04/19/2021 14:39:11 01/09/2021 [id number] REZUM We discussed prostate Rezum or convective [...] allow their blood to clot normally. 2. [place] or no hospital stay. This procedure can [...] may grow back over time. [facility] Not available 01/09/2021 13:55:58 Reason for Referral None Reported. Results Created Date Observation Date Name Description Value Unit Range Abnormal Flag LastModifiedBy Organization Detail LastModifiedTime 10/03/19 21 09/26/2020 measu remen t of post- voidi ng resid ual urine and/o r bladd er capac ity (PROC ) No observ ation record ed. [facility] Not Available 01/09/2021 13:28:34 01/12/20 21 01/09/2021 US, prost ate No observ ation record ed. [facility] Not Available 04/19/2021 14:38:56 01/12/20 21 01/09/2021 bladd er scan (PROC ) No observ ation record ed. [facility] Not Available 04/19/2021 14:38:56 06/19/19 24 06/18/2023 bladd er scan (PROC ) No observ ation record ed. [facility] Not Available 06/19/2023 09:09:03 Result Notes None recorded. Procedures Surgical History Date Name Laterality Status Provider Name and Address Organization Details Recorded Time 4 COMPLEX VISIT completed Eulogio Quiroz MD [address] [place] [address],[address], [place], [address], [facility] 06/18/2023 13:26:00 4 Bladder Scan completed Cristina Rhodes null, [facility] 06/18/2023 11:11:00 3 Staple Removal completed Abdulaziz franklin, [facility] 03/18/2023 11:52:31 3 Drain Removal completed aNheed Garcia null, [facility] 03/06/2023 11:28:45 3 Cystoscopy- male completed Eulogio Quiroz MD [address] [place] [address],[address], [place], [address], [facility] 10/15/2022 17:49:10 1 Cystoscopy- male completed Eulogio Quiroz MD [address] [place] [address],[address], [place], [address], [facility] 01/09/2021 13:31:32 1 TRUS- Volume size only completed Eulogio Quiroz MD [address] [place] [address],[address], [place], [address], [facility] 01/09/2021 13:32:01 8 [facility]/14/[facility] 13:03:27 Imaging Results Imaging Date Name Status LastModified by Organiz ation Details LastModified Time 09/26/2020 measurement of post-voiding residual urine and/or bladder capacity (PROC) completed [email or web address] Information not available 01/09/2021 13:28:34 01/09/2021 [place], [...] Name and Address Organization Details Recorded Time 402669 Medicinal product containin g penicilli n and acting as antibacte rial agent (product) medicatio n swelling severe Not available 01/09/2021 31073 05 SNOMED Eulogio Quiroz MD [address] [place] [address],[address], [place], [address], [facility] 12:32:53 Medications Name Sig Start Date [...] Updated DateTime 04/17/2022 172.72 cm 33.5 kg/m2 21000.32 g Abdulaziz franklin [place] [facility] 04/17/2022 15:39:49 Date Recorded Body height Body mass index (BMI) Body weight Provider Name and Address Organization Details Last Updated DateTime 10/15/2022 172.72 cm 33.5 kg/m2 02004.32 g Eulogio Quiroz MD [address] [place] [address],[address], [address], [facility] 10/15/2022 15:01:30 Date Recorded Body height Body mass index (BMI) Body weight Provider Name and Address Organization Details Last Updated DateTime 02/04/2023 172.72 cm 33.5 kg/m2 46913.32 g Eulogio Quiroz MD [address] [place] [address],[address], [address], [facility] 02/04/2023 12:06:27 Date Recorded Body height Body mass index (BMI) Body weight Provider Name and Address Organization Details Last Updated DateTime 03/18/2023 172.72 cm 33.5 kg/m2 45318.32 g Abdulaziz Wilson [facility], [facility] 03/18/2023 11:40:30 Date Recorded Body height Body mass index (BMI) Body weight Provider Name and Address Organization Details Last Updated DateTime 04/29/2023 172.72 cm 34.2 kg/m2 268624.28 g Abdulaziz Wilson null, [facility] 04/29/2023 12:06:45 Date Recorded Body height Body mass index (BMI) Body weight Provider Name and Address Organization Details Last Updated DateTime 06/18/2023 172.72 cm 34.2 kg/m2 886452.28 g Cristina Carmelo [facility], [facility] 06/18/2023 11:12:26 Date Recorded Body height Body mass index (BMI) Body weight Provider Name and Address Organization Details Last Updated DateTime 01/09/2021 172.72 cm 33.5 kg/m2 94772.32 g Eulogio Quiroz MD [address] [place] [address] [address], [place], [address], [facility] 01/09/2021 12:31:05 Date Recorded Body height Body mass index (BMI) Body weight Provider Name and Address Organization Details Last Updated DateTime 04/19/2021 172.72 cm 33.5 kg/m2 71574.32 g Daija Weller [facility], [facility] 04/19/2021 14:09:53 Date Recorded Body height Body mass index (BMI) Body weight Provider Name and Address Organization Details Last Updated DateTime 06/14/2021 172.72 cm 33.5 kg/m2 46444.32 g Daija Weller null, [facility] 06/14/2021 13:02:34 Date Recorded Body height Body mass index (BMI) Body weight Provider Name and Address Organization Details Last Updated DateTime 08/12/2021 172.72 cm 33.5 kg/m2 12802.32 g Daija Weller [facility], [facility] 08/12/2021 09:34:07 Date Recorded Body height Body mass index (BMI) Body weight Provider Name and Address Organization Details Last Updated DateTime 10/17/2021 172.72 cm 33.5 kg/m2 20483.32 g Daija Weller rigoberto [facility] 10/17/2021 16:55:44 Date Recorded Body height Body mass index (BMI) Body weight Provider Name and Address Organization Details Last Updated DateTime 10/31/2021 172.72 cm 33.5 kg/m2 78369.32 g Daija Weller rigoberto [facility] 10/31/2021 14:43:25 Social History Question Answer Notes LastModified by Organizat ion Details LastModified Time Tobacco Smoking Status Never Smoker Eulogio Quiroz MD [address] [place] [address],[facility] [address], [place], [address], [facility] 01/09/2021 12:38:09 What Is Your Level Of Alcohol Consumption? None Information not available 01/09/2021 What Is Your Level Of Caffeine Consumption? Occasional Information not available 01/09/2021 Are You Currently Employed? No Information not available 01/09/2021 Ethnicity Not /Latin o Information not available 06/14/2021 Preferred Language Spanish Information not available 06/14/2021 Recreational Drug Use [...] influenza, high-dose, quadrivalent 06/11/2021 completed Cristina franklin, [facility] 06/18/2023 11:12:35 Tdap 06/11/2021 completed Cristina franklin, [facility] 06/18/2023 11:12:35 influenza, injectable, quadrivalent, preservative free 06/15/2009 completed Cristina franklin, [facility] 06/18/2023 11:12:35 influenza, injectable, quadrivalent 02/23/2019 completed Eulogio Quiroz MD [address] [place] [address],[address] [place] [address], [address], [facility] 02/04/2023 12:06:32 Influenza, injectable, MDCK, quadrivalent, preservative 02/24/2018 completed Eulogio Quiroz MD [address] [place] [address],[address] [place] [address], [address], [facility] 02/04/2023 12:06:32 zoster recombinant 07/19/2019 completed Eulogio jean MD [address] [place] [address],[address], [place], [address], [facility] 02/04/2023 12:06:32 zoster recombinant 12/28/2019 completed Eulogio jean MD [address] [place] [address],[address], [place], [address], [facility] 02/04/2023 12:06:32 Influenza vaccine, quadrivalent, adjuvanted 03/01/2020 completed Eulogio Quiroz MD [address] [place] [address],[address], [place], [address], [facility] 02/04/2023 12:06:32 COVID-19, mRNA, LNP-S, PF, 30 mcg/0.3 mL dose 03/13/2021 completed Eulogio Quiroz MD [address] [place] [address],[address], [place], [address], [facility] 02/04/2023 12:06:32 COVID-19 vaccine, vector-nr, rS-Ad26, PF, 0.5 mL 07/20/2020 completed Eulogio Quiroz MD [address] [place] [address],[address], [place], [address], [facility] 02/04/2023 12:06:32 pneumococcal polysaccharide PPV23 07/12/2019 completed Eulogio Quiorz MD [address] [place] [address],[address], [place], [address], [facility] 02/04/2023 12:06:32 Tdap 05/18/2011 completed Eulogio Quiroz MD [address] [place] [address],[address], [place], [address], [facility] 02/04/2023 12:06:32 Tdap 10/12/2007 completed Eulogio Quiroz MD [address] [place] [address],[address], [place], [address], [facility] 02/04/2023 12:06:32 zoster live 10/12/2014 completed Eulogio Quiroz MD [address] [place] [address],[address], [place], [address], [facility] 02/04/2023 12:06:32 Influenza, seasonal, injectable 02/17/2012 completed Eulogio Quiroz MD [address] [place] [address],[address], [place], [address], [facility] 02/04/2023 12:06:32 Influenza, seasonal, injectable 04/06/2010 completed Eulogio Quiroz MD [address] [place] [address],[address], [place], [address], [facility] 02/04/2023 12:06:32 Influenza, seasonal, injectable, preservative free 05/21/2011 completed Eulogio Quiroz MD [address] [place] [address],[address], [place], [address], [facility] 02/04/2023 12:06:32 Influenza, seasonal, injectable, preservative free 04/23/2014 completed Eulogio Quiroz MD [address] [place] [address],[address] [place] [address], [address], [facility] 02/04/2023 12:06:32 influenza, whole 02/25/2017 completed Eluogio vance MD [address] [place] [address],[address], [place], [address], [facility] 02/04/2023 12:06:32 Novel [id number] 06/15/2009 completed Eulogio Quiroz MD [address] [facility],[address], [place], [address], [facility] 02/04/2023 12:06:32 Td (adult), 2 Lf tetanus toxoid, preservative free, adsorbed 05/18/2006 completed Eulogio Quiroz MD [address] [facility],[address], [place], [address], [facility] 02/04/2023 12:06:32 Past Encounters Encounter ID Performer Location Encounter Start Date Encounter Closed Date Diagnosis/Indication Diagnosis SNOMED-CT Code [id number] MD Jerry Alicea [address] [place] [address] 01/09/2021 11:56:31 01/11/2021 14:10:01 Increased frequency of urination 315087322 Induration penis plastica 4495553 Primary er ectile dysfunction 594050804 Benign pro static hyperplasia 985477115 [id number] MD Jerry Alicea [address] [place] [address] 01/09/2021 11:56:31 01/11/2021 14:10:01 [id number] MD Jerry Alicea [address] [place] [address] 04/19/2021 13:48:43 04/29/2021 09:32:58 Increased frequency of urination 329667949 Induration penis plastica 1366900 Primary er ectile dysfunction 310862845 Benign pro static hyperplasia 399953724 [id number] MD Jerry Alicea [address] [place] [address] 06/14/2021 13:00:49 06/21/2021 07:44:31 Increased frequency of urination 669256167 Induration penis plastica 6805323 Primary er ectile dysfunction 332716732 Benign pro static hyperplasia 956793219 [id number] MD Jerry Alicea [address] [place] [address] 08/12/2021 09:33:28 08/14/2021 09:44:56 Increased frequency of urination 414866079 Induration penis plastica 6111456 Primary er ectile dysfunction 333754293 Benign pro static hyperplasia 943817623 Reduced libido 5669779 [id number] Eulogio Quiroz MD [facility] [address] [place] [address] 10/17/2021 16:52:12 10/21/2021 08:48:06 Increased frequency of urination 396863635 Induration penis plastica 2379386 Primary er ectile dysfunction 285964611 Benign pro static hyperplasia 597573748 Reduced libido 6418438 [id number] MD MONY AliceaHeide [address] [place] [address] 10/31/2021 14:34:37 11/04/2021 09:04:01 Increased frequency of urination 952955213 Induration penis plastica 2857955 Primary er ectile dysfunction 127006532 Benign pro static hyperplasia 914569486 Reduced libido 3410273 Hypogonadism 03166762 [id number] MD MONY AliceaEdin [address] [place] [address] 04/17/2022 15:26:48 04/21/2022 10:46:42 Increased frequency of urination 937260629 Induration penis plastica 6272157 Primary er ectile dysfunction 886100312 Benign pro static hyperplasia 976605716 Reduced libido 6135684 Hypogonadism 53223298 [id number] [facility] [address] [place] [address] 10/15/2022 14:32:34 10/22/2022 09:42:43 Increased frequency of urination 540616908 Induration penis plastica 4055340 Primary er ectile dysfunction 523787972 Benign pro static hyperplasia 159529200 Reduced libido 8861963 Hypogonadism 32083215 [id number] MD MONY AliceaBrandon [address] [place] [address] 02/04/2023 11:46:14 02/11/2023 16:58:57 Increased frequency of urination 856521240 Induration penis plastica 7995396 Primary er ectile dysfunction 544861675 Benign pro static hyperplasia 748069417 Reduced libido 3742174 Hypogonadism 87870190 [id number] Eulogio Quiroz MD [facility] [address] [place] [address] 03/06/2023 10:57:44 03/11/2023 15:23:51 Primary erectile dysfunction 122095476 [id number] Eulogio Quiroz MD [facility] [address] [place] [address] 03/18/2023 11:23:53 03/24/2023 15:57:14 Increased frequency of urination 561768289 Induration penis plastica 8855398 Primary er ectile dysfunction 257015318 Benign pro static hyperplasia 775185586 Reduced libido 2429603 Hypogonadism 86567283 [id number] Eulogio Quiroz MD [facility] [address] [place] [address] 04/29/2023 11:45:37 04/30/2023 13:22:21 Increased frequency of urination 582994438 Induration penis plastica 7258292 Primary er ectile dysfunction 554377371 Benign pro static hyperplasia 605613292 Reduced libido 0243155 Hypogonadism 60877248 [id number] Eulogio Quiroz MD [facility] [address] [place] [address] 06/18/2023 11:05:15 06/19/2023 10:46:16 Increased frequency of urination 887981051 Induration penis plastica 6826156 Primary er ectile dysfunction 954418715 Benign pro static hyperplasia 087680088 Reduced libido 1785361 Hypogonadism 29093943 Health Concerns Section Related Observation LastModified by Organization Detai ls LastModified Time None Recorded Concern Status LastModified by Organization Details LastModified Time None Recorded Advance Directives Directive None Recorded Payers Encounter Date Sequence Insurance Name Policy Number Policy Mahan Covered Member ID Mahan Member ID Guarantor Name 06/18/2023 1 [place] [employer] Duy Schreiber [id number] Duy Schreiber 06/18/2023 2 [facility] Duy Schreiber [id number] Duy Schreiber 04/29/2023 1 [place] [employer] Duy Schreiber [id number] Duy W Kiesler 04/29/2023 2 [employer] Duy W Kiesler [id number] Duy W Kiesler 03/18/2023 1 [place] [employer] Duy W Kiesler [id number] 3 Duy W Kiesler 03/18/2023 2 [employer] Duy W Kiesler [id number] Duy W Kiesler 03/06/2023 1 [place] [employer] Duy W Kiesler [id number] 3 Duy W Kiesler 03/06/2023 2 [employer] Duy W Kiesler [id number] Duy W Kiesler 02/04/2023 1 [place] [employer] Duy W Kiesler [id number] Duy W Kiesler 02/04/2023 2 [employer] Duy W Kiesler [id number] Duy W Kiesler 10/15/2022 1 [place] [employer] Duy W Kiesler [id number] 3 Duy W Kiesler 10/15/2022 2 [employer] Duy W Kiesler [id number] Duy W Kiesler 04/17/2022 1 [place] [employer] Duy W Kiesler [id number] 3 Duy W Kiesler 04/17/2022 2 [employer] Duy W Kiesler [id number] Duy W Kiesler 10/31/2021 2 [employer] Duy W Kiesler [id number] Duy W Kiesler 10/17/2021 1 [place] [employer] Duy W Kiesler [id number] Duy W Kiesler 08/12/2021 1 [place] [id number] Duy Schreiber [id number] Duy W Kiesler 06/14/2021 1 [place] [id number] Duy Schreiber [id number] Duy Schreiber 04/19/2021 1 [place] [id number] Duy Schreiber [id number] Duy Schreiber 01/09/2021 1 [place] [facility] Duy Schreiber [id number] Duy Schreiber 01/09/2021 1 [place] [id number] Duy Schreiber [id number] Duy Schreiber 01/09/2021 1 [place] [id number] Duy Schreiber [id number] Duy Schreiber Notes Date Note Type Note Provider Name and Address Organization Details Recorded Time 01/09/2021 text/html HPI Notes: 65 ye ar old male who follows with me in [place] for long-standing urinary frequency and weakened urinary stream. Maintained on tamsulosin 0.8 mg PO daily. Here for UroCuff, Cystoscopy, and TRUS volume only. Eulogio Quiroz MD [address] [place] [address],[address], [address], [facility] 01/09/2021 13:56:40 04/19/2021 text/html HPI Notes: 65 ye ar old male who follows with me in [place] for long-standing urinary frequency and weakened urinary [...] the time of Rezum. Eulogio Quiroz MD [address] [place] [address],[address], [place], [address], [facility] 04/19/2021 14:41:56 06/14/2021 text/html HPI Notes: 65 ye ar old male who follows with me in [place] for long-standing urinary frequency and weakened urinary [...] and coordinate their care. Eulogio Quiroz MD [address] [place] [address],[address], [place], [address], [facility] 06/20/2021 15:26:20 08/12/2021 text/html HPI Notes: 66 ye ar old male who follows with me in [place] for long-standing urinary frequency and weakened urinary [...] and coordinate their care. Eulogio Quiroz MD [address] [place] [address],[address], [place], [address], [facility] 08/12/2021 09:59:01 10/17/2021 text/html HPI Notes: [...] 66 year old male who follows with ca in [place] for long-standing urinary frequency and weakened urinary [...] gynecomastia so stopped. Eulogio Quiroz MD [address] [facility],[address], [place], [address], [facility] 10/17/2021 21:08:45 10/31/2021 text/html HPI Notes: 66 ye ar old male who follows with me in [place] for long-standing urinary frequency and weakened urinary [...] painful injections if possible. Eulogio Quiroz MD [address] [place] [address],[address], [place], [address], [facility] 10/31/2021 18:05:38 04/17/2022 text/html HPI Notes: 66 ye ar old male who follows with me in [place] for long-standing urinary frequency and weakened urinary [...] in his PSA. Eulogio Quiroz MD [address] [facility],[address], [place], [address], [place] [facility] 04/17/2022 17:48:43 10/15/2022 text/html HPI Notes: 67 ye ar old male who follows with me in [place] for long-standing urinary frequency and weakened urinary [...] straining to void. Eulogio Quiroz MD [address] [facility],[address], [place], [address], [facility] 10/15/2022 17:52:51 02/04/2023 text/html HPI Notes: 67 ye ar old male who follows with me in [place] for long-standing urinary frequency and weakened urinary [...] Here to discuss implant. Eulogio Quiroz MD [address] [place] [address],[address], [place], [address], [facility] 02/04/2023 13:45:07 03/06/2023 text/html HPI Notes: Pt is here accompanied by for surgical drain removal s/p IPP insertion 03/03/23 Eulogio Quiroz MD [address] [place] [address],[address], [place], [address], [facility] 03/06/2023 16:37:48 03/18/2023 text/html HPI Notes: 67 ye ar old male who follows with me in [place] for long-standing urinary frequency and weakened urinary [...] Now s/p IPP Eulogio Quiroz MD [address] [facility],[address], [place], [address], [facility] 03/18/2023 13:42:51 04/29/2023 text/html HPI Notes: 67 ye ar old male who follows with me in [place] for long-standing urinary frequency and weakened urinary [...] up, issues with IPP. Eulogio Quiroz MD [address] [place] [address],[address], [place], [address], [facility] 04/29/2023 13:43:48 06/18/2023 text/html HPI Notes: 68 ye ar old male who follows with me in [place] for long-standing urinary frequency and weakened urinary [...] in pursuing repeat [employer]. Eulogio Quiroz MD [address] [facility],[address], [place], [address], [facility] 06/18/2023 13:26:29
== END 2023-08-24 07:51 | disposition home or self-care (01) ==
LOC: NFLDREF 08-28 10:07
PROVIDERS: PCP Family Medicine; Referring Provider Family Medicine; Visit Provider Family Medicine
DX: E29.1 Testicular hypofunction (principal); Z12.5 Encounter for screening for malignant neoplasm of prostate
CPT/HCPCS: 80053; 80061; 84403; G0103

== ENCOUNTER 2023-08-24 09:01 | Outpatient (REF) | payer MEDICARE, OTHER, SELFPAY ==
--- OUTSIDE RECORDS SUMMARY | 2023-08-24 09:05 | XMS_ITS | Clinical Summary ---
Author Name Unknown Organization [facility] Address [place], [place] [address] Care Team Providers Care Business Continuity Manager Name Role Phone Mushtaq Garcia MD Primary Care Provider [phone] Allergies Active Allergy Reactions Criticality Noted Date [...] Department Care Team Description 08/17/2023 Lab Requisition [facility] [phone] Naheed Johansen MD from Last 3 Months [...] Comments Blood Pressure 144/80 07/17/2021 11:01 AM CANE FLUME WATCHMAN Pulse 80 07/17/2021 11:01 AM CANE FLUME WATCHMAN Temperature 36.6 ??C (97.9 ??F) 12/21/2020 1 :30 PM CDT Respiratory Rate 18 07/17/2021 11:0 1 AM CANE FLUME WATCHMAN Oxygen Saturation 96% 07/17/2021 11: 01 AM CANE FLUME WATCHMAN Inhaled Oxygen Concentration - - Weight 103.9 kg (229 lb) 07/17/2021 11: 01 AM CANE FLUME WATCHMAN Pt weighed with shoes on. Height 172.7 [...] CDT Naheed Johansen MD LAB BILL ONLY [facility]-CENTRAL LABORATORY [address] [place] [address], * JAK2 V617F MUTATION DETECTION (08/17/2023 4:25 AM CDT) SOURCE Blood 08/21/2023 4:48 PM CDT [facility] LABOR[facility]-CE NTRAL LABORATORY INTERPRETATION JAK2 V617F JAK2 V617F mutation not detected JAK2 V617F mutation not detected 08/21/2023 4:48 PM CDT [facility]- NTRAL LABORATORY Comment:The absence of the [...] AM CDT 08/18/2023 1:53 PM CDT Narrative [facility] [facility] - 08/21/2023 4:48 PM CDT Methodology: Fluorescent allele specific PCR was performed on genomic DNA to detect the presence of the V617F mutation in the JAK2 gene. PCR amplicon was and detected by capillary electrophoresis. Assay validated to a limit of detection of 1.0% mutant allele. FDA required disclaimer: ??This test was developed and its performance characteristics determined by the [facility]. It has not been cleared or approved by the U.S. Food and Drug Administration. The FDA has determined, however, that in most cases, such approval is not necessary. This test is used for clinical purposes. It should not be regarded as investigational or for research. Naheed Johansen MD SEND OUTS [facility] [address] [place] [address], from Last 3 Months Advance Directives * Full Code (Latest Code Status on File) Date Activated Date Inactivated Comments 12/21/2020 10:14 AM 12/21/2020 4:37 PM Question Answer Comments Code Status Discussion: Not Discussed Care Teams Business Continuity Manager Relationship Specialty Start Date End Date Mushtaq Garcia MD PCP - General Family Practice 01/05/15
--- OUTSIDE RECORDS SUMMARY | 2023-08-24 09:05 | XMS_ITS | Clinical Summary ---
Author Name Unknown Organization [facility] Address [address] [place] [address] Care Team Providers Care Sterile Processing Technologist Name Role Phone Mushtaq Garcia MD Primary Care Provider [phone] Source Comments You are receiving this document as you are listed as the primary care provider,follow-up provider, or the patient has been referred to you for consultation.This is in compliance with the Medicare and[facility] EHR Incentive Program,which states Providers who transition their patient to another setting of careor provider of care or refers their patient to another provider of care shouldprovide summary care record for each transition of care or referral. [facility] Allergies Active Allergy Reactions Criticality Noted Date [...] MGIndications:Low testosterone,Fatigue, unspecified type 100 mg. Active [place]-3 Fatty Acids (OMEGA 3 500 OR)Indications:Low testosterone,Fatigue, [...] age to complete this topic Care Teams Sterile Processing Technologist Relationship Specialty Start Date End Date Mushtaq Garcia MD [address] [place] [address] PCP - General 10/15/16
--- OUTSIDE RECORDS SUMMARY | 2023-08-24 09:05 | XMS_ITS | Clinical Summary ---
Author Name Unknown Organization [facility] Address [address] [place] [address] Care Team Providers Care Senior Data Integration Developer Name Role Phone Unknown, Md Primary Care [...] 0307/2019, 10/12/2014 Medical Devices Implanted Type Area Physical Trainer Device Identifier Shelf Expiration Date Model / Serial / Lot Cl [place] Titan - [id number] Implanted:Qty: 1 on 03/03/2023 by Eulogio Quiroz MD at [facility] N/A: Pelvis Coloplast Luanne 12/05/2027 [id number] / / [id number] Assembly Kit Titan - [id number] Implanted:Qty: 1 on 03/03/2023 by Eulogio Quiroz MD at [facility] N/A: Penis Coloplast Luanne 10/14/2027 [id number] / / [id number] Infrapubic Cylinder Pump Titan Implanted:Qty: 1 on 03/03/2023 by Eulogio Quiroz MD at [facility] N/A: Penis Coloplast Luanne 07/01/2027 [id number] / / [id number] Care Teams Senior Data Integration Developer Relationship Specialty Start Date End Date Unknown, NO ADDRESS/PHONE/FAX AFFILIATED PCP - General 02/19/23
--- OUTSIDE RECORDS SUMMARY | 2023-08-24 09:05 | XMS_ITS | Referral Summary ---
Author Name Unknown Organization [facility] Address [address] [place] [address] Care Team Providers Care Car Designer Name Role Phone Unknown, Md Primary Care [...] on file Medical Devices Implanted Type Area Psychiatry Resident Device Identifier Shelf Expiration Date Model / Serial / Lot Cl [place] Titan - [id number] Implanted:Qty: 1 on 03/03/2023 by Eulogio Quiroz MD at [facility] Penile N/A: Pelvis Coloplast Luanne 12/05/2027 [id number] / / [id number] Assembly Kit Titan - [id number] Implanted:Qty: 1 on 03/03/2023 by Eulogio Quiroz MD at [facility] Supply N/A: Penis Coloplast Luanne 10/14/2027 [id number] / / [id number] Infrapubic Cylinder Pump Titan Implanted:Qty: 1 on 03/03/2023 by Eulogio Quiroz MD at [facility] N/A: Penis Coloplast Luanne 07/01/2027 [id number] / / [id number] Care Teams Car Designer Relationship Specialty Start Date End Date Unknown, NO ADDRESS/PHONE/FAX AFFILIATED PCP - General 02/19/23
[2023-08-24 09:24] LABS: Basophils Absolute Auto 0.05 K/uL (0.00-0.30); Basophils Percent Auto 0.5 % (0.0-3.0); Eosinophils Absolute Auto 0.13 K/uL (0.00-0.50); Eosinophils Percent Auto 1.2 % (0.0-7.0); Hematocrit 48.5 % (37.0-53.0); Hemoglobin* 16.7 gm/dL (13.5-17.5); Immature Granulocytes Abs Auto 0.12 K/uL (0.00-0.30); Immature Granulocytes Pct Auto 1.1 %; Lymphocytes Absolute Auto 3.96 K/uL (0.90-2.90); Lymphocytes Percent Auto 37.2 % (20-44); Mean Corpuscular HGB Conc 34 gm/dL (32-36); Mean Corpuscular Hemoglobin 30 pg (26-34); Mean Corpuscular Volume 88 fL (80-100); Monocytes Percent Auto 7.4 % (0.0-11.0); Neutrophils Absolute Auto 5.59 K/uL (1.7-7.0); Neutrophils Percent Auto 52.6 % (42.0-72.0); Platelet Count* 327 K/uL (140-440); RDW Coefficient of Variation % 12.7 % (11.5-15.5); Red Blood Count 5.49 m/uL (4.30-5.90); White Blood Count* 10.64 K/uL (4.50-11.00)
[2023-08-24 09:31] LABS: Bilirubin Direct* 0.1 mg/dL (0.0-0.5)
[2023-08-24 09:34] LABS: Slide Review Reflex No
== END 2023-08-24 09:02 | disposition home or self-care (01) ==
LOC: NPINS 09:01
PROVIDERS: PCP Family Medicine; Visit Provider Urology
DX: E87.1 Hypo-osmolality and hyponatremia (principal); C61 Malignant neoplasm of prostate; Z79.899 Other long term (current) drug therapy
CPT/HCPCS: 80053; 80061; 82248; 84403; 85025; G0103

== ENCOUNTER 2023-09-08 10:07 | Outpatient (CLI) | payer MEDICARE, OTHER, SELFPAY ==
--- OUTSIDE RECORDS SUMMARY | 2023-09-08 10:13 | XMS_ITS | Clinical Summary ---
Author Name Unknown Organization [facility] Address [address] [place] [address] Care Team Providers Care Rn Diabetes Name Role Phone Unknown, Md Primary Care [...] 0307/2019, 10/12/2014 Medical Devices Implanted Type Area Auto Design Checker Device Identifier Shelf Expiration Date Model / Serial / Lot Cl [place] Titan - [id number] Implanted:Qty: 1 on 03/03/2023 by Eulogio Quiroz MD at [facility] N/A: Pelvis Coloplast Luanne 12/05/2027 [id number] / / [id number] Assembly Kit Titan - [id number] Implanted:Qty: 1 on 03/03/2023 by Eulogio Quiroz MD at [facility] N/A: Penis Coloplast Luanne 10/14/2027 [id number] / / [id number] Infrapubic Cylinder Pump Titan Implanted:Qty: 1 on 03/03/2023 by Eulogio Quiroz MD at [facility] N/A: Penis Coloplast Luanne 07/01/2027 [id number] / / [id number] Care Teams Rn Diabetes Relationship Specialty Start Date End Date Unknown, NO ADDRESS/PHONE/FAX AFFILIATED PCP - General 02/19/23
--- OUTSIDE RECORDS SUMMARY | 2023-09-08 10:14 | XMS_ITS | Clinical Summary ---
Author Name Unknown Organization [facility] Address [place], [place] [address] Care Team Providers Care Community Support Specialist Name Role Phone Mushtaq Garcia MD Primary Care Provider [phone] Allergies Active Allergy Reactions Criticality Noted Date [...] Department Care Team Description 08/17/2023 Lab Requisition [facility] [phone] Naheed Johansen MD from Last 3 Months [...] Comments Blood Pressure 144/80 07/17/2021 11:01 AM LURE MAKER Pulse 80 07/17/2021 11:01 AM LURE MAKER Temperature 36.6 ??C (97.9 ??F) 12/21/2020 1 :30 PM CDT Respiratory Rate 18 07/17/2021 11:0 1 AM LURE MAKER Oxygen Saturation 96% 07/17/2021 11: 01 AM LURE MAKER Inhaled Oxygen Concentration - - Weight 103.9 kg (229 lb) 07/17/2021 11: 01 AM LURE MAKER Pt weighed with shoes on. Height 172.7 [...] CDT Naheed Johansen MD [facility] [address] [place] [address], * JAK2 V617F MUTATION DETECTION (08/17/2023 4:25 AM CDT) SOURCE Blood 08/21/2023 4:48 PM CDT [facility] INTERPRETATION JAK2 V617F JAK2 V617F mutation not detected JAK2 V617F mutation not detected 08/21/2023 4:48 PM CDT [facility] Comment:The absence of the [...] AM CDT 08/18/2023 1:53 PM CDT Narrative [facility] [employer] [facility] - 08/21/2023 4:48 PM CDT Methodology: Fluorescent allele specific PCR was performed on genomic DNA to detect the presence of the V617F mutation in the JAK2 gene. PCR amplicon was and detected by capillary electrophoresis. Assay validated to a limit of detection of 1.0% mutant allele. FDA required disclaimer: ??This test was developed and its performance characteristics determined by the [facility]. It has not been cleared or approved by the U.S. Food and Drug Administration. The FDA has determined, however, that in most cases, such approval is not necessary. This test is used for clinical purposes. It should not be regarded as investigational or for research. Naheed Johansen MD [facility] [address] [place] [address], * PERIPHERAL BLD MORPHOLOGY (08/17/2023 4:25 AM CDT) Case Report Special Hematology Report ? Case: [id number] ? Authorizing Provider: ??Naheed Johansen MD ?Collected: ? 08/17/2023 0425 ? Ordering Location: ? [facility] ?Received: ?08/17/2023 1639 ? Pathologist: ? Kirill Fraire, ? MD ? Specimen: ?Peripheral Blood ? 08/26/2023 12:08 PM CDT [facility]- [facility] LAB[facility]AT[facility] Final Diagnosis PERIPHERAL BLOOD: 1. Clinical history of an elevated hemoglobin (currently normal) 2. Mild absolute monocytosis, favor reactive 3. Molecular studies are negative for the JAK2 V617F mutation 4. See comment 08/26/2023 12:08 PM CDT [facility] Preliminary result electronically signed [...] also reviewed by Liliana Guo MT, MS ([facility]). 08/26/2023 12:08 PM CDT [facility] LABOR[facility]- CENTRAL LABORATORY Clinical Information The patient is a 68-year-old male. Per CBC scan: Leukocytosis, elevated hemoglobin, and microcytosis. ??Please evaluate for polycythemia vera. Per EPIC: Additional history includes hypertension. 08/26/2023 12:08 PM CDT [facility]- CENTRAL LABORATORY CBC and Differential HEMATOLOGY PARAMETERS Tested at: ??[facility] ? RESULTS ??EXPECTED VALUES WBC: ? 9.4 ?4.5-36r0118/cumm ? RBC: ? 5.61 ? 4.30-5.90 mil/cumm HGB: ? 17.1 ? 13.5-17.5 gm/di ? HCT: ? 45.2 ? 37-53% ? MCV: ? 81.0 ? 80-100 fl ? NORMOCYTIC MCH: ? 31.0 ? 26-34 pg ? MCHC: ?38.0 ? 32-36 gm/dl ? HYPERCHROMIC RDW: ? 11.9 ? 11.5-15.5% ? PLT: ? 215 ?140-518x6800/uL ? Differential ?Absolute (%) ?Expected (%) ?(x10*9/L) ? (x10*9/L) Neutrophils: ?5.73 (61.3) ? 1.7-7.0 (42-72%) ? Lymphocytes: ?2.08 (22.2) ? 0.9-2.9 (20-44%) ?? Monocytes: ?1.4 (15) ? <0.9 (0-11%) ? ELEVATED Eosinophils: ?0.09 (1) ? <0.5 (0-2%) ? Basophils: ?0.02 (.2) ?<0.3 (<3.0%) ? Imm Grans: ?0.04 (.4) ?<0.3 (0-3%) ? (Metas, Myelos,Pros) 08/26/2023 12:08 PM CDT [facility]- CENTRAL LABORATORY Microscopic Description The final diagnosis is based on microscopic examination of an appropriately stained blood smear. 08/26/2023 12:08 PM CDT [facility] Additional Information Interpreted at [facility], Central Laboratory - [address] [address] 08/26/2023 12:08 PM CDT [facility] Blood (Peripheral Blood) 08/17/2023 4:25 AM CDT 08/17/2023 4:39 PM CDT Naheed Johansen MD HEMATOLOGY [email or web address] LABORATORY-CENTRAL LABORATORY [address] [place] [address], from Last 3 Months Advance Directives * Full Code (Latest Code Status on File) Date Activated Date Inactivated Comments 12/21/2020 10:14 AM 12/21/2020 4:37 PM Question Answer Comments Code Status Discussion: Not Discussed Care Teams Community Support Specialist Relationship Specialty Start Date End Date Mushtaq Garcia MD PCP - General Family Practice 01/05/15
--- OUTSIDE RECORDS SUMMARY | 2023-09-08 10:14 | XMS_ITS | Clinical Summary ---
Author Name Unknown Organization [facility] Address [address] [place] [address] Care Team Providers Care Compactor Driver Name Role Phone Mushtaq Garcia MD Primary Care Provider [phone] Source Comments You are receiving this document as you are listed as the primary care provider,follow-up provider, or the patient has been referred to you for consultation.This is in compliance with the Medicare and[facility] EHR Incentive Program,which states Providers who transition their patient to another setting of careor provider of care or refers their patient to another provider of care shouldprovide summary care record for each transition of care or referral. [facility] Allergies Active Allergy Reactions Criticality Noted Date [...] MGIndications:Low testosterone,Fatigue, unspecified type 100 mg. Active [place]-3 Fatty Acids (OMEGA 3 500 OR)Indications:Low testosterone,Fatigue, [...] age to complete this topic Care Teams Compactor Driver Relationship Specialty Start Date End Date Mushtaq Garcia MD [address] [place] [address] PCP - General 10/15/16
--- OUTSIDE RECORDS SUMMARY | 2023-09-08 10:14 | XMS_ITS | Referral Summary ---
Author Name Unknown Organization [facility] Address [address] [place] [address] Care Team Providers Care Machine Farmworker Name Role Phone Unknown, Md Primary Care [...] on file Medical Devices Implanted Type Area Bow String Maker Device Identifier Shelf Expiration Date Model / Serial / Lot Cl [place] Titan - [id number] Implanted:Qty: 1 on 03/03/2023 by Eulogio Quiroz MD at [facility] Penile N/A: Pelvis Coloplast Luanne 12/05/2027 [id number] / / [id number] Assembly Kit Titan - [id number] Implanted:Qty: 1 on 03/03/2023 by Eulogio Quiroz MD at [facility] Supply N/A: Penis Coloplast Luanne 10/14/2027 [id number] / / [id number] Infrapubic Cylinder Pump Titan Implanted:Qty: 1 on 03/03/2023 by Eulogio Quiroz MD at [facility] N/A: Penis Coloplast Luanne 07/01/2027 [id number] / / [id number] Care Teams Machine Farmworker Relationship Specialty Start Date End Date Unknown, NO ADDRESS/PHONE/FAX AFFILIATED PCP - General 02/19/23
== END 2023-09-08 10:08 | disposition home or self-care (01) ==
PROVIDERS: PCP Family Medicine; Visit Provider Family Medicine
DX: R97.20 Elevated prostate specific antigen [PSA] (principal); E87.1 Hypo-osmolality and hyponatremia; R31.29 Other microscopic hematuria; Z12.5 Encounter for screening for malignant neoplasm of prostate
CPT/HCPCS: 80048; 84153; 87086

== ENCOUNTER 2023-10-21 08:55 | Outpatient (CLI) | payer MEDICARE, OTHER, SELFPAY ==
--- OUTSIDE RECORDS SUMMARY | 2023-10-21 08:59 | XMS_ITS | Clinical Summary ---
Author Organization [facility] Address [address] [place] [address] Care Team Providers Care Oceanography Professor Name Role Phone Mushtaq Garcia MD Primary Care Provider [phone] Source Comments You are receiving this document as you are listed as the primary care provider,follow-up provider, or the patient has been referred to you for consultation.This is in compliance with the Medicare and[facility] Hospital[facility] EHR Incentive Program,which states Providers who transition their patient to another setting of careor provider of care or refers their patient to another provider of care shouldprovide summary care record for each transition of care or referral. [facility] Allergies Active Allergy Reactions Criticality Noted Date [...] MGIndications:Low testosterone,Fatigue, unspecified type 100 mg. Active [place]-3 Fatty Acids (OMEGA 3 500 OR)Indications:Low testosterone,Fatigue, [...] ( - 2022-2 4 season) 2023 Influenza (Season Ended) 2024 HepA Aged Out No longer eligi ble [...] age to complete this topic Care Teams Oceanography Professor Relationship Specialty Start Date End Date Mushtaq Garcia MD [address] [place] [address] PCP - General 10/15/16
--- OUTSIDE RECORDS SUMMARY | 2023-10-21 08:59 | XMS_ITS | Clinical Summary ---
Author Organization [facility] Address [address] [place] [address] Care Team Providers Care Locomotive Firer Name Role Phone Unknown, Primary Care Provider Unavailabl e Allergies Active [...] 0307/2019, 10/12/2014 Medical Devices Implanted Type Area Powerhouse Mechanic Device Identifier Shelf Expiration Date Model / Serial / Lot Cl [place] Titan - [id number] Implanted:Qty: 1 on 03/03/2023 by Eulogio Quiroz MD at [facility] Penile N/A: Pelvis Coloplast Luanne 12/05/2027 [id number] / / [id number] Assembly Kit Titan - [id number] Implanted:Qty: 1 on 03/03/2023 by Eulogio Quiroz MD at [facility] Supply N/A: Penis Coloplast Luanne 10/14/2027 [id number] / / [id number] Infrapubic Cylinder Pump Titan Implanted:Qty: 1 on 03/03/2023 by Eulogio Quiroz MD at [facility] N/A: Penis Coloplast Luanne 07/01/2027 [id number] / / [id number] Care Teams Locomotive Firer Relationship Specialty Start Date End Date Unknown, NO ADDRESS/PHONE/FAX AFFILIATED PCP - General 02/19/23
--- OUTSIDE RECORDS SUMMARY | 2023-10-21 08:59 | XMS_ITS | Clinical Summary ---
Author Organization [facility] Address [place], [place] [address] Care Team Providers Care Chief Orthoptist Name Role Phone Mushtaq Garcia MD Primary Care Provider [phone] Allergies Active Allergy Reactions Criticality Noted Date [...] Department Care Team Description 08/17/[address] [facility] C[facility]TRAL LAB [phone] Naheed Johansen MD from Last 3 Months [...] Comments Blood Pressure 144/80 07/17/2021 11:01 AM NOISE ABATEMENT ENGINEER Pulse 80 07/17/2021 11:01 AM NOISE ABATEMENT ENGINEER Temperature 36.6 ??C (97.9 ??F) 12/21/2020 1 :30 PM CDT Respiratory Rate 18 07/17/2021 11:0 1 AM NOISE ABATEMENT ENGINEER Oxygen Saturation 96% 07/17/2021 11: 01 AM NOISE ABATEMENT ENGINEER Inhaled Oxygen Concentration - - Weight 103.9 kg (229 lb) 07/17/2021 11: 01 AM NOISE ABATEMENT ENGINEER Pt weighed with shoes on. Height 172.7 [...] CDT Naheed Johansen MD LAB BILL ONLY [facility] LABORATORY-CENTRAL LABORATORY [address] [place] [address], * JAK2 V617F MUTATION DETECTION (08/17/2023 4:25 AM CDT) SOURCE Blood 08/21/2023 4:48 PM CDT [facility]AL LABORAT[facility] INTERPRETATION JAK2 V617F JAK2 V617F mutation not detected JAK2 V617F mutation not detected 08/21/2023 4:48 PM CDT [facility] LABORATORY- NTRAL LABORATORY Comment:The absence of [...] AM CDT 08/18/2023 1:53 PM CDT Narrative [facility] - 08/21/2023 4:48 PM CDT Methodology: Fluorescent allele specific PCR was performed on genomic DNA to detect the presence of the V617F mutation in the JAK2 gene. PCR amplicon was and detected by capillary electrophoresis. Assay validated to a limit of detection of 1.0% mutant allele. FDA required disclaimer: ??This test was developed and its performance characteristics determined by the [facility]. It has not been cleared or approved by the U.S. Food and Drug Administration. The FDA has determined, however, that in most cases, such approval is not necessary. This test is used for clinical purposes. It should not be regarded as investigational or for research. Naheed Johansen MD SEND OUTS [facility] [employer] [facility] [address] [place] [address], * PERIPHERAL BLD MORPHOLOGY (08/17/2023 4:25 AM CDT) Case Report Special Hematology Report ? Case: [id number] ? Authorizing Provider: ??Naheed Johansen MD ?Collected: ? 08/17/2023 0425 ? Ordering Location: ? [facility] ?Received: ?08/17/2023 1639 ? Pathologist: ? Kirill Fraire, ? MD ? Specimen: ?Peripheral Blood ? 08/26/2023 12:08 PM CDT [facility] [employer] [facility] Final Diagnosis PERIPHERAL BLOOD: 1. Clinical history of an elevated hemoglobin (currently normal) 2. Mild absolute monocytosis, favor reactive 3. Molecular studies are negative for the JAK2 V617F mutation 4. See comment 08/26/2023 12:08 PM CDT [facility]- CENTRAL LABORATORY Preliminary result electronically signed by [...] also reviewed by Liliana Guo MT, MS ([facility]). 08/26/2023 12:08 PM CDT [facility] LABORATORY- CENTRAL LABORATORY Clinical Information The patient is a 68-year-old male. Per CBC scan: Leukocytosis, elevated hemoglobin, and microcytosis. ??Please evaluate for polycythemia vera. Per EPIC: Additional history includes hypertension. 08/26/2023 12:08 PM CDT [facility] LABORATORY- CENTRAL LABORATORY CBC and Differential HEMATOLOGY PARAMETERS Tested at: ??[facility] ? RESULTS ??EXPECTED VALUES WBC: ? 9.4 ?4.5-57i8483/cumm ? RBC: ? 5.61 ? 4.30-5.90 mil/cumm HGB: ? 17.1 ? 13.5-17.5 gm/di ? HCT: ? 45.2 ? 37-53% ? MCV: ? 81.0 ? 80-100 fl ? NORMOCYTIC MCH: ? 31.0 ? 26-34 pg ? MCHC: ?38.0 ? 32-36 gm/dl ? HYPERCHROMIC RDW: ? 11.9 ? 11.5-15.5% ? PLT: ? 215 ?140-930f1733/uL ? Differential ?Absolute (%) ?Expected (%) ?(x10*9/L) ? (x10*9/L) Neutrophils: ?5.73 (61.3) ? 1.7-7.0 (42-72%) ? Lymphocytes: ?2.08 (22.2) ? 0.9-2.9 (20-44%) ?? Monocytes: ?1.4 (15) ? <0.9 (0-11%) ? ELEVATED Eosinophils: ?0.09 (1) ? <0.5 (0-2%) ? Basophils: ?0.02 (.2) ?<0.3 (<3.0%) ? Imm Grans: ?0.04 (.4) ?<0.3 (0-3%) ? (Metas, Myelos,Pros) 08/26/2023 12:08 PM CDT [facility] CEN[facility]AL LABORATORY Microscopic Description The final diagnosis is based on microscopic examination of an appropriately stained blood smear. 08/26/2023 12:08 PM CDT [facility] CENTRAL LABORATORY Additional Information Interpreted at [facility], Central Laboratory - [address], [place] [address] 08/26/2023 12:08 PM CDT [facility] CENTRAL LABORATORY Blood (Peripheral Blood) 08/17/2023 4:25 AM CDT 08/17/2023 4:39 PM CDT Naheed Johansen MD HEMATOLOGY [facility] LABORATORY-CENTRAL LABORATORY [address] [place] [address], from Last 3 Months Advance Directives * Full Code (Latest Code Status on File) Date Activated Date Inactivated Comments 12/21/2020 10:14 AM 12/21/2020 4:37 PM Question Answer Comments Code Status Discussion: Not Discussed Care Teams Chief Orthoptist Relationship Specialty Start Date End Date Mushtaq Garcia MD PCP - General Family Practice 01/05/15
--- OUTSIDE RECORDS SUMMARY | 2023-10-21 08:59 | XMS_ITS | Continuity of Care Document ---
Author Organization [facility], [facility] Address [address] [place] [address] Care Team Providers Care Senior Property Manager Name Role Phone [facility] Primary Care Provider Assessment Encounter Date Assessment Date Assessment LastModified by Organization Details LastModified Time 09/21/2023 09/21/2023 68 year old male with Peyronie's disease, urinary frequency, and erectile dysfunction. [email or web address] Not available 09/18/2023 12:25:01 Plan of Treatment Reminders Order Date Submit Date Provider Last Modified By Organization Details Last Modified Time Details Appointments HOSPITA L 80 2023 12:00P Pepper Quiroz MD Not available Not available Not available Lab PSA, serum or plasma 2023 024 [email or web address] [facility], [address], [place], [address], 09/21/2023 11:28:30 Referral None recorde d. Procedures None recorde d. Surgeries None recorde d. Imaging None recorde d. Medication Orders meloxic am 7.5 mg tablet 2023 024 [id number], [address] [facility], [place], [place], [id number], 09/29/2023 13:00:57 Patient TargetsNo targets recorded. Patient InstructionsNo instructions recorded. Reason for Referral None Reported. Results Created Date Observation Date Name Description Value Unit Range Abnormal Flag LastModifiedBy Organization Detail LastModifiedTime 09/21/19 24 09/21/2023 PSA, serum or plasm a PSA 4.6 ng/mL 0-4.0 NG/mL Not Available [facility] [address], [place], [address], 09/21/2023 11:22:45 Result Notes None recorded. Procedures Surgical History Date Name Laterality Status Provider Name and Address Organization Details Recorded Time 4 COMPLEX VISIT completed Eulogio Quiroz MD [address] [place] [address],[address], [place], [address], [facility] 09/21/2023 13:14:17 4 Blood Draw/HISTORIOGRAPHY PROFESSOR/PSA RESULTS completed Cristina franklin [facility] 09/21/2023 11:22:34 4 COMPLEX VISIT completed Eulogio Quiroz MD [address] [place] [address],[address], [place], [address], [facility] 06/18/2023 13:26:00 4 Bladder Scan completed Cristina Rhodes [facility] 06/18/2023 11:11:00 3 Staple Removal completed Abdulaziz Wilson null, [facility] 03/18/2023 11:52:31 3 Drain Removal completed Naheed Garcia null, [facility] 03/06/2023 11:28:45 3 Cystoscopy- male completed Eulogio Quiroz MD [address] [place] [address],[address], [place], [address], [facility] 10/15/2022 17:49:10 1 Cystoscopy- male completed Eulogio Quiroz MD [address] [place] [address],[address], [place], [address], [facility] 01/09/2021 13:31:32 1 TRUS- Volume size only completed Eulogio Quiroz MD [address] [place] [address],[address], [place], [address], [facility] 01/09/2021 13:32:01 8 colonoscopy completed Daija Weller null, [facility] 06/14/2021 13:03:27 Imaging Results None recorded. Procedure Notes None recorded. Medical Equipment None Reported. Allergies Allergen ID Allergen Name Allergen Category Reaction Reaction Severity Criticality Documentation Date Start Date Code Code System Note Provider Name and Address Organization Details Recorded Time 480944 Medicinal product containin g penicilli n and acting as antibacte rial agent (product) medicatio n swelling severe Not available 01/09/2021 57865 05 SNOMED Eulogio Quiroz MD [address] [place] [address],[place] [address], [place], [address], [facility] 12:32:53 Medications Name Sig Start Date [...] TABLET BY MOUTH DAILY FOR 4 DAYS active Not Available Not Available No t Available clomiphen e citrate 50 mg tablet [...] Not Available Not Available No t Available hydroxyzi ne pamoate 50 mg capsule TAKE 1 TO 2 CAPSULES BY MOUTH THREE TIMES DAILY NEEDED active Not Available Not Available No t Available chlorthal idone 25 mg tablet TAKE 1 TABLET BY MOUTH [...] lline ER 400 mg tablet,ex tended release active Not Available Not Available Not Available paroxetin e 10 mg/5 mL oral suspensio n 06/18 completed Not Available Not Available Not Available meloxicam 7.5 mg tablet Take 1 tablet every day by oral route. 09/28 completed Not Available Not Available Not Available oxycodone -acetamin ophen 5 mg-325 mg tablet 10/31 completed Not Available Not Available Not Available alprazola m 0.5 mg tablet TAKE 1 TABLET BY MOUTH TWICE DAILY NEEDED 03/18 completed Not Available Not Available Not Available propranol ol 10 mg tablet TAKE 1 TABLET BY MOUTH TWICE DAILY active Not Available Not Available No t Available doxycycli ne monohydra te 50 mg capsule TAKE ONE CAPSULE BY MOUTH TWICE A DAY FOR 5 DAYS WITH FOOD AND WATER 10/15 completed Not Available Not Available Not Available alprazola m 0.25 mg tablet TAKE 1 TABLET BY MOUTH TWICE DAILY NEEDED active Not Available Not Available No t Available famotidin e 20 mg tablet TAKE 1 TABLET BY MOUTH TWICE DAILY active Not Available Not Available No t Available prednisol one acetate 1 % eye drops,maria l pension 04/29 completed Not Available Not Available Not Available lorazepam 0.5 mg tablet TAKE 1 TABLET BY MOUTH EVERY DAY NEEDED FOR ANXIETY active Not Available Not Available No t Available tamsulosi n 0.4 mg capsule TAKE 2 CAPSULES BY MOUTH DAILY 06/18 completed Not Available Not Available Not Available cephalexi n 500 mg capsule TAKE ONE CAPSULE BY MOUTH 2X DAILY FOR 5 DAYS WITH FOOD AND WATER 06/18 completed Not Available Not Available Not Available paroxetin e 30 mg tablet TAKE 1 TABLET BY MOUTH DAILY active Not Available Not Available No t Available paroxetin e 20 mg tablet TAKE 1 TABLET BY MOUTH EVERY DAY active Not Available Not Available No t Available pantopraz ole 40 mg tablet,de layed release TAKE 1 TABLET BY MOUTH DAILY active Not Available Not Available No t Available buspirone 10 mg tablet TAKE 1-2 TABLETS BY MOUTH TWICE DAILY active Not Available Not Available No t Available lisinopri l 10 mg tablet TAKE [...] Not Available Not Available Not Available lorazepam 1 mg tablet TAKE 1/2 TABLET BY MOUTH THREE TIMES DAILY NEEDED active Not Available Not Available No t Available levofloxa hammad 500 mg tablet TAKE 1 TABLET BY MOUTH EVERY DAY 09/20 completed Not Available Not Available Not Available [...] Available Not Available celecoxib 100 mg capsule TAKE 1 CAPSULE BY MOUTH EVERY DAY active Not Available Not Available No t Available ketoconaz ole 2 % topical cream 03/18 completed Not Available Not Available Not Available clobetaso l 0.05 % scalp solution APPLY TO SCALP NIGHTLY FOR UP TO 2 WEEKS PER MONTH NEEDED 03/18 completed Not Available Not Available Not Available lisinopri l 40 mg tablet TAKE 1 TABLET BY MOUTH EVERY DAY 04/29 completed Not Available Not Available Not Available ondansetr on 4 mg disintegr ating tablet PLACE 1 TABLET ON THE TONGUE AND ALLOW TO DISSOLVE EVERY 12 HOURS NEEDED FOR NAUSEA active Not Available Not Available No t Available doxycycli ne hyclate 100 mg tablet TAKE 1 TABLET BY MOUTH TWICE DAILY FOR 7 DAYS 09/20 completed Not Available Not Available Not Available [...] Not Available Not Available No t Available bupropion HCl XL 150 mg 24 hr tablet, extended release TAKE 1 TABLET BY MOUTH DAILY IN THE MORNING. DISCONTI NUE 300 MG TABLET active Not Available Not Available No t Available tadalafil 20 mg tablet TAKE ONE TABLET BY MOUTH EVERY DAY NEEDED FOR E.D. TAKE 30 MINUTES BEFORE SEXUAL ACTIVTY 03/18 completed Not Available Not Available Not Available duloxetin e 20 mg capsule,d elayed release TAKE 1 CAPSULE BY MOUTH TWICE DAILY active Not Available Not Available No t Available adapalene 0.3 % topical gel APPLY [...] and Address Organization Details Last Updated DateTime 09/21/2023 172.72 cm 34.2 kg/m2 632941.28 g Cristina Carmelo [facility] 09/21/2023 11:21:54 Social History Question Answer Notes LastModified by Organizat ion Details LastModified Time Tobacco Smoking Status Never Smoker Eulogio Quiroz MD [address] [place] [address],[address], [place], [address], [facility] 01/09/2021 12:38:09 What Is Your Level Of Alcohol Consumption? None Information not available 01/09/2021 What Is Your Level Of Caffeine Consumption? Occasional Information not available 01/09/2021 Are You Currently Employed? No Information not available 01/09/2021 Ethnicity Not /Latin o Information not available 06/14/2021 Preferred Language Congolese Information not available 06/14/2021 Recreational Drug Use No Information not available 06/14/2021 Could You Be ? No Information not available 06/14/2021 What Was The Date Of Your Most Recent Tobacco Screening? 09/21/2023 [email or web address] Information not available 09/21/2023 What Is Your Relationship Status? Information not [...] history of Hypertension Medical History Condition Response Sexually Transmitted Infection N Diabetes N Other N Bleeding Disorder N High Blood Pressure Y Kidney Stones N High Cholesterol N GERD/Acid Reflux Y Heart Disease N Cancer N Lung Disease N Depression N Immunizations Vaccine Type Date Status Provider Name and Address Organization Details Recorded Time Influenza, high-dose, quadrivalent, PF 06/11/2021 [facility] 11:12:35 Tdap 06/11[facility]2021 [facility] 11:12:35 Influenza, split virus, quadrivalent, PF 06/15/2009 [facility] 11:12:35 Influenza, split virus, quadrivalent, preservative 02/23/2019 completed Eulogio Quiroz MD [address] [place] [address],[address] [place] [address], [address], [facility] 02/04/2023 12:06:32 Influenza, MDCK, quadrivalent, preservative 02/24/2018 completed Eulogio Quiroz MD [address] [place] [address],[address], [place], [address], [facility] 02/04/2023 12:06:32 zoster recombinant 07/19/2019 completed Eulogio jean MD [address] [place] [address],[address], [address], [facility] 02/04/2023 12:06:32 zoster recombinant 12/28/2019 completed Eulogio jean MD [address] [place] [address],[address], [address], [facility] 02/04/2023 12:06:32 Influenza, adjuvanted, quadrivalent, PF 03/01/2020 completed Eulogio Quiroz MD [address] [place] [address],[address], [address], [facility] 02/04/2023 12:06:32 COVID-19, mRNA, LNP-S, PF, 30 mcg/0.3 mL dose 03/13/2021 completed Eulogio Quiroz MD [address] [place] [address],[address], [address], [facility] 02/04/2023 12:06:32 COVID-19 vaccine, vector-nr, rS-Ad26, PF, 0.5 mL 07/20/2020 completed Eulogio Quiroz MD [address] [place] [address],[address], [address], [facility] 02/04/2023 12:06:32 pneumococcal polysaccharide PPV23 07/12/2019 completed Eulogio Quiroz MD [address] [place] [address],[address], [address], [facility] 02/04/2023 12:06:32 Tdap 05/18/2011 completed Eulogio Quiroz MD [address] [place] [address],[address], [address], [facility] 02/04/2023 12:06:32 Tdap 10/12/2007 completed Eulogio Quiroz MD [address] [place] [address],[address], [address], [facility] 02/04/2023 12:06:32 zoster live 10/12/2014 completed Eulogio Quiroz MD [address] [place] [address],[address], [address], [facility] 02/04/2023 12:06:32 Influenza, split virus, trivalent, preservative 02/17/2012 completed Eulogio Quiroz MD [address] [place] [address] [place] [address], [address], [facility] 02/04/2023 12:06:32 Influenza, split virus, trivalent, preservative 04/06/2010 completed Eulogio Quiroz MD [address] [place] [address],[address], [address], [facility] 02/04/2023 12:06:32 Influenza, split virus, trivalent, PF 05/21/2011 completed Eulogio Quiroz MD [address] [place] [address],[address], [address], [facility] 02/04/2023 12:06:32 Influenza, split virus, trivalent, PF 04/23/2014 completed Eulogio Quiroz MD [address] [place] [address],[address], [address] [place] [address], [facility] 02/04/2023 12:06:32 influenza, whole 02/25/2017 completed Eulogio vance MD [address] [place] [address],[address], [address], [facility] 02/04/2023 12:06:32 Novel crymrrfus-[id number] 06/15/2009 completed Eulogio Quiroz MD [address] [place] [address],[address], [address] [place] [address], [facility] 02/04/2023 12:06:32 Td (adult), 2 Lf tetanus toxoid, preservative free, adsorbed 05/18/2006 completed Eulogio Quiroz MD [address] [place] [address],[address], [address], [facility] 02/04/2023 12:06:32 Past Encounters Encounter ID Performer Location Encounter Start Date Encounter Closed Date Diagnosis/Indication Diagnosis SNOMED-CT Code [id number] Eulogio Quiroz MD [facility] 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 Duy Schreiber [id number] Duy Schreiber 09/21/2023 2 [facility] Duy Schreiber [id number] Duy Schreiber Notes Date Note Type Note Provider Name and Address Organization Details Recorded Time 09/21/2023 text/html HPI Notes: 68 ye ar old male who follows with me in [place] for long-standing urinary frequency and weakened urinary [...] status quo interested in pursuing repeat UroLift. 09/21/2023: Here for follow up urinary frequency and weakened urinary stream s/p UroLift. Also, long history of Peyronie's, ED, Hypospadias, and symptoms of hypogonadism. S/p IPP. Had recent PSA with his primary care which came in at 6.4 ng/mL. Recheck came down to 3.89 ng/mL. Today PSA 4.6 ng/mL Eulogio Quiroz MD [address] [facility],[address], [place], [address], [facility] 09/21/2023 13:14:39
--- OUTSIDE RECORDS SUMMARY | 2023-10-21 08:59 | XMS_ITS | Referral Summary ---
Author Organization [facility] Address [address] [place] [address] Care Team Providers Care Tufter Operator Name Role Phone Unknown, Primary Care Provider [...] on file Medical Devices Implanted Type Area Spare Person Device Identifier Shelf Expiration Date Model / Serial / Lot Cl [place] Titan - [id number] Implanted:Qty: 1 on 03/03/2023 by Eulogio Quiroz MD at [facility] Penile N/A: Pelvis Coloplast Luanne 12/05/2027 [id number] / / [id number] Assembly Kit Titan - [id number] Implanted:Qty: 1 on 03/03/2023 by Eulogio Quiroz MD at [facility] Supply N/A: Penis Coloplast Luanne 10/14/2027 [id number] / / [id number] Infrapubic Cylinder Pump Titan Implanted:Qty: 1 on 03/03/2023 by Eulogio Quiroz MD at [facility] N/A: Penis Coloplast Luanne 07/01/2027 [id number] / / [id number] Care Teams Tufter Operator Relationship Specialty Start Date End Date Unknown, NO ADDRESS/PHONE/FAX AFFILIATED PCP - General 02/19/23
== END 2023-10-21 08:56 | disposition home or self-care (01) ==
LOC: NFLDREF 08:57
PROVIDERS: PCP Family Medicine; Visit Provider Family Medicine
DX: I10 Essential (primary) hypertension (principal)
CPT/HCPCS: 80048

== ENCOUNTER 2023-12-29 14:01 | Outpatient (CLI) | payer MEDICARE, OTHER, SELFPAY ==
--- OUTSIDE RECORDS SUMMARY | 2023-12-29 14:03 | XMS_ITS | Referral Summary ---
Author Organization [facility] Address [address] [place] [address] Care Team Providers Care Teletypewriter Installer Name Role Phone Unknown, Primary Care Provider [...] on file Medical Devices Implanted Type Area Fish Header Device Identifier Shelf Expiration Date Model / Serial / Lot Cl [place] Titan - [id number] Implanted:Qty: 1 on 03/03/2023 by Eulogio Quiroz MD at [facility] Penile N/A: Pelvis Coloplast Luanne 12/05/2027 [id number] / / [id number] Assembly Kit Titan - [id number] Implanted:Qty: 1 on 03/03/2023 by Eulogio Quiroz MD at [facility] Supply N/A: Penis Coloplast Luanne 10/14/2027 [id number] / / [id number] Infrapubic Cylinder Pump Titan Implanted:Qty: 1 on 03/03/2023 by Eulogio Quiroz MD at [facility] N/A: Penis Coloplast Luanne 07/01/2027 [id number] / / [id number] Care Teams Teletypewriter Installer Relationship Specialty Start Date End Date Unknown, NO ADDRESS/PHONE/FAX AFFILIATED PCP - General 02/19/23
--- OUTSIDE RECORDS SUMMARY | 2023-12-29 14:03 | XMS_ITS | Clinical Summary ---
Author Organization [facility] Address [address] [place] [address] Care Team Providers Care Auto Headlight Mechanic Name Role Phone Unknown, Primary Care Provider [...] Vaccine ( season) 2023, 07/20/2020 Influenza Vaccine (#1) 2024 02/23/2019 Yearly Review of HCD 01/28/2024 01/28/2023 Zoster Vaccine Completed 12/28/2019, 0307/2019, 10/12/2014 Medical Devices Implanted Type Area Composing Room Machinist Device Identifier Shelf Expiration Date Model / Serial / Lot Cl [place] Titan - [id number] Implanted:Qty: 1 on 03/03/2023 by Eulogio Quiroz MD at [facility] Penile N/A: Pelvis Coloplast Luanne 12/05/2027 [id number] / / [id number] Assembly Kit Titan - [id number] Implanted:Qty: 1 on 03/03/2023 by Eulogio Quiroz MD at [facility] Supply N/A: Penis Coloplast Luanne 10/14/2027 [id number] / / [id number] Infrapubic Cylinder Pump Titan Implanted:Qty: 1 on 03/03/2023 by Eulogio Quiroz MD at [facility] N/A: Penis Coloplast Luanne 07/01/2027 [id number] / / [id number] Care Teams Auto Headlight Mechanic Relationship Specialty Start Date End Date Unknown, NO ADDRESS/PHONE/FAX AFFILIATED PCP - General 02/19/23
--- OUTSIDE RECORDS SUMMARY | 2023-12-29 14:04 | XMS_ITS | Data Portability ---
Author Organization [facility], [facility] Address [address] [place] [address] Care Team Providers Care Retail Salesworker Name Role Phone [facility] Primary Care Provider [phone] Assessment Encounter Date Assessment Date Assessment LastModified by Organization Details LastModified Time 03/18/2023 03/18/2023 67 year old male with Peyronie's disease, urinary frequency, and erectile dysfunction. Not available 03/18/2023 09:19:18 04/29/2023 04/29/2023 67 year old male with Peyronie's disease, urinary frequency, and erectile dysfunction. [email or web address] Not available 04/27/2023 13:21:58 06/18/2023 06/18/2023 68 year old male with Peyronie's disease, urinary frequency, and erectile dysfunction. [email or web address] Not available 06/12/2023 16:52:34 09/21/2023 09/21/2023 68 year old male with Peyronie's disease, urinary frequency, and erectile dysfunction. [email or web address] Not available 09/18/2023 12:25:01 12/09/2023 12/09/2023 68 year old male with Peyronie's disease, urinary frequency, and erectile dysfunction. [email or web address] Not available 12/04/2023 16:02:39 Plan of Treatment Reminders Order Date Submit Date Provider Last Modified By Organization Details Last Modified Time Details Appointments None recorded . Lab PSA, serum or plasma 2023 024 [email or web address] [facility], [address] [place], [address], 11:28:30 Referral None recorded . Procedures None recorded . Surgeries cystoure throscop y, with insertio n of permanen t adjustab le transpro static implant; single implant (SURG) 2023 024 [email or web address] Not available 14:09:21 Imaging None recorded . Medication Orders meloxica m 7.5 mg tablet 2023 024 [id number], [address] [place], [place], [phone], 13:00:57 Xyosted 100 mg/0.5 mL subcutan eous auto-inj mulugeta 2023 024 TEJ [facility] #[id number], [address] [place], [place], [phone], 13:56:46 Patient TargetsNo targets recorded. Patient Instructions Encounter Date Encounter Id Patient Instructions Last Modified By Organization Details Last Modified Time 06/18/2023 [id number] UroLift We discussed prostate UroLift and that [...] allow their blood to clot normally. 2. [place] or no hospital stay. This procedure can [...] PSA 4.6 ng/mL 0-4.0 NG/mL Not Available [facility] [address], [place], [address], 09/21/2023 11:22:45 06/19/19 24 06/18/2023 bladd er scan (PROC ) No observ ation record ed. Not Available 09/21/2023 13:12:04 Result Notes None recorded. Procedures Surgical History Date Name Laterality Status Provider Name and Address Organization Details Recorded Time 4 COMPLEX VISIT completed Eulogio Quiroz MD [address] [place] [address],[address], [place], [address], [facility] 12/09/2023 13:57:03 4 Bladder Scan completed Vanessa Garvey null, [facility] 12/09/2023 11:35:14 4 COMPLEX VISIT completed Eulogio Quiroz MD [address] [place] [address],[address], [place], [address], [facility] 09/21/2023 13:14:17 4 Blood Draw/[employer]ER/PSA RESULTS [facility] 11:22:34 4 COMPLEX VISIT completed Eulogio Quiroz MD [address] [place] [address],[address], [place], [address], [facility] 06/18/2023 13:26:00 4 Bladder Scan completed Cristina Rhodes null, [facility] 06/18/2023 11:11:00 3 Staple Removal completed Abdulaziz Wilson null, [facility] 03/18/2023 11:52:31 3 Drain Removal completed Naheed Garcia null, [facility] 03/06/2023 11:28:45 3 Cystoscopy- male completed Eulogio Quiroz MD [address] [place] [address],[address], [place], [address], [facility] 10/15/2022 17:49:10 1 Cystoscopy- male completed Eulogio Quiroz MD [address] [facility],[address], [place], [address], [facility] 01/09/2021 13:31:32 1 TRUS- Volume size only completed Eulogio Quiroz MD [address] [facility],[address], [place], [address], [place] [facility] 01/09/2021 13:32:01 8 [facility]/14/[facility] 13:03:27 Imaging Results Imaging Date Name Status LastModified by Organiz ation Details LastModified Time 06/18/2023 bladder scan (PROC) [email or web address] [id number] Information not available 09/21/2023 13:12:04 Procedure Notes None recorded. Medical Equipment None Reported. Allergies Allergen ID Allergen Name Allergen Category Reaction Reaction Severity Criticality Documentation Date Start Date Code Code System Note Provider Name and Address Organization Details Recorded Time 162306 Medicinal product containin g penicilli n and acting as antibacte rial agent (product) medicatio n swelling severe Not available 01/09/2021 10879 05 SNOMED Eulogio Quiroz MD [address] [facility],[address], [place], [address], [facility] 12:32:53 Medications Name Sig Start [...] Not Available Not Available paroxetin e 10 mg tablet TAKE 1 TABLET BY MOUTH DAILY 12/08 completed Not Available Not Available Not Available ketoconaz ole 2 % shampoo WASH NDERARMS ONCE DAILY , LATHER AND LET SIT FOR SEVERAL MINUTES BEFORE RINSING active Not Available Not Available No t Available trazodone 50 mg tablet TAKE 1/2 TO 3 TABLETS BY MOUTH DAILY AT BEDTIME NEEDED FOR SLEEP 12/08 completed Not Available Not Available Not Available oxybutyni n chloride ER 10 mg tablet,ex tended release 24 hr 04/17 completed Not Available Not Available Not Available azithromy hammad 250 mg tablet TAKE 2 TABLETS BY MOUTH FOR 1 DAY THEN TAKE 1 TABLET BY MOUTH DAILY FOR 4 DAYS 12/08 completed Not Available Not Available Not Available clomiphen e citrate 50 mg tablet TAKE 1 TABLET BY MOUTH EVERY DAY 04/17 completed Not Available Not Available Not Available meloxicam 15 mg tablet TK 1 T PO DAILY. DO NOT TK WITH OTHER NSAIDS 04/29 completed Not Available Not Available Not Available phenazopy ridine 200 mg tablet TAKE 1 TABLET BY MOUTH THREE TIMES DAILY 12/08 completed Not Available Not Available Not Available [...] CAPSULES BY MOUTH THREE TIMES DAILY NEEDED 12/08 completed Not Available Not Available Not Available chlorthal idone 25 mg tablet TAKE 1 TABLET BY MOUTH EVERY DAY 12/08 completed Not Available Not Available Not Available sulfameth oxazole 800 mg-trimet hoprim 160 [...] DAILY FOR 2 WEEKS , THEN NEEDED 12/08 completed Not Available Not Available Not Available pentoxify lline ER 400 mg tablet,ex [...] TAKE 1 TABLET BY MOUTH TWICE DAILY 12/08 completed Not Available Not Available Not Available doxycycli ne monohydra te 50 mg capsule TAKE ONE CAPSULE BY MOUTH TWICE A DAY FOR 5 DAYS WITH FOOD AND WATER 10/15 completed Not Available Not Available Not Available alprazola m 0.25 mg tablet TAKE 1 TABLET BY MOUTH TWICE DAILY NEEDED 12/08 completed Not Available Not Available Not Available famotidin e 20 mg tablet TAKE 1 TABLET BY MOUTH TWICE DAILY 12/08 completed Not Available Not Available Not Available prednisol one acetate 1 % eye drops,maria l pension 04/29 completed Not Available Not Available Not Available lorazepam 0.5 mg tablet TAKE 1 TABLET BY MOUTH EVERY DAY NEEDED FOR ANXIETY 12/08 completed Not Available Not Available Not Available tamsulosi n 0.4 mg capsule TAKE 2 CAPSULES BY MOUTH DAILY 06/18 completed Not Available Not Available Not Available cephalexi n 500 mg capsule TAKE ONE CAPSULE BY MOUTH 2X DAILY FOR 5 DAYS WITH FOOD AND WATER 06/18 completed Not Available Not Available Not Available paroxetin e 30 mg tablet TAKE 1 TABLET BY MOUTH DAILY 12/08 completed Not Available Not Available Not Available paroxetin e 20 mg tablet TAKE 1 TABLET BY MOUTH EVERY DAY 12/08 completed Not Available Not Available Not Available pantopraz ole 40 mg tablet,de layed release TAKE 1 TABLET BY MOUTH DAILY active Not Available Not Available No t Available buspirone 10 mg tablet TAKE 1-2 TABLETS BY MOUTH TWICE DAILY 12/08 completed Not Available Not Available Not Available [...] TABLET BY MOUTH THREE TIMES DAILY NEEDED 12/08 completed Not Available Not Available Not Available levofloxa hammad 500 mg tablet TAKE [...] TAKE 1 CAPSULE BY MOUTH EVERY DAY 12/08 completed Not Available Not Available Not Available [...] DISSOLVE EVERY 12 HOURS NEEDED FOR NAUSEA 12/08 completed Not Available Not Available Not Available doxycycli ne hyclate 100 mg tablet TAKE 1 TABLET BY MOUTH TWICE DAILY FOR 7 DAYS 09/20 completed Not Available Not Available Not Available ciclopiro x 0.77 % topical gel APPLY A THIN LAYER TO AFFECTED NAILS AND NAILS BEDS ONCE DAILY 06/18 completed Not Available Not Available Not Available oxycodone 5 mg tablet TAKE 1 TABLET BY MOUTH NEEDED 12/08 completed Not Available Not Available Not Available [...] release TAKE 1 TABLET BY MOUTH DAILY 12/08 completed Not Available Not Available Not Available bupropion HCl XL 150 mg 24 hr tablet, extended release TAKE 1 TABLET BY MOUTH DAILY IN THE MORNING. DISCONTI NUE 300 MG TABLET 12/08 completed Not Available Not Available Not Available tadalafil 20 mg tablet TAKE ONE TABLET BY MOUTH EVERY DAY NEEDED FOR E.D. TAKE 30 MINUTES BEFORE SEXUAL ACTIVTY 03/18 completed Not Available Not Available Not Available duloxetin e 20 mg capsule,d elayed release TAKE 2 CAPSULES BY MOUTH EVERY DAY active Not Available [...] Updated DateTime 03/18/2023 172.72 cm 33.5 kg/m2 45216.32 g Abdulaziz Wilson [facility] 03/18/2023 11:40:30 Date Recorded Body height Body mass index (BMI) Body weight Provider Name and Address Organization Details Last Updated DateTime 04/29/2023 172.72 cm 34.2 kg/m2 403900.28 g Abdulaziz Wilson [facility] 04/29/2023 12:06:45 Date Recorded Body height Body mass index (BMI) Body weight Provider Name and Address Organization Details Last Updated DateTime 06/18/2023 172.72 cm 34.2 kg/m2 942385.28 g Cristina Rhodes [facility] 06/18/2023 11:12:26 Date Recorded Body height Body mass index (BMI) Body weight Provider Name and Address Organization Details Last Updated DateTime 09/21/2023 172.72 cm 34.2 kg/m2 613020.28 g Cristina Rhodes [facility] 09/21/2023 11:21:54 Date Recorded Body height Body mass index (BMI) Body weight Provider Name and Address Organization Details Last Updated DateTime 12/09/2023 172.72 cm 34.1 kg/m2 618882.69 g Vanessa Garevy [facility] 12/09/2023 11:30:14 Social History Question Answer Notes LastModified by Organizat ion Details LastModified Time Tobacco Smoking Status Never Smoker Eulogio Quiroz MD [address] [facility] [address], [place], [address], [facility] 01/09/2021 12:38:09 What Is Your Level Of Alcohol Consumption? None Information not available 01/09/2021 What Is Your Level Of Caffeine Consumption? Occasional Information not available 01/09/2021 Are You Currently Employed? No Information not available 01/09/2021 Ethnicity Not /Latin o Information not available 06/14/2021 Preferred Language Kyrgyz Information not available 06/14/2021 Recreational Drug Use No Information not available 06/14/2021 Could You Be ? No Information not available 06/14/2021 What Was The Date Of Your Most Recent Tobacco Screening? 12/09/2023 [email or web address] Information not available 12/09/2023 What Is Your Relationship Status? Information not available 01/09/2021 Do You Use Any Illicit Or Recreational Drugs? No Information not available 01/09/2021 Has Tobacco Cessation Counseling Been Provided? No Information not available 10/17/2021 Do You Or Have You Ever Used Any Other Forms Of Tobacco Or Nicotine? No Information not available 01/09/2021 Sex: Unknown Functional Status None recorded. Mental Status None recorded. Family History Relationship Description Onset Age of this Age Resolved Age Notes Father Family history of malignant neoplasm of prostate Maternal Grandfather Family history of cardiac disorder Maternal Grandfather Family history of Hypertension Mother Family history of Hypertension Medical History Condition Response Sexually Transmitted Infection N Diabetes N Other N Bleeding Disorder N High Blood Pressure Y Kidney Stones N High Cholesterol N GERD/Acid Reflux Y Heart Disease N Cancer N Depression N Lung Disease N Immunizations Vaccine Type Date Status Provider Name and Address Organization Details Recorded Time Influenza, high-dose, quadrivalent, PF 06/11/2021 completed Cristina franklin, [facility] 06/18/2023 11:12:35 Tdap 06/11/2021 completed Cristina franklin, [facility] 06/18/2023 11:12:35 Influenza, split virus, quadrivalent, PF 06/15/2009 completed Cristina franklin, [facility] 06/18/2023 11:12:35 Influenza, split virus, quadrivalent, preservative 02/23/2019 completed Eulogio Quiroz MD [address] [facility],[address], [address], [facility] 02/04/2023 12:06:32 Influenza, MDCK, quadrivalent, preservative 02/24/2018 completed Eulogio Quiroz MD [address] [place] [address],[address], [place], [address], [facility] 02/04/2023 12:06:32 zoster recombinant 07/19/2019 completed Eulogio jean MD [address] [place] [address],[address], [place], [address], [facility] 02/04/2023 12:06:32 zoster recombinant 12/28/2019 completed Eulogio jean MD [address] [place] [address],[address], [place], [address], [facility] 02/04/2023 12:06:32 Influenza, adjuvanted, quadrivalent, PF 03/01/2020 completed Eulogio Quiroz MD [address] [place] [address],[address], [place], [address], [facility] 02/04/2023 12:06:32 COVID-19, mRNA, LNP-S, PF, 30 mcg/0.3 mL dose 03/13/2021 completed Eulogio Quiroz MD [address] [place] [address],[address] [place] [address], [address], [facility] 02/04/2023 12:06:32 COVID-19 vaccine, vector-nr, rS-Ad26, PF, 0.5 mL 07/20/2020 completed Eulogio Quiroz MD [address] [place] [address],[address] [place] [address], [address], [facility] 02/04/2023 12:06:32 pneumococcal polysaccharide PPV23 07/12/2019 completed Eulogio Quiroz MD [address] [place] [address],[address] [place] [address], [address], [facility] 02/04/2023 12:06:32 Tdap 05/18/2011 completed Eulogio Quiroz MD [address] [place] [address],[address], [address], [facility] 02/04/2023 12:06:32 Tdap 10/12/2007 completed Eulogio Quiroz MD [address] [place] [address],[address] [place] [address], [address], [facility] 02/04/2023 12:06:32 zoster live 10/12/2014 completed Eulogio Quiroz MD [address] [place] [address],[address], [place], [address], [facility] 02/04/2023 12:06:32 Influenza, split virus, trivalent, preservative 02/17/2012 completed Eulogio Quiroz MD [address] [place] [address],[address], [place], [address], [facility] 02/04/2023 12:06:32 Influenza, split virus, trivalent, preservative 04/06/2010 completed Eulogio Quiroz MD [address] [place] [address],[address], [place], [address], [facility] 02/04/2023 12:06:32 Influenza, split virus, trivalent, PF 05/21/2011 completed Eulogio Quiroz MD [address] [place] [address],[address] [place] [address], [address], [facility] 02/04/2023 12:06:32 Influenza, split virus, trivalent, PF 04/23/2014 completed Eulogio Quiroz MD [address] [place] [address],[address] [place] [address], [address], [facility] 02/04/2023 12:06:32 influenza, whole 02/25/2017 completed Eulogio vance MD [address] [place] [address],[address], [address], [facility] 02/04/2023 12:06:32 Novel [id number] 06/15/2009 completed Eulogio Quiroz MD [address] [place] [address],[address], [address], [facility] 02/04/2023 12:06:32 Td (adult), 2 Lf tetanus toxoid, preservative free, adsorbed 05/18/2006 completed Eulogio Quiroz MD [address] [place] [address],[address], [address], [facility] 02/04/2023 12:06:32 Past Encounters Encounter ID Performer Location Encounter Start Date Encounter Closed Date Diagnosis/Indication Diagnosis SNOMED-CT Code [id number] Eulogio Quiroz MD [facility] 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 [place] [address] 01/09/2021 11:56:31 01/11/2021 14:10:01 [id number] MD OMNY [facility] [address] [place] [address] 04/19/2021 13:48:43 04/29/2021 09:32:58 Increased frequency of urination 706238308 Induration penis plastica 6418885 Primary er ectile dysfunction 850248024 Benign pro static hyperplasia 216003444 [id number] MD MONY [facility] [address] [place] [address] 06/14/2021 13:00:49 06/21/2021 07:44:31 Increased frequency of urination 267459326 Induration penis plastica 0942445 Primary er ectile dysfunction 049121791 Benign pro static hyperplasia 470509764 [id number] MD MONY [facility] [address] [place] [address] 08/12/2021 09:33:28 08/14/2021 09:44:56 Increased frequency of urination 954298209 Induration penis plastica 3583931 Primary er ectile dysfunction 227041938 Benign pro static hyperplasia 990286207 Reduced libido 5062309 [id number] MD MONY [facility] [address] [place] [address] 10/17/2021 16:52:12 10/21/2021 08:48:06 Increased frequency of urination 523339447 Induration penis plastica 3345299 Primary er ectile dysfunction 140294713 Benign pro static hyperplasia 399552545 Reduced libido 0985499 [id number] MD MONY [facility] [address] [place] [address] 10/31/2021 14:34:37 11/04/2021 09:04:01 Increased frequency of urination 988986785 Induration penis plastica 7879768 Primary er ectile dysfunction 374846066 Benign pro static hyperplasia 192116244 Reduced libido 8322345 Hypogonadism 59931451 [id number] MD MONY [facility] [address] [place] [address] 04/17/2022 15:26:48 04/21/2022 10:46:42 Increased frequency of urination 106318386 Induration penis plastica 0163644 Primary er ectile dysfunction 686887280 Benign pro static hyperplasia 381743391 Reduced libido 9546264 Hypogonadism 82118397 [id number] MD MONY [facility] [address] [place] [address] 10/15/2022 14:32:34 10/22/2022 09:42:43 Increased frequency of urination 328263207 Induration penis plastica 8751824 Primary er ectile dysfunction 495020123 Benign pro static hyperplasia 527944559 Reduced libido 6646487 Hypogonadism 19512890 [id number] MD MONY Alice[facility] [address] [place] [address] 02/04/2023 11:46:14 02/11/2023 16:58:57 Increased frequency of urination 323023272 Induration penis plastica 9958207 Primary er ectile dysfunction 012673542 Benign pro static hyperplasia 519218372 Reduced libido 6443271 Hypogonadism 68585416 [id number] MD Jerry Alicea [address] [place] [address] 03/06/2023 10:57:44 03/11/2023 15:23:51 Primary erectile dysfunction 323602732 [id number] MD MONY [facility] [address] [place] [address] 03/18/2023 11:23:53 03/24/2023 15:57:14 Increased frequency of urination 545745886 Induration penis plastica 1021307 Primary er ectile dysfunction 889993155 Benign pro static hyperplasia 512115148 Reduced libido 8876354 Hypogonadism 55520302 [id number] MD MONY [facility] [address] [place] [address] 04/29/2023 11:45:37 04/30/2023 13:22:21 Increased frequency of urination 144593699 Induration penis plastica 2326984 Primary er ectile dysfunction 929547219 Benign pro static hyperplasia 991468340 Reduced libido 6446507 Hypogonadism 51762564 [id number] Eulogio Quiroz MD [address] [place] [address] 06/18/2023 11:05:15 06/19/2023 10:46:16 Increased frequency of urination 769867676 Induration penis plastica 3494357 Primary er ectile dysfunction 867224648 Benign pro static hyperplasia 834759336 Reduced libido 0329853 Hypogonadism 33613399 [id number] Eulogio Quiroz MD [address] [place] [address] 09/21/2023 10:55:10 09/22/2023 08:30:40 Increased frequency of urination 646882974 Induration penis plastica 3659382 Primary er ectile dysfunction 313965988 Benign pro static hyperplasia 362698748 Reduced libido 6543986 Hypogonadism 04418084 Prostate s pecific antigen above reference range 594798073 Late ejaculation 2280042 8 [id number] Eulogio Quiroz MD [address] [place] [address] 12/09/2023 10:55:27 12/11/2023 11:23:27 Increased frequency of urination 287594757 Induration penis plastica 7740104 Primary er ectile dysfunction 119049312 Reduced libido 8097955 Hypogonadism 88035409 Prostate s pecific antigen above reference range 805192244 Late ejaculation 9169440 8 Health Concerns Section Related Observation LastModified by Organization Detai ls LastModified Time None Recorded Concern Status LastModified by Organization Details LastModified Time None Recorded Advance Directives Directive None Recorded Payers Encounter Date Sequence Insurance Name Policy Number Policy Mahan Covered Member ID Mahan Member ID Guarantor Name 03/18/2023 1 [place] [facility] Duy Schreiber [id number] Duy Schreiber 03/18/2023 2 [employer] Duy W Kiesler [id number] Duy Ceja Kiesler 04/29/2023 1 [place] [facility] [employer] [facility] Duy Manzoesler [id number] Duy Ceja Kiesler 04/29/2023 2 [employer] Duy W Kiesler [id number] Duy Brenna Kiesler 06/18/2023 1 [place] [facility] [employer] [facility] Duy W Kiesler [id number] 3 Duy W Kiesler 06/18/2023 2 [employer] Duy W Kiesler [id number] Duy Brenna Kiesler 09/21/2023 1 [place] [facility] Duy Manzoesler [id number] 3 Duy Ceja Kiesler 09/21/2023 2 [employer] Duy Ceja Kiesler [id number] Duy Ceja Kiesler 12/09/2023 1 [place] [facility] [employer] [facility] Duy Mazaler [id number] 3 Duy Ceja Kiesler 12/09/2023 2 [facility] Duy Ceja Kiesler [id number] Duy Mazaler Notes Date Note Type Note Provider Name and Address Organization Details Recorded Time 03/18/2023 text/html HPI Notes: 67 ye ar old male who follows with me in [place] for long-standing urinary frequency and weakened urinary [...] hypogonadism. Now s/p IPP Eulogio Quiroz MD [address] [place] [address],[address], [place], [address], [place] [facility] 03/18/2023 13:42:51 04/29/2023 text/html HPI Notes: 67 ye ar old male who follows with me in [place] for long-standing urinary frequency and weakened urinary [...] up, issues with IPP. Eulogio Quiroz MD [address] [place] [address],[address], [place], [address], [facility] 04/29/2023 13:43:48 06/18/2023 text/html HPI Notes: 68 ye ar old male who follows with me in [place] for long-standing urinary frequency and weakened urinary [...] in pursuing repeat UroLift. Eulogio Quiroz MD [address] [place] [address],[address], [place], [address], [facility] 06/18/2023 13:26:29 09/21/2023 text/html HPI Notes: 68 ye ar old male who follows with me in [place] for long-standing urinary frequency and weakened urinary [...] PSA 4.6 ng/mL Eulogio Quiroz MD [address] [facility] [facility],[address], [place], [address], [facility] 09/21/2023 13:14:39 12/09/2023 text/html HPI Notes: 68 ye ar old male who follows with me in [place] for long-standing urinary frequency and weakened urinary [...] to 3.89 ng/mL. Today PSA 4.6 ng/mL 12/09/2023: Here for follow up urinary frequency and weakened urinary stream s/p UroLift. Also, long history of Peyronie's, ED, Hypospadias, and symptoms of hypogonadism. S/p IPP. Now s/p repeat UroLift and reports significant improvement. Eulogio Quiroz MD [address] [place] [address],[address], [place], [address], [facility] 12/09/2023 13:57:13
--- OUTSIDE RECORDS SUMMARY | 2023-12-29 14:04 | XMS_ITS | Clinical Summary ---
Author Organization [facility] Address [address] [place] [address] Care Team Providers Care Scrum Project Manager Name Role Phone Mushtaq Garcia MD Primary Care Provider + [phone] Source Comments You are receiving this document as you are listed as the primary care provider,follow-up provider, or the patient has been referred to you for consultation.This is in compliance with the Medicare and[facility] Cent[facility] EHR Incentive Program,which states Providers who transition their patient to another setting of careor provider of care or refers their patient to another provider of care shouldprovide summary care record for each transition of care or referral. [facility] Allergies Active Allergy Reactions Criticality Noted Date [...] MGIndications:Low testosterone,Fatigue, unspecified type 100 mg. Active Austin-3 Fatty Acids (OMEGA 3 500 OR)Indications:Low testosterone,Fatigue, [...] - 2022-2 4 season) 2023 Influenza (#1) 2024 HepA Aged Out No longer eligi [...] age to complete this topic Care Teams Scrum Project Manager Relationship Specialty Start Date End Date Mushtaq Garcia MD [address] [place] [address] PCP - General 10/15/16
--- OUTSIDE RECORDS SUMMARY | 2023-12-29 14:04 | XMS_ITS | Clinical Summary ---
Author Organization [facility] Address [place], [place] [address] Care Team Providers Care Manager Of Loss Prevention Operations Name Role Phone Mushtaq Garcia MD Primary Care Provider [phone] Allergies Active Allergy Reactions Criticality Noted Date [...] 05/06/2010 HTN (hypertension) Depression with anxiety Hypercholesterolemia Immunizations Name Administration Dates Next Due Tdap [...] Comments Blood Pressure 144/80 07/17/2021 11:01 AM WATER PLUMBER Pulse 80 07/17/2021 11:01 AM WATER [employer]UMBER Temperature 36.6 ??C (97.9 ??F) 12/21/2020 1 :30 PM CDT Respiratory Rate 18 07/17/2021 11:0 1 AM WATER PLUMBER Oxygen Saturation 96% 07/17/2021 11: 01 AM WATER PLUMBER Inhaled Oxygen Concentration - - Weight 103.9 kg (229 lb) 07/17/2021 11: 01 AM WATER PLUMBER Pt weighed with shoes on. Height 172.7 [...] PCV) 2018 COVID-19 vaccine series (3 - season) 2023 03/13/2021, 07/20/2020 Influenza for age 65+ 01/17/2024 Tdap Completed 10/12/2007 Advance Directives * Full Code (Latest Code Status on File) Date Activated Date Inactivated Comments 12/21/2020 10:14 AM 12/21/2020 4:37 PM Question Answer Comments Code Status Discussion: Not Discussed Care Teams Manager Of Loss Prevention Operations Relationship Specialty Start Date End Date Mushtaq Garcia MD PCP - General Family Practice 01/05/15
== END 2023-12-29 14:02 | disposition home or self-care (01) ==
LOC: NFLDREF 14:02
PROVIDERS: PCP Family Medicine; Visit Provider Family Medicine
DX: R10.9 Unspecified abdominal pain (principal)
CPT/HCPCS: 80053

== ENCOUNTER 2024-04-29 08:16 | Outpatient (CLI) | payer MEDICARE, OTHER, SELFPAY | END 2024-04-29 08:17 | disposition home or self-care (01) | LOC: NFLDREF 11:31 | PROVIDERS: PCP Family Medicine; Referring Provider Family Medicine; Visit Provider Family Medicine | DX: E78.5 Hyperlipidemia, unspecified (principal); R97.20 Elevated prostate specific antigen [PSA]; I10 Essential (primary) hypertension; Z12.5 Encounter for screening for malignant neoplasm of prostate | CPT/HCPCS: 80053; 80061; G0103 ==

== ENCOUNTER 2024-06-06 15:19 | Emergency (ER) | payer MEDICARE, OTHER, SELFPAY ==
[2024-06-06 15:25] VITALS: BP 166/92; PULSE 75; RESP 18; TEMP 37.1; O2SAT 99; BMI 30.7
--- NOTE | 2024-06-06 16:17 | CRLHL7_ITS ---
For Patients: As a result of the Century Cures Act, medical imaging exams and procedure reports are released immediately into your electronic medical record. You may view this report before your referring provider. If you have questions, please contact your health care provider. INDICATION: Syncope last evening COMPARISON: 04/12/2013 CT head TECHNIQUE: CT of the head without contrast. FINDINGS: Brain, ventricles, and extra-axial spaces: No acute intracranial hemorrhage. Argueta-white differentiation is grossly preserved. Mild hypoattenuating changes in the white matter which are nonspecific, but commonly attributable to chronic microangiopathic change. Size of the ventricles and sulci appears to be commensurate with age. There are intracranial vascular calcifications. Bones: No acute osseous findings. Scattered [id number]-uy-rxyuztda polypoid mucosal thickening in the paranasal sinuses. Visualized mastoid air cells are clear. IMPRESSION: 1. No acute intracranial noncontrast CT findings. 2. Mild hypoattenuating changes in the white matter which are nonspecific, but commonly attributable to chronic microangiopathic change. Please note that all CT scans at this facility use dose modulation, iterative reconstruction, and/or weight-based dosing when appropriate to reduce radiation dose to as low as reasonably achievable. Dictated by Burak Otero MD @ 06/06/2024 4:55:15 PM (Electronically Signed)
--- NOTE | 2024-06-06 16:17 | ED_ITS ---
HPI - Syncope General Chief Complaint: Syncope/Fainted Stated Complaint: Fainted last night, hit head, feels funny Time Seen by Provider: 06/06/24 15:48 History of Present Illness HPI narrative: This 69-year-old male comes in reporting a syncopal event that occurred about 13 hours prior to arrival. He states that he was up at about 3:00 a.m. because he had abdominal cramping. He does get occasional cramping because he is on AG LP 1 medication for weight loss. He went to the bathroom and bore down and states that he expelled a rather large amount of gas. At that time he became tingling in started to have other symptoms. He stood up quickly and then does not remember what happened after that. He states that he woke up on the floor and has a small abrasion on his forehead. He cleaned up and went back to bed. He slept the rest of the night and states that he did feel little bit of those symptoms again. He was able to get up and take food and comes in now for evaluation. He states that he has a mild headache but otherwise feels normal. Related Data Home Medications ?Medication ?Instructions ?Recorded ?Confirmed testosterone enanthate 100 mg/0.5 100 mg subcut QWEEK 08/06/22 06/06/24 mL subcutaneous auto-injector (Xyosted) balance of nature 6 tab PO QDAY 04/21/23 06/06/24 lorazepam 1 mg tablet 0.5 mg PO TID PRN anxiety 08/16/23 06/06/24 duloxetine 20 mg capsule,delayed 40 mg PO QDAY 12/29/23 06/06/24 release tirzepatide 5 mg/0.5 mL 5 mg subcut QWEEK 12/29/23 06/06/24 subcutaneous pen injector famotidine 10 mg tablet (Pepcid AC) 10 mg PO BID 05/04/24 06/06/24 Previous Rx's ?Medication ?Instructions ?Recorded lisinopril 10 mg tablet 10 mg PO HS #90 tabs 05/04/24 Allergies Allergy/AdvReac Type Severity Reaction Status Date / Time penicillin V Allergy Intermediate swelling Verified 05/04/24 07:21 in throat and face Review of Systems Status of ROS: Reports: 10 or more systems reviewed and unremarkable except as noted in History and below Narrative: Constitutional: No fevers. He states that he has lost about 20 lb over the last 6 months while taking his weight loss medicine. Eyes: No discharge. No vision changes. HENT: No congestion, no sore throat, no ear pain. Cardiovascular: No chest pain, no palpitations. Respiratory: No shortness of breath, no wheezes, no cough. Gastrointestinal: No vomiting, no diarrhea. Abdominal cramping last night as described above. Genitourinary: No dysuria, no hematuria. Musculoskeletal: Normal range of motion. Skin: No rashes, no pruritis. Neurological: No dizziness, weakness, sensory change, speech change. Endo/Heme/Allergies: No bruising or bleeding. No polydipsia. Pysch: no suicidality, no anxiety, no insomnia. All other systems reviewed and are negative. [facility] Medical History (Updated 06/06/24 @ 17:34 by Marcel Villela MD) Hypertension (07/10/10) ?I10 - Essential (primary) hypertension (ICD-10) Obstructive sleep apnea (07/10/10) ?G47.33 - Obstructive sleep apnea (adult) (pediatric) (ICD-10) Panic attack ?F41.0 - Panic disorder [episodic paroxysmal anxiety] (ICD-10) Anxiety ?F41.9 - Anxiety disorder, unspecified (ICD-10) Osteoarthritis of left knee ?M17.12 - Unilateral primary osteoarthritis, left knee (ICD-10) Obesity (07/10/10) ?E66.9 - Obesity, unspecified (ICD-10) Microalbuminuria ?R80.9 - Proteinuria, unspecified (ICD-10) Irritable bowel syndrome (07/10/10) ?K58.9 - Irritable bowel syndrome without diarrhea (ICD-10) Hypogonadism in male ?E29.1 - Testicular hypofunction (ICD-10) Hyperlipidemia (07/10/10) ?E78.5 - Hyperlipidemia, unspecified (ICD-10) Gastroesophageal reflux (07/10/10) ?K21.9 - Gastro-esophageal reflux disease without esophagitis (ICD-10) Electrocution and nonfatal effects of electric current ?T75.4XXA - Electrocution, initial encounter (ICD-10) Depression (07/10/10) ?F32.A - Depression, unspecified (ICD-10) Benign prostatic hyperplasia ?N40.0 - Benign prostatic hyperplasia without lower urinary tract symptoms (ICD-10) Basal cell carcinoma of face (05/21/11) ?C44.310 - Basal cell carcinoma of skin of unspecified parts of face (ICD-10) Atypical chest pain ?R07.89 - Other chest pain (ICD-10) Surgical History H/O left inguinal hernia repair (07/10/10) ?Z98.890 - Other specified postprocedural states (ICD-10) ?Z87.19 - Personal history of other diseases of the digestive system (ICD-10) S/P cervical spinal fusion (07/10/10) ?Z98.1 - Arthrodesis status (ICD-10) Status post total right knee replacement ?Z96.651 - Presence of right artificial knee joint (ICD-10) Social History (Updated 05/04/24 @ 07:29 by Jenni Blair~[facility], [facility]) Narrative: . His , Kathleen, is here with him. 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 He is a lifelong nonsmoker, has 1 beer per year, denies recreational drug use. What is your current living situation?: declined to answer Problems where you live: declined to answer Problems where you live details: none In the past 12 months, utilities in danger of being shut off: declined to answer In past 12 months, lack of transportation kept you from medical appts, meetings, work, or getting things needed for daily living: declined to answer In the past 12 mos, have been you worried that your food would run out before you had money to buy more?: declined to answer In the past 12 mos, the food you bought just didn't last and you didn't have money to buy more?: declined to answer Highest level of school completed/degree received: Associate degree: occupational, technical, vocational program Smoking Status: Never smoker Do you use any of these nicotine containing products: None How often do you have a drink containing alcohol: monthly or less AUDIT-C Alcohol total score: 1 Non-prescribed substance use: denies use Caffeine: No (pop) How often does anyone, including family, friends and others, physically hurt you : decline to answer How often does anyone, including family, friends and others, insult or talk down to you: decline to answer How often does anyone, including family, friends and others, threaten you with harm: decline to answer How often does anyone, including family, friends and others, scream or curse at you: decline to answer service: No Health Related Social Needs: unsheltered homelessness (Z59.02) Exam Narrative: Exam Narrative: Constitutional: Well-developed, well-nourished, no acute distress. HEENT: Normocephalic, atraumatic. Neck: Normal range of motion. Nontender. Supple. Heart: Regular. No murmurs. Normal rate. Intact distal pulses. Lungs: Clear to auscultation. No chest discomfort. No wheezes, rhonchi, or rales. Abdomen: Normal bowel sounds. Nontender. No rebound tenderness. Genitalia: Deferred. Back: No midline tenderness. Normal range of motion. Extremities: Normal range of motion. No injury. Skin: Intact. No rash. Warm. No erythema or pallor. Neurologic: No altered sensation. No weakness. Alert and oriented. Psychiatric: No suicidality. No anxiety or depression. No insomnia. Nursing notes and vitals signs are reviewed. Const: Vital Signs, click to edit/add: Vital Signs - 24 hr 06/06/24 15:25 Temperature 98.7 F Pulse Rate [Right Pulse Oximeter] 75 Respiratory Rate 18 Blood Pressure [Ri ght Upper Arm] 166/92 H Pulse Oximetry 99 Oxygen Delivery Me thod Room Air Course Vital Signs Vital signs: Initial Vital Signs Temperature 98.7 F 06/06/24 15:25 Temperature Source Temporal Artery Scan 06/06/24 15:25 Pulse Rate 75 06/06/24 15:25 Pulse Rhythm Regular 06/06/24 15:25 Pulse Strength 3+ Normal 06/06/24 15:25 Respiratory Rate 18 06/06/24 15:25 Blood Pressure 166/92 H 06/06/24 15:25 Blood Pressure Mean 116 H 06/06/24 15:25 Blood Pressure Position Sitting 06/06/24 15:25 Pulse Oximetry 99 06/06/24 15:25 Oxygen Delivery Method Room Air 06/06/24 15:25 Vital Signs Temperature 98.7 F 06/06/24 15:25 Pulse Rate 75 06/06/24 15:25 Respiratory Rate 18 06/06/24 15:25 Blood Pressure 166/92 H 06/06/24 15:25 Pulse Oximetry 99 06/06/24 15:25 Oxygen Delivery Method Room Air 06/06/24 15:25 Temperature 98.7 F 06/06/24 15:25 Pulse Rate 75 06/06/24 15:25 Respiratory Rate 18 06/06/24 15:25 Blood Pressure 166/92 H 06/06/24 15:25 Pulse Oximetry 99 06/06/24 15:25 Oxygen Delivery Method Room Air 06/06/24 15:25 MDM - Syncope MDM Narrative Medical decision making narrative: This patient had a syncopal event last evening as described. CT imaging and EKG all returned with reassuring findings. The patient has normal vital signs and otherwise has normal exam. He does have a small superficial abrasion on his forehead that does not need repair. He is okay to be discharged home. Imaging Data CT scan - head: Radiologist's impression: 1. No acute intracranial noncontrast CT findings. 2. Mild hypoattenuating changes in the white matter which are nonspecific, but commonly attributable to chronic microangiopathic change. ECG Data Attestation: I personally reviewed and interpreted this ECG as follows: Interpretation: Normal sinus rhythm. Rate is 60 beats per minute. There are no ST or T-wave abnormalities. Discharge Plan Discharge Clinical Impression: Vasovagal syncope Patient Disposition: Home, Self-Care Condition: Stable Additional Instructions: Use [id number] medicines as needed and directed. Increase activity as tolerated. Follow up with MD return if worsening. Prescriptions: No Action duloxetine 20 mg capsule,delayed release(DR/EC) 40 mg PO QDAY famotidine [Pepcid AC] 10 mg tablet 10 mg PO BID lisinopril 10 mg tablet 10 mg PO HS Qty: 90 3RF Xyosted 100 mg/0.5 mL auto-injector 100 mg subcut QWEEK balance of nature 6 tab PO QDAY tirzepatide 5 mg/0.5 mL pen injector 5 mg subcut QWEEK lorazepam 1 mg tablet 0.5 mg PO TID PRN (Reason: anxiety) Patient Comments: taking 1-3 tabs per day Follow Up/Referrals: Mushtaq Garcia MD [Primary Care Provider] - Stand Alone Forms: [facility] Inst[facility]
--- OUTSIDE RECORDS SUMMARY | 2024-06-06 23:58 | XMS_ITS | Data Portability ---
Author Organization [place] - [place] [facility], [facility] Address [address] [place] [address] Care Team Providers Care Energy Project Manager Name Role Phone [facility] Primary Care Provider [phone] Assessment Encounter Date Assessment Date Assessment LastModified [...] Organization Details Last Modified Time Details Appointments LAB BLOOD DRAW 2024 09:10A M [facility] Not available Not available Not available ESTABLI SHED 10 2024 09:30A M Eulogio Quiroz MD Not available Not available Not available Lab PSA, serum or plasma 2023 024 [email or web address], [address] [facility] [place], [address], 09/21/2023 11:28:30 Referral None recorde d. Procedures None recorde d. Surgeries cystour ethrosc opy, with inserti on of permane nt adjusta ble transpr ostatic implant ; single implant (SURG) 2023 024 [email or web address] Not available 09/30/2023 14:09:21 Imaging None recorde d. Medication Orders meloxic am 7.5 mg tablet 2023 024 [id number], [address] [place], [place], [phone], 09/29/2023 13:00:57 Xyosted 100 mg/0.5 mL subcuta neous auto-in jector 2023 024 TEJ [facility] #[id number], [address] [place], [place], [phone], 12/09/2023 13:56:46 Patient TargetsNo targets recorded. Patient Instructions Encounter Date Encounter Id Patient Instructions Last Modified By Organization Details Last Modified Time 06/18/2023 [id number] UroLift We discussed prostate UroLift and that [...] The advantages generally include: 1.Lower risk of bleeding. Because there is a low risk of bleeding with UroLift surgery, it can be a good option for men who take medication to thin their blood or who have a bleeding disorder that doesn't allow their blood to clot normally. 2. [place] or no hospital stay. This procedure can [...] Name Description Value Unit Range Abnormal Flag Note LastModifiedBy Organization Detail LastModifiedTime 09/21/19 24 09/21/2023 PSA, serum or plasm a PSA 4.6 ng/mL 0-4.0 NG/mL Not Available [facility] [address], [place], [address], 09/21/2023 11:22:45 06/19/19 24 06/18/2023 bladd er scan (PROC ) No observ ation record ed. Not Available 2023 13:12:04 Result Notes None recorded. Procedures Surgical History Date Name Laterality Status Provider Name and Address Organization Details Recorded Time 12/09/19 24 COMPLEX VISIT completed Eulogio Quiroz MD [address] [place] [address],[address], [address], [facility] 12/09/2023 13:57:03 12/09/19 24 Bladder Scan completed Vanessa Garvey [facility] 12/09/2023 11:35:14 09/21/19 24 COMPLEX VISIT completed Eulogio Quiroz MD [address] [place] [address],[address], [place], [address], [facility] 09/21/2023 13:14:17 09/21/19 24 Blood Draw/FENDER MECHANIC/PSA RESULTS completed Cristina Rhodes [facility] 09/21/2023 11:22:34 06/18/19 24 COMPLEX VISIT completed Eulogio Quiroz MD [address] [place] [address],[address], [place], [address], [facility] 06/18/2023 13:26:00 06/18/19 24 Bladder Scan [facility] 06/18/2023 11:11:00 03/18/20 23 Staple Removal completed Abdulaziz Wilson [facility] 03/18/2023 11:52:31 03/06/20 23 Drain Removal completed Naheed Garcia [facility] 03/06/2023 11:28:45 10/16/19 23 Cystoscopy- male completed Eulogio Quiroz MD [address] [place] [address],[address], [address], [facility] 10/15/2022 17:49:10 01/10/20 21 Cystoscopy- male completed Eulogio Quiroz MD [address] [place] [address],[address], [place], [address], [facility] 01/09/2021 13:31:32 01/10/20 21 TRUS- Volume size only completed Eulogio Quiroz MD [address] [place] [address],[address], [place], [address], [facility] 01/09/2021 13:32:01 05/18/19 18 colonoscopy completed Daija Weller [facility] 06/14/2021 13:03:27 Imaging Results Imaging Date Name Status [facility] by [facility] Details LastModified Time 06/18/2023 bladder scan (PROC) completed [email or web address] Information not available 09/21/2023 13:12:04 Procedure Notes None recorded. Medical Equipment None Reported. Allergies Allergen ID Allergen Name Allergen Category Reaction Reaction Severity Criticality Documentation Date Start Date Code Code System Note Provider Name and Address Organization Details Recorded Time [id number] Product containin g penicilli n and antibioti c (product) medicatio n swelling severe Not available 01/09/2021 80581 05 SNOMED Not Available Not Available Not Available Medications Name Sig Start Date Stop Date [...] lline ER 400 mg tablet,ex tended release 01/25 completed Not Available Not Available Not Available [...] every week by subcutan eous route. active called in to pharmacy Not Available Not Available Not Available Vitals Date Recorded Body height Provider Name an d Address Organization Details Last Updated DateTime 03/18/2023 172.72 cm [facility]/18/2023 11:40:10 Date Recorded Body mass index (BMI) Body weight Provider Name and Address Organization Details Last Updated DateTime 03/18/2023 33.5 kg/m2 08502.32 g Abdulaziz Wilson [facility] 03/18/2023 11:40:30 Date Recorded Body height Provider Name an d Address Organization Details Last Updated DateTime 04/29/2023 172.72 cm Abdulaziz Jadliyah [facility] 04/29/2023 12:06:34 Date Recorded Body mass index (BMI) Body weight Provider Name and Address Organization Details Last Updated DateTime 04/29/2023 34.2 kg/m2 708370.28 g Abdulaziz Wilson [facility] 04/29/2023 12:06:45 Date Recorded Body height Provider Name an d Address Organization Details Last Updated DateTime 06/18/2023 172.72 cm Cristina Rhodes [facility] 06/18/2023 11:12:21 Date Recorded Body mass index (BMI) Body weight Provider Name and Address Organization Details Last Updated DateTime 06/18/2023 34.2 kg/m2 674268.28 g Cristina Carmelo [facility] 06/18/2023 11:12:26 Date Recorded Body height Provider Name an d Address Organization Details Last Updated DateTime 09/21/2023 172.72 cm Cristina Rhodes [facility] 09/21/2023 11:21:49 Date Recorded Body mass index (BMI) Body weight Provider Name and Address Organization Details Last Updated DateTime 09/21/2023 34.2 kg/m2 364893.28 g Cristina Rhodes [facility] 09/21/2023 11:21:54 Date Recorded Body height Provider Name an d Address Organization Details Last Updated DateTime 12/09/2023 172.72 cm Vanessa Garvey [facility] 12/09/2023 11:30:03 Date Recorded Body mass index (BMI) Body weight Provider Name and Address Organization Details Last Updated DateTime 12/09/2023 34.1 kg/m2 492405.69 g [facility] 12/09/2023 11:30:14 Social History Question Answer Notes LastModified by Organizat ion Details LastModified Time Tobacco Smoking Status Never Smoker Eulogio Quiroz MD [address] [place] [address],[facility] [address], [place], [address], [facility] 01/09/2021 12:38:09 What Is Your Level Of Alcohol Consumption? None Information not available 01/09/2021 What Is Your Level Of Caffeine Consumption? Occasional Information not available 01/09/2021 Are You Currently Employed? No Information not available 01/09/2021 Ethnicity Not /Latin o Information not available 06/14/2021 Preferred Language Iranian Information not available 06/14/2021 Recreational Drug Use [...] Age of this Age Resolved Age Notes LastModified by Organization Details LastModified Time Father Family history of malignant neoplasm of prostate Not available 2020 12:35:43 Maternal Grandfather Family history of cardiac disorder Not available 2020 12:36:21 Maternal Grandfather Family history of Hypertension Not available 12:37:20 Mother Family history of Hypertension Not available 12:36:42 Medical History Condition Response Other N High Blood Pressure Y Kidney Stones N Lung Disease N Depression N GERD/Acid Reflux Y Sexually Transmitted Infection N Cancer N High Cholesterol N Diabetes N Bleeding Disorder N Heart Disease N Immunizations Vaccine Type Date Status Note Provider Nam e and Address Organization Details Recorded Time Influenza, high-dose, quadrivalent, PF 2 completed Cristina Rhodes null, [facility] 06/18/2023 11:12:35 Tdap 2 completed Cristina Rhodes null, [facility] 06/18/2023 11:12:35 Influenza, split virus, quadrivalent, PF 0 completed Cristina franklin, [facility] 06/18/2023 11:12:35 Influenza, split virus, quadrivalent, preservative 9 completed Eulogio Quiroz MD [address] [place] [address],[address], [address], [facility] 02/04/2023 12:06:32 Influenza, MDCK, quadrivalent, preservative 8 completed Eulogio Quiroz MD [address] [place] [address],[address], [address], [facility] 02/04/2023 12:06:32 zoster recombinant 0 completed Eulogio Quiroz MD [address] [place] [address],[address], [address], [facility] 02/04/2023 12:06:32 zoster recombinant 0 completed Eulogio Quiroz MD [address] [place] [address],[address], [address], [facility] 02/04/2023 12:06:32 Influenza, adjuvanted, quadrivalent, PF 0 completed Eulogio Quiroz MD [address] [place] [address],[address], [address], [facility] 02/04/2023 12:06:32 COVID-19, mRNA, LNP-S, PF, 30 mcg/0.3 mL dose 1 completed Eulogio Qurioz MD [address] [place] [address],[address], [place], [address], [facility] 02/04/2023 12:06:32 COVID-19 vaccine, vector-nr, rS-Ad26, PF, 0.5 mL 1 completed Eulogio Quiroz MD [address] [place] [address],[address], [place], [address], [facility] 02/04/2023 12:06:32 pneumococcal polysaccharide PPV23 0 completed Eulogio Quiroz MD [address] [place] [address],[address], [place], [address], [facility] 02/04/2023 12:06:32 Tdap 2 completed Eulogio Quiroz MD [address] [place] [address],[address], [address], [facility] 02/04/2023 12:06:32 Tdap 8 completed Eulogio Quiroz MD [address] [place] [address],[address], [address], [facility] 02/04/2023 12:06:32 zoster live 5 completed Eulogio Quiroz MD [address] [place] [address],[address], [address], [facility] 02/04/2023 12:06:32 Influenza, split virus, trivalent, preservative 2 completed Eulogio Quiroz MD [address] [place] [address],[address], [address], [facility] 02/04/2023 12:06:32 Influenza, split virus, trivalent, preservative 0 completed Eulogio Quiroz MD [address] [place] [address],[address], [address], [facility] 02/04/2023 12:06:32 Influenza, split virus, trivalent, PF 2 completed Eulogio Quiroz MD [address] [place] [address],[address], [address], [facility] 02/04/2023 12:06:32 Influenza, split virus, trivalent, PF 4 completed Eulogio Quiroz MD [address] [place] [address],[facility] [address], [address], [facility] 02/04/2023 12:06:32 influenza, whole 7 completed Eulogio Quiroz MD [address] [place] [address],[facility] [address], [address], [facility] 02/04/2023 12:06:32 Novel [id number] 0 completed Eulogio Quiroz MD [address] [place] [address],[address], [address], [facility] 02/04/2023 12:06:32 Td (adult), 2 Lf tetanus toxoid, preservative free, adsorbed 7 completed Eulogio Quiroz MD [address] [place] [address],[address], [address], [facility] 02/04/2023 12:06:32 Past Encounters Encounter ID Performer Location Encounter Start Date Encounter Closed Date Diagnosis/Indication Diagnosis SNOMED-CT Code Diagnosis ICD10 Code Diagnosis Note [id number] Eulogio Quiroz MD [facility] [address] [place] [address] 01/09/2021 11:56:31 01/11/2021 14:10:01 Increased frequency of urination 051744816 R35.0 - UroFlow today revealed Qmax 15.4, obstructed /prolonged pattern voiding - PVR today 17 - AUASS = 26 - Cystoscopy with bilobar coaptation and high median bar - TRUS volume 38.55 ml - We discussed various bladder outlet procedures including MISTs (UroLift, Rezum) and traditiona l invasive procedures (Greenligh t PVP, Bipolar TURP). We reviewed risks and benefits of each including anticipate d long-term outcomes. Would like to proceed with Rezum - See discussion s below regarding each potential course of action. 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 Primary er ectile dysfunction 109872619 N52.9 - Using tadalafil 20 mg but still issues with maintenanc e. We discussed utilizing penile occlusion ring (Ronny by Brenda) to aid in erectile maintenanc e. Benign pro static hyperplasia 357996143 N40.1 - As above [id number] Eulogio Quiroz MD [facility] [address] [place] [address] 01/09/2021 11:56:31 01/11/2021 14:10:01 [id number] Eulogio Quiroz MD [facility] [address] [place] [address] 04/19/2021 13:48:43 04/29/2021 09:32:58 Increased frequency of urination 029932225 R35.0 - UroFlow revealed Qmax 15.4, obstructed /prolonged pattern voiding - PVR 17 ml - AUASS = 26 - Cystoscopy with bilobar coaptation and high median bar - TRUS volume 38.55 ml - We discussed various bladder outlet procedures including MISTs (UroLift, Rezum) and traditiona l invasive procedures (Greenligh t PVP, Bipolar TURP). We reviewed risks and benefits of each including anticipate d long-term outcomes. Would like to proceed with Rezum - See discussion s below regarding each potential course of action. Induration penis plastica 2892867 N48.6 - Has obtained RestorEX but hasn't started using it yet. Primary er ectile dysfunction 561594678 N52.9 - Using tadalafil 20 mg but still issues with maintenanc e. We discussed utilizing penile occlusion ring (Ronny by Brenda) to aid in erectile maintenanc e. Benign pro static hyperplasia 755867450 N40.1 - As above [id number] Eulogio Quiroz MD [facility] [address] [place] [address] 06/14/2021 13:00:49 06/21/2021 07:44:31 Increased frequency of urination 457586341 R35.0 - UroFlow revealed Qmax 15.4, obstructed /prolonged pattern voiding - PVR 17 ml - AUASS = 26 - Cystoscopy with bilobar coaptation and high median bar - TRUS volume 38.55 ml - We discussed various bladder outlet procedures including MISTs (UroLift, Rezum) and traditiona l invasive procedures (Greenligh t PVP, Bipolar TURP). We reviewed risks and benefits of each including anticipate d long-term outcomes. Would like to proceed with Rezum - See discussion s below regarding each potential course of action. Induration penis plastica 0067217 N48.6 - Has obtained RestorEX but hasn't started using it yet. Primary er ectile dysfunction 702410331 N52.9 - Using tadalafil 20 mg but still issues with maintenanc e. We discussed utilizing penile occlusion ring (Ronny by Brenda) to aid in erectile maintenanc e. Benign pro static hyperplasia 017505670 N40.1 - As above [id number] MD [facility] [address] [place] [address] 08/12/2021 09:33:28 08/14/2021 09:44:56 Increased frequency of urination 873195887 R35.0 - UroFlow revealed Qmax 15.4, obstructed /prolonged pattern voiding - PVR 17 ml - AUASS = 26 - Cystoscopy with bilobar coaptation and high median bar - TRUS volume 38.55 ml - S/P UroLift and doing well. Induration penis plastica 1428362 N48.6 - Has obtained RestorEX. Primary er ectile dysfunction 173567912 N52.9 - Using tadalafil 20 mg but still issues with maintenanc e. We discussed utilizing penile occlusion ring (Ronny by Gitobyy) to aid in erectile maintenanc e. Benign pro static hyperplasia 204826537 N40.1 - As above Reduced libido 7112058 R 68.82 - Will trial clomid to try and bump up his testostero ne free fraction. Will follow up in 6 months to assess efficacy. May need to consider dopaminerg ic augmentati on. [id number] MD [facility] [address] [place] [address] 10/17/2021 16:52:12 10/21/2021 08:48:06 Increased frequency of urination 493341213 R35.0 - UroFlow Qmax 15.4, obstructed /prolonged pattern voiding - PVR 17 ml - TRUS volume 38.55 ml - S/P UroLift and doing well, though continues with symptoms Induration penis plastica 8372121 N48.6 - Has obtained RestorEX. Primary er ectile dysfunction 083155163 N52.9 - Using tadalafil 20 mg but still issues with maintenanc e. We discussed utilizing penile occlusion ring (Ronny by Gitobyy) to aid in erectile maintenanc e. Benign pro static hyperplasia 283180358 N40.1 - As above Reduced libido 5095360 R 68.82 - Symptoms improved with clomid but bothersome gynecomast ia. Would like to trial testostero ne replacemen t. Will set up for in-office injection teaching. Will utilize 100 mg weekly. [id number] MD [facility]Y [facility] [address] [place] [address] 10/31/2021 14:34:37 11/04/2021 09:04:01 Increased frequency of urination 672712910 R35.0 - UroFlow Qmax 15.4, obstructed /prolonged pattern voiding - PVR 17 ml - TRUS volume 38.55 ml - S/P UroLift and doing well, though continues with symptoms Induration penis plastica 1501203 N48.6 - Has obtained RestorEX. Primary er ectile dysfunction 510149325 N52.9 - Using tadalafil 20 mg but still issues with maintenanc e. We discussed utilizing penile occlusion ring (Ronny by Giwade) to aid in erectile maintenanc e. Benign pro static hyperplasia 059665139 N40.1 - As above Reduced libido 8296966 R 68.82 - Symptoms improved with clomid but bothersome gynecomast ia. Would like to trial testostero ne replacemen t. Will set up for in-office injection teaching. Will utilize 100 mg weekly. Hypogonadism 81628820 E2 9.1 - Would like to avoid intramuscu lar injections so we will trial Xyosted 100 mg weekly.-Cecelia carey like to see him back after a 6-week trial period with repeat labs [id number] Eulogio Quiroz MD [facility] [address] [place] [address] 04/17/2022 15:26:48 04/21/2022 10:46:42 Increased frequency of urination 761078760 R35.0 - UroFlow Qmax 15.4, obstructed /prolonged pattern voiding - PVR 17 ml - TRUS volume 38.55 ml - S/P UroLift and doing well Induration penis plastica 3707790 N48.6 - Has obtained RestorEX. Primary er ectile dysfunction 577050054 N52.9 - Using tadalafil 20 mg but still issues with maintenanc e Benign pro static hyperplasia 983008162 N40.1 - As above Reduced libido 1122512 R 68.82 - Symptoms improved with clomid but bothersome gynecomast ia. Was going to use Xyosted but insurance rejected to required topical T, which he reports so far has been substantia lly less effective than xyosted. We will complete 6-week trial of topical testostero ne. If continues to have insufficie nt response however we will file an appeal for coverage of Xyosted Hypogonadism 06711021 E2 9.1 - As above [id number] MD [facility] [address] [place] [address] 10/15/2022 14:32:34 10/22/2022 09:42:43 Increased frequency of urination 839125382 R35.0 - Obtain UroCuff - PVR 17 ml - TRUS volume 38.55 ml Induration penis plastica 2205316 N48.6 - Has obtained RestorEX. Primary er ectile dysfunction 962619803 N52.9 - Using tadalafil 20 mg but still issues with maintenanc e- Will consider IPP Benign pro static hyperplasia 630855584 N40.1 - Symptoms have returned s/p UroLift- Would consider Aquablatio n Reduced libido 2257434 R 68.82 - Continue Xyosted- Safety labs in 6 months Hypogonadism 51481487 E2 9.1 - As above [id number] MD [facility] [address] [place] [address] 02/04/2023 11:46:14 02/11/2023 16:58:57 Increased frequency of urination 565926173 R35.0 - Obtain UroCuff - PVR 17 ml - TRUS volume 38.55 ml Induration penis plastica 4471445 N48.6 - Has obtained RestorEX. Primary er ectile dysfunction 912882251 N52.9 - Using tadalafil 20 mg but still issues with maintenanc e- Would liek to move forward with IPP Benign pro static hyperplasia 399065627 N40.1 - Symptoms have returned s/p UroLift- Would consider Aquablatio n Reduced libido 3307466 R 68.82 - Continue Xyosted- Safety labs in 6 months Hypogonadism 90592269 E2 9.1 - As above [id number] Eulogio Quiroz MD [facility] [address] [address] 03/06/2023 10:57:44 03/11/2023 15:23:51 Primary erectile dysfunction 204367738 N52.9 [id number] Eulogio Quiroz MD [facility] [address] [place] [address] 03/18/2023 11:23:53 03/24/2023 15:57:14 Increased frequency of urination 981369771 R35.0 - Obtain UroCuff - PVR 17 ml - TRUS volume 38.55 ml Induration penis plastica 0944661 N48.6 - Now s/p IPP- Yakelin removed- Healing well- Device Cycling Education provided- Ok to start using device at 3 weeks post-op Primary er ectile dysfunction 553154459 N52.9 - S/p IPP Benign pro static hyperplasia 077885834 N40.1 - Symptoms have returned s/p UroLift- Would consider Aquablatio n Reduced libido 2529061 R 68.82 - Continue Xyosted- Safety labs in 6 months Hypogonadism 40980036 E2 9.1 - As above [id number] Eulogio Quiroz MD [facility] [address] [place] [address] 04/29/2023 11:45:37 04/30/2023 13:22:21 Increased frequency of urination 640303341 R35.0 - Obtain UroCuff - PVR 17 ml - TRUS volume 38.55 ml Induration penis plastica 0327536 N48.6 - Now s/p IPP- Healing well- Device Cycling Education provided Primary er ectile dysfunction 253904338 N52.9 - S/p IPP Benign pro static hyperplasia 451773911 N40.1 - Symptoms have returned s/p UroLift- Would consider Aquablatio n vs repeat UroLift Reduced libido 5887021 R 68.82 - Continue Xyosted- Safety labs in 6 months Hypogonadism 00559623 E2 9.1 - As above [id number] Eulogio Quiroz MD [facility] [address] [place] [address] 06/18/2023 11:05:15 06/19/2023 10:46:16 Increased frequency of urination 488532744 R35.0 - Obtain UroCuff - PVR 17 ml - TRUS volume 38.55 ml Induration penis plastica 5579126 N48.6 - Now s/p IPP- Healing well- Device Cycling Education provided Primary er ectile dysfunction 396318046 N52.9 - S/p IPP Benign pro static hyperplasia 883859840 N40.1 - Symptoms have returned s/p UroLift- Would like to pursue repeat UroLift Reduced libido 5865900 R 68.82 - Continue Xyosted- Safety labs in 6 months Hypogonadism 07896699 E2 9.1 - As above [id number] Eulogio Quiroz MD [facility] [address] [place] [address] 09/21/2023 10:55:10 09/22/2023 08:30:40 Increased frequency of urination 365715747 R35.0 - Obtain UroCuff - PVR 17 ml - TRUS volume 38.55 ml- Would like to proceed with repeat U[facility]Lift at [facility] Induration penis plastica 6437218 N48.6 - Now s/p IPP- Doing well, continue cycling regimen Primary er ectile dysfunction 856877033 N52.9 - S/p IPP Benign pro static hyperplasia 412058179 N40.1 - Symptoms have returned s/p UroLift- Would like to pursue repeat UroLift Reduced libido 0767720 R 68.82 - Continue Xyosted- PSA following oscillatio n pattern- Safety labs in 6 months Hypogonadism 56936124 E2 9.1 - As above Prostate s pecific antigen above reference range 517096289 R97.20 - repeat check back down- Following oscillatio n pattern, most consistent with prostatic inflammati on- Treat with meloxicam Late ejaculation 9498386 8 N53.11 - Related to SSRI [id number] Eulogio Quiroz MD [facility] [address] [place] [address] 12/09/2023 10:55:27 12/11/2023 11:23:27 Increased frequency of urination 501977799 R35.0 - Obtain UroCuff in 6 months- IPSS: 23 (4) --> 10 (2) - PVR 17 ml --> 27 mL - TRUS volume 38.55 ml- S/p repeat UroLift Induration penis plastica 7779154 N48.6 - Now s/p IPP- Doing well, continue cycling regimen Primary er ectile dysfunction [id number] N52.9 - S/p IPP Reduced libido 0317934 R 68.82 - Continue Xyosted- PSA following oscillatio n pattern- Safety labs in 6 months Hypogonadism 53197558 E2 9.1 - As above Prostate s pecific antigen above reference range [id number] R97.20 - repeat check back down- Following oscillatio n pattern, most consistent with prostatic inflammati on- Will follow Q6 months Late ejaculation [id number] N53.11 - Related to SSRI Health Concerns Section Related Observation LastModified by Organization Detai ls LastModified Time None Recorded Concern Status LastModified by Organization Details LastModified Time None Recorded Advance Directives Directive None Recorded Payers Encounter Date Sequence Insurance Name Policy Number Policy Mahan Covered Member ID Mahan Member ID Guarantor Name 03/18/2023 1 [place] [employer] Duy Schreiber [id number] Duy Brenna Abdoul 03/18/2023 2 [employer] Duy Schreiber [id number] Duy Brenna Schreiber 04/29/2023 1 [place] [employer] Duy Schreiber [id number] Duy Brenna Schreiber 04/29/2023 2 [employer] Duy Schreiber [id number] Duy Brenna Schreiber 06/18/2023 1 [place] [employer] Duy Schreiber [id number] 3 Duy Brenna Mazaler 06/18/2023 2 [facility] Duy Schreiber [id number] Duy Schreiber 09/21/2023 1 [place] [facility] [employer] [facility] Duy Schreiber [id number] Duy Schreiber 09/21/2023 2 [facility] Duy Schreiber [id number] Duy Schreiber 12/09/2023 1 [place] [facility] [employer] [facility] Duy Schreiber [id number] Duy Schreiber 12/09/2023 2 [facility] Duy Schreiber [id number] Duy Schreiber Notes Date Note Type Note Provider Name and Address Organization Details Recorded Time 03/18/2023 text/html 67 year old male who follows with me in [place] for long-standing urinary frequency and weakened urinary stream. Maintained on tamsulosin 0.8 mg PO daily. Here for UroCuff, Cystoscopy, and TRUS volume only. 04/19/2021:Here for follow up urinary frequency and weakened urinary stream. Schedule for Rezum but post-poned due to sending vacation. Also has Peyronie's (manual traction has been inconsistent) and ED (not using tadalafil at this time). Would like to know if we can correct his hypospadias at the time of Rezum. 06/14/21:Here for follow up urinary frequency and weakened urinary stream. Rezum now not covered by insurance. Would like to discuss other options. 08/12/2021:Here for follow up urinary frequency and weakened urinary stream s/p UroLift. Also, long history of Peyronie's, ED, Hypospadias, and symptoms of hypogonadism. Recent Free and bioavailable testosterone results:Free Testosterone 47 pg/mL (low) 10/17/2021:Here for follow up urinary frequency and weakened urinary stream s/p UroLift. Also, long history of Peyronie's, ED, Hypospadias, and symptoms of hypogonadism. While his symptoms improved on the clomiphene, he noticed gynecomastia so stopped. 10/31/2021:Here for follow up urinary frequency and weakened urinary stream s/p UroLift. Also, long history of Peyronie's, ED, Hypospadias, and symptoms of hypogonadism. Here to initiate trial of testosterone replacement therapy. He previously attempted intramuscular injection however found this uncomfortable and unsatisfactory. Would like to avoid painful injections if possible. 04/17/2022:Here for follow up urinary frequency and weakened [...] of hepatotoxicity or elevation in his PSA. 10/15/2022:Here for follow up urinary frequency and weakened urinary stream s/p UroLift. Also, long history of Peyronie's, ED, Hypospadias, and symptoms of hypogonadism. Was transitioned back to Xyosted after failing topical T. No evidence of hepatotoxicity on current labs. Feels like his urine flow has significantly reduced in the last few months. Feels like he has intermittency and straining to void. 02/04/2023:Here for follow up urinary frequency and weakened urinary stream s/p UroLift. Also, long history of Peyronie's, ED, Hypospadias, and symptoms of hypogonadism. Here to discuss implant. 03/18/2023:Here for follow up urinary frequency and weakened urinary stream s/p UroLift. Also, long history of Peyronie's, ED, Hypospadias, and symptoms of hypogonadism. Now s/p IPP Eulogio Quiroz MD [address] [place] [address],[address], [place], [address], [facility] 03/18/2023 13:42:51 04/29/2023 text/html 67 year old male who follows with me in [place] for long-standing urinary frequency and weakened urinary stream. Maintained on tamsulosin 0.8 mg PO daily. Here for UroCuff, Cystoscopy, and TRUS volume only. 04/19/2021:Here for follow up urinary frequency and weakened urinary stream. Schedule for Rezum but post-poned due to sending vacation. Also has Peyronie's (manual traction has been inconsistent) and ED (not using tadalafil at this time). Would like to know if we can correct his hypospadias at the time of Rezum. 06/14/21:Here for follow up urinary frequency and weakened urinary stream. Rezum now not covered by insurance. Would like to discuss other options. 08/12/2021:Here for follow up urinary frequency and weakened urinary stream s/p UroLift. Also, long history of Peyronie's, ED, Hypospadias, and symptoms of hypogonadism. Recent Free and bioavailable testosterone results:Free Testosterone 47 pg/mL (low) 10/17/2021:Here for follow up urinary frequency and weakened urinary stream s/p UroLift. Also, long history of Peyronie's, ED, Hypospadias, and symptoms of hypogonadism. While his symptoms improved on the clomiphene, he noticed gynecomastia so stopped. 10/31/2021:Here for follow up urinary frequency and weakened urinary stream s/p UroLift. Also, long history of Peyronie's, ED, Hypospadias, and symptoms of hypogonadism. Here to initiate trial of testosterone replacement therapy. He previously attempted intramuscular injection however found this uncomfortable and unsatisfactory. Would like to avoid painful injections if possible. 04/17/2022:Here for follow up urinary frequency and weakened [...] of hepatotoxicity or elevation in his PSA. 10/15/2022:Here for follow up urinary frequency and weakened urinary stream s/p UroLift. Also, long history of Peyronie's, ED, Hypospadias, and symptoms of hypogonadism. Was transitioned back to Xyosted after failing topical T. No evidence of hepatotoxicity on current labs. Feels like his urine flow has significantly reduced in the last few months. Feels like he has intermittency and straining to void. 02/04/2023:Here for follow up urinary frequency and weakened urinary stream s/p UroLift. Also, long history of Peyronie's, ED, Hypospadias, and symptoms of hypogonadism. Here to discuss implant. 03/18/2023:Here for follow up urinary frequency and weakened urinary stream s/p UroLift. Also, long history of Peyronie's, ED, Hypospadias, and symptoms of hypogonadism. Now s/p IPP 04/29/2023:Here for follow up, issues with IPP. Eulogio Quiroz MD [address] [place] [address],[address], [place], [address], [facility] 04/29/2023 13:43:48 06/18/2023 text/html 68 year old male who follows with me in [place] for long-standing urinary frequency and weakened urinary stream. Maintained on tamsulosin 0.8 mg PO daily. Here for UroCuff, Cystoscopy, and TRUS volume only. 04/19/2021:Here for follow up urinary frequency and weakened urinary stream. Schedule for Rezum but post-poned due to sending vacation. Also has Peyronie's (manual traction has been inconsistent) and ED (not using tadalafil at this time). Would like to know if we can correct his hypospadias at the time of Rezum. 06/14/21:Here for follow up urinary frequency and weakened urinary stream. Rezum now not covered by insurance. Would like to discuss other options. 08/12/2021:Here for follow up urinary frequency and weakened urinary stream s/p UroLift. Also, long history of Peyronie's, ED, Hypospadias, and symptoms of hypogonadism. Recent Free and bioavailable testosterone results:Free Testosterone 47 pg/mL (low) 10/17/2021:Here for follow up urinary frequency and weakened urinary stream s/p UroLift. Also, long history of Peyronie's, ED, Hypospadias, and symptoms of hypogonadism. While his symptoms improved on the clomiphene, he noticed gynecomastia so stopped. 10/31/2021:Here for follow up urinary frequency and weakened urinary stream s/p UroLift. Also, long history of Peyronie's, ED, Hypospadias, and symptoms of hypogonadism. Here to initiate trial of testosterone replacement therapy. He previously attempted intramuscular injection however found this uncomfortable and unsatisfactory. Would like to avoid painful injections if possible. 04/17/2022:Here for follow up urinary frequency and weakened [...] of hepatotoxicity or elevation in his PSA. 10/15/2022:Here for follow up urinary frequency and weakened urinary stream s/p UroLift. Also, long history of Peyronie's, ED, Hypospadias, and symptoms of hypogonadism. Was transitioned back to Xyosted after failing topical T. No evidence of hepatotoxicity on current labs. Feels like his urine flow has significantly reduced in the last few months. Feels like he has intermittency and straining to void. 02/04/2023:Here for follow up urinary frequency and weakened urinary stream s/p UroLift. Also, long history of Peyronie's, ED, Hypospadias, and symptoms of hypogonadism. Here to discuss implant. 03/18/2023:Here for follow up urinary frequency and weakened urinary stream s/p UroLift. Also, long history of Peyronie's, ED, Hypospadias, and symptoms of hypogonadism. Now s/p IPP 04/29/2023:Here for follow up, issues with IPP. 06/18/2023:Here for follow up urinary frequency and weakened urinary stream s/p UroLift. Also, long history of Peyronie's, ED, Hypospadias, and symptoms of hypogonadism. S/p IPP. Today reports improving penile sensitivity as he is continue to taper off paroxetine. Urination continues to be status quo interested in pursuing repeat UroLift. Eulogio Quiroz MD [address] [place] [address],[address], [place], [address], [facility] 06/18/2023 13:26:29 09/21/2023 text/html 68 year old male who follows with me in [place] for long-standing urinary frequency and weakened urinary stream. Maintained on tamsulosin 0.8 mg PO daily. Here for UroCuff, Cystoscopy, and TRUS volume only. 04/19/2021:Here for follow up urinary frequency and weakened urinary stream. Schedule for Rezum but post-poned due to sending vacation. Also has Peyronie's (manual traction has been inconsistent) and ED (not using tadalafil at this time). Would like to know if we can correct his hypospadias at the time of Rezum. 06/14/21:Here for follow up urinary frequency and weakened urinary stream. Rezum now not covered by insurance. Would like to discuss other options. 08/12/2021:Here for follow up urinary frequency and weakened urinary stream s/p UroLift. Also, long history of Peyronie's, ED, Hypospadias, and symptoms of hypogonadism. Recent Free and bioavailable testosterone results:Free Testosterone 47 pg/mL (low) 10/17/2021:Here for follow up urinary frequency and weakened urinary stream s/p UroLift. Also, long history of Peyronie's, ED, Hypospadias, and symptoms of hypogonadism. While his symptoms improved on the clomiphene, he noticed gynecomastia so stopped. 10/31/2021:Here for follow up urinary frequency and weakened urinary stream s/p UroLift. Also, long history of Peyronie's, ED, Hypospadias, and symptoms of hypogonadism. Here to initiate trial of testosterone replacement therapy. He previously attempted intramuscular injection however found this uncomfortable and unsatisfactory. Would like to avoid painful injections if possible. 04/17/2022:Here for follow up urinary frequency and weakened [...] of hepatotoxicity or elevation in his PSA. 10/15/2022:Here for follow up urinary frequency and weakened urinary stream s/p UroLift. Also, long history of Peyronie's, ED, Hypospadias, and symptoms of hypogonadism. Was transitioned back to Xyosted after failing topical T. No evidence of hepatotoxicity on current labs. Feels like his urine flow has significantly reduced in the last few months. Feels like he has intermittency and straining to void. 02/04/2023:Here for follow up urinary frequency and weakened urinary stream s/p UroLift. Also, long history of Peyronie's, ED, Hypospadias, and symptoms of hypogonadism. Here to discuss implant. 03/18/2023:Here for follow up urinary frequency and weakened urinary stream s/p UroLift. Also, long history of Peyronie's, ED, Hypospadias, and symptoms of hypogonadism. Now s/p IPP 04/29/2023:Here for follow up, issues with IPP. 06/18/2023:Here for follow up urinary frequency and weakened urinary stream s/p UroLift. Also, long history of Peyronie's, ED, Hypospadias, and symptoms of hypogonadism. S/p IPP. Today reports improving penile sensitivity as he is continue to taper off paroxetine. Urination continues to be status quo interested in pursuing repeat UroLift. 09/21/2023:Here for follow up urinary frequency and weakened urinary stream s/p UroLift. Also, long history of Peyronie's, ED, Hypospadias, and symptoms of hypogonadism. S/p IPP. Had recent PSA with his primary care which came in at 6.4 ng/mL. Recheck came down to 3.89 ng/mL. Today PSA 4.6 ng/mL Eulogio Quiroz MD [address] [facility],[address], [place], [address], [place] [facility] 09/21/2023 13:14:39 12/09/2023 text/html 68 year old male who follows with me in [place] for long-standing urinary frequency and weakened urinary stream. Maintained on tamsulosin 0.8 mg PO daily. Here for UroCuff, Cystoscopy, and TRUS volume only. 04/19/2021:Here for follow up urinary frequency and weakened urinary stream. Schedule for Rezum but post-poned due to sending vacation. Also has Peyronie's (manual traction has been inconsistent) and ED (not using tadalafil at this time). Would like to know if we can correct his hypospadias at the time of Rezum. 06/14/21:Here for follow up urinary frequency and weakened urinary stream. Rezum now not covered by insurance. Would like to discuss other options. 08/12/2021:Here for follow up urinary frequency and weakened urinary stream s/p UroLift. Also, long history of Peyronie's, ED, Hypospadias, and symptoms of hypogonadism. Recent Free and bioavailable testosterone results:Free Testosterone 47 pg/mL (low) 10/17/2021:Here for follow up urinary frequency and weakened urinary stream s/p UroLift. Also, long history of Peyronie's, ED, Hypospadias, and symptoms of hypogonadism. While his symptoms improved on the clomiphene, he noticed gynecomastia so stopped. 10/31/2021:Here for follow up urinary frequency and weakened urinary stream s/p UroLift. Also, long history of Peyronie's, ED, Hypospadias, and symptoms of hypogonadism. Here to initiate trial of testosterone replacement therapy. He previously attempted intramuscular injection however found this uncomfortable and unsatisfactory. Would like to avoid painful injections if possible. 04/17/2022:Here for follow up urinary frequency and weakened [...] of hepatotoxicity or elevation in his PSA. 10/15/2022:Here for follow up urinary frequency and weakened urinary stream s/p UroLift. Also, long history of Peyronie's, ED, Hypospadias, and symptoms of hypogonadism. Was transitioned back to Xyosted after failing topical T. No evidence of hepatotoxicity on current labs. Feels like his urine flow has significantly reduced in the last few months. Feels like he has intermittency and straining to void. 02/04/2023:Here for follow up urinary frequency and weakened urinary stream s/p UroLift. Also, long history of Peyronie's, ED, Hypospadias, and symptoms of hypogonadism. Here to discuss implant. 03/18/2023:Here for follow up urinary frequency and weakened urinary stream s/p UroLift. Also, long history of Peyronie's, ED, Hypospadias, and symptoms of hypogonadism. Now s/p IPP 04/29/2023:Here for follow up, issues with IPP. 06/18/2023:Here for follow up urinary frequency and weakened urinary stream s/p UroLift. Also, long history of Peyronie's, ED, Hypospadias, and symptoms of hypogonadism. S/p IPP. Today reports improving penile sensitivity as he is continue to taper off paroxetine. Urination continues to be status quo interested in pursuing repeat UroLift. 09/21/2023:Here for follow up urinary frequency and weakened urinary stream s/p UroLift. Also, long history of Peyronie's, ED, Hypospadias, and symptoms of hypogonadism. S/p IPP. Had recent PSA with his primary care which came in at 6.4 ng/mL. Recheck came down to 3.89 ng/mL. Today PSA 4.6 ng/mL 12/09/2023:Here for follow up urinary frequency and weakened urinary stream s/p UroLift. Also, long history of Peyronie's, ED, Hypospadias, and symptoms of hypogonadism. S/p IPP. Now s/p repeat UroLift and reports significant improvement. Eulogio Quiroz MD [address] [facility],[address], [place], [address], [facility] 12/09/2023 13:57:13
--- OUTSIDE RECORDS SUMMARY | 2024-06-06 23:58 | XMS_ITS | Referral Summary ---
Author Organization [facility] Address [address] [place] [id number] Care Team Providers Care Shoe Trimmer Name Role Phone Unknown, Md Primary Care Provider Unavailabl e Allergies Active Allergy Reactions Criticality Noted Date Comments Penicillin Anxiety,Difficulty b reathing,Swelling, lips/tongue 03/02/2023 Medications buPROPion XL (WELLBUTRIN XL) 300 mg oral extended release tablet 24 HR Active famotidine (PEPCID) 20 mg oral tablet Active lisinopriL (PRINIVIL) 20 mg oral tablet Activ e PARoxetine HCl (PAXIL) 40 mg oral tablet Active PENTOXIFYLLINE ORAL 10/16/2020 Active multivitamin (THERA TABLET) oral Tab Take 1 tablet by mouth Daily. Active hydrocortisone (HYTONE) 2.5 % cream APPLY TO AFFECTED AREA ON FACE 1-2X DAILY FOR UP TO 2 WEEKS AT A TIME 0. REPEAT NEEDED FOR FLARES Active meloxicam (MOBIC) 15 mg oral tablet Take 1 tablet (15 mg) by mouth once daily. 21 tablet 03/03/2023 1:58 PM CDT 03/03/2023 Active gabapentin (NEURONTIN) 300 mg oral capsule Take 1 capsule (300 mg) by mouth three times a day. 42 capsule 03/03/2023 1:58 PM CDT 03/03/2023 Active oxyCODONE, immediate release, (ROXICODONE) 5 mg oral tablet Take 1 tablet (5 mg) by mouth every 6 (six) hours as needed. 10 tablet 03/03/2023 1:58 PM CDT 03/03/2023 Active Social History Tobacco Use Types Packs/Day Years Used Date Smoking Tobacco: Never Smokeless Tobacco: Never Tobacco Cessation:Counseling Given: Not Answered Alcohol Use Standard Drinks/Week Comments Yes 0 (1 standard drink = 0.6 oz pur e alcohol) very rarely Sex and Gender Information Value Date Recorded Sex Assigned at Not on file Legal Sex Male 12:01 PM CDT Gender Identity Not on file Sexual Orientation Not on file Last Filed Vital Signs Vital Sign Reading Time Taken Comments Blood Pressure 145/75 03/03/2023 2:00 PM CDT Pulse 89 03/03/2023 2:00 PM CDT Temperature 36.5 C (97.7 F) 03/03/2023 11:47 AM CDT Respiratory Rate 18 03/03/2023 2:00 PM CDT Oxygen Saturation 96% 03/03/2023 2:00 PM CDT Inhaled Oxygen Concentration - - Weight 99.8 kg (220 lb) 03/03/2023 9:10 AM CDT Height 172.7 cm (5' 8) 03/03/2023 9:10 AM CDT Body Mass Index 33.45 03/03/2023 9:10 AM CDT Plan of Treatment Not on file Medical Devices Implanted Type Area Machinery Engineer Device Identifier Shelf Expiration Date Model / Serial / Lot Cl [employer] Titan - [id number] Implanted:Qty: 1 on 03/03/2023 by Eulogio Quiroz MD at [facility] Penile N/A: Pelvis Coloplast Luanne 12/05/2027 [id number] / / [id number] Assembly Kit Titan - [id number] Implanted:Qty: 1 on 03/03/2023 by Eulogio Quiroz MD at [facility] Supply N/A: Penis Coloplast Luanne 10/14/2027 91-94 [id number] / / [id number] Infrapubic Cylinder Pump Titan Implanted:Qty: 1 on 03/03/2023 by Eulogio Quiroz MD at [facility] N/A: Penis Coloplast Luanne 07/01/2027 [id number] / / [id number] [place] [id number] [employer] MEDICARE SUPPLEMENT [place] [id number] MEDICARE PART A & B [place] [id number] Care Teams Shoe Trimmer Relationship Specialty Start Date End Date Unknown, NO ADDRESS/PHONE/FAX AFFILIATED PCP - General 02/19/23
--- OUTSIDE RECORDS SUMMARY | 2024-06-06 23:58 | XMS_ITS | Clinical Summary ---
Author Organization [facility] Address [address] [place] [address] Care Team Providers Care Press Supervisor Name Role Phone Unknown, Md Primary Care [...] Due Date Last Done Comments Colonoscopy 1955 Hepatitis C Screening 1955 Lipid Screening 1955 Depression Assessment (PHQ-2) 1956 Pneumococcal 50+ Years (2 of 2 - PCV) 07/12/2020 Adult Tetanus Booster 05/18/2021 05/18/2011 , 10/12/2007, 05/18/2006 COVID-19 Vaccine ( season) 2024, 07/20/2020 Influenza Vaccine (#1) 2024 02/23/2019 Yearly Review of HCD 01/28/2024 01/28/2023 RSV Vaccines (1 - 1-dose 75+ series) 2028 Zoster Vaccine Completed 12/28/2019, 07/2019, 10/12/2014 Medical Devices Implanted Type Area Clinical Dental Technician Device Identifier Shelf Expiration Date Model / Serial / Lot Cl Rosa M Canela - [id number] Implanted:Qty: 1 on 03/03/2023 by Eulogio Quiroz MD at [facility] Penile N/A: Pelvis Coloplast Luanne 12/05/2027 [id number] / / [id number] Assembly Kit Hilton - [id number] Implanted:Qty: 1 on 03/03/2023 by Eulogio Quiroz MD at [facility] Supply N/A: Penis Coloplast Luanne 10/14/2027 91-94 [id number] / / [id number] Infrapubic Cylinder Pump Titan Implanted:Qty: 1 on 03/03/2023 by Eulogio Quiroz MD at [facility] N/A: Penis Coloplast Luanne 07/01/2027 [id number] / / [id number] Insurance [facility] MEDICARE SUPPLEMENT MEDICARE PART A & B Care Teams Press Supervisor Relationship Specialty Start Date End Date Unknown, NO ADDRESS/PHONE/FAX AFFILIATED PCP - General 02/19/23
--- OUTSIDE RECORDS SUMMARY | 2024-06-06 23:59 | XMS_ITS | Clinical Summary ---
Author Organization [employer] [facility] Address [place], [place] [address] Care Team Providers Care Pouncing Machine Operator Name Role Phone Mushtaq Garcia MD Primary Care Provider [phone] Allergies Active Allergy Reactions Criticality Noted Date Comments Penicillins Angioedema High 01/05/2015 Medications CPAPIndications: Obstructive sleep apnea (adult) (pediatric) autoCPAP, heated humidifier, mask, headgear, filters and tubing. Pressure: 4-15cm/H2O Length of Need: 99 1 Device 0 5 Active medication order composerIndicati ons:Obstructive sleep apnea (adult) (pediatric) Diagnosis 327.23, OBSTRUCTIVE SLEEP APNEA 05/06/2010 AHI-24 CPAP and supplies-- Mask: TAP-PAP #1 1 Device 0 5 Active LORazepam (ATIVAN) 0.5 mg tab 1 Active buPROPion (WELLBUTRIN XL) 300 mg Extended-Release tablet Take 300 mg by mouth once daily. 1 Active lisinopriL (PRINIVIL; ZESTRIL) 20 mg tablet Take 20 mg by mouth at bedtime. 1 Active tadalafiL (CIALIS;ADCIRCA) 20 mg tabletIndication s:Erectile disorder due to medical condition in male Take 1 Tablet (20 mg) by mouth once daily if needed for Erectile Dysfunction. Take 30 minutes before sexual activity. 20 Tablet 5 1 Active famotidine (PEPCID) 20 mg tablet Take 20 mg by mouth 2 times daily. 2 Active PARoxetine (PAXIL) 40 mg tablet 2 Active oxybutynin XL (DITROPAN XL) 10 mg CR tabletIndication s:Urinary frequency Take 1 Tablet (10 mg) by mouth once daily. 30 Tablet 11 2 Active meloxicam 15 mg tabletIndication s:Prostatitis, unspecified prostatitis type Take 1 Tablet (15 mg) by mouth once daily. 7 Tablet 2 Active pentoxifylline (TRENTAL) 400 mg ER tabletIndication s:Peyronie's disease Take 1 Tablet (400 mg) by mouth three times daily with meals. 270 Tablet 3 3 Active Active Problems Problem Noted Date Diagnosed [...] at Not on file Legal Sex Male 6:20 AM CRIBBING SETTER Gender Identity Not on file Sexual Orientation Not on file Obstetrics History Last Filed Vital Signs Vital Sign Reading Time Taken Comments Blood Pressure 144/80 07/17/2021 11:01 AM CRIBBING SETTER Pulse 80 07/17/2021 11:01 AM CRIBBING SETTER Temperature 36.6 C (97.9 F) 12/21/2020 1:30 PM CDT Respiratory Rate 18 07/17/2021 11:0 1 AM CRIBBING SETTER Oxygen Saturation 96% 07/17/2021 11: 01 AM CRIBBING SETTER Inhaled Oxygen Concentration - - Weight 103.9 kg (229 lb) 07/17/2021 11: 01 AM CRIBBING SETTER Pt weighed with shoes on. Height 172.7 cm (5' 8) 12/20/2020 9:26 AM CDT Body Mass Index 34.82 12/20/2020 9:26 AM CDT Plan of Treatment Upcoming Encounters Date Type Department Care Team (Late st Contact Info) Description 09/06/2024 3:00 PM CDT Office Visit [facility] [address] [place] [address] Guilherme Rain MD [address] [place] [address] Health Maintenance Due Date Last Done Comments Depression screening for age 12+ 1965 BMI (ht and wt on same day) for age 18+ 1971 Hepatitis C screening for age 18-79 1971 Colonoscopy through age 75 1998 Lipids for age 45-75 1998 Pneumococcal series for age 50+ (1 of 1 - PCV) 2003 Zoster (shingles) series for age 50+ (2 of 3) 12/08/2014 10/13/2014 Tetanus booster 10/11/2017 10/12/2007 Medicare Wellness for age 65+ 2018 COVID-19 vaccine series (2023- season) 2024 03/13/2021, 07/20/2020 Influenza for age 65+ 01/17/2024 RSV vaccine for adults or pr egnancy (1 - 1-dose 75+ series) 2028 Tdap Completed 10/12/2007 Insurance MEDICARE PART B HB ONLY [place] [id number] MEDICARE [place] [id number] Advance Directives * Full Code (Latest Code Status on File) Date Activated Date Inactivated Comments 12/21/2020 10:14 AM 12/21/2020 4:37 PM Question Answer Comments Code Status Discussion: Not Discussed Care Teams Pouncing Machine Operator Relationship Specialty Start Date End Date Mushtaq Garcia MD PCP - General Family Practice 01/05/15
--- OUTSIDE RECORDS SUMMARY | 2024-06-06 23:59 | XMS_ITS | Clinical Summary ---
Author Organization [facility] Address [address] [place] [address] Care Team Providers Care Site Leader Name Role Phone Mushtaq Garcia MD Primary Care Provider [phone] Source Comments You are receiving this document as you are listed as the primary care provider,follow-up provider, or the patient has been referred to you for consultation.This is in compliance with the Medicare and[facility] EHR Incentive Program,which states Providers who transition their patient to another setting of careor provider of care or refers their patient to another provider of care shouldprovide summary care record for each transition of care or referral. [facility] Allergies Active Allergy Reactions Criticality Noted Date [...] MGIndications:Low testosterone,Fatigue, unspecified type 100 mg. Active [place]-3 Fatty Acids (OMEGA 3 500 OR)Indications:Low testosterone,Fatigue, [...] - PCV) 2018 COVID-19 Vaccine ( - 2023-2 5 season) 2024 Influenza (#1) 2024 RSV (1 - 1-dose 75+ series) 2028 HepA Aged Out No longer eligi ble [...] age to complete this topic Care Teams Site Leader Relationship Specialty Start Date End Date Mushtaq Garcia MD [address] [place] [address] PCP - General 10/15/16
--- OUTSIDE RECORDS SUMMARY | 2024-06-07 00:07 | XMS_ITS | Continuity of Care Document ---
Author Name [facility] User [email or web address] Address Unknown Organization Unknown Address Unknown Procedures FILTER APPLIED:Only known Procedures with Onset Date within the last 5 years Procedure Date Procedure Provider Additiona l Information Status METABOLIC PANEL TOTAL CA (02173) Completed URINE CULTURE/COLONY COUNT (84985) Completed ASSAY OF PSA TOTAL (97581) Completed COMPREHEN METABOLIC PANEL (23794) Completed ASSAY OF PSA TOTAL (87238) Completed ASSAY OF TOTAL TESTOSTERONE (20962) Completed BILIRUBIN DIRECT (31188) Completed COMPLETE CBC W/AUTO DIFF WBC (86369) Completed LIPID PANEL (24829) Comp leted ROUTINE VENIPUNCTURE (96683) Completed ASSAY OF SERUM SODIUM (53907) Completed URINALYSIS AUTO W/SCOPE (07495) Completed ASSAY OF CALCIUM (64157) Completed ASSAY THYROID STIM HORMONE (64458) Completed EMERGENCY DEPT VISIT HI MDM (51224) Completed ASSAY OF URINE SODIUM (73064) Completed ASSAY OF URINE OSMOLALITY (51925) Completed ASSAY OF BLOOD OSMOLALITY (51217) Completed ASSAY OF MAGNESIUM (10977) Completed ASSAY SPEC XCP UR BREATH IA (19495) Completed DRUG TEST PRSMV INSTRMNT (78367) Completed X-RAY EXAM CHEST 2 VIEWS (23989) Completed EMERGENCY DEPT VISIT MOD MDM (25711) Completed MEASURE BLOOD OXYGEN LEVEL (65574) Completed C-REACTIVE PROTEIN (78435) Completed COMPLETE CBC W/AUTO DIFF WBC (07912) Completed METABOLIC PANEL TOTAL CA (07682) Completed ROUTINE VENIPUNCTURE (30223) Completed ASSAY OF SERUM SODIUM (27898) Completed EMERGENCY DEPT VISIT MOD MDM (46071) Completed METABOLIC PANEL TOTAL CA (72085) Completed METABOLIC PANEL TOTAL CA (20097) Completed ASSAY OF PSA TOTAL (63026) Completed LIPID PANEL (65545) Comp leted COMPREHEN METABOLIC PANEL (26332) Completed ASSAY OF TOTAL TESTOSTERONE (62745) Completed Encounters FILTER APPLIED:Only known Encounters with Admission Date within the last 5 years Encounter Location Admission Discharge Billing Code On 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
== END 2024-06-06 17:40 | disposition home or self-care (01) ==
PROVIDERS: Emergency Provider Emergency Medicine Emergency Medical Services; PCP Family Medicine
DX: R55 Syncope and collapse (principal)
CPT/HCPCS: 70450; 93005; 99284

== ENCOUNTER 2024-10-21 11:46 | Outpatient (CLI) | payer MEDICARE, OTHER, SELFPAY ==
[2024-10-21 13:21] LABS: PSA Diagnostic* 3.67 ng/mL (0.10-4.00)
== END 2024-10-21 11:47 | disposition home or self-care (01) ==
LOC: LAB 11:48
PROVIDERS: PCP Family Medicine; Visit Provider Urology
DX: R97.20 Elevated prostate specific antigen [PSA] (principal)
CPT/HCPCS: 36415; 84153

== ENCOUNTER 2024-11-22 20:05 | Outpatient (CLI) | payer MEDICARE, OTHER, SELFPAY | END 2024-11-22 20:06 | disposition home or self-care (01) | LOC: SLEEP 20:08 | PROVIDERS: PCP Family Medicine; Visit Provider Internal Medicine | DX: G47.33 Obstructive sleep apnea (adult) (pediatric) (principal); R09.02 Hypoxemia | CPT/HCPCS: 95810 ==

== ENCOUNTER 2024-12-05 16:36 | Emergency (ER) | payer MEDICARE, OTHER, SELFPAY ==
--- OUTSIDE RECORDS SUMMARY | 2024-12-05 16:39 | XMS_ITS | Clinical Summary ---
Author Organization [employer] [facility] Address [address] [place] [address] Care Team Providers Care Hemmer Chainstitch Name Role Phone Mushtaq Garcia MD Primary Care Provider [phone] Allergies Active Allergy Reactions Criticality Noted Date Comments Penicillins Angioedema High 01/05/2015 Medications medication order composerIndica tions:Obstruct martín sleep apnea (adult) (pediatric) Diagnosis 327.23, OBSTRUCTIVE SLEEP APNEA 05/06/2010 AHI-24 CPAP and supplies-- Mask: TAP-PAP #1 1 Device 0 5 Active LORazepam (ATIVAN) 0.5 mg tab 1 Active lisinopriL (PRINIVIL; ZESTRIL) 20 mg tablet Take 20 mg by mouth at bedtime. 1 Active famotidine (PEPCID) 20 mg tablet Take 20 mg by mouth 2 times daily. 2 Active DULoxetine 20 mg Delayed-releas e capsule Take 40 mg by mouth once daily. Active Xyosted 100 mg/0.5 mL atIn Inject 100 mg every week by subcutaneous route. Active clobetasol 0.05 % cream 5 Active CPAPIndication s:Obstructive sleep apnea (adult) (pediatric) autoCPAP, heated humidifier, mask, headgear, filters and tubing. Pressure: 4-15cm/H2O Length of Need: 99 1 Device 0 5 025 Discontin ued(*Med complete/ Regimen complete/ Level of care change) Active Problems Problem Noted Date Diagnosed Date MICHELLE 05/06/2010 AHI-24 05/06/2010 HTN (hypertension) Depression with anxiety Hypercholesterolemia Encounters Date Type Department Care Team Description 12/05/2024 4:00 PM CDT Office Visit [facility] [place] [address] Guilherme Rain MD Sleep Follow-up 12/05/2024 Travel 11/22/2024 Orders Only [facility] Scanner 1 scan: (1-Ord) PDSINC, 11/22/2024 11/16/2024 9:45 AM CDT Office [facility] [address] Juan Francisco Ryder DPM Consult (Consult - bilateral foot and toe fungus, tried over the counter topical ointments, pills, etc. Slows progression but doesn't stop it. Self referral ) 11/16/2024 Travel 11/07/2024 2:00 PM CDT Office Visit [facility] [place] [address] Guilherme Rain MD Sleep Follow-up (HST) 11/07/2024 Travel 11/02/2024 Telephone [facility] [place] [address] Guilherme Rain MD 10/25/2024 7:30 AM CDT Nurse/Clinic Staff Only [address] [place] [facility] [place] [address] Testing (HST Return/Download.) 10/24/2024 2:00 PM CDT Nurse/Clinic Staff Only [facility] [place] [address] Testing (HST Set-up) 10/24/2024 Procedure Only [facility] [place] [address] Guilherme Rain MD Results (HST) 10/24/2024 Travel 09/06/2024 3:00 PM CDT Office Visit [facility] [place] [address] Guilherme Rain MD Sleep Follow-up 09/06/2024 Travel from Last 3 Months Immunizations Immunization Administration Dates Next Due Tdap 10/12/2007 Zoster [...] on file 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 Gender Identity Not on file Sexual Orientation Not on file Obstetrics History Last Filed Vital Signs Vital Sign Reading Time Taken Comments Blood Pressure 172/101 12/05/2024 4:01 PM CDT Pulse 97 12/05/2024 4:01 PM CDT Temperature 36.6 C (97.9 F) 12/21/2020 1:30 PM CDT Respiratory Rate 18 07/17/2021 11:01 AM 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 Oxygen Saturation 96% 12/05/2024 3:58 PM CDT Inhaled Oxygen Concentration - - Weight 99.8 kg (220 lb) 12/05/2024 3:58 PM CDT Height 172.7 cm (5' 8) 12/05/2024 3:58 PM CDT Body Mass Index 33.45 12/05/2024 3:58 PM CDT Plan of Treatment Health Maintenance Due Date Last Done Comments Depression screening for age 12+ 1965 Hepatitis C screening for ag e 18-79 1971 Colonoscopy through age 75 1998 Lipids for age 45-75 1998 Pneumococcal series for age 50+ (1 of 1 - PCV) 2003 RSV vaccine for adults or (1 - Risk 60-74 years 1-dose series) 2013 Zoster (shingles) series for age 50+ (2 of 3) 12/08/2014 10/13/2014 Tetanus booster 10/11/2017 10/12/2007 Medicare Wellness for age 65+ 2018 COVID-19 vaccine series ( - season) 2024 03/13/2021, 07/20/2020 Influenza Vaccine (#1) 2025 BMI (ht and wt on same day) for age 18+ 12/05/2025 12/05/2024, 11/07/2024, 09/06/2024 Hepatitis B series for 19+ Aged Out N o longer eligible based on patient's age to complete this topic Procedures Procedure Name Priority Date/Time Associated Diagnosis Comments SCAN-SLEEP STUDY 11/22/2024 12:0 0 AM CDT HOME SLEEP TEST TYPE 3 PORTABLE Routine 10/24/2024 11:59 PM CDT MICHELLE (obstructive sleep apnea) from Last 3 Months Results * SCAN-SLEEP STUDY (11/22/2024 12:00 AM CDT) us Scanner OTHER Final Result * HOME SLEEP TEST TYPE 3 PORTABLE (10/24/2024 11:59 PM CDT) Narrative Guilherme Rain MD - 10/24/2024 11:59 PM CDT Guilherme Rain MD 10/27/2024 11:33 AM Home Sleep Test Name: Duy Schreiber Location: [facility] Study notes: This is a single night home sleep apnea test. The study is performed in the context of a clinical suspicion for sleep apnea. Duy Schreiber ( 1955) is studied using a T3 Device using nasal pressure transducer, thoracoabdominal respiratory impedence plethysmography belts, pulse oximetry, snore microphone and actigraphy for body position. The study is scored by a RPSGT and interpreted by a Diplomate of the [place] [employer]. Raw summary data is scanned into this report as a separate document. An epoch by epoch review of the data has been performed by the interpreting physician. Scored following the AASM Manual for the Scoring of Sleep and Associated Events, V3. Respiratory Event Index (SCOOBY) Oxygen Desaturation Index (BRODY) REI4% 14.2 ODI4%: 13.4 REI3% 19.3 ODI3%: 21.2 Supine SCOOBY: 29.8 Pee Saturation 76 % Lateral SCOOBY: 4.4 Time Below 88% 79.5 minutes Weight: Wt Readings from Last 1 Encounters: 09/06/24 95.3 kg (210 lb) Other data: Recording Duration: 540.0 minutes Time in Bed: 487.1 minutes Estimated sleep efficiency [%]: 95 % Oximeter Quality: 99.0 % Flow Quality: 100.0 % RIP Quality: 100.0 % Supine time: 277.6 minutes Average SpO2: 90.3 % Pulse Average: 56.4 bpm Additional Comments: None IMPRESSION: Obstructive Sleep Apnea (327.23, G47.33) Nocturnal Hypoxia (327.26, G47.34) RECOMMENDATIONS: - This is mild sleep apnea with drops in oxygen. Consider a hospital PSG to better define as HST are known to underestimate obstructive sleep apnea. - Hypoxia is noted. While this can be probe error, it may suggest underlying cardiopulmonary disease and clinical correlation is recommended. - Treatment for obstructive sleep apnea is recommended and CPAP would generally be considered first-line therapy for this severity of sleep apnea. Consider auto-titrating CPAP 5-20 cm. - Consider a referral to Health Weight Management for patients with a BMI > 30. - Follow-up with a provider to discuss results is recommended. - Patients should be advised to avoid critical tasks, such as driving, whenever drowsy. - Patients should try to achieve at least 7-8 hours of sleep on a consistent basis. - The SCOOBY is a surrogate for AHI. For reimbursement and/or prior authorization purposes, it would be appropriate to list the SCOOBY as an AHI when the latter is accepted, but not the former. Guilherme Rain M.D. Diplomate, Board of Sleep Medicine Recording Information Recording Date: 10/24/2024 Analysis Start Time: 11:22 PM Recording Tags: Analysis Stop Time: 7:29 AM Device Type: T3S Analysis Duration (TRT): 8h 7m Est. Total Sleep Time: 7h 53m Position and Analysis Time Duration Percentage Supine (in TST): 277.6 m 58.7 % Non-Supine (in TST): 192.8 m 40.7 % Upright (in TRT): 14 m 2.9 % Movement (in TST): 21.5 m 4.6 % Invalid Data (Excluded): 0 m 0 % Respiratory Indices Index Total Supine Non-supine Count Apneas + Hypopneas (REI3%): 19.3 /h 29.8 /h 4.4 /h 152 Apneas + Hypopneas (REI4%) 14.2 /h /h /h Apneas: 6.3 /h 10.8 /h 0 /h 50 Obstructive (OA): 6.3 /h 10.8 /h 0 /h 50 Mixed (MA): 0 /h 0 /h 0 /h 0 Central (CA): 0 /h 0 /h 0 /h 0 Hypopneas 3%: 12.9 /h 19 /h 4.4 /h 102 Hypopneas 4%: 0 /h 88 /h 14 /h 0 Respiration Rate (per m): 16.3 /m 16.7 /m 15.7 /m Percentage of Sleep Duration Snore: 27.1 % 21.6 % 35.3 % 128.1 m Flow Limitation: 0 % 0 % 0 % 0 m Average Snore Volume 70.3 dB Percent of time greater than 80dB: Percent of 25.8 % Oxygen Saturation (SpO2) Total Supine Non-supine Oxygen Desaturation Index (BRODY): 21.2 /h 32.9 /h 4.7 /h Average SpO2: 90.3 % 89.7 % 91.1 % Minimum SpO2: 76 % 76 % 76 % SpO2 Duration < 90% 25.5 % (120.6m) 37.8 % 8.1 % SpO2 Duration <= 88% 16.8 % (79.5m) 27.9 % 1 % Pulse in TST Quality Average: 56.4 bpm Oximeter: 99 % Maximum: 91 bpm Nasal Cannula: 100 % Minimum: 31 bpm Abdomen RIP: 100 % Duration < 40 bpm: 0 m Thorax RIP: 100 % Duration > 100 bpm: 0 m Guilherme Rain MD SLEEP [facility] Final Result from Last 3 Months Insurance [place] [id number] MEDICARE PART B [place] [id number] MEDICARE PB ONLY MEDICARE PART A HB ONLY [place] [id number] WORKERS [place] [id number] Advance Directives * Full Code (Latest Code Status on File) Date Activated Date Inactivated Comments 12/21/2020 10:14 AM 12/21/2020 4:37 PM Question Answer Comments Code Status Discussion: Not Discussed Care Teams Hemmer Chainstitch Relationship Specialty Start Date End Date Mushtaq Garcia MD PCP - General Family Practice 01/05/15
--- OUTSIDE RECORDS SUMMARY | 2024-12-05 16:39 | XMS_ITS | Data Portability ---
Author Organization [facility], [facility] Address [address] [place] [address] Care Team Providers Care Hedge Fund Manager Name Role Phone [facility] Primary Care Provider Assessment Encounter [...] erectile dysfunction. [email or web address] Not available 12/04/2023 16:02:39 06/13/2024 06/13/2024 69 year old male with Peyronie's disease, urinary frequency, and erectile dysfunction. [email or web address] Not available 06/10/2024 09:28:32 10/27/2024 10/27/2024 69 year old male with Peyronie's disease, urinary frequency, and erectile dysfunction. Of note a total of 20 minutes was spent: preparing to see the patient by reviewing records, images, and laboratory data; obtaining/revie wing separately obtained history; performing physical examination, counseling and educating patient/family/ caregiver; ordering appropriate medications, labs, imaging or procedures; documenting the clinical encounter; and coordination of care. [email or web address] Not available 10/27/2024 17:50:12 Plan of Treatment Reminders Order Date Submit Date Provider Last Modified By Organization Details Last Modified Time Details Appointments ESTABLI SHED 10 2024 09:10A M Eulogio Quiroz MD Not available Not available Not available Lab PSA, serum or plasma 2024 025 [facility], [address], [place], [address], 06/13/2024 10:46:37 testost erone, total, serum 2024 025 [facility], [address], [address], [place], [address], 06/13/2024 17:31:41 CBC w/ diff 2024 025 [facility], [address], [address], [place], [address], 06/13/2024 16:40:24 hepatic functio n panel, serum 2024 025 [facility], [address], [address], [place], [address], 06/13/2024 17:31:45 PSA, serum or plasma 2023 024 [email or web address] [facility], [address], [place], [address], 09/21/2023 11:28:30 Referral None recorde d. Procedures None recorde d. Surgeries cystour ethrosc opy, with inserti on of permane nt adjusta ble transpr ostatic implant ; single implant (SURG) 2023 024 [email or web address] Not available 09/30/2023 14:09:21 Imaging None recorde d. Medication Orders Xyosted 75 mg/0.5 mL subcuta neous auto-in jector 2024 025 [facility], [address], [address], [place], [place], [id number], 10/27/2024 16:12:44 Xyosted 100 mg/0.5 mL subcuta neous auto-in jector 2023 024 [facility][id number], [address] [place], [place], [id number], 10/27/2024 16:07:56 meloxic am 7.5 mg tablet 2023 024 [facility] #[id number], [address] [place], [place], [id number], 09/29/2023 13:00:57 Patient TargetsNo targets recorded. Patient Instructions Encounter Date Encounter Id Patient Instructions Last Modified By Organization Details Last Modified Time 06/18/2023 [id number] UroLift We discussed prostate UroLift and that [...] allow their blood to clot normally. 2. [place] or no hospital stay. This procedure can [...] Not Available [facility] [address], [place], [address], 09/21/2023 11:22:45 06/13/19 25 06/13/2024 CBC AND DIFFE RENTI AL WBC 7.97 10*3/ uL 3.80-1 0.80 Not Available [facility] [address] [facility] [address], [place], [address], 06/13/2024 16:40:24 06/13/19 25 06/13/2024 CBC AND DIFFE RENTI AL ne% 54.57 % 42.00- 82.00 Not Available [facility] [address] [facility] [address], [place], [address], 06/13/2024 16:40:24 06/13/19 25 06/13/2024 CBC AND DIFFE RENTI AL ly% 33.96 % 15.00- 35.00 Not Available [facility] [address] [place] [address] [address], [place], [address], 06/13/2024 16:40:24 06/13/19 25 06/13/2024 CBC AND DIFFE RENTI AL MO% 7.23 % 4.00-1 2.00 Not Available [facility] [address] [place] [address] [address], [place], [address], 06/13/2024 16:40:24 06/13/19 25 06/13/2024 CBC AND DIFFE RENTI AL eo% 3.96 % 1.00-6 .00 Not Available [facility] [address] [place] [address] [address], [place], [address], 06/13/2024 16:40:24 06/13/19 25 06/13/2024 CBC AND DIFFE RENTI AL ba% 0.28 % 0.00-2 .00 Not Available [facility] [address] [facility] [address], [place], [address], 06/13/2024 16:40:24 06/13/19 25 06/13/2024 CBC AND DIFFE RENTI AL ne# 4.35 10*3/ uL 1.50-7 .80 Not Available [facility] [address] [facility] [address], [place], [address], 06/13/2024 16:40:24 06/13/19 25 06/13/2024 CBC AND DIFFE RENTI AL ly# 2.71 10*3/ uL 0.85-3 .90 Not Available [facility] [address] [facility] [address], [place], [address], 06/13/2024 16:40:24 06/13/19 25 06/13/2024 CBC AND DIFFE RENTI AL MO# 0.58 10*3/ uL 0.20-0 .95 Not Available [facility] [address] [facility] [address], [place], [address], 06/13/2024 16:40:24 06/13/19 25 06/13/2024 CBC AND DIFFE RENTI AL eo# 0.32 10*3/ uL 0.02-0 .50 Not Available [facility] [address] [facility] [address], [place], [address], 06/13/2024 16:40:24 06/13/19 25 06/13/2024 CBC AND DIFFE RENTI AL ba# 0.02 10*3/ uL 0.00-0 .20 Not Available [facility] [address] [place] [address] [address], [place], [address], 06/13/2024 16:40:24 06/13/19 25 06/13/2024 CBC AND DIFFE RENTI AL RBC 6.09 10*6/ uL 4.20-5 .80 high Not Available [facility] [address] [place] [address], [place], [address], 06/13/2024 16:40:24 06/13/19 25 06/13/2024 CBC AND DIFFE RENTI AL HGB 19.09 g/dL 13.20- 17.10 critical high Not Available [facility] [address] [place] [address], [place], [address], 06/13/2024 16:40:24 06/13/19 25 06/13/2024 CBC AND DIFFE RENTI AL HCT 54.10 % 38.50- 50.00 high Not Available [facility] [address] [facility] [address], [place], [address], 06/13/2024 16:40:24 06/13/19 25 06/13/2024 CBC AND DIFFE RENTI AL MCH 31.30 pg 27.00- 33.00 Not Available [facility] [address] [facility] [address], [place], [address], 06/13/2024 16:40:24 06/13/19 25 06/13/2024 CBC AND DIFFE RENTI AL MCHC 35.30 g/dL 32.00- 36.00 Not Available [facility] [address] [facility] [address], [place], [address], 06/13/2024 16:40:24 06/13/19 25 06/13/2024 CBC AND DIFFE RENTI AL MCV 88.90 fL 80.00- 100.00 Not Available [facility] [address] [facility] [address], [place], [address], 06/13/2024 16:40:24 06/13/19 25 06/13/2024 CBC AND DIFFE RENTI AL RDW 12.90 % 11.00- 15.00 Not Available [facility] [address] [facility] [address], [place], [address], 06/13/2024 16:40:24 06/13/19 25 06/13/2024 CBC AND DIFFE RENTI AL plt 162.60 10*3/ uL 140.00 -400.0 0 Not Available [facility] [address] [place] [address], [place], [address], 06/13/2024 16:40:24 06/13/19 25 06/13/2024 CBC AND DIFFE SYEDA AL MPV 11.05 fL This lab resul t is being provi ded to you and your provi freddie at the same time [facility] Cures Act. Your provi freddie may not have had time to revie w and make recom menda tions based on the resul t. Pleas e allow up to one week for provi freddie revie w. Not Available [facility] [address] [facility] [address], [place], [address], 06/13/2024 16:40:24 06/13/1906/13/2024 TESTO STERO NE testosterone 737.56 NG/dL 175.00 -781.0 0 This lab resul t is being provi ded to you and your provi freddie at the same time [facility] Cures Act. Your provi freddie may not have had time to revie w and make recom menda tions based on the resul t. Pleas e allow up to one week for provi freddie revie w. Not Available [facility] [address] [facility] [address], [place], [address], 06/13/2024 17:31:41 06/13/1906/13/2024 LIVER PANEL albumin-olym pus 4.5 g/dL 3.5-5. 0 This lab resul t is being provi ded to you and your provi freddie at the [facility] with the Cent[facility] ry Care Act of 2015. Your provi freddie may not have had time to revie w and make recom menda tions based on the resul t. Pleas e allow up to one week for provi freddie revie w. Not Available [facility] [address] [facility] [address], [place], [address], 06/13/2024 17:31:45 06/13/19 25 06/13/2024 LIVER PANEL ALP-olympus 42.0 [IU]/ L 24.0-1 06.0 Pleas e note new refer ence range as of 2014 Not Available [facility] [address] [facility] [address], [place], [address], 06/13/2024 17:31:45 06/13/1906/13/2024 LIVER PANEL ALT-olympus 17.0 IU/L 10.0-4 0.0 Not Available [facility] [address] [facility] [address], [place], [address], 06/13/2024 17:31:45 06/13/19 25 06/13/2024 LIVER PANEL AST-olympus 15.4 IU/L 10.0-4 2.0 Not Available [facility] [address] [facility] [address], [place], [address], 06/13/2024 17:31:45 06/13/1906/13/2024 LIVER PANEL D bilirubin-ol ympus 0.1 mg/dL 0.0-0. 2 Not Available [facility] [address] [facility] [address], [place], [address], 06/13/2024 17:31:45 06/13/1906/13/2024 LIVER PANEL T bilirubin-ol ympus 0.7 mg/dL 0.2-1. 0 Not Available [facility] [address] [facility] [address], [place], [address], 06/13/2024 17:31:45 06/13/1906/13/2024 LIVER PANEL T protein-olym pus 6.9 g/dL 6.5-8. 1 This lab resul t is being provi ded to you and your provi freddie at the same time in compl iance with the 21st Centu ry Care Act of 2016. Your provi freddie may not have had time to revie w and make recom menda tions based on the resul t. Jannette chi allow up to one week for provi freddie revie w. Not Available [facility] [address] [facility] [address], [place], [address], 06/13/2024 17:31:45 06/13/1906/13/2024 PSA, serum or plasm a PSA 3.6 ng/mL 0-4.0 NG/mL Not Available [facility] [address], [place], [address], 06/13/2024 10:42:58 06/19/19 24 06/18/2023 bladd er scan (PROC ) No observ ation record ed. Not Available 2023 13:12:04 Result Notes None recorded. Procedures Surgical History Date Name Laterality Status Provider Name and Address Organization Details Recorded Time 10/28/19 25 COMPLEX VISIT completed Eulogio Quiroz MD [address] [place] [address],[address], [place], [address], [facility] 10/27/2024 09:19:37 10/28/19 25 Bladder Scan completed Usha Hurley [facility] 10/27/2024 15:57:05 06/13/19 25 COMPLEX VISIT completed Eulogio Quiroz MD [address] [place] [address],[address], [place], [address], [facility] 06/13/2024 13:48:38 06/13/19 25 Bladder Scan completed Eulogio Quiroz MD [address] [place] [address],[address], [place], [address], [place] [facility] 06/13/2024 10:26:15 06/13/19 25 Blood Draw/SPANISH INTERPRETER/PSA RESULTS completed Abdulaziz Wilson [facility] 06/13/2024 10:21:13 12/09/19 24 COMPLEX VISIT completed Eulogio Quiroz MD [address] [place] [address],[address], [place], [address], [facility] 12/09/2023 13:57:03 12/09/19 24 Bladder Scan completed Vanessa Garvey [facility] 12/09/2023 11:35:14 09/21/19 24 COMPLEX VISIT completed Eulogio Quiroz MD [address] [place] [address],[address], [address], [facility] 09/21/2023 13:14:17 09/21/19 24 Blood Draw/SPANISH INTERPRETER/PSA RESULTS completed Cristina Rhodes [facility] 09/21/2023 11:22:34 06/18/19 24 COMPLEX VISIT completed Eulogio Quiroz MD [address] [place] [address],[address], [place], [address], [facility] 06/18/2023 13:26:00 06/18/19 24 Bladder Scan completed Cristina Rhodes [facility] 06/18/2023 11:11:00 03/18/20 23 Staple Removal completed Abdulaziz Katie [facility] 03/18/2023 11:52:31 03/06/20 23 Drain Removal completed Naheed Jose [facility] 03/06/2023 11:28:45 10/16/19 23 Cystoscopy- male completed Eulogio Quiroz MD [address] [place] [address],[address], [place], [address], [facility] 10/15/2022 17:49:10 01/10/20 21 Cystoscopy- male completed Eulogio Quiroz MD [address] [place] [address],[address], [address], [facility] 01/09/2021 13:31:32 01/10/20 21 TRUS- Volume size only completed Eulogio Quiroz MD [address] [place] [address],[address], [address], [facility] 01/09/2021 13:32:01 05/18/19 18 colonoscopy completed Daija Weller [facility] 06/14/2021 13:03:27 Imaging Results None recorded. Procedure Notes None recorded. Medical Equipment None Reported. Allergies Allergen ID Allergen Name Allergen Category Reaction Reaction Severity Criticality Documentation Date Start Date Code Code System Note Provider Name and Address Organization Details Recorded Time 918833 Product containin g penicilli n (product) medicatio n swelling severe Not available 01/09/2021 [id number] SNOMED Eulogio Quiroz MD [address] [place] [address],[address], [address], [facility] 12:32:53 Medications Name Sig Start Date Stop [...] LET SIT FOR SEVERAL MINUTES BEFORE RINSING 10/27 completed Not Available Not Available Not Available famotidin e 10 mg tablet Take 1 tablet every day by oral route. active Not Available Not Available No [...] fluoroura cil 5 % topical cream APPLY TO PRE CANCEROU S LESIONS ON THE FACE AND ARMS TWICE DAILY FOR 2 WEEKS IN THE FALL/WIN TER MONTHS 10/27 completed Not Available Not Available Not Available hydroxyzi ne pamoate 50 mg capsule [...] DAILY FOR 2 WEEKS , THEN NEEDED 10/27 completed Not Available Not Available Not Available [...] Not Available lorazepam 0.5 mg tablet TAKE ONE-HALF TO 1 TABLET BY MOUTH DAILY NEEDED FOR INTENSE [...] release TAKE 1 TABLET BY MOUTH DAILY 10/27 completed Not Available Not Available Not Available buspirone 10 mg tablet TAKE 1-2 TABLETS BY MOUTH TWICE DAILY 12/08 completed Not Available Not Available Not Available lisinopri l 10 mg tablet TAKE 1 TABLET BY MOUTH AT BEDTIME active Not Available Not Available No t [...] completed Not Available Not Available Not Available clindamyc in 1 % lotion APPLY THIN LAYER TOPICALL Y TO THE AFFECTED AREA DAILY UNTIL RESOLVED 10/27 completed Not Available Not Available Not Available [...] completed Not Available Not Available Not Available sulfaceta mide sodium-pham lfur 8 %-4 % topical suspensio n WASH BODY ONCE DAILY. LATHER AND LET IT SIT FOR 1-2 MINUTES BEFORE RINSING. 10/27 completed Not Available Not Available Not Available [...] completed Not Available Not Available Not Available Nexium 24HR active Not Available Not Available Not Available Xyosted 100 mg/0.5 mL subcutane ous auto-inje ctor Inject 100 mg every week by subcutan eous route. 10/27 completed Not Available Not Available Not Available Xyosted 75 mg/0.5 mL subcutane ous auto-inje ctor Inject 75 mg every week by subcutan eous route. 2024 active Not Available Not Available Not Avai lable tirzepati de (weight loss) 12.5 mg/0.5 mL subcutane ous pen injector Inject every week by subcutan eous route. 10/27 completed Not Available Not Available Not Available Vitals Date Recorded Body mass index (BMI) Body weight Provider Name and Address Organization Details Last Updated DateTime 06/13/2024 31.2 kg/m2 34646.44 g Eulogio Quiroz MD [address] [facility] [address], [address], [facility] 06/13/2024 10:30:36 Date Recorded Body height Provider Name an d Address Organization Details Last Updated DateTime 06/13/2024 172[address] [facility] 06/13/2024 10:21:00 Date Recorded Body height Body mass index (BMI) Body weight Provider Name and Address Organization Details Last Updated DateTime 06/18/2023 172.72 cm 34.2 kg/m2 799190.[address] [facility] 06/18/2023 11:12:26 Date Recorded Body height Body mass index (BMI) Body weight Provider Name and Address Organization Details Last Updated DateTime 09/21/2023 172.72 cm 34.2 kg/m2 688442.[address] [facility] 09/21/2023 11:21:54 Date Recorded Body height Body mass index (BMI) Body weight Provider Name and Address Organization Details Last Updated DateTime 10/27/2024 172.72 cm 31.2 kg/m2 [address]6584.[address] [facility] 10/27/2024 15:57:25 Date Recorded Body height Body mass index (BMI) Body weight Provider Name and Address Organization Details Last Updated DateTime 12/09/2023 172.72 cm 34.1 kg/m2 927209.[address] [facility] 12/09/2023 11:30:14 Social History Question Answer Notes LastModified by Organizat ion Details LastModified Time Tobacco Smoking Status Never Smoker Eulogio Quiroz MD [address] [facility] [address], [place], [address], [facility] 01/09/2021 12:38:09 What Is Your Level Of Caffeine Consumption? Occasional Information not available 01/09/2021 Ethnicity Not /Latin o Information not available 06/14/2021 Preferred Language Hungarian Information not available 06/14/2021 Recreational Drug Use No Information not available 06/14/2021 Could You Be ? No Information not available 06/14/2021 What Was The Date Of Your Most Recent Tobacco Screening? 10/27/2024 [email or web address] Information not available 10/27/2024 What Is Your Relationship Status? Information not available 01/09/2021 Has Tobacco Cessation Counseling Been Provided? No Information not available 10/17/2021 Sex: Unknown Functional Status Question Answer Note LastModified by Organizat ion Details LastModified Time Do you use any illicit or recreational drugs? No Information not available 01/09/2021 Do you or have you ever used any other forms of tobacco or nicotine? No Information not available 01/09/2021 What is your level of alcohol consumption? None Information not available 01/09/2021 Are you currently employed? No Information not available 01/09/2021 Mental Status None recorded. Family History Relationship [...] Not available 12:36:42 Medical History Condition Response Diabetes N Sexually Transmitted Infection N Other N Bleeding Disorder N High Blood Pressure Y Kidney Stones N High Cholesterol N GERD/Acid Reflux Y Heart Disease N Cancer N Lung Disease N Depression N Immunizations Vaccine Type Date Status Note Provider Nam e and Address Organization Details Recorded Time Influenza, high-dose, quadrivalent, PF 2 completed Crsitina franklin, [facility] 06/18/2023 11:12:35 Tdap 2 completed Cristina franklin, [facility] 06/18/2023 11:12:35 Influenza, split virus, quadrivalent, PF 0 completed Cristina Rhodes null, [facility] 06/18/2023 11:12:35 Influenza, high-dose, quadrivalent, PF 2 completed Not Available [facility] 10/27/2024 15:48:35 Influenza, high-dose, quadrivalent, PF 3 completed Not Available [facility] 10/27/2024 15:48:35 Pneumococcal conjugate PCV20, polysaccharide AUC256 conjugate, adjuvant, PF 3 completed Not Available [facility] 10/27/2024 15:48:35 RSV, bivalent, protein subunit RSVpreF, diluent reconstituted, 0.5 mL, PF 4 completed Not Available [facility] 10/27/2024 15:48:35 Influenza, high-dose, trivalent, PF 4 completed Not Available [facility] 10/27/2024 15:48:35 Influenza, split virus, quadrivalent, preservative 9 completed Eulogio Quiroz MD [address] [place] [address],[address], [address], [facility] 02/04/2023 12:06:32 Influenza, MDCK, quadrivalent, preservative 8 completed Eulogio Quiroz MD [address] [place] [address],[address], [address] [place] [address], [facility] 02/04/2023 12:06:32 zoster recombinant 0 completed Eulogio Quiroz MD [address] [place] [address],[address], [address], [facility] 02/04/2023 12:06:32 zoster recombinant 0 completed Eulogio Quiroz MD [address] [place] [address],[address] [place] [address], [address], [facility] 02/04/2023 12:06:32 Influenza, adjuvanted, quadrivalent, PF 0 completed Eulogio Quiroz MD [address] [place] [address],[address], [address], [facility] 02/04/2023 12:06:32 COVID-19, mRNA, LNP-S, PF, 30 mcg/0.3 mL dose 1 completed Eulogio Quiroz MD [address] [place] [address],[address] [place], [address], [facility] 02/04/2023 12:06:32 COVID-19 vaccine, vector-nr, rS-Ad26, PF, 0.5 mL 1 completed Eulogio Quiroz MD [address] [place] [address],[address], [place], [address], [facility] 02/04/2023 12:06:32 pneumococcal polysaccharide PPV23 0 completed Eulogio Quiroz MD [address] [place] [address],[address], [place], [address], [facility] 02/04/2023 12:06:32 Tdap 2 completed Eulogio Quiroz MD [address] [place] [address],[address], [address], [facility] 02/04/2023 12:06:32 Tdap 8 completed Eulogio Quiroz MD [address] [place] [address],[address], [address], [facility] 02/04/2023 12:06:32 zoster live 5 completed Eulogio Quiroz MD [address] [place] [address],[address], [address], [facility] 02/04/2023 12:06:32 Influenza, split virus, trivalent, preservative 2 completed Eulogio Quiroz MD [address] [place] [address],[address], [address], [facility] 02/04/2023 12:06:32 Influenza, split virus, trivalent, preservative 0 completed Eulogio Quiroz MD [address] [place] [address],[address], [place], [address], [facility] 02/04/2023 12:06:32 Influenza, split virus, trivalent, PF 2 completed Eulogio Quiroz MD [address] [place] [address],[address], [address], [facility] 02/04/2023 12:06:32 Influenza, split virus, trivalent, PF 4 completed Eulogio Quiroz MD [address] [place] [address],[address], [place], [address], [facility] 02/04/2023 12:06:32 influenza, whole 7 completed Eulogio Quiroz MD [address] [place] [address],[address], [place], [address], [facility] 02/04/2023 12:06:32 Novel [id number] 0 completed Eulogio Quiroz MD [address] [place] [address],[address], [address], [facility] 02/04/2023 12:06:32 Td (adult), 2 Lf tetanus toxoid, preservative free, adsorbed 7 completed Eulogio Quiroz MD [address] [place] [address],[address], [address], [facility] 02/04/2023 12:06:32 Past Encounters Encounter ID Performer Location Encounter Start Date Encounter Closed Date Diagnosis/Indication Diagnosis SNOMED-CT Code Diagnosis ICD10 Code Diagnosis Note [id number] Eulogio Quiroz MD [facility] [address] [place] [address] 01/09/2021 11:56:31 01/11/2021 14:10:01 Increased frequency of urination [id number] R35.0 - UroFlow today revealed Qmax 15.4, [...] potential course of action. 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 Primary er ectile dysfunction 530015801 N52.9 - Using tadalafil 20 mg but still issues with maintenanc e. We discussed utilizing penile occlusion ring (Ronny by Brenda) to aid in erectile maintenanc e. Benign pro static hyperplasia 322269700 N40.1 - As above [id number] Eulogio Quiroz MD _[address] [place] [address] 01/09/2021 11:56:31 01/11/2021 14:10:01 [id number] [facility] [address] [place] [address] 04/19/2021 13:48:43 04/29/2021 09:32:58 Increased frequency of urination 546825597 R35.0 - UroFlow revealed Qmax 15.4, obstructed [...] potential course of action. Induration penis plastica 2653918 N48.6 - Has obtained RestorEX but hasn't started using it yet. Primary er ectile dysfunction 120697204 N52.9 - Using tadalafil 20 mg but still issues with maintenanc e. We discussed utilizing penile occlusion ring (Ronny by Brenda) to aid in erectile maintenanc e. Benign pro static hyperplasia 816435864 N40.1 - As above [id number] Eulogio Quiroz MD [address] [place] [address] 06/14/2021 13:00:49 06/21/2021 07:44:31 Increased frequency of urination 168062852 R35.0 - UroFlow revealed Qmax 15.4, obstructed [...] potential course of action. Induration penis plastica 4549736 N48.6 - Has obtained RestorEX but hasn't started using it yet. Primary er ectile dysfunction 764781541 N52.9 - Using tadalafil 20 mg but still issues with maintenanc e. We discussed utilizing penile occlusion ring (Ronny by Brenda) to aid in erectile maintenanc e. Benign pro static hyperplasia 120586569 N40.1 - As above [id number] Eulogio Quiroz MD _[place] [address] [place] [address] 08/12/2021 09:33:28 08/14/2021 09:44:56 Increased frequency of urination 750030467 R35.0 - UroFlow revealed Qmax 15.4, obstructed /prolonged pattern voiding - PVR 17 ml - AUASS = 26 - Cystoscopy with bilobar coaptation and high median bar - TRUS volume 38.55 ml - S/P UroLift and doing well. Induration penis plastica 6153590 N48.6 - Has obtained RestorEX. Primary er ectile dysfunction 014255864 N52.9 - Using tadalafil 20 mg but still issues with maintenanc e. We discussed utilizing penile occlusion ring (Ronny by Brenda) to aid in erectile maintenanc e. Benign pro static hyperplasia 590715939 N40.1 - As above Reduced libido 0352340 R 68.82 - Will trial clomid to try and bump up his testostero ne free fraction. Will follow up in 6 months to assess efficacy. May need to consider dopaminerg ic augmentati on. [id number] Eulogio Quiroz MD _[place] [address] [place] [address] 10/17/2021 16:52:12 10/21/2021 08:48:06 Increased frequency of urination 460670607 R35.0 - UroFlow Qmax 15.4, obstructed /prolonged pattern voiding - PVR 17 ml - TRUS volume 38.55 ml - S/P UroLift and doing well, though continues with symptoms Induration penis plastica 7820943 N48.6 - Has obtained RestorEX. Primary er ectile dysfunction 224700031 N52.9 - Using tadalafil 20 mg but still issues with maintenanc e. We discussed utilizing penile occlusion ring (Ronny by Giwade) to aid in erectile maintenanc e. Benign pro static hyperplasia 280583317 N40.1 - As above Reduced libido 9797633 R 68.82 - Symptoms improved with clomid but bothersome gynecomast ia. Would like to trial testostero ne replacemen t. Will set up for in-office injection teaching. Will utilize 100 mg weekly. [id number] MD MONY [facility] [address] 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 Primary er ectile dysfunction 646378004 N52.9 - Using tadalafil 20 mg but still issues with maintenanc e. We discussed utilizing penile occlusion ring (Ronny by Brenda) to aid in erectile maintenanc e. Benign pro static hyperplasia 730513184 N40.1 - As above Reduced libido 4888988 R 68.82 - Symptoms improved with clomid but bothersome gynecomast ia. Would like to trial testostero ne replacemen t. Will set up for in-office injection teaching. Will utilize 100 mg weekly. Hypogonadism 04990664 E2 9.1 - Would like to avoid intramuscu lar injections so we will trial Xyosted 100 mg weekly.-Cecelia carey like to see him back after a 6-week trial period with repeat labs [id number] MD MONY [facility] [address] [place] [address] 04/17/2022 15:26:48 04/21/2022 10:46:42 Increased frequency of urination 980405396 R35.0 - UroFlow Qmax 15.4, obstructed /prolonged pattern voiding - PVR 17 ml - TRUS volume 38.55 ml - S/P UroLift and doing well Induration penis plastica 1241899 N48.6 - Has obtained RestorEX. Primary er ectile dysfunction 964410271 N52.9 - Using tadalafil 20 mg but still issues with maintenanc e Benign pro static hyperplasia 977805198 N40.1 - As above Reduced libido 2404330 R 68.82 - Symptoms improved with clomid but bothersome gynecomast ia. Was going to use Xyosted but insurance rejected to required topical T, which he reports so far has been substantia lly less effective than xyosted. We will complete 6-week trial of topical testostero ne. If continues to have insufficie nt response however we will file an appeal for coverage of Xyosted Hypogonadism 96208813 E2 9.1 - As above [id number] Eulogio Quiroz MD _[place] [address] [place] [address] 10/15/2022 14:32:34 10/22/2022 09:42:43 Increased frequency of urination 315160770 R35.0 - Obtain UroCuff - PVR 17 ml - TRUS volume 38.55 ml Induration penis plastica 3822172 N48.6 - Has obtained RestorEX. Primary er ectile dysfunction 940243458 N52.9 - Using tadalafil 20 mg but still issues with maintenanc e- Will consider IPP Benign pro static hyperplasia 899638055 N40.1 - Symptoms have returned s/p UroLift- Would consider Aquablatio n Reduced libido 2995743 R 68.82 - Continue Xyosted- Safety labs in 6 months Hypogonadism 36099917 E2 9.1 - As above [id number] Eulogio Quiroz MD _[place] [address] [place] [address] 02/04/2023 11:46:14 02/11/2023 16:58:57 Increased frequency of urination 525907580 R35.0 - Obtain UroCuff - PVR 17 ml - TRUS volume 38.55 ml Induration penis plastica 8430262 N48.6 - Has obtained RestorEX. Primary er ectile dysfunction 000824989 N52.9 - Using tadalafil 20 mg but still issues with maintenanc e- Would liek to move forward with IPP Benign pro static hyperplasia 433855402 N40.1 - Symptoms have returned s/p UroLift- Would consider Aquablatio n Reduced libido 6578222 R 68.82 - Continue Xyosted- Safety labs in 6 months Hypogonadism 61751650 E2 9.1 - As above [id number] Eulogio Quiroz MD [facility] [address] [place] [address] 03/06/2023 10:57:44 03/11/2023 15:23:51 Primary erectile dysfunction 947518015 N52.9 [id number] Eulogio Quiroz MD _[place] [address] [place] [address] 03/18/2023 11:23:53 03/24/2023 15:57:14 Increased frequency of urination 029392585 R35.0 - Obtain UroCuff - PVR 17 ml - TRUS volume 38.55 ml Induration penis plastica 8778126 N48.6 - Now s/p IPP- Yakelin removed- Healing well- Device Cycling Education provided- Ok to start using device at 3 weeks post-op Primary er ectile dysfunction 740575852 N52.9 - S/p IPP Benign pro static hyperplasia 005798812 N40.1 - Symptoms have returned s/p UroLift- Would consider Aquablatio n Reduced libido 8910572 R 68.82 - Continue Xyosted- Safety labs in 6 months Hypogonadism 19929933 E2 9.1 - As above [id number] Eulogio Quiroz MD [facility] [address] [place] [address] 04/29/2023 11:45:37 04/30/2023 13:22:21 Increased frequency of urination 850851447 R35.0 - Obtain UroCuff - PVR 17 ml - TRUS volume 38.55 ml Induration penis plastica 4590711 N48.6 - Now s/p IPP- Healing well- Device Cycling Education provided Primary er ectile dysfunction 777457508 N52.9 - S/p IPP Benign pro static hyperplasia 894606968 N40.1 - Symptoms have returned s/p UroLift- Would consider Aquablatio n vs repeat UroLift Reduced libido 2339643 R 68.82 - Continue Xyosted- Safety labs in 6 months Hypogonadism 72935560 E2 9.1 - As above [id number] MD MONY [facility] [address] [place] [address] 06/18/2023 11:05:15 06/19/2023 10:46:16 Increased frequency of urination 558745996 R35.0 - Obtain UroCuff - PVR 17 ml - TRUS volume 38.55 ml Induration penis plastica 2501381 N48.6 - Now s/p IPP- Healing well- Device Cycling Education provided Primary er ectile dysfunction 613709733 N52.9 - S/p IPP Benign pro static hyperplasia 314938513 N40.1 - Symptoms have returned s/p UroLift- Would like to pursue repeat UroLift Reduced libido 0035077 R 68.82 - Continue Xyosted- Safety labs in 6 months Hypogonadism 88488410 E2 9.1 - As above [id number] MD MONY [facility] [address] [place] [address] 09/21/2023 10:55:10 09/22/2023 08:30:40 Increased frequency of urination 565400830 R35.0 - Obtain UroCuff - PVR 17 ml - TRUS volume 38.55 ml- Would like to proceed with repeat [facility] at [facility] Induration penis plastica 8905108 N48.6 - Now s/p IPP- Doing well, continue cycling regimen Primary er ectile dysfunction 850683396 N52.9 - S/p IPP Benign pro static hyperplasia 888024542 N40.1 - Symptoms have returned s/p UroLift- Would like to pursue repeat UroLift Reduced libido 7606401 R 68.82 - Continue Xyosted- PSA following oscillatio n pattern- Safety labs in 6 months Hypogonadism 56621738 E2 9.1 - As above Prostate s pecific antigen above reference range 503602427 R97.20 - repeat check back down- Following oscillatio n pattern, most consistent with prostatic inflammati on- Treat with meloxicam Late ejaculation 3464187 8 N53.11 - Related to SSRI [id number] MD MONY [facility] [address] [place] [address] 12/09/2023 10:55:27 12/11/2023 11:23:27 Increased frequency of urination 492633038 R35.0 - Obtain UroCuff in 6 months- IPSS: 23 (4) --> 10 (2) - PVR 17 ml --> 27 mL - TRUS volume 38.55 ml- S/p repeat UroLift Induration penis plastica 4409976 N48.6 - Now s/p IPP- Doing well, continue cycling regimen Primary er ectile dysfunction 547649670 N52.9 - S/p IPP Reduced libido 1716436 R 68.82 - Continue Xyosted- PSA following oscillatio n pattern- Safety labs in 6 months Hypogonadism 54135183 E2 9.1 - As above Prostate s pecific antigen above reference range 472819317 R97.20 - repeat check back down- Following oscillatio n pattern, most consistent with prostatic inflammati on- Will follow Q6 months Late ejaculation 8182073 8 N53.11 - Related to SSRI [id number] Eulogio Quiroz MD [facility] [address] [place] [address] 06/13/2024 10:06:24 06/15/2024 16:38:29 Increased frequency of urination 790168833 R35.0 - Obtain UroCuff in 6 months- IPSS: 23 (4) --> 10 (2) --> 9 (3) - PVR 17 ml --> 27 mL --> 73 mL - TRUS volume 38.55 ml- S/p repeat UroLift Induration penis plastica 1601187 N48.6 - Now s/p IPP- Doing well, continue cycling regimen Primary er ectile dysfunction 259279318 N52.9 - S/p IPP Reduced libido 4433222 R 68.82 - Continue Xyosted- Safety labs in 6 months Prostate s pecific antigen above reference range 420872323 R97.20 - repeat check back down- Following oscillatio n pattern, most consistent with prostatic inflammati on- PSAtoday 3.6 ng/mL- Will follow Q6 months Late ejaculation 1055521 8 N53.11 - Related to SSRI Male hypogonadism 000610 06 E29.1 - Safety labs in 12 months ( ok to just draw during annual PCP visit) [id number] Eulogio Quiroz MD [facility] [address] [place] [address] 10/27/2024 15:43:13 11/08/2024 10:42:43 Increased frequency of urination 142250556 R35.0 - Obtain UroCuff in 6 months- IPSS: 23 (4) --> 10 (2) --> 9 (3) --> 13 (3) - PVR 17 ml --> 27 mL --> 73 mL --> 23 mL - TRUS volume 38.55 ml- S/p repeat UroLift Induration penis plastica 1162688 N48.6 - Now s/p IPP- Doing well, continue cycling regimen Primary er ectile dysfunction 158283994 N52.9 - S/p IPP Reduced libido 9224420 R 68.82 - Continue Xyosted, would like to reduce dose- Repeat Safety labs Male hypogonadism 244658 06 E29.1 - Safety labs in 12 months ( ok to just draw during annual PCP visit) Prostate s pecific antigen above reference range 942608426 R97.20 - repeat check back down- Following oscillatio n pattern, most consistent with prostatic inflammati on- PSA stable at 3.6 ng/mL- Will follow Q6 months Late ejaculation 2866741 8 N53.11 - Related to SSRI Hypogonadism 71726222 E2 9.1 - As above Health Concerns Section Related Observation LastModified by Organization Detai ls LastModified Time None Recorded Concern Status LastModified by Organization Details LastModified Time None Recorded Advance Directives Directive None Recorded Payers Insurance Date Sequence Insurance Name Policy Number Policy Mahan Covered Member ID Mahan Member ID Guarantor Name 10/27/2024 2 [employer] (MEDICARE REPLACEMENT/ADVA NTAGE - HMO Duy Schreiber [id number] Duy Schreiber 11/08/2024 2 [employer] Duy Schreiber [id number] Duy Schreiber 10/15/2021 1 [place] [id number] Duy Schreiber [id number] Duy Schreiber 10/27/2024 1 [place] [employer] Duy Schreiber [id number] Duy Schreiber 10/27/2024 2 [place] Duy Schreiber [id number] Duy Schreiber Notes Date Note Type Note Provider Name and Address Organization Details Recorded Time 06/18/2023 text/html 68 year old male who follows with me in [place] for long-standing urinary frequency and weakened urinary [...] in pursuing repeat UroLift. Eulogio Quiroz MD [address] [place] [address],[address], [place], [address], [facility] 06/18/2023 13:26:29 09/21/2023 text/html 68 year old male who follows with me in [place] for long-standing urinary frequency and weakened urinary [...] PSA 4.6 ng/mL Eulogio Quiroz MD [address] [facility],[address], [place], [address], [facility] 09/21/2023 13:14:39 12/09/2023 text/html 68 year old male who follows with me in [place] for long-standing urinary frequency and weakened urinary [...] reports significant improvement. Eulogio Quiroz MD [address] [facility],[address], [place], [address], [facility] 12/09/2023 13:57:13 06/13/2024 text/html 68 year old male who follows with me in [place] for long-standing urinary frequency and weakened urinary [...] s/p repeat UroLift and reports significant improvement. 06/13/2024:Here for follow up urinary frequency and weakened urinary stream s/p UroLift. Also, long history of Peyronie's, ED, Hypospadias, and symptoms of hypogonadism. S/p IPP. Doing overall lenore well. PSA today 3.6 ng/mL Eulogio Quiroz MD [address] [facility],[address], [place], [address], [place] [facility] 06/13/2024 13:50:46 10/27/2024 text/html 68 year old male who follows with me in [place] for long-standing urinary frequency and weakened urinary [...] s/p repeat UroLift and reports significant improvement. 06/13/2024:Here for follow up urinary frequency and weakened urinary stream s/p UroLift. Also, long history of Peyronie's, ED, Hypospadias, and symptoms of hypogonadism. S/p IPP. Doing overall really well. PSA today 3.6 ng/mL 10/27/2024:Here for follow up urinary frequency and weakened urinary stream s/p UroLift. Also, long history of Peyronie's, ED, Hypospadias, and symptoms of hypogonadism. S/p IPP. Doing overall really well. PSA recently 6.37 ng/mL Eulogio Quiroz MD [address] [address] [facility],[address], [place], [address], [facility] 10/27/2024 17:50:40
--- OUTSIDE RECORDS SUMMARY | 2024-12-05 16:39 | XMS_ITS | Clinical Summary ---
Author Organization [facility]ly [facility], later [facility] Address [address] [place] [address] Care Team Providers Care Recruitment And Outreach Assistant Name Role Phone Mushtaq Garcia MD Primary Care Provider + [phone] Source Comments You are receiving this document as you are listed as the primary care provider,follow-up provider, or the patient has been referred to you for consultation.This is in compliance with the Medicare andHolzer Health Systemcaid EHR Incentive Program,which states Providers who transition their patient to another setting of careor provider of care or refers their patient to another provider of care shouldprovide summary care record for each transition of care or referral. [employer] SystemsFour Corn[facility] CenterTek[employer]k Allergies Active Allergy Reactions Criticality Noted Date Comments Penicillins Anaphylaxis High 10/15/2016 Medications buPROPion (WELLBUTRIN XL) 300 MG 24 hour release tabletIndications :Low testosterone,Fati noe, unspecified type TK 1 T PO D 2 09/30/2016 Active escitalopram oxalate (LEXAPRO) 20 MG tabletIndications :Low testosterone,Fati noe, unspecified type TK 0.5 T PO D 3 07/24/2016 Active lisinopril (ZESTRIL) 20 MG tabletIndications :Low testosterone,Fati noe, unspecified type TK 1 T PO D 3 07/24/2016 Active rosuvastatin (CRESTOR) 5 MG tabletIndications :Low testosterone,Fati noe, unspecified type TK 1 T PO HS 2 09/11/2016 Active Coenzyme Q10 (COQ10) 100 MGIndications:Low testosterone,Fati noe, unspecified type 100 mg. Active [place]-3 Fatty Acids (OMEGA 3 500 OR)Indications:Lo w testosterone,Fati noe, unspecified type 500 mg. Active multivitamin (THERAGRAN) tabletIndications :Low testosterone,Fati noe, unspecified type Take 1 Tab by mouth daily. Active cholecalciferol (VITAMIND3) 2000 UNITS tabletIndications :Low testosterone,Fati noe, unspecified type Take 2,000 Units by mouth daily. Active Turmeric (CURCUMIN 95 OR)Indications:Lo w testosterone,Fati noe, unspecified type Active Resveratrol 100 MG CAPSIndications:L ow testosterone,Fati noe, unspecified type 100 mg. Active Active Problems [...] at Not on file Legal Sex Male 8:38 AM CDT Gender Identity Not on file Sexual [...] Services) 1953 Adult Preventive Visit 1971 DTaP/Tdap/Td Vaccine (1 - Tdap) 1972 Cholesterol 1988 Pneumococcal Vaccine 50+ Yrs (1 of 1 - PCV) 2003 Zoster/Shingles Vaccine (1 of 2) 2003 COVID-19 Vaccine ( - 2023-2 5 season) 2024 Influenza Vaccine (#1) 2025 RSV Vaccine (1 - 1-dose 75+ series) 2028 HepA Vaccine Aged Out No longer eligi ble based on patient's age to complete this topic HepB Vaccine Aged Out No longer eligi ble based on patient's age to complete this topic Hib Vaccine Aged Out No longer eligi ble based on patient's age to complete this topic IPV (Polio) Vaccine Aged Out No longe r eligible based on patient's age to complete this topic MCV4 Vaccine Aged Out No longer eligi ble based on patient's age to complete this topic Meningococcal B Vaccine Aged Out No l onger eligible based on patient's age to complete this topic Insurance [facility] Care Teams Recruitment And Outreach Assistant Relationship Specialty Start Date End Date Mushtaq Garcia MD [address] [place] [address] PCP - General 10/15/16
--- OUTSIDE RECORDS SUMMARY | 2024-12-05 16:39 | XMS_ITS | Clinical Summary ---
Author Organization [facility] Address [address] [place] [id number] Care Team Providers Care Administrative Office Manager Name Role Phone Unknown, Md Primary Care [...] Years (2 of 2 - PCV) 07/12/2020 07/12/2019 Adult Tetanus Booster 05/18/2021 05/18/2011 , 10/12/2007, 05/18/2006 COVID-19 Vaccine (3 - 2023-2 5 season) 2024 03/13/2021, 07/20/2020 Yearly Review of HCD 01/28/2024 01/28/2023 Influenza Vaccine (#1) 2025 02/23/2019 RSV Vaccines (1 - 1-dose 75+ series) 2028 Zoster Vaccine Completed 12/28/2019, 07/19/2019, 10/12/2014 Meningococcal B Vaccine Aged Out No l onger eligible based on patient's age to complete this topic Medical Devices Implanted Type Area Instrument Assembly Supervisor Device Identifier Shelf Expiration Date Model / Serial / Lot Cl [employer] Titan - [id number] Implanted:Qty: 1 on 03/03/2023 by Eulogio Quiroz MD at [facility] Penile N/A: Pelvis [employer]oplast Luanne 12/05/2027 [id number] / / [id number] Assembly Kit Titan - [id number] Implanted:Qty: 1 on 03/03/2023 by Eulogio Quiroz MD at [facility] Supply N/A: Penis [employer] Luanne 10/14/2027 [id number] / / [id number] Infrapubic Cylinder Pump Titan Implanted:Qty: 1 on 03/03/2023 by Eulogio Quiroz MD at [facility] N/A: Penis [employer]oplast Luanne 07/01/2027 [id number] Insurance [facility] [place] [id number] PENDING SALE TO [facility] [place]ICARE [place]PPLE[place] [id number] MEDICARE PART A & B [facility] [place] [id number] Care Teams Administrative Office Manager Relationship Specialty Start Date End Date Unknown, NO ADDRESS/PHONE/FAX AFFILIATED PCP - General 02/19/23
--- OUTSIDE RECORDS SUMMARY | 2024-12-05 16:39 | XMS_ITS | Continuity of Care Document ---
Author Organization [facility], [facility] Address [address] [place] [address] Care Team Providers Care Retail Sales Assistant Name Role Phone [facility] Primary Care Provider Assessment Encounter Date Assessment Date Assessment LastModified by Organization Details LastModified Time 10/27/2024 10/27/2024 69 year old male with [...] encounter; and coordination of care. Not available 10/27/2024 17:50:12 Plan of Treatment Reminders Order Date Submit Date Provider Last Modified By Organization Details Last Modified Time Details Appointments ESTABLISH ED 10 2024 09:10A M Eulogio Quiroz MD Not available Not available Not available Lab None recorded. Referral None recorded. Procedures None recorded. Surgeries None recorded. Imaging None recorded. Medication Orders Xyosted 75 mg/0.5 mL subcutane ous auto-inje ctor 2024 025 [facility], [address] [place] [address] , [address], [place], [place], [phone], 10/27/2024 16:12:44 Patient TargetsNo targets recorded. Patient InstructionsNo instructions recorded. Reason for Referral None Reported. Procedures Surgical History Date Name Laterality Status Provider Name and Address Organization Details Recorded Time 10/28/19 25 COMPLEX VISIT completed Eulogio Quiroz MD [address] [facility] [address] [address], [place], [address], [facility] 10/27/2024 09:19:37 10/28/19 25 Bladder Scan completed Usha Hurley [facility] 10/27/2024 15:57:05 06/13/19 25 COMPLEX VISIT completed Eulogio Quiroz MD [address] [place] [address],[address], [place], [address], [facility] 06/13/2024 13:48:38 06/13/19 25 Bladder Scan completed Eulogio Quiroz MD [address] [place] [address],[address], [place], [address], [facility] 06/13/2024 10:26:15 06/13/19 25 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 RESULTS completed Abdulaziz Wilson [facility] 06/13/2024 10:21:13 12/09/19 24 COMPLEX VISIT completed Eulogio Quiroz MD [address] [place] [address],[address], [place], [address], [facility] 12/09/2023 13:57:03 12/09/19 24 Bladder Scan completed Vanessa Garvey [facility] 12/09/2023 11:35:14 09/21/19 24 COMPLEX VISIT completed Eulogio Quiroz MD [address], [place], [address], [facility] 09/21/2023 13:14:17 09/21/19 24 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 RESULTS completed Cristina Rhodes [facility] 09/21/2023 11:22:34 06/18/19 24 COMPLEX VISIT completed Eulogio Quiroz MD [address] [facility] [address], [place], [address], [facility] 06/18/2023 13:26:00 06/18/19 24 Bladder Scan completed Cristina Rhodes [facility] 06/18/2023 11:11:00 03/18/20 23 Staple Removal completed Abdulaziz Wilson [facility] 03/18/2023 11:52:31 03/06/20 23 Drain Removal completed Naheed Garcia [facility] 03/06/2023 11:28:45 10/16/19 23 Cystoscopy- male completed Eulogio Quiroz MD [address] [place] [address],[address], [place], [address], [facility] 10/15/2022 17:49:10 01/10/20 21 Cystoscopy- male completed Eulogio Quiroz MD [address] [place] [address],[address], [place], [address], [facility] 01/09/2021 13:31:32 01/10/20 21 TRUS- Volume size only completed Eulogio Quiroz MD [address] [place] [address],[address], [place], [address], [facility] 01/09/2021 13:32:01 05/18/19 18 colonoscopy completed Daija Weller [facility] 06/14/2021 13:03:27 Imaging Results None recorded. Procedure Notes None recorded. Medical Equipment None Reported. Allergies Allergen ID Allergen Name Allergen Category Reaction Reaction Severity Criticality Documentation Date Start Date Code Code System Note Provider Name and Address Organization Details Recorded Time 092261 Product containin g penicilli n (product) medicatio n swelling severe Not available 01/09/2021 51904 8001 SNOMED Eulogio Quiroz MD [address] [place] [address],[address] [place] [address], [phone], [facility] 12:32:53 Medications Name Sig Start Date [...] TWICE DAILY FOR 2 WEEKS IN THE FALL/ TER 10/27 completed Not Available Not Available Not [...] Not Available Vitals Date Recorded Body height Body mass index (BMI) Body weight Provider Name and Address Organization Details Last Updated DateTime 10/27/2024 172.72 cm 31.2 kg/m2 78118.44 g Usha Hurley [facility] 10/27/2024 15:57:25 Social History Question Answer Notes LastModified by Organizat ion Details LastModified Time Tobacco Smoking Status Never Smoker Eulogio uQiroz MD [address], [place], [address], [facility] 01/09/2021 12:38:09 What Is Your Level Of Caffeine Consumption? Occasional Information not available 01/09/2021 Ethnicity Not /Latin o [facility] Information not available 06/14/2021 Preferred Language Irish [facility] Information not available 06/14/2021 Recreational Drug Use No Information not available 06/14/2021 Could You Be ? No [facility] Information not available 06/14/2021 What Was The [...] Disease N Depression N GERD/Acid Reflux Y Diabetes N Sexually Transmitted Infection N Bleeding Disorder N Cancer N High Cholesterol N Heart Disease N Immunizations Vaccine Type Date Status Note Provider Nam e and Address Organization Details Recorded Time Influenza, high-dose, quadrivalent, PF 2 completed Cristina Rhodes null, [facility] 06/18/2023 11:12:35 Tdap 2 completed Cristina Rhodes null, [facility] 06/18/2023 11:12:35 Influenza, split virus, quadrivalent, PF 0 completed Cristina franklin, [facility] 06/18/2023 11:12:35 Influenza, high-dose, quadrivalent, PF 2 completed Not Available [facility] 10/27/2024 15:48:35 Influenza, high-dose, quadrivalent, PF 3 completed Not Available [facility] 10/27/2024 15:48:35 Pneumococcal conjugate PCV20, polysaccharide [id number] conjugate, adjuvant, PF 3 completed Not Available [facility] 10/27/2024 15:48:35 RSV, bivalent, protein subunit RSVpreF, diluent reconstituted, 0.5 mL, PF 4 completed Not Available [facility] 10/27/2024 15:48:35 Influenza, high-dose, trivalent, PF 4 completed Not Available [facility] 10/27/2024 15:48:35 Influenza, split virus, quadrivalent, preservative 9 completed Eulogio Quirzo MD [address] [place] [address],[address], [address], [facility] 02/04/2023 12:06:32 Influenza, MDCK, quadrivalent, preservative 8 completed Eulogio Quiroz MD [address] [place] [address],[address], [address], [facility] 02/04/2023 12:06:32 zoster recombinant 0 completed Eulogio Quiroz MD [address] [place] [address],[address], [address], [facility] 02/04/2023 12:06:32 zoster recombinant 0 completed Eulogio Quiroz MD [address] [place] [address],[address], [address], [facility] 02/04/2023 12:06:32 Influenza, adjuvanted, quadrivalent, PF 0 completed Eulogio Quiroz MD [address] [place] [address],[address], [address], [facility] 02/04/2023 12:06:32 COVID-19, mRNA, LNP-S, PF, 30 mcg/0.3 mL dose 1 completed Eulogio Quiroz MD [address] [place] [address],[address], [address], [facility] 02/04/2023 12:06:32 COVID-19 vaccine, vector-nr, rS-Ad26, PF, 0.5 mL 1 completed Eulogio Quiroz MD [address] [place] [address],[facility] [address], [place], [address], [facility] 02/04/2023 12:06:32 pneumococcal polysaccharide PPV23 0 completed Eulogio Quiroz MD [address] [place] [address],[address], [address], [facility] 02/04/2023 12:06:32 Tdap 2 completed Eulogio Quiroz MD [address] [place] [address],[address], [address], [facility] 02/04/2023 12:06:32 Tdap 8 completed Eulogio Quiroz MD [address] [place] [address],[address], [address], [facility] 02/04/2023 12:06:32 zoster live 5 completed Eulogio Quiroz MD [address] [place] [address],[address], [place], [address], [facility] 02/04/2023 12:06:32 Influenza, split virus, trivalent, preservative 2 completed Eulogio Quiroz MD [address] [place] [address],[facility] [address], [place], [address], [facility] 02/04/2023 12:06:32 Influenza, split virus, trivalent, preservative 0 completed Eulogio Quiroz MD [address] [place] [address],[address], [place], [address], [facility] 02/04/2023 12:06:32 Influenza, split virus, trivalent, PF 2 completed Eulogio Quiroz MD [address] [place] [address],[address], [place], [address], [facility] 02/04/2023 12:06:32 Influenza, split virus, trivalent, PF 4 completed Eulogio Quiroz MD [address] [place] [address],[address], [place], [address], [facility] 02/04/2023 12:06:32 influenza, whole 7 completed Eulogio Quiroz MD [address] [place] [address],[facility] [address], [place], [address], [facility] 02/04/2023 12:06:32 Novel [id number] 0 completed Eulogio Quiroz MD [address] [place] [address],[address], [address], [facility] 02/04/2023 12:06:32 Td (adult), 2 Lf tetanus toxoid, preservative free, adsorbed 7 completed Eulogio Quiroz MD [address] [place] [address],[address], [address], [facility] 02/04/2023 12:06:32 Past Encounters Encounter ID Performer Location Encounter Start Date Encounter Closed Date Diagnosis/Indication Diagnosis SNOMED-CT Code Diagnosis ICD10 Code Diagnosis Note [id number] Eulogio Quiroz MD [facility] [address] [place] [address] 10/27/2024 15:43:13 11/08/2024 10:42:43 Increased frequency of urination 838573723 R35.0 - Obtain UroCuff in 6 months- IPSS: 23 (4) --> 10 (2) --> 9 (3) --> 13 (3) - PVR 17 ml --> 27 mL --> 73 mL --> 23 mL - TRUS volume 38.55 ml- S/p repeat UroLift 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 - Now s/p IPP- Doing well, continue cycling regimen Primary er ectile dysfunction 420607509 N52.9 - S/p IPP Reduced libido 2649295 R 68.82 - Continue Xyosted, would like to reduce dose- Repeat Safety labs Male hypogonadism 862599 06 E29.1 - Safety labs in 12 months ( ok to just draw during annual PCP visit) Prostate s pecific antigen above reference range 505839902 R97.20 - repeat check back down- Following oscillatio n pattern, most consistent with prostatic inflammati on- PSA stable at 3.6 ng/mL- Will follow Q6 months Late ejaculation 0415780 8 N53.11 - Related to SSRI Hypogonadism 62811612 E2 9.1 - As above Health Concerns Section Related Observation LastModified by Organization Detai ls LastModified Time None Recorded Concern Status LastModified by Organization Details LastModified Time None Recorded Payers Encounter Date Sequence Insurance Name Policy Number Policy Mahan Covered Member ID Mahan Member ID Guarantor Name 10/27/2024 2 [employer] Duy Schreiber [id number] Duy Schreiber 10/27/2024 1 [place] Source MDx Duy Schreiber [id number] Duy Schreiber Notes Date Note Type Note Provider Name and Address Organization Details Recorded Time 10/27/2024 text/html 68 year old male who follows with me in [place] for long-standing urinary frequency and weakened urinary [...] recently 6.37 ng/mL Eulogio Quiroz MD [address] [facility] [address], [place], [address], [facility] 10/27/2024 17:50:40
[2024-12-05 16:41] VITALS: BP 185/101; PULSE 106; RESP 20; TEMP 37; O2SAT 96; BMI 33.8
[2024-12-05 17:04] VITALS: BP 171/87; PULSE 85; RESP 13; O2SAT 93
--- NOTE | 2024-12-05 17:30 | CRLHL7_ITS ---
For Patients: As a result of the Cures Act, medical imaging exams and procedure reports are released immediately into your electronic medical record. You may view this report before your referring provider. If you have questions, please contact your health care provider. INDICATION: Palpitations, chest pain. TECHNIQUE: Chest 2 views. COMPARISON: None. FINDINGS: Lungs: Normal lung volume. No consolidation. The tracheobronchial tree and hilar structures are unremarkable. Pleura: No pleural effusion or pneumothorax. Heart and Mediastinum: Normal heart size. The great vessels of the thorax are unremarkable. Bones: ACDF. IMPRESSION: No consolidation. Dictated by Akin Hill MD @ 12/05/2024 6:22:03 PM (Electronically Signed)
--- NOTE | 2024-12-05 17:31 | ED_ITS ---
HPI - Chest Pain General Date Seen: 12/05/24 Chief Complaint: Hypertension Stated Complaint: chest pain/elevated BP Time Seen by Provider: 12/05/24 17:07 Source: patient Mode of arrival: ambulatory Limitations: no limitations History of Present Illness HPI narrative: Patient is a 69-year-old male presenting to the emergency department for chest pains and tachycardia. He states he woke up this morning feeling fine but then while he was doing some work sitting at a desk he had a 1-2 minute episode of midsternal chest pain that was sharp in nature. He felt like his heart rate was racing he was getting anxious or took his lorazepam. After a the minute her to symptoms got better but he was still feeling tachycardic and jittery. States he has never had this kind of chest pain before. No history of heart or lung disease. He continued on with his day and went to his primary care provider appointment for a sleep study review. He informed his PCP about the chest pain this morning it was recommended he come to the emergency department. At that time he was also hypertensive and 170s over 100s. Patient states the jitteriness seems to be improving but is not fully gone yet he still feels like his heart rate is going faster than it is supposed to. Does state he has a history of anxiety and panic attacks but this does not feel like a previous panic attack. Denies fevers, chills, shortness of breath, abdominal pain, diarrhea, constipation, weakness, numbness. No history of hemoptysis, cancer, recent surgeries, recent long distance travel, blood clots, lower extremity swe lling. Does state he gets intermittent headaches but they are no different today than they have been in the past. Related Data Home Medications ?Medication ?Instructions ?Recorded ?Confirmed balance of nature 6 tab PO QDAY 04/21/2312/02 duloxetine 20 mg capsule,delayed 40 mg PO QDAY 4 12/05/24 release esomeprazole magnesium 20 mg 20 mg PO QAM 12/02/24 capsule,delayed release lorazepam 0.5 mg tablet 0.25 - 0.5 mg PO DAILY PRN a nxiety 12/02/24 12/05/24 testosterone enanthate 75 mg/0.5 mg subcut 07/18/25 07 /18/25 mL subcutaneous auto-injector (Xyosted) Previous Rx's ?Medication ?Instructions ?Recorded lisinopril 10 mg tablet 10 mg PO HS #90 tabs 4 Allergies Allergy/AdvReac Type Severity Reaction Status Date / Time penicillin V Allergy Intermediate swelling Verified 12/05/24 16:46 in throat and face Review of Systems Status of ROS Reports: 10 or more systems reviewed and unremarkable except as noted in History and below [facility] Medical History Hypertension (07/10/10) ?I10 - Essential (primary) hypertension (ICD-10) Obstructive sleep apnea (07/10/10) ?G47.33 - Obstructive sleep apnea (adult) (pediatric) (ICD-10) Panic attack ?F41.0 - Panic disorder [episodic paroxysmal anxiety] (ICD-10) Anxiety ?F41.9 - Anxiety disorder, unspecified (ICD-10) Osteoarthritis of left knee ?M17.12 - Unilateral primary osteoarthritis, left knee (ICD-10) Obesity (07/10/10) ?E66.9 - Obesity, unspecified (ICD-10) Microalbuminuria ?R80.9 - Proteinuria, unspecified (ICD-10) Irritable bowel syndrome (07/10/10) ?K58.9 - Irritable bowel syndrome without diarrhea (ICD-10) Hypogonadism in male ?E29.1 - Testicular hypofunction (ICD-10) Hyperlipidemia (07/10/10) ?E78.5 - Hyperlipidemia, unspecified (ICD-10) Gastroesophageal reflux (07/10/10) ?K21.9 - Gastro-esophageal reflux disease without esophagitis (ICD-10) Electrocution and nonfatal effects of electric current ?T75.4XXA - Electrocution, initial encounter (ICD-10) Depression (07/10/10) ?F32.A - Depression, unspecified (ICD-10) Benign prostatic hyperplasia ?N40.0 - Benign prostatic hyperplasia without lower urinary tract symptoms (ICD-10) Basal cell carcinoma of face (05/21/11) ?C44.310 - Basal cell carcinoma of skin of unspecified parts of face (ICD-10) Atypical chest pain ?R07.89 - Other chest pain (ICD-10) Surgical History S/P arthroscopic partial medial meniscectomy of right knee (07/27/19) ?Z98.890 - Other specified postprocedural states (ICD-10) ?Z87.828 - Personal history of other (healed) physical injury and trauma (ICD-10) History of arthroscopy of left knee (08/01/20) ?Z98.890 - Other specified postprocedural states (ICD-10) H/O left inguinal hernia repair (07/10/10) ?Z98.890 - Other specified postprocedural states (ICD-10) ?Z87.19 - Personal history of other diseases of the digestive system (ICD-10) S/P cervical spinal fusion (07/10/10) ?Z98.1 - Arthrodesis status (ICD-10) 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 His , Kathleen, is here with him. 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 He is a lifelong nonsmoker, has 1 beer per year, denies recreational drug use. What is your current living situation?: declined to answer Problems where you live: declined to answer Problems where you live details: none In the past 12 months, utilities in danger of being shut off: declined to answer In past 12 months, lack of transportation kept you from medical appts, meetings, work, or getting things needed for daily living: declined to answer In the past 12 mos, have been you worried that your food would run out before you had money to buy more?: declined to answer In the past 12 mos, the food you bought just didn't last and you didn't have mon ey to buy more?: declined to answer Highest level of school completed/degree received: Associate degree: occupational, technical, vocational program Smoking Status: Never smoker Do you use any of these nicotine containing products: None How often do you have a drink containing alcohol: monthly or less AUDIT-C Alcohol total score: 1 Non-prescribed substance use: denies use Caffeine: No (pop) How often does anyone, including family, friends and others, physically hurt you : decline to answer How often does anyone, including family, friends and others, insult or talk down to you: decline to answer How often does anyone, including family, friends and others, threaten you with harm: decline to answer How often does anyone, including family, friends and others, scream or curse at you: decline to answer service: No Health Related Social Needs: unsheltered homelessness (Z59.02) Exam Narrative Exam Narrative: Const: Well-nourished, Well-developed, in mild distress Eyes: PERRL, no conjunctival injection, and symmetrical lids HENT: Atraumatic external nose and ears. Moist mucous membranes. Neck: Symmetric, trachea midline, No thyromegaly. CVS: RRR, No murmurs or gallops. Peripheral pulses 2+ and equal in all extr emities RESP: Unlabored respiratory effort. Clear to auscultation bilaterally. GI: Nontender/Nondistended, No rebound or guarding. MSK:Extremities w/o deformity, Normal Active ROM, no midsternal chest tenderness Skin: Warm, Dry. No rashes or lesions. Neuro: Normal Muscle tone, No focal neurological deficits. Psych: Awake, Alert, & Oriented x3. Appropriate mood and affect. Const Vital Signs, click to edit/add: Vital Signs - 24 hr 12/05/24 16:41 12/05/24 17:04 12/05/24 17:32 Temperature 98.6 F Pulse Rate 85 86 Pulse Rate [Pulse Oximeter] 106 H Respiratory Rate 20 13 Blood Pressure 171/87 H 154/93 H Blood Pressure [Right Upper Arm] 185/101 H Pulse Oximetry 96 93 92 Oxygen Delivery Method Room Air 12/05/24 17:45 12/05/24 18:02 Temperature Pulse Rate 73 65 Pulse Rate [Pulse Oximeter] Respiratory Rate 20 18 Blood Pressure 145/88 H Blood Pressure [Right Upper Arm] Pulse Oximetry 92 93 Oxygen Delivery Method Course Vital Signs Vital signs: Initial Vital Signs Temperature 98.6 F 12/05/24 16:41 Temperature Source Temporal Artery Scan 12/05/24 16:41 Pulse Rate 106 H 12/05/24 16:41 Respiratory Rate 20 12/05/24 16:41 Blood Pressure 185/101 H 12/05/24 16:41 Blood Pressure Mean 129 H 12/05/24 16:41 Pulse Oximetry 96 12/05/24 16:41 Oxygen Delivery Method Room Air 12/05/24 16:41 Vital Signs Temperature 98.6 F 12/05/24 16:41 Pulse Rate 106 H 12/05/24 16:41 Respiratory Rate 20 12/05/24 16:41 Blood Pressure 185/101 H 12/05/24 16:41 Pulse Oximetry 96 12/05/24 16:41 Oxygen Delivery Method Room Air 12/05/24 16:41 Temperature 98.6 F 12/05/24 16:41 Pulse Rate 65 12/05/24 18:02 Respiratory Rate 18 12/05/24 18:02 Blood Pressure 145/88 H 12/05/24 18:02 Pulse Oximetry 93 12/05/24 18:02 Oxygen Delivery Method Room Air 12/05/24 16:41 MDM - Chest Pain MDM Narrative Medical decision making narrative: Patient is a 69-year-old male presenting for chest pain. The differential diagnosis of chest pain is broad and includes common etiologies such as musculoskeletal strain, GERD, pneumonia, etc. More serious etiologies considered include PE, coronary artery disease, pneumothorax, aortic dissection, aortic aneurysm. By that time I spoke to his vitals have improved significantly and now he is no longer tachycardic. My concern for can aneurysm or aortic dissection causing this symptoms is low. Will check a D-dimer for signs of a PE. EKG and troponin ordered to look for signs of cardiac disease. Chest x-ray or to look for pneumonia pneumothorax. Will also order a CBC, BMP, viral swab, magnesium. Checks x-ray reviewed by myself the radiologist shows no acute concerning abnormalities. EKG shows no acute concerning findings. EKG did have tachycardia the tachycardia has since resolved. Lab work returned showing no acute concerning findings. Very mildly elevated white blood cell count but no other signs of infection. I do not believe repeat troponin is necessary at this time as symptoms occurred over 8 hours ago and only lasted a minute or 2. On my review vital signs are stable throughout time in in the emergency department. Oximetry stayed in the mid to high 90s. 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 While he was sleeping his heart rate went back to his normal rate of the 60s. A lot of his symptoms may be related to anxiety. At this time I believe he can be safely discharged. He is agreeable to split. Lab Data Labs: Lab Results 12/05/24 12/05/24 Range/Units 16:55 17:30 WBC 12.46 H (4.50-11.00) K/uL RBC 5.91 H (4.30-5.90) m/uL Hgb 17.3 (13.5-17.5) gm/dL Hct 52.1 (37.0-53.0) % MCV 88 (80-100) fL MCH 29 (26-34) pg MCHC 33 (32-36) gm/dL RDW Coeff of Layla 12.2 (11.5-15.5) % Plt Count 201 (140-440) K/uL Neut % (Auto) 53.0 (42.0-72.0) % Lymph % (Auto) 35.0 (20-44) % [place] % (Auto) 10.0 (0.0-11.0) % Eos % (Auto) 0.6 (0.0-7.0) % Baso % (Auto) 0.6 (0.0-3.0) % Neut # (Auto) 6.60 (1.7-7.0) K/uL Lymph # (Auto) 4.40 H (0.90-2.90) K/uL [place] # (Auto) 1.20 H (0.00-0.90) K/UL Eos # (Auto) 0.10 (0.00-0.50) K/uL Baso # (Auto) 0.10 (0.00-0.30) K/uL Abs Immat Gran (auto) 0.10 (0.00-0.30) K/uL Imm/Tot Granulo (auto) 0.8 % D-Dimer Quant (PE/DVT) < 0.27 (0.00-0.50) ug/ml Sodium 137 (135-149) mmol/L Potassium 3.8 (3.6-5.1) mmol/L Chloride 102 (96-114) mmol/L Carbon Dioxide 29 (20-32) mmol/L Anion Gap 6 L (7-15) mEq/L BUN 17 (7-30) mg/dL Creatinine 1.4 (0.5-1.5) mg/dL Estimated Creat Clear 46.82 Estimated GFR 54 ml/min Glucose 105 (60-115) mg/dL Calcium 9.2 (8.4-10.6) mg/dL Magnesium 2.1 (1.5-2.6) mg/dL SARS-CoV-2 (PCR) Negative SARS-CoV-2 (Negative) Influenza Type A (PCR) Negative PCR FLU A (Negative) Influenza Type B (PCR) Negative PCR FLU B (Negative) RSV (PCR) Negative PCR RSV (Negative) POC Troponin I 0.00 L (0.01-0.04) ng/ml Imaging Data Chest x-ray: Radiologist's impression: No consolidation. Dictated by Akin Hill MD @ 12/05/2024 6:22:03 PM ECG Data Attestation: I personally reviewed and interpreted this ECG as follows: Prior ECG tracings: available for review Interpretation: Sinus tachycardia with a rate of 103 beats per minute, normal intervals, normal axis, no ST or T-wave abnormalities. Appears similar previous EKG on file Discharge Plan Discharge Clinical Impression: Atypical chest pain Patient Disposition: Home, Self-Care Condition: Stable Instructions: Noncardiac Chest Pain (ED) Additional Instructions: At this time I cannot say exactly what is causing your chest pain but I do not see any emergent issues. Recommend following up with the primary care provider. Return to emergency department for new or worsening symptoms. Prescriptions: No Action duloxetine 20 mg capsule,delayed release(DR/EC) 40 mg PO QDAY lisinopril 10 mg tablet 10 mg PO HS Qty: 90 3RF balance of nature 6 tab PO QDAY lorazepam 0.5 mg tablet 0.25 - 0.5 mg PO DAILY PRN (Reason: anxiety) esomeprazole magnesium 20 mg capsule,delayed release(DR/EC) 20 mg PO QAM Xyosted 75 mg/0.5 mL auto-injector subcut Patient Comments: [NO ORIGINAL SIG] Follow Up/Referrals: Mushtaq Garcia MD [Primary Care Provider, Family Practice] Stand Alone Forms: [employer] ( HLM )th Info Instructions
[2024-12-05 17:32] VITALS: BP 154/93; PULSE 86; O2SAT 92
[2024-12-05 17:39] LABS: Troponin, Point-of-Care* 0.00 ng/ml (0.01-0.04)
[2024-12-05 17:45] VITALS: PULSE 73; RESP 20; O2SAT 92
[2024-12-05 18:02] VITALS: BP 145/88; PULSE 65; RESP 18; O2SAT 93
[2024-12-05 18:03] LABS: Chloride* 102 mmol/L (96-114); Sodium* 137 mmol/L (135-149)
[2024-12-05 18:04] LABS: Potassium* 3.8 mmol/L (3.6-5.1)
[2024-12-05 18:06] LABS: Anion Gap 6 mEq/L (7-15); Blood Urea Nitrogen* 17 mg/dL (7-30); Carbon Dioxide* 29 mmol/L (20-32); Creatinine* 1.4 mg/dL (0.5-1.5); Est. Creatinine Clearance* 46.82; Estimated Glomerular Filt Rate 54 ml/min
[2024-12-05 18:07] LABS: Calcium* 9.2 mg/dL (8.4-10.6); Glucose* 105 mg/dL (60-115)
[2024-12-05 18:15] LABS: D Dimer Quantitative* < 0.27 ug/ml (0.00-0.50)
[2024-12-05 18:19] LABS: Hematocrit 52.1 % (37.0-53.0); Hemoglobin* 17.3 gm/dL (13.5-17.5); Immature Granulocytes Abs Auto 0.10 K/uL (0.00-0.30); Immature Granulocytes Pct Auto 0.8 %; Mean Corpuscular HGB Conc 33 gm/dL (32-36); Mean Corpuscular Hemoglobin 29 pg (26-34); Mean Corpuscular Volume 88 fL (80-100); PCR FLU A Negative PCR FLU A (Negative); PCR FLU B Negative PCR FLU B (Negative); PCR RSV Negative PCR RSV (Negative); RDW Coefficient of Variation % 12.2 % (11.5-15.5); Red Blood Count 5.91 m/uL (4.30-5.90); SARS PCR* Negative SARS-CoV-2 (Negative); White Blood Count* 12.46 K/uL (4.50-11.00)
[2024-12-05 18:20] LABS: Lymphocytes Absolute Auto 4.40 K/uL (0.90-2.90); Slide Review Reflex No
== END 2024-12-05 18:36 | disposition home or self-care (01) ==
PROVIDERS: Emergency Provider Student in an Organized Health Care Education/Training Program; PCP Family Medicine
DX: R07.9 Chest pain, unspecified (principal)
CPT/HCPCS: 36415; 71046; 80048; 83735; 83880; 84484; 85025; 85379; 87631; 93005; 99284

== ENCOUNTER 2024-12-14 15:13 | Emergency (ER) | payer MEDICARE, OTHER, SELFPAY ==
--- OUTSIDE RECORDS SUMMARY | 2024-12-14 15:21 | XMS_ITS | Clinical Summary ---
Author Organization [facility] Address [address] [place] [address] Care Team Providers Care Flexographic Press Set Up Operator Name Role Phone Mushtaq Garcia MD Primary Care Provider + [phone] Source Comments You are receiving this document as you are listed as the primary care provider,follow-up provider, or the patient has been referred to you for consultation.This is in compliance with the Medicare and[facility] Hospitalcaid EHR Incentive Program,which states Providers who transition their patient to another setting of careor provider of care or refers their patient to another provider of care shouldprovide summary care record for each transition of care or referral. [employer] [employer] Allergies Active Allergy Reactions Criticality Noted Date [...] testosterone,Fati noe, unspecified type 100 mg. Active [place]-3 Fatty Acids (OMEGA 3 500 OR)Indications:Lo w [...] patient's age to complete this topic Insurance [facility] Care Teams Flexographic Press Set Up Operator Relationship Specialty Start Date End Date Mushtaq Garcia MD [address] [place] [address] PCP - General 10/15/16
--- OUTSIDE RECORDS SUMMARY | 2024-12-14 15:21 | XMS_ITS | Clinical Summary ---
Author Organization [facility] Address [address] [place] [address] Care Team Providers Care Dry Cleaner Hand Name Role Phone Mushtaq Garcia MD Primary Care Provider Allergies Active Allergy Reactions Criticality Noted Date Comments Penicillins Angioedema High 01/05/2015 Medications medication order composerIndicat ions:Obstructiv e sleep apnea (adult) (pediatric) Diagnosis 327.23, OBSTRUCTIVE SLEEP APNEA 05/06/2010 AHI-24 CPAP and supplies-- Mask: TAP-PAP #1 1 Device 0 5 Active LORazepam (ATIVAN) 0.5 mg tab 1 Active lisinopriL (PRINIVIL; ZESTRIL) 20 mg tablet Take 20 mg by mouth at bedtime. 1 Active famotidine (PEPCID) 20 mg tablet Take 20 mg by mouth 2 times daily. 2 Active DULoxetine 20 mg Delayed-release capsule Take 40 mg by mouth once daily. Active Xyosted 100 mg/0.5 mL atIn Inject 100 mg every week by subcutaneous route. Active clobetasol 0.05 % cream 5 Active Active Problems Problem Noted Date Diagnosed Date MICHELLE 05/06/2010 AHI-24 05/06/2010 HTN (hypertension) Depression with anxiety Hypercholesterolemia Encounters Date Type Department Care Team Description 12/09/2024 Telephone [facility] [address] [place], [place] [id number] Guilherme Rain MD ER visit 12/05/2024 4:00 PM CDT Office Visit [facility] [address] Guilherme Rain MD Sleep Follow-up 12/05/2024 Travel 11/22/2024 9:30 PM CDT Procedure Only [facility] [address] Guilherme Rain MD 11/22/2024 Orders Only [facility] Scanner 1 scan: (1-Ord) PDSINC, 11/22/2024 11/16/2024 9:45 AM CDT Office Visit [facility] [address] Juan Francisco Ryder, DPM Consult (Consult - bilateral foot and toe fungus, tried over the counter topical ointments, pills, etc. Slows progression but doesn't stop it. Self referral ) 11/16/2024 Travel 11/07/2024 2:00 PM CDT Office Visit [facility] [address] Guilherme Rain MD Sleep Follow-up (HST) 11/07/2024 Travel 11/02/2024 Telephone [facility] [address] Guilherme Rain MD 10/25/2024 7:30 AM CDT Nurse/Clinic Staff Only [facility] [address] [place] [address] Testing (HST Return/Download.) 10/24/2024 2:00 PM CDT Nurse/Clinic Staff Only [facility] [place] [address] Testing (HST Set-up) 10/24/2024 Procedure Only [facility] [place] [address] Guilherme Rain MD Results (HST) 10/24/2024 Travel from Last 3 Months Immunizations Immunization [...] file Legal 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 Gender Identity Not on file Sexual Orientation Not on file Obstetrics History Last Filed Vital Signs Vital Sign Reading Time Taken Comments Blood Pressure 172/101 12/05/2024 4:01 PM CDT Pulse 97 12/05/2024 4:01 PM CDT Temperature 36.6 C (97.9 F) 12/21/2020 1:30 PM CDT Respiratory Rate 18 07/17/2021 11:01 AM CUSTOMER SUPPORT MANAGER Oxygen Saturation 96% 12/05/2024 3:58 PM CDT Inhaled Oxygen Concentration - - Weight 99.8 kg (220 lb) 12/05/2024 3:58 PM CDT Height 172.7 cm (5' 8) 12/05/2024 3:58 PM CDT Body Mass Index 33.45 12/05/2024 3:58 PM CDT Plan of Treatment Upcoming Encounters Date Type Department Care Team (Late st Contact Info) Description 01/24/2025 9:00 AM CDT Office Visit [address] [phone] Silvia Palacios PA [address] [place] [address] 01/25/2025 9:00 AM CDT Nutrition/Dieticia n [facility] [address] [place] [phone] Leela Hutchins, AMANDA [address] [place] [address] Health Maintenance Due Date Last Done Comments [...] for age 65+ 2018 COVID-19 vaccine series (3 - 2023- season) 2024 03/13/2021, 07/20/2020 Influenza Vaccine (#1) [...] Home Sleep Test Name: Duy Schreiber Location: [facility] Study notes: This is a single night [...] and interpreted by a Diplomate of the [place] [employer]. Raw summary data [...] is accepted, but not the former. Guilherme Escaleraomate, Board of Sleep Medicine Recording Information Recording [...] % Duration > 100 bpm: 0 m us Guilherme Rain MD [facility] Final Result from Last 3 Months Insurance [place] [id number] MEDICARE PB ONLY MEDICARE PART A HB ONLY WORKERS COMP Advance Directives * Full Code (Latest Code Status on File) Date Activated Date Inactivated Comments 12/21/2020 10:14 AM 12/21/2020 4:37 PM Question Answer Comments Code Status Discussion: Not Discussed Care Teams Dry Cleaner Hand Relationship Specialty Start Date End Date Mushtaq Garcia MD PCP - General Family Practice 01/05/15
--- OUTSIDE RECORDS SUMMARY | 2024-12-14 15:21 | XMS_ITS | Patient Health Record ---
Author Organization [facility] Address [address] [place] [address] Care Team Providers Care Oxide Furnace Tender Name Role Phone Mushtaq Garcia Primary Care Provider UnavailKIM Urena Unavailable [phone] None, None Unavailable Unavailable Allergies Allergen (clinical drug ingredient) Drug/Non Drug Allergy documented on EMR Reaction Allergy Type Onset Date Status Penicillin Unknown Drug Allergy Active Reason For Referral No Information Medications Medication SIG (Take, Route, Frequency, Duration) Notes Start Date End Date Status Ibuprofen Active Lisinopril 20 MG Tablet 1 tablet Orally Once a day; Duration: 30 day(s) Active Tamsulosin HCl 0.4 MG Capsule 1 capsule Orally Once a day; Duration: 30 day(s) Active Famotidine 20 MG Tablet Oral; Duration: 30 Active oxyBUTYnin Chloride ER 5 MG Tablet Extended Release 24 Hour Oral; Duration: 30 Active Pentoxifylline ER 400 MG Tablet Extended Release Oral; Duration: 30 Active buPROPion HCl ER (XL) 300 MG Tablet Extended Release 24 Hour Oral; Duration: 30 Active PARoxetine HCl 30 MG Tablet Oral; Duration: 90 Active Social History Tobacco Use: Social History Observation Description Date Details (start date - stop date) Never Smoker NA - NA Social History Alcohol Use: Social Info Question Answer Notes Alcohol Screen Did you have a drink containing alcohol in the past year? Yes How often did you have a drink containing alcohol in the past year? Monthly or less (1 point) How often did you have 6 or more drinks on one occasion in the past year? Never (0 point) Points 1 Interpretation Negative Tobacco Use: Social Info Question Answer Notes Tobacco use/smoking Are you a nonsmoker Problems Problem Type SNOMED Code ICD Code Onset Dates Problem Status W/U Status Risk Notes Problem Obstructive sleep apnea (G47.33) Active confirmed Plan Of Treatment No Information Insurance Providers Payer Name Payer Address Payer Phone Subscriber Number Group Number Insured Name Patient Relationship to Insured Coverage Start Date Coverage End Date [facility] [address] [address] [place] [phone] [id number] Duy Schreiber Self - patient is the insured MEDICARE SECONDARY [address] [place] [phone] [id number] Duy Schreiber Self - patient is the insured Medical (General) History Medical History History ICD Code sleep apnea hypertension Surgical History Surgery Date(Month/Year) hernia repair neck fusion knee surgery x 3 DISE IP 12/21/2020
--- OUTSIDE RECORDS SUMMARY | 2024-12-14 15:21 | XMS_ITS | Clinical Summary ---
Author Organization [facility] Address [address] [place] [address] Care Team Providers Care Soda Column Operator Name Role Phone Unknown, Md Primary [...] this topic Medical Devices Implanted Type Area Vice President Digital Strategist Device Identifier Shelf Expiration Date Model / Serial / Lot Cl [place] - [id number] Implanted:Qty: 1 on 03/03/2023 by Eulogio Quiroz MD at [facility] Penile N/A: Pelvis Coloplast Luanne 12/05/2027 [id number] / / [id number] Assembly Kit Titan - [id number] Implanted:Qty: 1 on 03/03/2023 by Eulogio Quiroz MD at [facility] Supply N/A: Penis Coloplast Luanne 10/14/2027 [id number] / / [id number] Infrapubic Cylinder Pump Titan Implanted:Qty: 1 on 03/03/2023 by Eulogio Quiroz MD at [facility] N/A: Penis Coloplast Luanne 07/01/2027 [id number] Insurance [facility] [place] [id number] [facility] MEDICARE SUPPLEMENT [facility] Supplemental Address: [address] [address] [place] [address] MEDICARE PART A & B [facility] [place] [id number] Care Teams Soda Column Operator Relationship Specialty Start Date End Date Unknown, NO ADDRESS/PHONE/FAX AFFILIATED PCP - General 02/19/23
[2024-12-14 15:30] VITALS: BP 179/77; PULSE 86; RESP 20; TEMP 36.7; O2SAT 98; BMI 33.5
--- NOTE | 2024-12-14 16:41 | ED.GENADULT ---
HPI - General Adult General Chief complaint: Hypertension Stated complaint: high blood pressure, dizzy Time Seen by Provider: 12/14/24 16:40 History of Present Illness HPI narrative: Arrives with complaints of HTN, SERVIN, and dizziness. Reports being seen here last Thursday for CP, saw PMD on Thursday and started on BP med. Reports BP at home 200's systolic today. Denies CP or SOB, alert and oriented, ABCs intact. 69-year-old man presenting to emergency department with concern high blood pressures some headache and dizziness. Recently started on a new blood pressure medication - I think this was lower dose amlodipine. Was measuring a pressures of 200 systolic today at home. Has been seen most recently in this department for atypical chest pain vasovagal syncope and anxiety by myself. Does have medication induced hyponatremia. Does have hydroxyzine available. Has been experiencing some headache. It sounds like it might be worse orthostaticly. No fever. Related Data Home Medications ?Medication ?Instructions ?Recorded ?Confirmed balance of nature 6 tab PO QDAY 04/21/23 12/07/24 duloxetine 20 mg capsule,delayed 40 mg PO QDAY 12/29/23 12/07/24 release esomeprazole magnesium 20 mg 20 mg PO QAM 12/02/24 12/07/24 capsule,delayed release lorazepam 0.5 mg tablet 0.25 - 0.5 mg PO DAILY PRN anxiety 12/02/24 12/07/24 testosterone enanthate 75 mg/0.5 mg subcut 12/02/24 12/07/24 mL subcutaneous auto-injector (Xyosted) clobetasol 0.05 % topical cream topical 12/07/24 12/07/24 sulfacetamide sodium-sulfur 8 %-4 topical DAILY 12/07/24 12/07/24 % topical suspension triamcinolone acetonide 0.1 % 1 applic topical BID-TID 12/07/24 12/07/24 topical cream Previous Rx's ?Medication ?Instructions ?Recorded lisinopril 10 mg tablet 10 mg PO HS #90 tabs 05/04/24 amlodipine 5 mg tablet 5 mg PO QDAY #90 tabs 12/07/24 Allergies Allergy/AdvReac Type Severity Reaction Status Date / Time penicillin V Allergy Intermediate swelling Verified 12/14/24 15:27 in throat and face Review of Systems Status of ROS: Reports: 6 or more systems reviewed and unremarkable except as noted in History and below [facility] Medical History CKD (chronic kidney disease) ?N18.9 - Chronic kidney disease, unspecified (ICD-10) Hypertension (07/10/10) ?I10 - Essential (primary) hypertension (ICD-10) Obstructive sleep apnea (07/10/10) ?G47.33 - Obstructive sleep apnea (adult) (pediatric) (ICD-10) Panic attack ?F41.0 - Panic disorder [episodic paroxysmal anxiety] (ICD-10) Anxiety ?F41.9 - Anxiety disorder, unspecified (ICD-10) Osteoarthritis of left knee ?M17.12 - Unilateral primary osteoarthritis, left knee (ICD-10) Obesity (07/10/10) ?E66.9 - Obesity, unspecified (ICD-10) Microalbuminuria ?R80.9 - Proteinuria, unspecified (ICD-10) Irritable bowel syndrome (07/10/10) ?K58.9 - Irritable bowel syndrome without diarrhea (ICD-10) Hypogonadism in male ?E29.1 - Testicular hypofunction (ICD-10) Hyperlipidemia (07/10/10) ?E78.5 - Hyperlipidemia, unspecified (ICD-10) Gastroesophageal reflux (07/10/10) ?K21.9 - Gastro-esophageal reflux disease without esophagitis (ICD-10) Electrocution and nonfatal effects of electric current ?T75.4XXA - Electrocution, initial encounter (ICD-10) Depression (07/10/10) ?F32.A - Depression, unspecified (ICD-10) Benign prostatic hyperplasia ?N40.0 - Benign prostatic hyperplasia without lower urinary tract symptoms (ICD-10) Basal cell carcinoma of face (05/21/11) ?C44.310 - Basal cell carcinoma of skin of unspecified parts of face (ICD-10) Atypical chest pain ?R07.89 - Other chest pain (ICD-10) Surgical History S/P arthroscopic partial medial meniscectomy of right knee (07/27/19) ?Z98.890 - Other specified postprocedural states (ICD-10) ?Z87.828 - Personal history of other (healed) physical injury and trauma (ICD-10) History of arthroscopy of left knee (08/01/20) ?Z98.890 - Other specified postprocedural states (ICD-10) H/O left inguinal hernia repair (07/10/10) ?Z98.890 - Other specified postprocedural states (ICD-10) ?Z87.19 - Personal history of other diseases of the digestive system (ICD-10) S/P cervical spinal fusion (07/10/10) ?Z98.1 - Arthrodesis status (ICD-10) 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 His , Kathleen, is here with him. 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 He is a lifelong nonsmoker, has 1 beer per year, denies recreational drug use. What is your current living situation?: declined to answer Problems where you live: declined to answer Problems where you live details: none In the past 12 months, utilities in danger of being shut off: declined to answer In past 12 months, lack of transportation kept you from medical appts, meetings, work, or getting things needed for daily living: declined to answer In the past 12 mos, have been you worried that your food would run out before you had money to buy more?: declined to answer In the past 12 mos, the food you bought just didn't last and you didn't have money to buy more?: declined to answer Highest level of school completed/degree received: Associate degree: occupational, technical, vocational program Smoking Status: Never smoker Do you use any of these nicotine containing products: None How often do you have a drink containing alcohol: monthly or less AUDIT-C Alcohol total score: 1 Non-prescribed substance use: denies use Caffeine: No (pop) How often does anyone, including family, friends and others, physically hurt you: decline to answer How often does anyone, including family, friends and others, insult or talk down to you: decline to answer How often does anyone, including family, friends and others, threaten you with harm: decline to answer How often does anyone, including family, friends and others, scream or curse at you: decline to answer service: No Health Related Social Needs: unsheltered homelessness (Z59.02) Exam Narrative: Exam Narrative: Pleasant. Calm. Thoughtful man. Heart in regular rate and rhythm. Extremities are without notable edema. Is well-perfused. Cranial nerves 2-12 intact. Const: Vital Signs, click to edit/add: Vital Signs - 24 hr 12/14/24 15:30 Temperature 98.0 F Pulse Rate [Pulse Oximeter] 86 Respiratory Rate 20 Blood Pressure [Ri ght Upper Arm] 179/77 H Pulse Oximetry 98 Oxygen Delivery Me thod Room Air Documenting provider has reviewed patient's vital signs: yes Course Vital Signs Vital signs: Initial Vital Signs Temperature 98.0 F 12/14/24 15:30 Temperature Source Temporal Artery Scan 12/14/24 15:30 Pulse Rate 86 12/14/24 15:30 Respiratory Rate 20 12/14/24 15:30 Blood Pressure 179/77 H 12/14/24 15:30 Blood Pressure Mean 111 H 12/14/24 15:30 Pulse Oximetry 98 12/14/24 15:30 Oxygen Delivery Method Room Air 12/14/24 15:30 Vital Signs Temperature 98.0 F 12/14/24 15:30 Pulse Rate 86 12/14/24 15:30 Respiratory Rate 20 12/14/24 15:30 Blood Pressure 179/77 H 12/14/24 15:30 Pulse Oximetry 98 12/14/24 15:30 Oxygen Delivery Method Room Air 12/14/24 15:30 Temperature 98.0 F 12/14/24 15:30 Pulse Rate 86 12/14/24 15:30 Respiratory Rate 20 12/14/24 15:30 Blood Pressure 174/89 H 12/14/24 17:17 Pulse Oximetry 98 12/14/24 15:30 Oxygen Delivery Method Room Air 12/14/24 15:30 Medical Decision Making MDM Narrative Medical decision making narrative: Subsequent blood pressure reading after initial at 157/79. I noticed this on monitor as I went to talk with Mr. Schreiber. Next one 180s over 100 while sitting talking. Anxiety is certainly playing a role with blood pressure readings. He has been measuring upper arm but predominantly wrist area at home that tends to correlate with his upper arm measurements. I do not think needs evaluation for hypertensive emergency here in the emergency department. Mechanism of amlodipine might be contributing to headache also in the short term. Discussed management of and mechanism of blood pressure medications. See patient discharge plan for further discussion Yes, your headache could well be related to your amlodipine and not because necessarily because your blood pressures are high. The way amlodipine works it would make sense that you could be experiencing some headaches especially when you go to sit or stand. I do not doubt that you can feel when your pressures are elevated though I also suspect that your anxiety drives your blood pressures significantly. With that in mind I would consider taking a tablet or maybe a half a tablet of your hydroxyzine when you are feeling like your pressures might be more elevated or when you might be feeling more stressed about it. Continue to stay well-hydrated; drinking 2-3 L of water daily should be plenty. I think it is okay to continue to check your blood pressures once or twice a day after period of rest. Take those readings and your blood pressure cuffs into your follow-up appointment early next week. Medical Records Medical records reviewed: Yes I reviewed the patient's medical records Discharge Plan Discharge Clinical Impression: Anxiety Hypertension Qualifiers: Hypertension type: primary hypertension Qualified Code(s): I10 - Essential (primary) hypertension Patient Disposition: Home, Self-Care Condition: Improved Additional Instructions: Yes, your headache could well be related to your amlodipine and not because necessarily because your blood pressures are high. The way amlodipine works it would make sense that you could be experiencing some headaches especially when you go to sit or stand. I do not doubt that you can feel when your pressures are elevated though I also suspect that your anxiety drives your blood pressures significantly. With that in mind I would consider taking a tablet or maybe a half a tablet of your hydroxyzine when you are feeling like your pressures might be more elevated or when you might be feeling more stressed about it. Continue to stay well-hydrated; drinking 2-3 L of water daily should be plenty. I think it is okay to continue to check your blood pressures once or twice a day after period of rest. Take those readings and your blood pressure cuffs into your follow-up appointment early next week. Prescriptions: No Action duloxetine 20 mg capsule,delayed release(DR/EC) 40 mg PO QDAY lisinopril 10 mg tablet 10 mg PO HS Qty: 90 3RF balance of nature 6 tab PO QDAY lorazepam 0.5 mg tablet 0.25 - 0.5 mg PO DAILY PRN (Reason: anxiety) esomeprazole magnesium 20 mg capsule,delayed release(DR/EC) 20 mg PO QAM Xyosted 75 mg/0.5 mL auto-injector subcut Patient Comments: [NO ORIGINAL SIG] clobetasol 0.05 % cream topical triamcinolone acetonide 0.1 % cream 1 applic topical BID-TID sulfacetamide sodium-sulfur 8-4 % suspension topical DAILY amlodipine 5 mg tablet 5 mg PO QDAY Qty: 90 0RF Follow Up/Referrals: Mushtaq Garcia MD [Primary Care Provider, Family Practice] Stand Alone Forms: [employer] Info Instructions
[2024-12-14 17:17] VITALS: BP 174/89
== END 2024-12-14 17:24 | disposition home or self-care (01) ==
LOC: ED 17:20
PROVIDERS: Emergency Provider Family Medicine; PCP Family Medicine
DX: F41.9 Anxiety disorder, unspecified (principal); I10 Essential (primary) hypertension; Z79.899 Other long term (current) drug therapy
CPT/HCPCS: 93005; 99284

== ENCOUNTER 2025-05-05 07:35 | Outpatient (CLI) | payer MEDICARE, OTHER, SELFPAY | END 2025-05-05 07:36 | disposition home or self-care (01) | LOC: NFLDREF 05-10 21:44 | PROVIDERS: PCP Family Medicine; Referring Provider Family Medicine; Visit Provider Family Medicine | DX: E78.5 Hyperlipidemia, unspecified (principal); R97.20 Elevated prostate specific antigen [PSA]; Z13.1 Encounter for screening for diabetes mellitus | CPT/HCPCS: 80053; 80061; G0103 ==